=== PATIENT | female | born 1955 | race Caucasian/White ===

== ENCOUNTER 2018-01-06 20:00 | Emergency (ER) | payer OTHER ==
[2018-01-06] MEDS ORDERED: IPRATROPIUM-ALBUTEROL 3 ML NEB INHALATION STA (20:43)
[2018-01-06] MEDS ORDERED: methylPREDNISolone SOD SUCCI 125 MG/2 ML VIAL IV STA (20:43)
[2018-01-06 21:07] VITALS: PULSE 80
[2018-01-06] MEDS ORDERED: methylPREDNISolone SOD SUCCI 125 MG/2 ML VIAL IM ONE (21:16)
[2018-01-06 21:21] LABS: Glucose,Whole Blood 127 mg/dL (75-99)
--- NOTE | 2018-01-06 21:37 | ED ---
ENT HPI - General Chief complaint: ENT Stated complaint: trouble swallowing/trouble eating Time Seen by Provider: 01/06/18 20:22 Source: patient, RN notes reviewed, old records reviewed Mode of arrival: wheelchair Limitations: no limitations - History of Present Illness Initial comments: 62-year-old female presents emergency department today chief complaint of severe sore throat and losing her voice. She reports that on Saturday she accidentally swallowed a stem of a strawberry. She reports that she then coughed up the leaf. She reports that since then she was having a very sore throat and developed loss of her voice. She states that whenever she breathes and she has severe irritation and pain. She also complains of some right ear pain. Patient states she's had no drainage from the ear. She states that whenever she opens or closes her jaw she has pain within the ear. Patient is diabetic and remains on insulin. She reports that she has not been able to eat or drink anything because her throat has been so sore. - Related Data Home Medications Medication Instructions Recorded Confirmed ALPRAZolam [Xanax] 1 mg PO QID PRN 01/06/18 01/06/18 Beclomethasone Dipropionate [Qvar 2 puff INHALATION RT-QID 01/06/18 01/06/18 80 mcg] Cholecalciferol (Vitamin D3) 4,000 unit PO DAILY 01/06/18 01/06/18 [Vitamin D3] Clemastine Fumarate 2.68 mg PO BID 01/06/18 01/06/18 Cyclobenzaprine [Flexeril] 10 mg PO HS 01/06/18 01/06/18 Furosemide [Lasix] 40 mg PO DAILY 01/06/18 01/06/18 HYDROcodone/APAP 10-325MG [[place] 1 tab PO QID PRN 01/06/18 01/06/18 10-325] INSULIN LISPRO (humaLOG) [humaLOG] 55 units SQ AC-TID 01/06/18 01/06/18 INSULIN LISPRO (humaLOG) [humaLOG] See Protocol SQ DIRECTED 01/06/18 01/06/18 Insulin NPH Human Isophane 85 unit SQ HS 01/06/18 01/06/18 [humuLIN N] Ipratropium-Albuterol Nebulize 3 ml INHALATION RT-TID PRN 01/06/18 01/06/18 [Duoneb 0.5 mg-3 mg/3 ml Soln] Levothyroxine Sodium [Synthroid] 88 mcg PO DAILY 01/06/18 01/06/18 Lisinopril [Zestril] 2.5 mg PO DAILY 01/06/18 01/06/18 Metoprolol Succinate (ER) [Toprol 100 mg PO DAILY 01/06/18 01/06/18 Xl] Nystatin 100,000Unit/gm Cream 1 applic TOPICAL BID 01/06/18 01/06/18 [Mycostatin Cream] Spironolactone [Aldactone] 25 mg PO DAILY 01/06/18 01/06/18 Warfarin [Coumadin] 7.5 mg PO DAILY 01/06/18 01/06/18 Previous Rx's Medication Instructions Recorded Amoxic-Pot Clav 875-125Mg 1 tab PO Q12HR #20 tablet 01/06/18 [Augmentin 875-125] Allergies Allergy/AdvReac Type Severity Reaction Status Date / Time erythromycin base AdvReac Unknown Verified 01/06/18 20:10 morphine AdvReac Unknown Verified 01/06/18 20:10 Review of Systems ROS Statement: Those systems with pertinent positive or pertinent negative responses have been documented in the HPI. ROS Other: All systems not noted in ROS Statement are negative. Past Medical History Past Medical History: Atrial Fibrillation, Heart Failure, Diabetes Mellitus, Hyperlipidemia, Thyroid Disorder Additional Past Medical History / Comment(s): arthritis. cyst behing left leg. History of Any Multi-Drug Resistant Organisms: MRSA Date of last positivie culture/infection: 1999 MDRO Source:: blood Past Surgical History: Appendectomy, Cholecystectomy, Tonsillectomy, Tubal Ligation Additional Past Surgical History / Comment(s): bilateral knee laproscopy. Past Psychological History: No Psychological Hx Reported Smoking Status: Current every day smoker Past Alcohol Use History: None Reported Past Drug Use History: None Reported General Exam Limitations: no limitations Course Vital Signs 01/06/18 01/06/18 01/06/18 20:03 20:57 21:07 Temperature 98.8 F Pulse Rate 78 78 80 Respiratory 20 Rate Blood Pressure 154/118 O2 Sat by Pulse 97 Oximetry 01/06/18 23:17 Temperature 98.7 F Pulse Rate 80 Respiratory 18 Rate Blood Pressure 136/70 O2 Sat by Pulse 98 Oximetry Medical Decision Making - Medical Decision Making 62-year-old female presents emergency department today chief complaint of severe sore throat and losing her voice. She reports that on Saturday she accidentally swallowed a stem of a strawberry. She reports that she then coughed up the leaf. She reports that since then she was having a very sore throat and developed loss of her voice. She states that whenever she breathes and she has severe irritation and pain. Patient soft tissue neck and CXR are reviewed adn normal. Patient does have no voice, she can tolerate liquid medication. Patient was given IM solumedrol, unable to obtain IV access after multiple attempts. Patient did have some wheezing, feels better after duoneb. She is a smoker. Patient clinically has severe learyngitis. Patient pharyngitis as well. Will start on augmentin for foreign body ingestion related espohagitis. Labs show evidence of leukocytosis. Paitent advised to follow up with ENT. Return parameters discussed. L - Lab Data Result diagrams: 01/06/18 21:28 01/06/18 21:28 Lab Results 01/06/18 01/06/18 01/06/18 Range/Units 21:20 21:28 21:28 WBC 15.6 H (3.8-10.6) k/uL RBC 5.30 (3.80-5.40) m/uL Hgb 16.2 H (11.4-16.0) gm/dL Hct 48.4 H (34.0-46.0) % MCV 91.4 (80.0-100.0) fL MCH 30.6 (25.0-35.0) pg MCHC 33.5 (31.0-37.0) g/dL RDW 13.5 (11.5-15.5) % Plt Count 183 (150-450) k/uL Neutrophils % 68 % Lymphocytes % 21 % Monocytes % 8 % Eosinophils % 1 % Basophils % 1 % Neutrophils # 10.5 H (1.3-7.7) k/uL Lymphocytes # 3.2 (1.0-4.8) k/uL Monocytes # 1.2 H (0-1.0) k/uL Eosinophils # 0.2 (0-0.7) k/uL Basophils # 0.1 (0-0.2) k/uL Sodium 140 (137-145) mmol/L Potassium 4.7 (3.5-5.1) mmol/L Chloride 102 (98-107) mmol/L Carbon Dioxide 19 L (22-30) mmol/L Anion Gap 19 mmol/L BUN 24 H (7-17) mg/dL Creatinine 1.10 H (0.52-1.04) mg/dL Est GFR (CKD-EPI)AfAm 62 (>60 ml/min/1.73 sqM) Est GFR (CKD-EPI)NonAf 54 (>60 ml/min/1.73 sqM) Glucose 138 H (74-99) mg/dL POC Glucose (mg/dL) 127 H (75-99) mg/dL POC Glu [employer] [place] Calcium 10.5 H (8.4-10.2) mg/dL 01/06/18 21:59 - Radiology Data Radiology results: report reviewed (CXR and soft tissue neck xray completed and no abnormalities noted. ) Disposition Clinical Impression: Laryngitis, Pharyngitis Disposition: HOME SELF-CARE Condition: Good Instructions: Laryngitis (ED) Additional Instructions: Patient is advised to take the medication as directed. Patient to follow-up with ENT. If there is any worsening signs or symptoms patient should return. Prescriptions: Amoxic-Pot Clav 875-125Mg [Augmentin 875-125] 1 tab PO Q12HR #20 tablet Is patient prescribed a controlled substance at d/c from ED?: No If prescribed controlled substance>3 days was MAPS reviewed?: No When asked, does pt state using other controlled substances?: No Referrals: Gabriel Vera MD [Primary Care Provider] - 1-2 days Rip Mendoza DO [Doctor of Osteopathic Medicine] - 1-2 days Time of Disposition: 22:59
[2018-01-06 22:03] LABS: Basophils # (A) 0.1 k/uL (0-0.2); Basophils % (A) 1 %; Eosinophils # (A) 0.2 k/uL (0-0.7); Eosinophils % (A) 1 %; HCT 48.4 % (34.0-46.0); HGB 16.2 gm/dL (11.4-16.0); Lymphocytes # (A) 3.2 k/uL (1.0-4.8); Lymphocytes % (A) 21 %; MCH 30.6 pg (25.0-35.0); MCHC 33.5 g/dL (31.0-37.0); MCV 91.4 fL (80.0-100.0); Mean Platelet Volume 8.9; Monocytes # (A) 1.2 k/uL (0-1.0); Monocytes % (A) 8 %; Neutrophils # (A) 10.5 k/uL (1.3-7.7); Neutrophils % (A) 68 %; Platelet Count 183 k/uL (150-450); RDW 13.5 % (11.5-15.5); WBC 15.6 k/uL (3.8-10.6)
[2018-01-06 22:04] LABS: Calcium 10.5 mg/dL (8.4-10.2); Potassium 4.7 mmol/L (3.5-5.1)
--- NOTE | 2018-01-06 22:33 | XR ---
EXAMINATION TYPE: XR chest 2V DATE OF EXAM: 01/06/2018 COMPARISON: 11/07/2013 HISTORY: Pain TECHNIQUE: Frontal and lateral views of the chest are obtained. FINDINGS: Heart and mediastinum are normal. Lungs are clear. Diaphragm is normal. There is spurring in the lower thoracic spine. Bony thorax is intact. IMPRESSION: Normal chest. No change.
--- NOTE | 2018-01-06 22:34 | XR ---
EXAMINATION TYPE: XR soft tissue neck DATE OF EXAM: 01/06/2018 COMPARISON: NONE HISTORY: Throat pain TECHNIQUE: 2 views FINDINGS: Epiglottis is normal. Subglottic trachea appears normal. Tonsils and adenoids appear normal . Prevertebral soft tissues are not enlarged. IMPRESSION: Negative cervical soft tissue exam.
[2018-01-06] MEDS ORDERED: KETOROLAC 30 MG/ML 1 ML VIAL IM STA (22:37)
[2018-01-06] MEDS ORDERED: MORPHINE SULFATE 4 MG/ML SYRINGE IM STA (22:37)
[2018-01-06] MEDS ORDERED: AMOXIC-POT CLAV 875MG STARTER 2 EACH TABLET PO STA (23:00)
[2018-01-06] MEDS ORDERED: cefTRIAXone 1,000 MG VIAL (IM USE) IM STA (23:01)
[2018-01-06 23:18] VITALS: BP 136/70; RESP 18; TEMP 98.7
== END 2018-01-06 23:22 | disposition home or self-care (01) ==
LOC: EC 20:00
DX: J04.0 Acute laryngitis (principal); J02.9 Acute pharyngitis, unspecified; T18.198A Other foreign object in esophagus causing other injury, initial encounter; D72.829 Elevated white blood cell count, unspecified; H92.01 Otalgia, right ear; I48.91 Unspecified atrial fibrillation; E11.9 Type 2 diabetes mellitus without complications; I50.9 Heart failure, unspecified; E07.9 Disorder of thyroid, unspecified; F17.200 Nicotine dependence, unspecified, uncomplicated; Z79.01 Long term (current) use of anticoagulants; Z79.4 Long term (current) use of insulin; Z79.51 Long term (current) use of inhaled steroids; Z79.899 Other long term (current) drug therapy; Z88.1 Allergy status to other antibiotic agents; Z88.5 Allergy status to narcotic agent; Z86.14 Personal history of Methicillin resistant Staphylococcus aureus infection; Z90.89 Acquired absence of other organs
CPT/HCPCS: 99284; 96372 ×2; 36415; 94640; 80048; 85025; 70360; 71046; J2270; J2930; J0696; J1885

== ENCOUNTER 2018-08-02 20:44 | Emergency (ER) | payer OTHER ==
[2018-08-02] MEDS ORDERED: DILTIAZEM DRIP BOLUS FROM BAG 1 MG SOLN IV ONE (21:24)
[2018-08-02] MEDS ORDERED: LORazepam 2 MG/ML INJ IV STA (21:24)
--- NOTE | 2018-08-02 21:27 | XR ---
EXAMINATION TYPE: XR chest 1V portable DATE OF EXAM: 08/02/2018 COMPARISON: NONE HISTORY: Chest pain TECHNIQUE: Single frontal view of the chest is obtained. FINDINGS: There is no focal air space opacity, pleural effusion, or pneumothorax seen. The cardiac silhouette size is within normal limits. The osseous structures are intact. IMPRESSION: No acute process.
[2018-08-02] MEDS ORDERED: DILTIAZEM 50 MG in SODIUM CHLORIDE 0.9% 40 ML IV SCH (21:30)
[2018-08-02 21:35] LABS: Basophils # (A) 0.1 k/uL (0-0.2); Basophils % (A) 1 %; Eosinophils # (A) 0.1 k/uL (0-0.7); Eosinophils % (A) 1 %; HCT 44.5 % (34.0-46.0); HGB 14.9 gm/dL (11.4-16.0); Lymphocytes # (A) 1.7 k/uL (1.0-4.8); Lymphocytes % (A) 17 %; MCHC 33.6 g/dL (31.0-37.0); MCV 92.2 fL (80.0-100.0); Mean Platelet Volume 8.8; Monocytes # (A) 0.8 k/uL (0-1.0); Monocytes % (A) 8 %; Neutrophils # (A) 7.3 k/uL (1.3-7.7); Neutrophils % (A) 71 %; Platelet Count 144 k/uL (150-450); RBC 4.82 m/uL (3.80-5.40); RDW 13.4 % (11.5-15.5); WBC 10.2 k/uL (3.8-10.6)
[2018-08-02 21:49] LABS: INR 2.4 (<1.2); Partial Thromboplastin Time 34.6 sec (22.0-30.0); Prothrombin Time 21.7 sec (9.0-12.0)
[2018-08-02 21:50] VITALS: RESP 18
[2018-08-02 21:50] LABS: Calcium 9.9 mg/dL (8.4-10.2); Magnesium 1.4 mg/dL (1.6-2.3); Potassium 4.8 mmol/L (3.5-5.1); Total Bilirubin 0.5 mg/dL (0.2-1.3); Total Protein 6.6 g/dL (6.3-8.2)
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
[2018-08-02 21:56] LABS: Creatine Kinase 68 U/L (30-135)
[2018-08-02 22:08] LABS: Creatine Kinase MB 0.8 ng/mL (0.0-2.4); Troponin I <0.012 ng/mL (0.000-0.034)
[2018-08-03] MEDS ORDERED: HYDROcodone/APAP 10-325MG 1 EACH TAB PO ONE (01:07)
[2018-08-03 01:24] VITALS: BP 105/68; PULSE 84; TEMP 98.2
== END 2018-08-03 01:22 | disposition home or self-care (01) ==
LOC: EC 20:44
DX: I48.91 Unspecified atrial fibrillation (principal); I50.9 Heart failure, unspecified; E11.9 Type 2 diabetes mellitus without complications; E78.5 Hyperlipidemia, unspecified; E07.9 Disorder of thyroid, unspecified; F17.200 Nicotine dependence, unspecified, uncomplicated; Z86.14 Personal history of Methicillin resistant Staphylococcus aureus infection; Z79.51 Long term (current) use of inhaled steroids; Z79.4 Long term (current) use of insulin; Z79.01 Long term (current) use of anticoagulants; Z79.899 Other long term (current) drug therapy; Z88.1 Allergy status to other antibiotic agents; Z88.5 Allergy status to narcotic agent
CPT/HCPCS: 36415; 93005; 80053; 82550; 82553; 83735; 84484; 85025; 85610; 85730; 71045; 99285; 96365; 96366 ×2; 96375; 96376; J2060

== ENCOUNTER 2019-02-27 22:38 | Inpatient (IN) | payer OTHER ==
[2019-02-27] MEDS ORDERED: METOPROLOL SUCCINATE (ER) 25 MG TAB.ER.24H PO STA (23:13)
[2019-02-27] MEDS ORDERED: ADENOSINE 3 MG/ML 2 ML VIAL IVP STA (23:13)
[2019-02-27] MEDS ORDERED: METOPROLOL TARTRATE 5 MG/5 ML VIAL IVP SCH (23:15)
[2019-02-27 23:35] LABS: Basophils # (A) 0.1 k/uL (0-0.2); Basophils % (A) 1 %; Eosinophils # (A) 0.1 k/uL (0-0.7); Eosinophils % (A) 1 %; HCT 27.4 % (34.0-46.0); HGB 8.6 gm/dL (11.4-16.0); Hypochromasia Slight; Lymphocytes # (A) 3.2 k/uL (1.0-4.8); Lymphocytes % (A) 22 %; MCH 29.2 pg (25.0-35.0); MCHC 31.5 g/dL (31.0-37.0); MCV 92.7 fL (80.0-100.0); Mean Platelet Volume 8.5; Monocytes # (A) 1.1 k/uL (0-1.0); Monocytes % (A) 8 %; Neutrophils # (A) 9.5 k/uL (1.3-7.7); Neutrophils % (A) 65 %; Platelet Count 383 k/uL (150-450); Poikilocytosis Slight; RBC 2.96 m/uL (3.80-5.40); RDW 14.3 % (11.5-15.5); WBC 14.5 k/uL (3.8-10.6)
[2019-02-27 23:49] LABS: Digoxin 0.8 ng/mL; Potassium 4.3 mmol/L (3.5-5.1)
--- NOTE | 2019-02-28 00:37 | XR ---
INDICATION: Pain COMPARISON: CXR 08/02/18 FINDINGS: Portable upright AP view of the chest is submitted for interpretation. The lungs are clear. There is no pleural effusion or pneumothorax. Cardiomediastinal silhouette and pulmonary vascularity are normal. Regional skeleton appears intact. IMPRESSION: No acute cardiopulmonary disease.
[2019-02-28 00:45] LABS: Prothrombin Time 76.4 sec (9.0-12.0)
[2019-02-28 00:55] LABS: INR 7.8 (<1.2)
[2019-02-28] MEDS ORDERED: PHYTONADIONE ORAL 5 MG/5 ML ORAL.SYRG PO STA (01:05)
--- NOTE | 2019-02-28 01:26 | CT ---
INDICATION: Abdominal pain TECHNIQUE: CT acquisition is performed through the abdomen and pelvis. Coronal and sagittal reformatted images are provided. No IV contrast is administered. DOSE INFORMATION: DLP 1379 mGy-cm. This CT exam was performed using one or more of the following dose reduction techniques: automated exposure control, adjustment of the mA and/or kV according to patient size, and/or use of iterative reconstruction technique. COMPARISON: None. FINDINGS: The lung bases are clear. The liver is enlarged with mildly nodular surface. The gallbladder is surgically absent. The common bile duct is enlarged for age measuring 1. 4 cm, most likely due to reservoir effect. The spleen is enlarged measuring 14 cm. The pancreas and adrenal glands are unremarkable. There are bilateral obstructing renal calcifications, possibly vascular. There are bilateral renal cysts including a few hyperdense cysts in the right kidney, likely reflecting hemorrhagic or proteinaceous contents. There is no hydronephrosis. There is aortoiliac and mesenteric arterial atherosclerosis without evidence of aneurysm. There is no adenopathy. The appendix is not identified. There is no evidence of small or large bowel obstruction. There is no bowel wall thickening. The stomach is fluid distended and there are scattered small bowel fluid levels. Urinary bladder is unremarkable. The uterus is surgically absent. There are no acute osseous findings. There is severe degenerative disc disease at L4-L5. IMPRESSION: 1. Gastric distention with fluid and scattered small bowel fluid levels, possibly nonspecific gastroenteritis. 2. Enlarged liver with nodular surface suggesting cirrhosis. Splenomegaly is also seen in suggesting portal hypertension. 3. Cholecystectomy.
[2019-02-28] MEDS ORDERED: fentaNYL (PF) 50 MCG/ML 2 ML AMP IVP STA (01:42)
[2019-02-28] MEDS ORDERED: NALOXONE 0.4 MG/ML 1 ML VIAL IV PRN (02:19)
[2019-02-28] MEDS ORDERED: ONDANSETRON 4 MG/2 ML VIAL IVP PRN (02:19)
[2019-02-28] MEDS ORDERED: fentaNYL (PF) 50 MCG/ML 2 ML AMP IVP PRN (02:22)
[2019-02-28] MEDS ORDERED: IPRATROPIUM-ALBUTEROL 3 ML NEB INHALATION PRN (02:25)
[2019-02-28] MEDS: PANTOPRAZOLE 40 MG/10 ML VIAL IVP SCH ×3 (02:34→21:00)
--- NOTE | 2019-02-28 02:37 | ED ---
General Adult HPI - General Chief complaint: Arrhythmia/Palpitations Stated complaint: LUCY Time Seen by Provider: 02/27/19 22:58 Source: EMS Mode of arrival: EMS Limitations: no limitations - History of Present Illness Initial comments: 63-year-old female with a history of A. fib on Coumadin presenting with dizziness and black stools. She states for the last 3 days she's had black stools and today she a large amount of bright red blood in the toilet. She admits to presyncopal symptoms and room spinning dizziness. She is unsure what her last INR was and states that she has been compliant with her Coumadin. She denies any history of GI bleed or colonoscopy. She admits to generalized abdominal pain, but denies any vomiting or diarrhea. She denies any fevers or chills. - Related Data Home Medications Medication Instructions Recorded Confirmed ALPRAZolam [Xanax] 1 mg PO QID PRN 01/06/18 01/06/18 Beclomethasone Dipropionate [Qvar 2 puff INHALATION RT-QID 01/06/18 01/06/18 80 mcg] Cholecalciferol (Vitamin D3) 4,000 unit PO DAILY 01/06/18 01/06/18 [Vitamin D3] Clemastine Fumarate 2.68 mg PO BID 01/06/18 01/06/18 Cyclobenzaprine [Flexeril] 10 mg PO HS 01/06/18 01/06/18 Furosemide [Lasix] 40 mg PO DAILY 01/06/18 01/06/18 HYDROcodone/APAP 10-325MG [[place] 1 tab PO QID PRN 01/06/18 01/06/18 10-325] INSULIN LISPRO (humaLOG) [humaLOG] 55 units SQ AC-TID 01/06/18 01/06/18 INSULIN LISPRO (humaLOG) [humaLOG] See Protocol SQ DIRECTED 01/06/18 01/06/18 Insulin NPH Human Isophane 85 unit SQ HS 01/06/18 01/06/18 [humuLIN N] Ipratropium-Albuterol Nebulize 3 ml INHALATION RT-TID PRN 01/06/18 01/06/18 [Duoneb 0.5 mg-3 mg/3 ml Soln] Levothyroxine Sodium [Synthroid] 88 mcg PO DAILY 01/06/18 01/06/18 Lisinopril [Zestril] 2.5 mg PO DAILY 01/06/18 01/06/18 Metoprolol Succinate (ER) [Toprol 100 mg PO DAILY 01/06/18 01/06/18 Xl] Nystatin 100,000Unit/gm Cream 1 applic TOPICAL BID 01/06/18 01/06/18 [Mycostatin Cream] Spironolactone [Aldactone] 25 mg PO DAILY 01/06/18 01/06/18 Warfarin [Coumadin] 7.5 mg PO DAILY 01/06/18 01/06/18 Previous Rx's Medication Instructions Recorded Amoxic-Pot Clav 875-125Mg 1 tab PO Q12HR #20 tablet 01/06/18 [Augmentin 875-125] Allergies Allergy/AdvReac Type Severity Reaction Status Date / Time doxycycline Allergy Anaphylaxis Verified 02/27/19 23:05 erythromycin base AdvReac Unknown Verified 08/02/18 20:52 morphine AdvReac Unknown Verified 08/02/18 20:52 Review of Systems ROS Statement: Those systems with pertinent positive or pertinent negative responses have been documented in the HPI. Review of Systems Constitutional: Denies fever, chills Eyes: Denies change in vision, Denies pain Ears, nose, mouth, throat: Denies headaches, Denies sore throat Cardiovascular: Denies chest pain. Denies palpitations. Positive lightheadedness Respiratory: Denies shortness of breath, Denies cough Gastrointestinal: Positive abdominal pain. Denies nausea, vomiting, diarrhea. Positive Genitourinary: Denies hematuria, Denies infections Musculoskeletal: Denies pain, Denies swelling Integumentary: Denies rash Neurological: Denies headache, focal weakness, focal numbness Psychiatric: Denies anxiety, Denies depression Hematologic/Lymphatic: Denies easy bleeding or bruising ROS Other: All systems not noted in ROS Statement are negative. Past Medical History Past Medical History: Atrial Fibrillation, Heart Failure, Diabetes Mellitus, Hyperlipidemia, Thyroid Disorder Additional Past Medical History / Comment(s): arthritis. cyst behing left leg. History of Any Multi-Drug Resistant Organisms: MRSA Date of last positivie culture/infection: 1999 MDRO Source:: blood Past Surgical History: Appendectomy, Cholecystectomy, Tonsillectomy, Tubal Ligation Additional Past Surgical History / Comment(s): bilateral knee laproscopy. Past Psychological History: No Psychological Hx Reported Smoking Status: Current every day smoker Past Alcohol Use History: None Reported Past Drug Use History: None Reported General Exam - General Exam Comments Initial Comments: General: Awake, alert. Ill-appearing HENT: Normocephalic. Atraumatic Eyes: PERRL. EOMI. No scleral icterus. No injected conjunctiva Neck: Full ROM Chest/Lungs: Clear to auscultation bilaterally. No wheezing, rhonchi, or rales Cardiac: Irregular irregular No murmurs or rubs. Bilateral lower extremity edema Abdomen/GI: Soft, nondistended. Tenderness over lower abdomen. No rebound, guarding, or rigidity. Melanotic stool on rectal exam without any mass. Musculoskeletal: Full ROM Skin: Warm, dry, intact. Pale-appearing Neurologic: A/Ox3, no weakness, no sensory deficit, no abnormal gait, no coordination deficit Limitations: no limitations Course Vital Signs 02/27/19 02/27/19 02/27/19 22:43 22:44 23:14 Temperature 98.5 F Pulse Rate 168 H 168 H 111 H Respiratory 36 H 26 H 24 Rate Blood Pressure 105/86 109/73 O2 Sat by Pulse 100 100 Oximetry 02/28/19 02/28/19 00:42 01:18 Temperature Pulse Rate 97 96 Respiratory 18 18 Rate Blood Pressure 110/48 104/51 O2 Sat by Pulse 100 100 Oximetry Medical Decision Making - Medical Decision Making C3-year-old female presenting with chief complaint of GI bleed and presyncopal symptoms. Initial exam the patient is awake alert her heart rate is 164 and her EKG shows SVT. Patient's blood pressure was stable. She was given 6 mg of adenosine which showed that the underlying rhythm was atrial fibrillation with RVR. Patient was then given 5 mg of metoprolol IV with resolution of her rapid ventricular rate. She was then given 25 mg extended release by mouth. Her repeat EKG showed atrial fibrillation at a rate of 116 bpm. Her laboratory workup revealed a supratherapeutic INR of 7. Patient was given 10 mg of vitamin K by mouth. Hemoglobin found to be 8.6 down from to August. In lieu of the patient's active GI bleeding, symptomatic anemia, and irregular vital signs the decision was made to give the patient 2 units of PRBCs. Patient CT showed some findings that could be consistent with gastroenteritis. No colitis was seen therefore the patient was not started on antibiotics. I spoke with Dr. Lua who is agreeable to admission with cardiology and GI on consult. Patient currently stable for transfer to the floor. - Lab Data Result diagrams: 02/27/19 22:51 02/27/19 22:51 Lab Results 02/27/19 02/27/19 02/27/19 Range/Units 22:51 22:51 22:51 WBC 14.5 H (3.8-10.6) k/uL RBC 2.96 L (3.80-5.40) m/uL Hgb 8.6 L (11.4-16.0) gm/dL Hct 27.4 L (34.0-46.0) % MCV 92.7 (80.0-100.0) fL MCH 29.2 (25.0-35.0) pg MCHC 31.5 (31.0-37.0) g/dL RDW 14.3 (11.5-15.5) % Plt Count 383 (150-450) k/uL Neutrophils % 65 % Lymphocytes % 22 % Monocytes % 8 % Eosinophils % 1 % Basophils % 1 % Neutrophils # 9.5 H (1.3-7.7) k/uL Lymphocytes # 3.2 (1.0-4.8) k/uL Monocytes # 1.1 H (0-1.0) k/uL Eosinophils # 0.1 (0-0.7) k/uL Basophils # 0.1 (0-0.2) k/uL Hypochromasia Slight Poikilocytosis Slight PT (9.0-12.0) sec INR (<1.2) Sodium 141 (137-145) mmol/L Potassium 4.3 (3.5-5.1) mmol/L Chloride 105 (98-107) mmol/L Carbon Dioxide 23 (22-30) mmol/L Anion Gap 13 mmol/L BUN 27 H (7-17) mg/dL Creatinine 1.24 H (0.52-1.04) mg/dL Est GFR (CKD-EPI)AfAm 53 (>60 ml/min/1.73 sqM) Est GFR (CKD-EPI)NonAf 46 (>60 ml/min/1.73 sqM) Glucose 141 H (74-99) mg/dL Calcium 9.0 (8.4-10.2) mg/dL Troponin I (0.000-0.034) ng/mL NT-Pro-B Natriuret Pep pg/mL Stool Occult Blood (Negative) Digoxin 0.8 ng/mL Blood Type A Positive Blood Type Recheck No 02/27/19 02/27/19 02/27/19 Range/Units 22:51 22:51 22:51 WBC (3.8-10.6) k/uL RBC (3.80-5.40) m/uL Hgb (11.4-16.0) gm/dL Hct (34.0-46.0) % MCV (80.0-100.0) fL MCH (25.0-35.0) pg MCHC (31.0-37.0) g/dL RDW (11.5-15.5) % Plt Count (150-450) k/uL Neutrophils % % Lymphocytes % % Monocytes % % Eosinophils % % Basophils % % Neutrophils # (1.3-7.7) k/uL Lymphocytes # (1.0-4.8) k/uL Monocytes # (0-1.0) k/uL Eosinophils # (0-0.7) k/uL Basophils # (0-0.2) k/uL Hypochromasia Poikilocytosis PT 76.4 H (9.0-12.0) sec INR 7.8 H* (<1.2) Sodium (137-145) mmol/L Potassium (3.5-5.1) mmol/L Chloride (98-107) mmol/L Carbon Dioxide (22-30) mmol/L Anion Gap mmol/L BUN (7-17) mg/dL Creatinine (0.52-1.04) mg/dL Est GFR (CKD-EPI)AfAm (>60 ml/min/1.73 sqM) Est GFR (CKD-EPI)NonAf (>60 ml/min/1.73 sqM) Glucose (74-99) mg/dL Calcium (8.4-10.2) mg/dL Troponin I 0.013 (0.000-0.034) ng/mL NT-Pro-B Natriuret Pep 1640 pg/mL Stool Occult Blood (Negative) Digoxin ng/mL Blood Type Blood Type Recheck 02/28/19 Range/Units 01:50 WBC (3.8-10.6) k/uL RBC (3.80-5.40) m/uL Hgb (11.4-16.0) gm/dL Hct (34.0-46.0) % MCV (80.0-100.0) fL MCH (25.0-35.0) pg MCHC (31.0-37.0) g/dL RDW (11.5-15.5) % Plt Count (150-450) k/uL Neutrophils % % Lymphocytes % % Monocytes % % Eosinophils % % Basophils % % Neutrophils # (1.3-7.7) k/uL Lymphocytes # (1.0-4.8) k/uL Monocytes # (0-1.0) k/uL Eosinophils # (0-0.7) k/uL Basophils # (0-0.2) k/uL Hypochromasia Poikilocytosis PT (9.0-12.0) sec INR (<1.2) Sodium (137-145) mmol/L Potassium (3.5-5.1) mmol/L Chloride (98-107) mmol/L Carbon Dioxide (22-30) mmol/L Anion Gap mmol/L BUN (7-17) mg/dL Creatinine (0.52-1.04) mg/dL Est GFR (CKD-EPI)AfAm (>60 ml/min/1.73 sqM) Est GFR (CKD-EPI)NonAf (>60 ml/min/1.73 sqM) Glucose (74-99) mg/dL Calcium (8.4-10.2) mg/dL Troponin I (0.000-0.034) ng/mL NT-Pro-B Natriuret Pep pg/mL Stool Occult Blood Positive H (Negative) Digoxin ng/mL Blood Type Blood Type Recheck Disposition Clinical Impression: Supratherapeutic INR, Atrial fibrillation with rapid ventricular response, CECILIO (acute kidney injury), GI bleed, Symptomatic anemia, Abdominal pain Disposition: ADMITTED IP TO THIS [facility] Referrals: Gabriel Vera MD [Primary Care Provider] - 1-2 days Decision to Admit Reason: Admit from EC Decision Date: 02/28/19 Decision Time: 02:37
[2019-02-28 05:27] LABS: Glucose,Whole Blood 241 mg/dL (75-99)
[2019-02-28] MEDS: INSULIN NPH 300 UNIT/3 ML VIAL SQ SCH ×2 (05:44→23:44)
[2019-02-28 06:45] LABS: Glucose,Whole Blood 250 mg/dL (75-99)
[2019-02-28] MEDS: FLUTICASONE 110 MCG INHALER INHALATION SCH ×2 (07:33→19:28)
[2019-02-28] MEDS: INSULIN ASPART (NovoLOG) 100 UNIT/ML VIAL SQ SCH ×2 (09:41→15:13)
[2019-02-28 09:42] LABS: Glucose,Whole Blood 237 mg/dL (75-99)
--- NOTE | 2019-02-28 09:54 | P.CRDCN ---
History of Present Illness Consult date: 02/28/19 Consult reason: atrial fibrillation (Atrial fibrillation with RVR) Chief complaint: Rectal bleeding History of present illness: This is a 63-year-old female with past medical history of chronic atrial fibrillation on chronic Coumadin managed by Dr. Vera, chronic heart failure, hypertension, hyperlipidemia, hypothyroidism, tobacco use and dependence, diabetes mellitus type 2 insulin requiring, uterine cancer. Patient denies any history of myocardial infarction, no history of CVA.. Patient follows with Dr. Cruz in the past. Patient gives history of having 3 days of black stools and then yesterday developed bright red rectal bleeding. She denies any nausea or vomiting. The patient came into [facility] emergency center for evaluation. She was found to have a heart rate of 168 and initially given Adenocard 1 dose IV and rate slowed showing atrial fibrillation and patient was then given Lopressor 5 g IV followed by Lopressor 25 mg oral. She is now in atrial fibrillation with rate controlled running in the 80s. The patient denies any chest pain or shortness of breath. INR came back at 7.8 and patient is status post vitamin K 10 mg orally. She is receiving her second unit of packed RBCs. Patient also complains of lower extremity edema as well as hand edema. She complains of significant dizziness especially moving to a sitting position. Initial EKG reveals atrial fibrillation with ST depression. Second EKG reveals atrial fibrillation with nonspecific ST changes. Laboratory studies: WBC 14.5, hemoglobin 8.6, platelet count 383, INR 7.8. BUN 27 creatinine 1.24, which was within normal limits, blood sugar 141, stool for occult blood positive. Digoxin level 0.8. Imaging studies: Chest x-ray showed no acute findings. CAT scan of the abdomen and pelvis without contrast revealed gastric distention with fluid and scattered small bowel fluid levels, possible nonspecific gastroenteritis. Enlarged liver with nodular surface suggesting cirrhosis. Splenomegaly is also seen suggesting portal hypertension. Cholecystectomy. Social history: Patient is a smoker of 5 cigarettes per day for 30 years. She denies any alcohol use. Review Of Systems: Constitutional: No fever, no chills, no night sweats. No weight change. No weakness, fatigue or lethargy. No daytime sleepiness. EENT: No headache. No blurred vision or double vision, no loss of vision. No loss of Hearing, no ringing in the ears, no dizziness. No nasal drainage or congestion. No epistaxis. No sore throat. Lungs: No shortness of breath, cough, no sputum production. No wheezing. Cardiovascular: No chest pain, no lower extremity edema. No palpitations. No paroxysmal nocturnal dyspnea. No orthopnea. No lightheadedness or dizziness. No syncopal episodes. Abdominal: No abdominal pain. No nausea, vomiting. Reports black and bright red rectal bleeding No loss of appetite. Genitourinary: No dysuria, increased frequency, urgency. No urinary retention. Musculoskeletal: No myalgias. No muscle weakness, no gait dysfunction, no frequent falls. No back pain. No neck pain. Integumentary: No wounds, no lesions. No rash or pruritus. No unusual bruising. No change in hair or nails. Neurologic: No aphasia. No facial droop. No change in mentation. No head injury. No headache. No paralysis. No paresthesia. Psychiatric: No depression. No anxiety. No mood swings. Endocrine: No abnormal blood sugars. No weight change. No excessive sweating or thirst. No cold intolerance. No weight change. Physical exam: Gen: This is a morbidly obese 63-year-old female. She is resting on the ER stretcher and appears to be comfortable. No acute distress is noted. HEENT: Head is atraumatic, normocephalic. Pupils equal, round. Sclerae is anicteric. NECK: Supple. No JVD. No lymphadenopathy. No thyromegaly. LUNGS: Clear to auscultation. No wheezes or rhonchi. No intercostal retractions. HEART: Regular rate and rhythm. No significant significant murmur. ABDOMEN: Soft. Bowel sounds are present. No masses. Left lower quadrant tenderness. EXTREMITIES: Trace bilateral pedal edema. No calf tenderness. NEUROLOGICAL: Patient is awake, alert and oriented x3. Cranial nerves 2 through 12 are grossly intact. Assessment: Acute rectal bleeding with acute blood loss anemia. Coagulopathy secondary to Coumadin use and a liver cirrhosis. Chronic atrial fibrillation presenting with RVR. Liver cirrhosis and portal hypertension found on CAT scan. Chronic heart failure, possible diastolic. Hypertension. Hyperlipidemia. Hypothyroidism. Diabetes mellitus type 2, insulin requiring. Plan: Hold Coumadin and monitor INR closely. Patient is status post vitamin K. Repeat INR and CBC at 6 PM and 6 AM. Obtain 2-D echocardiogram and Doppler study to assess cardiac structures and function. Continue Aldactone 25 mg daily, metoprolol succinate 100 mg daily, lisinopril 2 .5 mg daily, Lasix 40 mg daily, digoxin 250 mg daily. Recommend consult with GI regarding GI bleed and liver cirrhosis and possible portal hypertension. Further recommendations to follow based upon clinical course. Nurse practitioner note has been reviewed, I agree with documented findings and plan of care. Patient was seen and examined. Past Medical History Past Medical History: Atrial Fibrillation, Heart Failure, Diabetes Mellitus, Hyperlipidemia, Thyroid Disorder Additional Past Medical History / Comment(s): arthritis. cyst behing left leg. History of Any Multi-Drug Resistant Organisms: MRSA Date of last positivie culture/infection: 1999 MDRO Source:: blood Past Surgical History: Appendectomy, Cholecystectomy, Tonsillectomy, Tubal Ligation Additional Past Surgical History / Comment(s): bilateral knee laproscopy. Past Psychological History: No Psychological Hx Reported Smoking Status: Current every day smoker Past Alcohol Use History: None Reported Past Drug Use History: None Reported Medications and Allergies Home Medications Medication Instructions Recorded Confirmed Type ALPRAZolam [Xanax] 1 mg PO QID PRN 01/06/18 02/28/19 History Beclomethasone Dipropionate [Qvar 2 puff INHALATION RT-BID 01/06/18 02/28/19 History 80 mcg] Cholecalciferol (Vitamin D3) 4,000 unit PO DAILY 01/06/18 02/28/19 History [Vitamin D3] Clemastine Fumarate 2.68 mg PO BID 01/06/18 02/28/19 History Cyclobenzaprine [Flexeril] 10 mg PO HS 01/06/18 02/28/19 History Furosemide [Lasix] 40 mg PO DAILY 01/06/18 02/28/19 History HYDROcodone/APAP 10-325MG [[place] 1 tab PO QID PRN 01/06/18 02/28/19 History 10-325] Insulin NPH Human Isophane 90 unit SQ HS 01/06/18 02/28/19 History [humuLIN N] Ipratropium-Albuterol Nebulize 3 ml INHALATION RT-TID PRN 01/06/18 02/28/19 History [Duoneb 0.5 mg-3 mg/3 ml Soln] Levothyroxine Sodium [Synthroid] 88 mcg PO DAILY 01/06/18 02/28/19 History Lisinopril [Zestril] 2.5 mg PO DAILY 01/06/18 02/28/19 History Metoprolol Succinate (ER) [Toprol 100 mg PO DAILY 01/06/18 02/28/19 History Xl] Nystatin 100,000Unit/gm Cream 1 applic TOPICAL BID 01/06/18 02/28/19 History [Mycostatin Cream] Spironolactone [Aldactone] 25 mg PO DAILY 01/06/18 02/28/19 History Warfarin [Coumadin] 7.5 mg PO HS 01/06/18 02/28/19 History Digoxin 250 mcg PO DAILY 02/28/19 02/28/19 History Insulin Lispro [Admelog] 45 unit SQ AC-TID 02/28/19 02/28/19 History Allergies Allergy/AdvReac Type Severity Reaction Status Date / Time doxycycline Allergy Anaphylaxis Verified 02/28/19 07:33 erythromycin base AdvReac Unknown Verified 02/28/19 07:33 morphine AdvReac Unknown Verified 02/28/19 07:33 Physical Exam Vitals: Vital Signs Temp Pulse Resp BP Pulse Ox 02/28/19 08:32 98 F 80 20 100/52 98 02/28/19 08:18 98.0 F 82 18 91/48 02/28/19 07:54 98.5 F 87 18 100/60 96 02/28/19 07:48 98.5 F 84 18 100/60 97 02/28/19 07:38 98.2 F 85 18 108/61 97 02/28/19 07:20 98.1 F 87 18 110/52 98 02/28/19 06:48 98.8 F 85 16 112/52 99 02/28/19 05:19 98.1 F 97 16 107/60 99 02/28/19 04:28 99 02/28/19 04:24 98.6 F 82 18 101/51 02/28/19 03:54 99.4 F 86 16 99/56 02/28/19 03:44 98.8 F 84 17 96/52 02/28/19 02:57 95 18 130/55 99 02/28/19 01:18 96 18 104/51 100 02/28/19 00:42 97 18 110/48 100 02/27/19 23:14 111 H 24 109/73 100 02/27/19 22:44 98.5 F 168 H 26 H 105/86 100 02/27/19 22:43 168 H 36 H Intake and Output 02/27/19 02/28/19 02/28/19 22:59 06:59 14:59 Intake Total 0 310 Output Total 1 Balance 0 309 Intake: Blood Product 0 310 Rc As-1 Unit 0 310 [id number] Rc As-1 Unit 0 [id number] Output: Urine 1 Other: # Voids 2 Weight 155.582 kg Results 02/27/19 22:51 02/27/19 22:51 Cardiac Enzymes 02/27/19 Range/Units 22:51 Troponin I 0.013 (0.000-0.034) ng/mL Coagulation 02/27/19 Range/Units 22:51 PT 76.4 H (9.0-12.0) sec CBC 02/27/19 Range/Units 22:51 WBC 14.5 H (3.8-10.6) k/uL RBC 2.96 L (3.80-5.40) m/uL Hgb 8.6 L (11.4-16.0) gm/dL Hct 27.4 L (34.0-46.0) % Plt Count 383 (150-450) k/uL Comprehensive Metabolic Panel 02/27/19 Range/Units 22:51 Sodium 141 (137-145) mmol/L Potassium 4.3 (3.5-5.1) mmol/L Chloride 105 (98-107) mmol/L Carbon Dioxide 23 (22-30) mmol/L BUN 27 H (7-17) mg/dL Creatinine 1.24 H (0.52-1.04) mg/dL Glucose 141 H (74-99) mg/dL Calcium 9.0 (8.4-10.2) mg/dL Current Medications Generic Name Dose Route Start Last Admin Trade Name Freq PRN Reason Stop Dose Admin Hydrocodone Bitart/Acetaminophen 1 each 02/28/19 02:25 [place] 10 PO QID PRN Pain Albuterol/Ipratropium 3 ml 02/28/19 02:25 Duoneb 0.5 Mg-3 Mg/3 Ml Soln INHALATION RT-TID PRN Shortness Of Breath Fentanyl Citrate 50 mcg 02/28/19 02:22 02/28/19 07:46 Sublimaze IVP 50 mcg Q4H PRN Administration Severe Pain Fluticasone Propionate 2 puff 02/28/19 08:00 02/28/19 07:33 Flovent 110 Mcg Inhaler INHALATION 2 puff RT-BID [facility] Administration Sodium Chloride 1,000 mls @ 75 mls/hr 02/28/19 02:30 Saline 0.9% IV .[id number] [facility] Insulin Aspart 55 unit 02/28/19 07:30 Novolog SQ AC-TID [facility] Insulin Human NPH 85 unit 02/28/19 05:32 02/28/19 05:44 Humulin N SQ 25 unit [facility] Administration Levothyroxine Sodium 88 mcg 02/28/19 06:30 Synthroid PO DAILY@0630 [facility] Metoprolol Succinate 100 mg 02/28/19 09:00 Toprol Xl PO DAILY [facility] Naloxone HCl 0.2 mg 02/28/19 02:19 Narcan IV Q2M PRN Opioid Reversal Ondansetron HCl 4 mg 02/28/19 02:19 Zofran IVP Q8HR PRN Nausea And Vomiting Pantoprazole Sodium 40 mg 02/28/19 01:42 02/28/19 02:34 Protonix IVP 40 mg BID [facility] Administration Spironolactone 25 mg 02/28/19 09:00 Aldactone PO DAILY [facility] Intake and Output 02/27/19 02/28/19 02/28/19 22:59 06:59 14:59 Intake Total 0 310 Output Total 1 Balance 0 309 Intake: Blood Product 0 310 Rc As-1 Unit 0 310 [id number] Rc As-1 Unit 0 [id number] Output: Urine 1 Other: # Voids 2 Weight 155.582 kg 02/27/19 22:51 02/27/19 22:51
[2019-02-28 11:43] LABS: INR 3.8 (<1.2); Prothrombin Time 36.2 sec (9.0-12.0)
[2019-02-28 14:26] LABS: Glucose,Whole Blood 194 mg/dL (75-99)
[2019-02-28] MEDS: METOPROLOL SUCCINATE (ER) 100 MG TAB.ER.24H PO SCH (15:11)
[2019-02-28] MEDS: LEVOTHYROXINE 88 MCG TAB PO SCH (15:11)
[2019-02-28] MEDS: SPIRONOLACTONE 25 MG TAB PO SCH (15:12)
[2019-02-28] MEDS: SODIUM CHLORIDE 0.9% 1,000 ML IV SCH ×3 (15:13→21:08)
[2019-02-28] MEDS: HYDROcodone/APAP 10-325MG 1 EACH TAB PO PRN ×2 (15:24→23:42)
[2019-02-28 15:43] VITALS: BMI 44.5
[2019-02-28 17:13] LABS: Glucose,Whole Blood 222 mg/dL (75-99)
[2019-02-28 17:51] LABS: HCT 28.9 % (34.0-46.0); HGB 9.2 gm/dL (11.4-16.0); Hypochromasia Moderate; MCH 29.4 pg (25.0-35.0); MCHC 31.9 g/dL (31.0-37.0); MCV 92.3 fL (80.0-100.0); Mean Platelet Volume 9.1; Platelet Count 220 k/uL (150-450); Poikilocytosis Moderate; RBC 3.13 m/uL (3.80-5.40); RDW 14.2 % (11.5-15.5); WBC 11.9 k/uL (3.8-10.6)
--- NOTE | 2019-02-28 18:11 | P.HPIM ---
History of Present Illness H&P Date: 02/28/19 Chief Complaint: A. fib with RVR this is a 63-year-old female patient of Dr. KutDr. Cruz. She has underlying history of chronic atrial fibrillation hypertension and hypothyroidism, chronic tobacco use, that diabetes mellitus type 2 insulin requiring, and uterine cancer, admitted to the emergency room secondary to atrial fibrillation with rapid ventricular rate, heart rate of 168, she was given Adenocard in the emergency room, along with Lopressor 5 g IV.she presents with shortness of breath, palpitations, no chest pain, patient has lower extremity edema, headache edema, dizziness, and orthostatic lightheadedness. she has bloody stools after initial black stools for the past 4 days, no prior colonoscopy in the past, She is also on long-term anticoagulation with an INR of 7.8, patient has been noncompliant with INR monitoring at Dr. Vera's office, and was given vitamin K orally. In emergency room, EKG shows atrial fibrillation with ST depression, heart rate 168, second EKG showed atrial fibrillation with nonspecific ST-T wave changes, hemoglobin of 8.6, INR 7.8, creatinine of 1.24, blood sugar of 141, occult stools are positive, CAT scan of the abdomen and pelvis shows gastric distention with fluid and scattered small bowel fluid levels, possible nonspecific gastroenteritis, enlarged liver with nodular surface suggesting cirrhosis, also splenomegaly suggesting portal hypertension. also there is right-sided few hyperdense cyst in the right kidney likely reflecting hemorrhagic or proteinacious contents no hydronephrosis . Cholecystectomy chest x-ray shows no acute findings patient is admitted for A. fib with RVR, blood loss anemia, unco ntrolled coagulopathy, symptomatic anemia, consult to cardiology and GI Dr. Scott Review of Systems Constitutional: Reports as per HPI, Reports chronic pain, Denies anorexia, Denies chills, Denies chronic headaches, Denies daytime sleepiness, Denies fatigue, Denies fever, Denies lethargy, Denies malaise, Denies night sweats, Denies poor appetite, Denies sweats, Denies weakness, Denies weight gain, Denies weight loss Ears, nose, mouth and throat: Reports as per HPI, Denies ant. neck pain, Denies bleeding gums, Denies dental pain, Denies dysphagia, Denies epistaxis, Denies headache, Denies hoarseness, Denies mouth pain, Denies nasal congestion, Denies nasal discharge, Denies neck fullness/pressure, Denies neck lump, Denies nose pain, Denies odynophagia, Denies post-nasal drip, Denies sinus pain, Denies sinus pressure, Denies swelling in mouth, Denies swelling in throat, Denies sore throat, Denies vertigo, Denies voice changes Cardiovascular: Reports as per HPI, Denies chest pain, Denies claudication, Denies decreased exercise tolerance, Denies dyspnea on exertion, Denies edema, Denies high blood pressure, Denies irregular heart beat, Denies leg edema, Denies lightheadedness, Denies orthopnea, Denies palpitations, Denies paroxysmal nocturnal dyspnea, Denies phlebitis, Denies rapid heart beat, Denies shortness of breath, Denies syncope Respiratory: Reports as per HPI, Denies congestion, Denies cough, Denies cough with sputum, Denies dyspnea, Denies excessive sputum, Denies hemoptysis, Denies home oxygen, Denies pain, Denies pain on inspiration, Denies pleurisy, Denies respiratory infections, Denies sleep apnea, Denies snoring, Denies wheezing Gastrointestinal: Reports abdominal pain, Reports change in bowel habits, Reports constipation, Reports early satiety, Reports hematochezia, Reports melena Genitourinary: Reports as per HPI Menstruation: Reports as per HPI, Reports postmenopausal Musculoskeletal: Reports as per HPI, Reports gait dysfunction, Reports limitation of motion, Reports muscle weakness Integumentary: Reports as per HPI Neurological: Reports as per HPI Psychiatric: Reports as per HPI, Reports sleep disturbances Endocrine: Reports as per HPI, Denies cold intolerance, Denies deepening of the voice, Denies excessive sweating, Denies excessive thirst, Denies fatigue, Denies flushing, Denies heat intolerance, Denies high blood sugars, Denies increase in ring/shoe/hat size, Denies low blood sugars, Denies nocturia, Denies palpitations, Denies polydipsia, Denies polyphagia, Denies polyuria, Denies proptosis, Denies recent glucocorticoid use, Denies thyroid mass, Denies weight change Hematologic/Lymphatic: Reports as per HPI Allergic/Immunologic: Reports as per HPI Past Medical History Past Medical History: Atrial Fibrillation, Heart Failure, Diabetes Mellitus, Hyperlipidemia, Thyroid Disorder Additional Past Medical History / Comment(s): arthritis. cyst behing left leg. History of Any Multi-Drug Resistant Organisms: MRSA Date of last positivie culture/infection: 1999 MDRO Source:: blood Past Surgical History: Appendectomy, Cholecystectomy, Tonsillectomy, Tubal Ligation Additional Past Surgical History / Comment(s): bilateral knee laproscopy. Past Psychological History: No Psychological Hx Reported Smoking Status: Current every day smoker Past Alcohol Use History: None Reported Past Drug Use History: None Reported - Past Family History Father Family Medical History: Diabetes Mellitus, Renal Disease (kidney failure) Mother History Unknown: Yes (bowel perforation) Family Medical History: Diabetes Mellitus Brother(s) History Unknown: Yes (liver failure, alcohol) Sister(s) History Unknown: Yes (colon polyp) Daughter(s) Family Medical History: No Reported History Son(s) Family Medical History: No Reported History Medications and Allergies Home Medications Medication Instructions Recorded Confirmed Type ALPRAZolam [Xanax] 1 mg PO QID PRN 01/06/18 02/28/19 History Beclomethasone Dipropionate [Qvar 2 puff INHALATION RT-BID 01/06/18 02/28/19 History 80 mcg] Cholecalciferol (Vitamin D3) 4,000 unit PO DAILY 01/06/18 02/28/19 History [Vitamin D3] Clemastine Fumarate 2.68 mg PO BID 01/06/18 02/28/19 History Cyclobenzaprine [Flexeril] 10 mg PO HS 01/06/18 02/28/19 History Furosemide [Lasix] 40 mg PO DAILY 01/06/18 02/28/19 History HYDROcodone/APAP 10-325MG [Peebles 1 tab PO QID PRN 01/06/18 02/28/19 History 10-325] Insulin NPH Human Isophane 90 unit SQ HS 01/06/18 02/28/19 History [humuLIN N] Ipratropium-Albuterol Nebulize 3 ml INHALATION RT-TID PRN 01/06/18 02/28/19 History [Duoneb 0.5 mg-3 mg/3 ml Soln] Levothyroxine Sodium [Synthroid] 88 mcg PO DAILY 01/06/18 02/28/19 History Lisinopril [Zestril] 2.5 mg PO DAILY 01/06/18 02/28/19 History Metoprolol Succinate (ER) [Toprol 100 mg PO DAILY 01/06/18 02/28/19 History Xl] Nystatin 100,000Unit/gm Cream 1 applic TOPICAL BID 01/06/18 02/28/19 History [Mycostatin Cream] Spironolactone [Aldactone] 25 mg PO DAILY 01/06/18 02/28/19 History Warfarin [Coumadin] 7.5 mg PO HS 01/06/18 02/28/19 History Digoxin 250 mcg PO DAILY 02/28/19 02/28/19 History Insulin Lispro [Admelog] 45 unit SQ AC-TID 02/28/19 02/28/19 History Allergies Allergy/AdvReac Type Severity Reaction Status Date / Time doxycycline Allergy Anaphylaxis Verified 02/28/19 07:33 erythromycin base AdvReac Unknown Verified 02/28/19 07:33 morphine AdvReac Unknown Verified 02/28/19 07:33 Physical Exam Vitals: Vital Signs Temp Pulse Resp BP Pulse Ox 02/28/19 10:49 98.2 F 82 18 101/60 02/28/19 08:32 98 F 80 20 100/52 98 02/28/19 08:18 98.0 F 82 18 91/48 02/28/19 07:54 98.5 F 87 18 100/60 96 02/28/19 07:48 98.5 F 84 18 100/60 97 02/28/19 07:38 98.2 F 85 18 108/61 97 02/28/19 07:20 98.1 F 87 18 110/52 98 02/28/19 06:48 98.8 F 85 16 112/52 99 02/28/19 05:19 98.1 F 97 16 107/60 99 02/28/19 04:28 99 02/28/19 04:24 98.6 F 82 18 101/51 02/28/19 03:54 99.4 F 86 16 99/56 02/28/19 03:44 98.8 F 84 17 96/52 02/28/19 02:57 95 18 130/55 99 02/28/19 01:18 96 18 104/51 100 02/28/19 00:42 97 18 110/48 100 02/27/19 23:14 111 H 24 109/73 100 02/27/19 22:44 98.5 F 168 H 26 H 105/86 100 02/27/19 22:43 168 H 36 H Intake and Output 02/27/19 02/28/19 02/28/19 22:59 06:59 14:59 Intake Total 0 620 Output Total 1 Balance 0 619 Intake: Blood Product 0 620 Rc As-1 Unit 0 310 [id number] Rc As-1 Unit 310 [id number] Output: Urine 1 Other: # Voids 2 Weight 155.582 kg - Constitutional General appearance: cooperative, no acute distress - EENT Eyes: anicteric sclerae, EOMI, dentition normal ENT: NA/AT, normal oropharynx - Neck Neck: normal ROM - Respiratory Respiratory: bilateral: CTA, negative: diminished, dullness, rales, rhonchi - Cardiovascular Rhythm: regular Heart sounds: normal: S1, S2 Abnormal Heart Sounds: no systolic murmur, no diastolic murmur, no rub, no S3 Gallop, no S4 Gallop, no click, no other - Gastrointestinal General gastrointestinal: normal bowel sounds - Neurologic Neurologic: CNII-XII intact - Musculoskeletal Musculoskeletal: gait normal, strength equal bilaterally - Psychiatric Psychiatric: A&O x's 3, appropriate affect, intact judgment & insight Results CBC & Chem 7: 02/28/19 17:32 02/27/19 22:51 Labs: Abnormal Lab Results - Last 24 Hours (Table) 02/27/19 02/27/19 02/27/19 Range/Units 22:51 22:51 22:51 WBC 14.5 H (3.8-10.6) k/uL RBC 2.96 L (3.80-5.40) m/uL Hgb 8.6 L (11.4-16.0) gm/dL Hct 27.4 L (34.0-46.0) % Neutrophils # 9.5 H (1.3-7.7) k/uL Monocytes # 1.1 H (0-1.0) k/uL PT 76.4 H (9.0-12.0) sec INR 7.8 H* (<1.2) BUN 27 H (7-17) mg/dL Creatinine 1.24 H (0.52-1.04) mg/dL Glucose 141 H (74-99) mg/dL POC Glucose (mg/dL) (75-99) mg/dL Stool Occult Blood (Negative) Crossmatch 02/27/19 02/28/19 02/28/19 Range/Units 22:56 01:50 05:25 WBC (3.8-10.6) k/uL RBC (3.80-5.40) m/uL Hgb (11.4-16.0) gm/dL Hct (34.0-46.0) % Neutrophils # (1.3-7.7) k/uL Monocytes # (0-1.0) k/uL PT (9.0-12.0) sec INR (<1.2) BUN (7-17) mg/dL Creatinine (0.52-1.04) mg/dL Glucose (74-99) mg/dL POC Glucose (mg/dL) 241 H (75-99) mg/dL Stool Occult Blood Positive H (Negative) Crossmatch See Detail 02/28/19 02/28/19 02/28/19 Range/Units 06:42 09:39 11:19 WBC (3.8-10.6) k/uL RBC (3.80-5.40) m/uL Hgb (11.4-16.0) gm/dL Hct (34.0-46.0) % Neutrophils # (1.3-7.7) k/uL Monocytes # (0-1.0) k/uL PT 36.2 H (9.0-12.0) sec INR 3.8 H (<1.2) BUN (7-17) mg/dL Creatinine (0.52-1.04) mg/dL Glucose (74-99) mg/dL POC Glucose (mg/dL) 250 H 237 H (75-99) mg/dL Stool Occult Blood (Negative) Crossmatch Laboratory Results WBC 14.5 k/uL (3.8-10.6) H 02/27/19 22:51 RBC 2.96 m/uL (3.80-5.40) L 02/27/19 22:51 Hgb 8.6 gm/dL (11.4-16.0) L 02/27/19 22:51 Hct 27.4 % (34.0-46.0) L 02/27/19 22:51 MCV 92.7 fL (80.0-100.0) 02/27/19 22:51 MCH 29.2 pg (25.0-35.0) 02/27/19 22:51 MCHC 31.5 g/dL (31.0-37.0) 02/27/19 22:51 RDW 14.3 % (11.5-15.5) 02/27/19 22:51 Plt Count 383 k/uL (150-450) 02/27/19 22:51 Neutrophils % 65 % 02/27/19 22:51 Lymphocytes % 22 % 02/27/19 22:51 Monocytes % 8 % 02/27/19 22:51 Eosinophils % 1 % 02/27/19 22:51 Basophils % 1 % 02/27/19 22:51 Neutrophils # 9.5 k/uL (1.3-7.7) H 02/27/19 22:51 Lymphocytes # 3.2 k/uL (1.0-4.8) 02/27/19 22:51 Monocytes # 1.1 k/uL (0-1.0) H 02/27/19 22:51 Eosinophils # 0.1 k/uL (0-0.7) 02/27/19 22:51 Basophils # 0.1 k/uL (0-0.2) 02/27/19 22:51 Hypochromasia Slight 02/27/19 22:51 Poikilocytosis Slight 02/27/19 22:51 PT 36.2 sec (9.0-12.0) H 02/28/19 11:19 INR 3.8 (<1.2) H 02/28/19 11:19 Sodium 141 mmol/L (137-145) 02/27/19 22:51 Potassium 4.3 mmol/L (3.5-5.1) 02/27/19 22:51 Chloride 105 mmol/L (98-107) 02/27/19 22:51 Carbon Dioxide 23 mmol/L (22-30) 02/27/19 22:51 Anion Gap 13 mmol/L 02/27/19 22:51 BUN 27 mg/dL (7-17) H 02/27/19 22:51 Creatinine 1.24 mg/dL (0.52-1.04) H 02/27/19 22:51 Est GFR (CKD-EPI)AfAm 53 (>60 ml/min/1.73 sqM) 02/27/19 22:51 Est GFR (CKD-EPI)NonAf 46 (>60 ml/min/1.73 sqM) 02/27/19 22:51 Glucose 141 mg/dL (74-99) H 02/27/19 22:51 POC Glucose (mg/dL) 222 mg/dL (75-99) H 02/28/19 17:12 POC Glu Art Model Christiane Worthington 02/28/19 17:12 Calcium 9.0 mg/dL (8.4-10.2) 02/27/19 22:51 Troponin I 0.020 ng/mL (0.000-0.034) 02/28/19 11:19 NT-Pro-B Natriuret Pep 1640 pg/mL 02/27/19 22:51 Stool Occult Blood Positive (Negative) H 02/28/19 01:50 Digoxin 0.8 ng/mL 02/27/19 22:51 Blood Type A Positive 02/27/19 22:56 Blood Type Recheck No 02/27/19 22:56 Antibody Screen NEGATIVE 02/27/19 22:56 Crossmatch See Detail 02/27/19 22:56 Spec Expiration Date 03/02/2019 6404 02/27/19 22:56 Thrombosis Risk Factor Assmnt - DVT/VTE Prophylaxis DVT/VTE Prophylaxis: Mechanical Prophylaxis ordered, Contraindicated - See note - Choose All That Apply Other Risk Factors: Yes Each Risk Factor Represents 2 Points: Age 61-74 years, Malignancy Thrombosis Risk Factor Assessment Total Risk Factor Score: 4 Thrombosis Risk Factor Assessment Level: Moderate Risk Assessment and Plan Plan: 1. A. fib with RVR, uncontrolled coagulopathy, history of chronic atrial fibrillationpatient received Adenocard, in the emergency room, currently on metoprolol 100 mg daily, digoxin 2050 g daily, cardiology is following. 2. Uncontrolled control coagulopathy, symptomatic anemia, upper GI bleed, with melanocytic stools,2 units packed red blood cells were given, along with vitamin K, compliance to INR monitoring was advised for patient, patient was noncompliant to routine surveillance 2. Suspect upper and lower GI bleeding, however she also has burgundy stools, and kidney hemorrhage is possible, based on CAT scan findings, ultrasound to be done of the kidneys, consult with Gastroenterology patientstill did not have a baseline colonoscopy, EGD is expected during this admission, close monitoring of CBC Coumadin is on hold. 3. Diabetes mellitus,2 on NPH 90 units will be restarted, and lispro 45 units 3 times a day will be on hold until diet would be resumed, we'll going to reassure him NPH at 100% of scheduled dose, patient is currently on clear liquid diet,while awaiting for GI for endoscopic ventilation 4. Multiple kidney cysts, one sees possibly hemorrhagic, ultrasound to be done 5. Liver cirrhosis suspected, with splenomegaly, nodular liver, gastroenterology is consulted, 6. Hypothyroidism, on levothyroxine 88 g daily no changes made awaitTSH 7. CHFechocardiogram requested Continue on Aldactone 2.5 mg daily, metoprolol 100 mg daily, Lasix, lisinopril 40 8. Hyperlipidemia 9. Posterior arthritis, with spinal disc disease on chronic Peebles prior to admission Flexeril 10 hypertensive cardiovascular disease, on spironolactone, l lisinopril, metoprolol lisinopril monitor for hypotension meds with parameters, 11 COPD current tobacco use, offered nicotine patches, continue on Flovent 110 twice a day scheduledalbuterol when necessary GI prophylaxis, IV Protonix DVT prophylaxis, contraindicated secondary to acute GI bleed, CHACHA bang and SCDs for now
[2019-02-28] MEDS: CYCLOBENZAPRINE 10 MG TAB PO SCH (21:00)
[2019-02-28] MEDS ORDERED: INSULIN NPH 300 UNIT/3 ML VIAL SQ SCH (21:00)
[2019-02-28] MEDS: ALPRAZolam 0.5 MG TAB PO PRN (23:42)
[2019-03-01] MEDS: LEVOTHYROXINE 88 MCG TAB PO SCH (05:34)
[2019-03-01 06:27] LABS: Glucose,Whole Blood 208 mg/dL (75-99)
[2019-03-01] MEDS: INSULIN ASPART (NovoLOG) 100 UNIT/ML VIAL SQ SCH ×3 (06:32→17:14)
[2019-03-01 06:50] LABS: Basophils % (A) 0 %; Eosinophils # (A) 0.1 k/uL (0-0.7); Eosinophils % (A) 1 %; HCT 24.1 % (34.0-46.0); HGB 7.8 gm/dL (11.4-16.0); Hypochromasia Moderate; Lymphocytes # (A) 2.1 k/uL (1.0-4.8); Lymphocytes % (A) 29 %; MCH 29.7 pg (25.0-35.0); MCHC 32.2 g/dL (31.0-37.0); MCV 92.4 fL (80.0-100.0); Mean Platelet Volume 8.3; Monocytes # (A) 0.6 k/uL (0-1.0); Monocytes % (A) 8 %; Neutrophils # (A) 4.4 k/uL (1.3-7.7); Neutrophils % (A) 59 %; Platelet Count 211 k/uL (150-450); Poikilocytosis Moderate; RBC 2.61 m/uL (3.80-5.40); RDW 14.3 % (11.5-15.5); WBC 7.4 k/uL (3.8-10.6)
[2019-03-01 06:53] LABS: INR 1.7 (<1.2)
[2019-03-01 06:54] LABS: Albumin 2.8 g/dL (3.5-5.0); Calcium 8.3 mg/dL (8.4-10.2); Potassium 4.6 mmol/L (3.5-5.1); Total Bilirubin 0.6 mg/dL (0.2-1.3); Total Protein 4.8 g/dL (6.3-8.2)
[2019-03-01] MEDS: FLUTICASONE 110 MCG INHALER INHALATION SCH ×2 (07:53→21:10)
[2019-03-01] MEDS: PANTOPRAZOLE 40 MG/10 ML VIAL IVP SCH ×2 (08:13→21:44)
[2019-03-01] MEDS: LISINOPRIL 2.5 MG TAB PO SCH (08:13)
[2019-03-01] MEDS: HYDROcodone/APAP 10-325MG 1 EACH TAB PO PRN ×2 (08:13→21:56)
[2019-03-01] MEDS: SPIRONOLACTONE 25 MG TAB PO SCH (08:13)
[2019-03-01] MEDS: FUROSEMIDE 40 MG TAB PO SCH (08:14)
[2019-03-01] MEDS: METOPROLOL SUCCINATE (ER) 100 MG TAB.ER.24H PO SCH (08:14)
[2019-03-01] MEDS: DIGOXIN 250 MCG TAB PO SCH (08:18)
--- NOTE | 2019-03-01 08:31 | US ---
EXAMINATION TYPE: US abdomen complete DATE OF EXAM: 03/01/2019 COMPARISON: NONE CLINICAL HISTORY: hemorrhage right kidney, cirrhosis liver. Morbidly obese patient with abnormal CT s can, abd pain EXAM MEASUREMENTS: Liver Length: 19.7 cm Gallbladder Wall: Surgically absent CBD: 1.9 cm Spleen: 15.0 cm Right Kidney: 12.6 x 4.8 x 5.4 cm Left Kidney: 10.9 x 5.3 x 4.9 cm Pancreas: limited views Liver: enlarged Gallbladder: Surgically absent Evidence for sonographic Heart's sign: no CBD: dilated with no obvious obstruction Spleen: enlarged Right Kidney: stones are not as defined on ultrasound, dilated renal pelvis, subcentimeter exophytic cyst seen Left Kidney: 2.9cm mid pole lesion, unable to discern simple cyst from complicated, very difficult t o image renal due to habitus and bowel gas, estimated size Upper IVC: wnl Abd Aorta: limited views showed some atherosclerotic changes Limited views of the pancreas are unremarkable. The liver is enlarged measuring 20 cm. The gallbladder is absent. The distal common hepatic duct measures 1.9 cm. The spleen is enlarged measuring 15 cm. There is a questionable cortical cyst involving the mid polar region of the right kidney. No definite calcifications are seen. There is a poorly defined hypoechoic lesion in the lateral aspect of the le ft kidney. I'm uncertain as to whether this represents a cyst. Limited views of the aorta and IVC are unremarkable. IMPRESSION: 1. HEPATOSPLENOMEGALY. 2. QUESTIONABLE, BILATERAL RENAL CYSTS.
--- NOTE | 2019-03-01 11:49 | P.PN ---
Subjective Progress Note Date: 03/01/19 This is a 63-year-old female with past medical history of chronic atrial fibrillation on chronic Coumadin managed by Dr. Vera, chronic heart failure, hypertension, hyperlipidemia, hypothyroidism, tobacco use and dependence, diabetes mellitus type 2 insulin requiring, uterine cancer. Patient denies any history of myocardial infarction, no history of CVA.. Patient follows with Dr. Cruz in the past. Patient gives history of having 3 days of black stools and then yesterday developed bright red rectal bleeding. She denies any nausea or vomiting. The patient came into [facility] emergency center for evaluation. She was found to have a heart rate of 168 and initially given Adenocard 1 dose IV and rate slowed showing atrial fibrillation and patient was then given Lopressor 5 g IV followed by Lopressor 25 mg oral. She is now in atrial fibrillation with rate controlled running in the 80s. The patient denies any chest pain or shortness of breath. INR came back at 7.8 and patient is status post vitamin K 10 mg orally. She is receiving her second unit of packed RBCs. Patient also complains of lower extremity edema as well as hand edema. She complains of significant dizziness especially moving to a sitting position. Initial EKG reveals atrial fibrillation with ST depression. Second EKG reveals atrial fibrillation with nonspecific ST changes. Laboratory studies: WBC 14.5, hemoglobin 8.6, platelet count 383, INR 7.8. BUN 27 creatinine 1.24, which was within normal limits, blood sugar 141, stool for occult blood positive. Digoxin level 0.8. Imaging studies: Chest x-ray showed no acute findings. CAT scan of the abdomen and pelvis without contrast revealed gastric distention with fluid and scattered small bowel fluid levels, possible nonspecific gastroenteritis. Enlarged liver with nodular surface suggesting cirrhosis. Splenomegaly is also seen suggesting portal hypertension. Cholecystectomy. Social history: Patient is a smoker of 5 cigarettes per day for 30 years. She denies any alcohol use. 03/01: Patient has had only 1 bowel movement since admission. She is currently taking some clear liquids and waiting for GI consult. Her repeat hemoglobin is 7.8 and she is status post 2 units of packed RBCs. INR is 1.7. TSH 3.480. 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 She also states she received her first dose of digoxin and metoprolol this morning. Patient denies having any palpitations, chest pain, shortness of breath. She states she feels tired. She is requesting to eat something more than clear liquids. Nursing will contact GI regarding diet recommendations. She has had 1 bowel movement since admission to the cardiac stepdown unit. Abdominal ultrasound revealed hepatosplenomegaly. Questionable bilateral renal cyst. Physical exam: Gen: This is a morbidly obese 63-year-old female. She is resting in bed and appears to be comfortable. No acute distress is noted. HEENT: Head is atraumatic, normocephalic. Pupils equal, round. Sclerae is anicteric. NECK: Supple. No JVD. No lymphadenopathy. No thyromegaly. LUNGS: Clear to auscultation. No wheezes or rhonchi. No intercostal retractions. HEART: Regular rate and rhythm. No significant murmur. ABDOMEN: Soft. Bowel sounds are present. No masses. Left lower quadrant tenderness. EXTREMITIES: Trace bilateral pedal edema. No calf tenderness. NEUROLOGICAL: Patient is awake, alert and oriented x3. Cranial nerves 2 through 12 are grossly intact. Assessment: Acute rectal bleeding with acute blood loss anemia. Coagulopathy secondary to Coumadin use and possible liver cirrhosis. Chronic atrial fibrillation presenting with RVR. Liver cirrhosis and portal hypertension found on CAT scan. Chronic heart failure, possible diastolic. Hypertension. Hyperlipidemia. Hypothyroidism. Diabetes mellitus type 2, insulin requiring. Plan: Hold Coumadin and monitor INR closely. Patient is status post vitamin K. Continue to monitor INR and hemoglobin. Obtain 2-D echocardiogram and Doppler study to assess cardiac structures and function. Continue Aldactone 25 mg daily, metoprolol succinate 100 mg daily, lisinopril 2.5 mg daily, Lasix 40 mg daily, digoxin 250 mg daily. Consult with GI regarding GI bleed and liver cirrhosis and possible portal hypertension. Further recommendations to follow based upon clinical course. Nurse practitioner note has been reviewed, I agree with documented findings and plan of care. Patient was seen and examined. Objective - Vital Signs Vital signs: Vital Signs Temp 97 F L 03/01/19 04:00 Pulse 118 H 03/01/19 08:00 Resp 20 03/01/19 08:00 BP 106/81 03/01/19 08:00 Pulse Ox 97 03/01/19 08:00 Intake & Output 02/28/19 03/01/19 03/01/19 18:59 06:59 18:59 Intake Total 1220 200 Output Total 1999 Balance 1219 -1800 Weight 153.5 kg Intake: Oral 600 200 Blood Product 620 Rc As-1 Unit 310 [id number] Rc As-1 Unit 310 [id number] Output: Urine 1999 Other: # Voids 1 # Bowel Movements 1 - Labs CBC & Chem 7: 03/01/19 06:02 03/01/19 06:02 Labs: Abnormal Lab Results - Last 24 Hours (Table) 02/27/19 02/28/19 02/28/19 Range/Units 22:56 09:39 11:19 WBC (3.8-10.6) k/uL RBC (3.80-5.40) m/uL Hgb (11.4-16.0) gm/dL Hct (34.0-46.0) % PT 36.2 H (9.0-12.0) sec INR 3.8 H (<1.2) Chloride (98-107) mmol/L BUN (7-17) mg/dL Glucose (74-99) mg/dL POC Glucose (mg/dL) 237 H (75-99) mg/dL Calcium (8.4-10.2) mg/dL Total Protein (6.3-8.2) g/dL Albumin (3.5-5.0) g/dL Crossmatch See Detail 02/28/19 02/28/19 02/28/19 Range/Units 14:25 17:12 17:32 WBC 11.9 H (3.8-10.6) k/uL RBC 3.13 L (3.80-5.40) m/uL Hgb 9.2 L (11.4-16.0) gm/dL Hct 28.9 L (34.0-46.0) % PT (9.0-12.0) sec INR (<1.2) Chloride (98-107) mmol/L BUN (7-17) mg/dL Glucose (74-99) mg/dL POC Glucose (mg/dL) 194 H 222 H (75-99) mg/dL Calcium (8.4-10.2) mg/dL Total Protein (6.3-8.2) g/dL Albumin (3.5-5.0) g/dL Crossmatch 03/01/19 03/01/19 03/01/19 Range/Units 06:02 06:02 06:02 WBC (3.8-10.6) k/uL RBC 2.61 L (3.80-5.40) m/uL Hgb 7.8 L (11.4-16.0) gm/dL Hct 24.1 L (34.0-46.0) % PT 17.0 H (9.0-12.0) sec INR 1.7 H (<1.2) Chloride 110 H (98-107) mmol/L BUN 19 H (7-17) mg/dL Glucose 192 H (74-99) mg/dL POC Glucose (mg/dL) (75-99) mg/dL Calcium 8.3 L (8.4-10.2) mg/dL Total Protein 4.8 L (6.3-8.2) g/dL Albumin 2.8 L (3.5-5.0) g/dL Crossmatch 03/01/19 Range/Units 06:23 WBC (3.8-10.6) k/uL RBC (3.80-5.40) m/uL Hgb (11.4-16.0) gm/dL Hct (34.0-46.0) % PT (9.0-12.0) sec INR (<1.2) Chloride (98-107) mmol/L BUN (7-17) mg/dL Glucose (74-99) mg/dL POC Glucose (mg/dL) 208 H (75-99) mg/dL Calcium (8.4-10.2) mg/dL Total Protein (6.3-8.2) g/dL Albumin (3.5-5.0) g/dL Crossmatch
[2019-03-01 11:54] LABS: Glucose,Whole Blood 280 mg/dL (75-99)
--- NOTE | 2019-03-01 12:21 | CONS ---
CONSULTATION DATE OF SERVICE: March 01, 2019. REQUESTING PHYSICIAN: Dr. Lua. REASON FOR CONSULTATION: GI bleed. HISTORY OF PRESENT ILLNESS: The patient is a 63-year-old pleasant white female with history of diabetes mellitus, morbid obesity, atrial fibrillation on Coumadin, who was admitted to the hospital because of acute GI bleeding. She was having black tarry stools for 3-4 days duration, followed by maroon-colored stools. In the ER, she was also noted to have atrial fibrillation with rapid ventricular heart rate and subsequently was treated with IV Lopressor. Since being in the hospital, she received vitamin K after which coagulopathy got reversed and her bleeding has subsided. In fact, this morning, she did not have any black tarry stools. She denies any abdominal pain. Reports she has some nausea but no emesis. No prior history of peptic ulcer disease. Denies any recent NSAID use. No history of EGD or colonoscopy in the past. In the emergency room, she did have a CT of the abdomen and pelvis done that showed gastric distention with fluid in the small bowel, suspicious for nonspecific gastroenteritis. Also had enlarged liver with nodular surface suspicious for cirrhosis and splenomegaly. The patient has no history of chronic liver disease. No history of alcohol abuse. PAST MEDICAL HISTORY: Significant for diabetes mellitus, hypertension, atrial fib on Coumadin, hyperlipidemia, morbid obesity, hypothyroidism, degenerative joint disease. PAST SURGICAL HISTORY: Appendectomy, cholecystectomy, tonsillectomy, tubal ligation, bilateral knee arthroscopy. MEDICATIONS: At home include Xanax, QVAR, vitamin D3, Flexeril, Lasix, [place], Humulin, albuterol, Zestril, Toprol, Aldactone, Coumadin, lispro, and Synthroid. ALLERGIES: TO DOXYCYCLINE AND ERYTHROMYCIN MORPHINE. SOCIAL HISTORY: Chronic smoker. No alcohol use. FAMILY HISTORY: Father has diabetes mellitus and chronic kidney disease. Mother, diabetes mellitus. REVIEW OF SYSTEMS: Cardiopulmonary: No chest pain, shortness of breath. no dysuria or hematuria. Musculoskeletal unremarkable. Skin unremarkable. Endocrine unremarkable. Psychiatric unremarkable. Neurology unremarkable. ENT/vision unremarkable. Constitutional: No recent weight loss. No fever, chills, night sweats. PHYSICAL EXAMINATION: She appears comfortable. No apparent distress. Blood pressure 143/59, pulse rate 90, temperature 98.7. HEENT examination unremarkable. Conjunctivae pink. Sclerae anicteric. Oral cavity no lesions. NECK: No jugular venous distention or lymph node enlargement. CHEST: Clear to auscultation. HEART: Regular rate and rhythm. ABDOMEN: Obese. Bowel sounds are positive. No organomegaly. EXTREMITIES: No pedal edema. SKIN no rashes. NEUROLOGIC: Alert and oriented x3. No focal deficits. LABS: WBC 7.4, hemoglobin 7.8, platelets are normal. INR is 1.7. On admission it was 3.3, BUN 19, creatinine 0.87. ALT, AST, T-bilirubin and alkaline phosphatase are within normal limits. Stool occult blood was positive. IMPRESSION: 1. Acute gastrointestinal bleed with black tarry stools for the last 4 days duration. Yesterday had maroon-colored stools. Most likely we are dealing with an upper gastrointestinal source of bleeding but cannot rule out right colon pathology. Hemoglobin dropped from 8.6-7.8 g/dL. 2. Atrial fibrillation on Coumadin with coagulopathy reversed with vitamin K. Today INR is 1.7. 3. Cirrhosis of the liver noted on recent imaging studies/CT scan of the abdomen that showed nodular surface liver suspicious for cirrhosis. 4. Patient with longstanding history of diabetes mellitus and obesity, most likely dealing with fatty liver disease that has progressed to liver cirrhosis. Other etiologies need to be excluded. She has well-compensated liver disease. 5. Atrial fibrillation on Coumadin, presently on hold. RECOMMENDATIONS: 1. Proceed with EGD and colonoscopy tomorrow. 2. We will continue to hold Coumadin. 3. Discussed with the patient, risks, benefits and complications of the procedure. 4. Investigate for cirrhosis of the liver and rule out other etiologies. Plan was discussed with the patient. She is agreeable to it. Thank you for this consultation. MMODL / IJN: [id number] /
[2019-03-01 16:53] LABS: Glucose,Whole Blood 295 mg/dL (75-99)
[2019-03-01] MEDS ORDERED: PEG 3350-NA SULF,BICARB,CL/KCL 4,000 ML BOTTLE PO ONE (17:00)
--- NOTE | 2019-03-01 17:12 | P.PN ---
Subjective Progress Note Date: 03/01/19 this is a 63-year-old female patient of Dr. KutDr. Cruz. She has underlying history of chronic atrial fibrillation hypertension and hypothyroidism, chronic tobacco use, that diabetes mellitus type 2 insulin requiring, and uterine cancer, admitted to the emergency room secondary to atrial fibrillation with rapid ventricular rate, heart rate of 168, she was given Adenocard in the emergency room, along with Lopressor 5 g IV.she presents with shortness of breath, palpitations, no chest pain, patient has lower extremity edema, headache edema, dizziness, and orthostatic lightheadedness. she has bloody stools after initial black stools for the past 4 days, no prior colonoscopy in the past, She is also on long-term anticoagulation with an INR of 7.8, patient has been noncompliant with INR monitoring at Dr. Vera's office, and was given vitamin K orally. In emergency room, EKG shows atrial fibrillation with ST depression, heart rate 168, second EKG showed atrial fibrillation with nonspecific ST-T wave changes, hemoglobin of 8.6, INR 7.8, creatinine of 1.24, blood sugar of 141, occult stools are positive, CAT scan of the abdomen and pelvis shows gastric distention with fluid and scattered small bowel fluid levels, possible nonspecific gastroenteritis, enlarged liver with nodular surface suggesting cirrhosis, also splenomegaly suggesting portal hypertension. also there is right-sided few hyperdense cyst in the right kidney likely reflecting hemorrhagic or proteinacious contents no hydronephrosis . Cholecystectomy chest x-ray shows no acute findings patient is admitted for A. fib with RVR, blood loss anemia, uncontrolled coagulopathy, symptomatic anemia, consult to cardiology and GI Dr. Scott 02/12: Patient is being prepped for colonoscopy and EGD, which is going to be don e tomorrow, clear liquid diet, still has abdominal pain periumbilical and right- sided area, will been remains to be stable however it has dropped to 7.8, INR currently at 1.7, TSH is normal, abdominal ultrasound shows hepatosplenomegaly, and bilateral renal cyst, without any solid patient however does question whether this is a poorly defined hypoechoic lesion, this could be done as an outpatient patient does not have any melena or hematochezia, no caries stools, double basic count of 7.4 hemoglobin 7.8, Objective - Vital Signs Vital signs: Vital Signs Temp 98.0 F 03/01/19 12:00 Pulse 88 03/01/19 15:57 Resp 18 03/01/19 15:55 BP 105/50 03/01/19 15:55 Pulse Ox 98 03/01/19 15:55 Intake & Output 02/28/19 03/01/19 03/01/19 18:59 06:59 18:59 Intake Total 9519 020 0398 Output Total 1999 Balance 1219 -1800 1000 Weight 153.5 kg Intake: Oral 932 065 5807 Blood Product 620 Rc As-1 Unit 310 [id number] Rc As-1 Unit 310 [id number] Output: Urine 1999 Other: # Voids 1 # Bowel Movements 1 - Constitutional General appearance: Present: cooperative, no acute distress - EENT Eyes: Present: anicteric sclerae, EOMI, PERRLA, dentition normal, normal appearance ENT: Present: NA/AT, normal oropharynx - Neck Neck: Present: normal ROM - Respiratory Respiratory: bilateral: CTA, negative: diminished, dullness, rales - Cardiovascular Rhythm: regular Heart sounds: normal: S1, S2 Abnormal Heart Sounds: Absent: systolic murmur, diastolic murmur, rub, S3 Gallop, S4 Gallop, click, other - Gastrointestinal General gastrointestinal: Present: normal bowel sounds, soft - Integumentary Integumentary: Present: normal, normal turgor - Neurologic Neurologic: Present: CNII-XII intact - Musculoskeletal Musculoskeletal: Present: gait normal - Psychiatric Psychiatric: Present: A&O x's 3, appropriate affect - Labs CBC & Chem 7: 03/01/19 06:02 03/01/19 06:02 Labs: Abnormal Lab Results - Last 24 Hours (Table) 02/28/19 02/28/19 03/01/19 Range/Units 17:12 17:32 06:02 WBC 11.9 H (3.8-10.6) k/uL RBC 3.13 L 2.61 L (3.80-5.40) m/uL Hgb 9.2 L 7.8 L (11.4-16.0) gm/dL Hct 28.9 L 24.1 L (34.0-46.0) % PT (9.0-12.0) sec INR (<1.2) Chloride (98-107) mmol/L BUN (7-17) mg/dL Glucose (74-99) mg/dL POC Glucose (mg/dL) 222 H (75-99) mg/dL Calcium (8.4-10.2) mg/dL Total Protein (6.3-8.2) g/dL Albumin (3.5-5.0) g/dL 03/01/19 03/01/19 03/01/19 Range/Units 06:02 06:02 06:23 WBC (3.8-10.6) k/uL RBC (3.80-5.40) m/uL Hgb (11.4-16.0) gm/dL Hct (34.0-46.0) % PT 17.0 H (9.0-12.0) sec INR 1.7 H (<1.2) Chloride 110 H (98-107) mmol/L BUN 19 H (7-17) mg/dL Glucose 192 H (74-99) mg/dL POC Glucose (mg/dL) 208 H (75-99) mg/dL Calcium 8.3 L (8.4-10.2) mg/dL Total Protein 4.8 L (6.3-8.2) g/dL Albumin 2.8 L (3.5-5.0) g/dL 03/01/19 03/01/19 Range/Units 11:52 16:52 WBC (3.8-10.6) k/uL RBC (3.80-5.40) m/uL Hgb (11.4-16.0) gm/dL Hct (34.0-46.0) % PT (9.0-12.0) sec INR (<1.2) Chloride (98-107) mmol/L BUN (7-17) mg/dL Glucose (74-99) mg/dL POC Glucose (mg/dL) 280 H 295 H (75-99) mg/dL Calcium (8.4-10.2) mg/dL Total Protein (6.3-8.2) g/dL Albumin (3.5-5.0) g/dL Assessment and Plan Plan: 1. A. fib with RVR, uncontrolled coagulopathy, history of chronic atrial fi brillationpatient received Adenocard, in the emergency room, currently on metoprolol 100 mg daily, digoxin 2050 g daily, cardiology is following. 2. Uncontrolled control coagulopathy, symptomatic anemia, upper GI bleed, with melanocytic stools,2 units packed red blood cells were given, along with vitamin K, compliance to INR monitoring was advised for patient, patient was noncompliant to routine surveillance Coumadin on hold secondary to GI bleed 2. acute blood loss anemia suspect upper and lower GI bleeding, however she also has burgundy stools, and kidney hemorrhage is possible, based on CAT scan findings, ultrasound to be done of the kidneys, consult with Gastroenterology patientstill did not have a baseline colonoscopy, EGD is expected during this admission, close monitoring of CBC Coumadin is on hold. We'll transfuse to keep hemoglobin above 7 3. Diabetes mellitus,2 on NPH 90 units will be restarted, and lispro 45 units 3 times a day will be on hold until diet would be resumed, we'll going to reassure him NPH at 100% of scheduled dose, patient is currently on clear liquid diet,while awaiting for GI for endoscopic evaluation, 4. Multiple kidney cysts, one sees possibly hemorrhagic, ultrasound to be done, no solid mass noted, however hypoechoic lesion cannot be fully discern, needs follow-up surveillance as an outpatient 5. Liver cirrhosis suspected, with splenomegaly, nodular liver, gastroenterology is consulted, 6. Hypothyroidism, on levothyroxine 88 g daily no changes made awaitTSH 7. CHFechocardiogram requested Continue on Aldactone 2.5 mg daily, metoprolol 100 mg daily, Lasix, lisinopril 40 8. Hyperlipidemia 9. Posterior arthritis, with spinal disc disease on chronic [place] prior to admission Flexeril 10 hypertensive cardiovascular disease, on spironolactone, l lisinopril, metoprolol lisinopril monitor for hypotension meds with parameters, 11 COPD current tobacco use, offered nicotine patches, continue on Flovent 110 twice a day scheduledalbuterol when necessary GI prophylaxis, IV Protonix DVT prophylaxis, contraindicated secondary to acute GI bleed, CHACHA bang and SCDs for now
[2019-03-01 21:43] LABS: Glucose,Whole Blood 301 mg/dL (75-99)
[2019-03-01] MEDS: CYCLOBENZAPRINE 10 MG TAB PO SCH (21:44)
[2019-03-01] MEDS: SODIUM CHLORIDE 0.9% 1,000 ML IV SCH (21:45)
[2019-03-01] MEDS: ALPRAZolam 0.5 MG TAB PO PRN (21:56)
[2019-03-01] MEDS: INSULIN NPH 300 UNIT/3 ML VIAL SQ SCH (22:49)
[2019-03-01] MEDS ORDERED: INSULIN ASPART (NovoLOG) 100 UNIT/ML VIAL SQ ONE (23:23)
[2019-03-02 02:32] LABS: Glucose,Whole Blood 185 mg/dL (75-99)
[2019-03-02] MEDS: ALPRAZolam 0.5 MG TAB PO PRN ×2 (04:12→14:30)
[2019-03-02 06:14] LABS: Glucose,Whole Blood 114 mg/dL (75-99)
[2019-03-02] MEDS: INSULIN ASPART (NovoLOG) 100 UNIT/ML VIAL SQ SCH ×3 (06:19→17:18)
[2019-03-02] MEDS: FLUTICASONE 110 MCG INHALER INHALATION SCH ×2 (07:17→20:34)
[2019-03-02] MEDS: LEVOTHYROXINE 88 MCG TAB PO SCH (07:26)
[2019-03-02] MEDS: HYDROcodone/APAP 10-325MG 1 EACH TAB PO PRN ×3 (07:27→23:37)
[2019-03-02 07:42] LABS: Basophils % (A) 1 %; Eosinophils # (A) 0.1 k/uL (0-0.7); Eosinophils % (A) 1 %; HCT 24.7 % (34.0-46.0); HGB 7.7 gm/dL (11.4-16.0); Hypochromasia Moderate; Lymphocytes # (A) 1.8 k/uL (1.0-4.8); Lymphocytes % (A) 27 %; MCH 28.8 pg (25.0-35.0); MCHC 31.2 g/dL (31.0-37.0); MCV 92.4 fL (80.0-100.0); Mean Platelet Volume 7.8; Monocytes # (A) 0.4 k/uL (0-1.0); Monocytes % (A) 7 %; Neutrophils # (A) 3.9 k/uL (1.3-7.7); Neutrophils % (A) 61 %; Platelet Count 220 k/uL (150-450); Poikilocytosis Moderate; RBC 2.67 m/uL (3.80-5.40); RDW 14.4 % (11.5-15.5); WBC 6.5 k/uL (3.8-10.6)
[2019-03-02 07:55] LABS: Calcium 8.7 mg/dL (8.4-10.2); Potassium 4.1 mmol/L (3.5-5.1); Total Bilirubin 0.6 mg/dL (0.2-1.3); Total Protein 5.1 g/dL (6.3-8.2)
[2019-03-02 08:13] LABS: INR 1.4 (<1.2); Prothrombin Time 13.9 sec (9.0-12.0)
[2019-03-02] MEDS: SODIUM CHLORIDE 0.9% 1,000 ML IV SCH ×2 (08:24→23:53)
[2019-03-02] MEDS: METOPROLOL SUCCINATE (ER) 100 MG TAB.ER.24H PO SCH (08:52)
[2019-03-02] MEDS: SPIRONOLACTONE 25 MG TAB PO SCH (08:52)
[2019-03-02] MEDS: LISINOPRIL 2.5 MG TAB PO SCH (08:52)
[2019-03-02] MEDS: PANTOPRAZOLE 40 MG/10 ML VIAL IVP SCH (08:52)
[2019-03-02] MEDS: DIGOXIN 250 MCG TAB PO SCH (08:52)
[2019-03-02] MEDS: FUROSEMIDE 40 MG TAB PO SCH (08:52)
[2019-03-02] MEDS ORDERED: SODIUM CHLORIDE 0.9% 500 ML 500 ML IV ONE (11:34)
--- NOTE | 2019-03-02 11:40 | ECHOF ---
Referral Reason:LVF MEASUREMENTS -------- HEIGHT: 185.4 cm WEIGHT: 153.3 kg BP: 134/69 RVIDd: 3.9 cm (< 3.3) IVSd: 1.4 cm (0.6 - 1.1) LVIDd: 5.1 cm (3.9 - 5.3) LVPWd: 1.4 cm (0.6 - 1.1) IVSs: 2.0 cm LVIDs: 3.1 cm LVPWs: 2.0 cm LA Diam: 4.3 cm (2.7 - 3.8) LAESV Index (A-L): 37.04 ml/m Ao Diam: 3.3 cm (2.0 - 3.7) AV Cusp: 2.4 cm (1.5 - 2.6) MV EXCURSION: 19.523 mm (> 18.000) MV EF SLOPE: 125 mm/s (70 - 150) EPSS: 0.5 cm AV maxP.81 mmHg AV meanP.44 mmHg RAP: 5.00 mmHg RVSP: 26.69 mmHg FINDINGS -------- Atrial fibrillation. This was a technically adequate study. The left ventricular size is normal. There is moderate concentric left ventricular hypertrophy. O verall left ventricular systolic function is normal with, an EF between 55 - 60 %. The right ventricle is moderately enlarged. LA is moderately dilated 34-39 ml/m2 The right atrium is normal in size. Lipomatous Hypertrophy of the atrial septum is present There is mild aortic valve sclerosis. Peak/mean gradient across the Aortic Valve is 13.81mmHg / 6.4 4mmHg. There is trace to mild mitral regurgitation. Mild tricuspid regurgitation present. Right ventricular systolic pressure is normal at < 35 mmHg. The pulmonic valve was not well visualized. The aortic root size is normal. IVC Not well visulized. There is no pericardial effusion. CONCLUSIONS -------- 1. Atrial fibrillation. 2. This was a technically adequate study. 3. The left ventricular size is normal. 4. There is moderate concentric left ventricular hypertrophy. 5. Overall left ventricular systolic function is normal with, an EF between 55 - 60 %. 6. The right ventricle is moderately enlarged. 7. LA is moderately dilated 34-39 ml/m2 8. The right atrium is normal in size. 9. Lipomatous Hypertrophy of the atrial septum is present 10. There is mild aortic valve sclerosis. 11. Peak/mean gradient across the Aortic Valve is 13.81mmHg / 6.44mmHg. 12. There is trace to mild mitral regurgitation. 13. Mild tricuspid regurgitation present. 14. Right ventricular systolic pressure is normal at < 35 mmHg. 15. The pulmonic valve was not well visualized. 16. The aortic root size is normal. 17. IVC Not well visulized. 18. There is no pericardial effusion. [employer]OP MAKER MACHINE: Shelli Sun RDCS
--- NOTE | 2019-03-02 12:10 | P.PCN ---
Date of Procedure: 03/02/19 Procedure(s) Performed: Brief history: Patient is a pleasant 63-year-old white female, scheduled for an elective upper endoscopy as well as colonoscopy as a part of evaluation of black tarry stools for the last 3 days' duration. She was noted to have a hemoglobin of 7.7 g/dL. She did have CT of the abdomen and pelvis done that showed nodular liver consistent with cirrhosis. No history of chronic liver disease. Procedure performed: Esophagogastroduodenoscopy with cautery and biopsy Colonoscopy with snare polypectomy Preoperative diagnosis: Symptomatic anemia and black tarry stools of 3 days' duration Anesthesia: MAC Procedure: After informed consent was obtained from the patient was brought into the endoscopy unit and IV sedation was administered by anesthesia under continuous monitoring. Initially upper endoscopy was done. The Olympus GF 160 video endoscope was inserted inserted into the mouth and esophagus intubated without any difficulty and was gradually advanced into the stomach and duodenum and carefully examined. In the bulb of the duodenum there were 2 small nonbleeding angiectasia that was cauterized. Also biopsies were done from the second part of the duodenum to rule out celiac disease. The scope was then withdrawn into the stomach adequately insufflated with air and upon careful examination the antrum and body, cardia and fundus appeared normal. The scope was then withdrawn into the esophagus. The GE junction was located at 40 cm to the incisors. It appeared regular with no erythema erosions or ulcerations. Rest of the esophagus appeared normal. Patient tolerated the procedure well. At this time the patient continued to remain sedation. Initial digital rectal examination was normal. Olympus CF 160 video colonoscope was then inserted into the rectum and gradually advanced to the cecum without any difficulty. Careful examination was performed as the scope was gradually being withdrawn. The prep was excellent. The cecum, ascending colon, transverse colon, appeared normal. In the descending colon there was a 1 cm and 5 mm sessile polyps removed by snare polypectomy. In the sigmoid colon there was a 5 mm polyp removed by snare polypectomy. The rectum there was a 1 cm polyp removed by snare polypectomy. Rest of the descending colon, sigmoid colon and rectum appeared normal. Retroflexion was performed in the rectum and no lesions were noted. Patient tolerated the procedure well. Impression: 1. Upper endoscopy revealed 2 small nonbleeding angiectasia in the duodenal bulb status post cautery 2. Colonoscopy revealed 5 mm and 1 cm descending colon polyp status post polypectomy, 5 mm sigmoid colon polyp and 1 cm mid rectal polyp status post polypectomy Recommendations: Findings of this examination were discussed with the patient as well as her family. She was advised to follow with the biopsy results. If the biopsy shows adenoma she can have a repeat colonoscopy in 3 years.
[2019-03-02 12:59] LABS: Glucose,Whole Blood 112 mg/dL (75-99)
[2019-03-02 17:05] LABS: Glucose,Whole Blood 203 mg/dL (75-99)
[2019-03-02] MEDS ORDERED: INSULIN ASPART (NovoLOG) 100 UNIT/ML VIAL SQ ONE (17:12)
--- NOTE | 2019-03-02 18:42 | P.PN ---
Subjective Progress Note Date: 03/02/19 Principal diagnosis: GI bleed/atrial fibrillation This is a 63-year-old female with past medical history of chronic atrial fibrillation on chronic Coumadin managed by Dr. Vera, chronic heart failure, hypertension, hyperlipidemia, hypothyroidism, tobacco use and dependenc e, diabetes mellitus type 2 insulin requiring, uterine cancer. Patient denies any history of myocardial infarction, no history of CVA.. Patient follows with Dr. Cruz in the past. Patient gives history of having 3 days of black stools and then yesterday developed bright red rectal bleeding. She denies any nausea or vomiting. The patient came into [facility] emergency center for evaluation. She was found to have a heart rate of 168 and initially given Adenocard 1 dose IV and rate slowed showing atrial fibrillation and patient was then given Lopressor 5 g IV followed by Lopressor 25 mg oral. She is now in atrial fibrillation with rate controlled running in the 80s. The patient denies any chest pain or shortness of breath. INR came back at 7.8 and patient is status post vitamin K 10 mg orally. She is receiving her second unit of packed RBCs. Patient also complains of lower extremity edema as well as hand edema. She complains of significant dizziness especially moving to a sitting position. Initial EKG reveals atrial fibrillation with ST depression. Second EKG reveals atrial fibrillation with nonspecific ST changes. Laboratory studies: WBC 14.5, hemoglobin 8.6, platelet count 383, INR 7.8. BUN 27 creatinine 1.24, which was within normal limits, blood sugar 141, stool for occult blood positive. Digoxin level 0.8. Imaging studies: Chest x-ray showed no acute findings. CAT scan of the abdomen and pelvis without contrast revealed gastric distention with fluid and scattered small bowel fluid levels, possible nonspecific gastroenteritis. Enlarged liver with nodular surface suggesting cirrhosis. Splenomegaly is also seen suggesting portal hypertension. Cholecystectomy. Social history: Patient is a smoker of 5 cigarettes per day for 30 years. She denies any alcohol use. 03/01: Patient has had only 1 bowel movement since admission. She is currently taking some clear liquids and waiting for GI consult. Her repeat hemoglobin is 7.8 and she is status post 2 units of packed RBCs. INR is 1.7. TSH 3.480. panel monitor has been atrial fibrillation and starting at 7:30 this morning with RVR at 160s. She also states she received her first dose of digoxin and metoprolol this morning. Patient denies having any palpitations, chest pain, shortness of breath. She states she feels tired. She is requesting to eat something more than clear liquids. Nursing will contact GI regarding diet recommendations. She has had 1 bowel movement since admission to the cardiac [facility]. Abdominal ultrasound revealed hepatosplenomegaly. Questionable bilateral renal cyst. 03/02/2019 Patient examined when initially returning from a.m. colonoscopy/EGD, patient states she feels well but is drowsy. No current complaints of chest pain, chest pressure, shortness of breath or palpitations. Continue Metoprolol succinate 100 mg daily and digoxin 250mcg dialy. Physical exam within normal limits. She cont inues atrial fibrillation, heart rate 88. Afebrile. Vital signs stable. Most recent INR 1.4. Hgb 7.7, HCT 24.7. BMP WNL. Low protein/albumin levels. NO coumadin due to GIB. OK to discharge from a cardiology standpoint with stable HGB after colonscopy. Echo 03/02/2019 = Atrial fibrillation. EF 55-60%, RV moderately enlarged. LA moderately dilated. Mild MR. Mild TR. PHYSICAL EXAM: VITAL SIGNS: WNL. GENERAL: Well developed, in no acute distress. HEENT: Head is atraumatic, normocephalic. Pupils are equal, round. Extra ocular movements intact. Mucous membranes moist. Neck supple. No JVD. No carotid bruit. No thyromegaly. LUNGS: Clear to auscultation no wheezes, rales or rhonchi. No chest wall tenderness on palpation or with deep breathing. HEART: Irregular rhythm with controlled rate, no rubs or gallops. S1 and S2 heard. No murmur. ABDOMEN: Abdominal exam, WNL. Bowel sounds x4 quads. Soft, non-tender, without masses, organomegaly, or abdominal aorta enlargement. EXTREMITIES/VASCULAR: Extremities have easily palpable radial, femoral, dorsalis pedis and posterior tibial pulses. No cyanosis, calf tenderness. No BLE edema. NEUROLOGIC: Patient is awake, alert and oriented x3. No focal neurologic abnormalities. Impression: Acute GIB secodary to coumadin toxicity Atrial fibrillation, controlled rate. Hypertension -stable Hyperlipidemia CHF Tobacco abuse Objective - Vital Signs Vital signs: Vital Signs Temp 97.2 F L 03/02/19 12:25 Pulse 87 03/02/19 12:25 Resp 18 03/02/19 12:25 BP 113/56 03/02/19 12:25 Pulse Ox 97 03/02/19 12:25 Intake & Output 03/01/19 03/02/19 03/02/19 18:59 06:59 18:59 Intake Total 1400 350 Output Total 1500 Balance 1400 -1500 350 Weight 153.7 kg Intake: IV 350 Oral 1400 Output: Urine 1500 Other: # Voids 1 # Bowel Movements 0 - Labs CBC & Chem 7: 03/02/19 06:59 03/02/19 06:59 Labs: Abnormal Lab Results - Last 24 Hours (Table) 03/01/19 03/01/19 03/02/19 Range/Units 16:52 21:42 02:31 RBC (3.80-5.40) m/uL Hgb (11.4-16.0) gm/dL Hct (34.0-46.0) % PT (9.0-12.0) sec INR (<1.2) Glucose (74-99) mg/dL POC Glucose (mg/dL) 295 H 301 H 185 H (75-99) mg/dL Total Protein (6.3-8.2) g/dL Albumin (3.5-5.0) g/dL 03/02/19 03/02/19 03/02/19 Range/Units 06:12 06:59 06:59 RBC 2.67 L (3.80-5.40) m/uL Hgb 7.7 L (11.4-16.0) gm/dL Hct 24.7 L (34.0-46.0) % PT 13.9 H (9.0-12.0) sec INR 1.4 H (<1.2) Glucose (74-99) mg/dL POC Glucose (mg/dL) 114 H (75-99) mg/dL Total Protein (6.3-8.2) g/dL Albumin (3.5-5.0) g/dL 03/02/19 03/02/19 Range/Units 06:59 12:39 RBC (3.80-5.40) m/uL Hgb (11.4-16.0) gm/dL Hct (34.0-46.0) % PT (9.0-12.0) sec INR (<1.2) Glucose 103 H (74-99) mg/dL POC Glucose (mg/dL) 112 H (75-99) mg/dL Total Protein 5.1 L (6.3-8.2) g/dL Albumin 3.0 L (3.5-5.0) g/dL
[2019-03-02] MEDS: CYCLOBENZAPRINE 10 MG TAB PO SCH (21:37)
[2019-03-02] MEDS: PANTOPRAZOLE 40 MG TABLET PO SCH (21:38)
[2019-03-02 21:41] LABS: Glucose,Whole Blood 171 mg/dL (75-99)
[2019-03-02] MEDS: INSULIN NPH 300 UNIT/3 ML VIAL SQ SCH (23:49)
[2019-03-03 00:22] LABS: Glucose,Whole Blood 246 mg/dL (75-99)
[2019-03-03 06:01] LABS: Glucose,Whole Blood 166 mg/dL (75-99)
[2019-03-03] MEDS: LEVOTHYROXINE 88 MCG TAB PO SCH (06:32)
[2019-03-03] MEDS: INSULIN ASPART (NovoLOG) 100 UNIT/ML VIAL SQ SCH ×5 (06:33→17:21)
[2019-03-03 07:11] LABS: Basophils # (A) 0.1 k/uL (0-0.2); Basophils % (A) 1 %; Eosinophils # (A) 0.1 k/uL (0-0.7); Eosinophils % (A) 1 %; HCT 25.5 % (34.0-46.0); Hypochromasia Marked; Lymphocytes # (A) 1.9 k/uL (1.0-4.8); Lymphocytes % (A) 24 %; MCH 29.2 pg (25.0-35.0); MCHC 31.3 g/dL (31.0-37.0); MCV 93.4 fL (80.0-100.0); Mean Platelet Volume 8.2; Monocytes # (A) 0.6 k/uL (0-1.0); Monocytes % (A) 8 %; Neutrophils # (A) 4.9 k/uL (1.3-7.7); Neutrophils % (A) 63 %; Platelet Count 228 k/uL (150-450); Poikilocytosis Moderate; RBC 2.73 m/uL (3.80-5.40); WBC 7.8 k/uL (3.8-10.6)
[2019-03-03] MEDS ORDERED: INSULIN ASPART (NovoLOG) 100 UNIT/ML VIAL SQ SCH (07:30)
[2019-03-03] MEDS: PANTOPRAZOLE 40 MG TABLET PO SCH ×3 (07:49→23:12)
[2019-03-03] MEDS: FUROSEMIDE 40 MG TAB PO SCH (07:49)
[2019-03-03] MEDS: METOPROLOL SUCCINATE (ER) 100 MG TAB.ER.24H PO SCH (07:49)
[2019-03-03] MEDS: LISINOPRIL 2.5 MG TAB PO SCH (07:50)
[2019-03-03] MEDS: ALPRAZolam 0.5 MG TAB PO PRN ×2 (07:50→23:12)
[2019-03-03] MEDS: DIGOXIN 250 MCG TAB PO SCH (07:50)
[2019-03-03] MEDS: SPIRONOLACTONE 25 MG TAB PO SCH (07:50)
[2019-03-03] MEDS: FLUTICASONE 110 MCG INHALER INHALATION SCH ×2 (08:05→20:08)
--- NOTE | 2019-03-03 08:32 | P.PN ---
Subjective Progress Note Date: 03/02/19 this is a 63-year-old female patient of Dr. KutDr. Cruz. She has underlying history of chronic atrial fibrillation hypertension and hypothyroidism, chronic tobacco use, that diabetes mellitus type 2 insulin requiring, and uterine cancer, admitted to the emergency room secondary to atrial fibrillation with rapid ventricular rate, heart rate of 168, she was given Adenocard in the emergency room, along with Lopressor 5 g IV.she presents with shortness of breath, palpitations, no chest pain, patient has lower extremity edema, headache edema, dizziness, and orthostatic lightheadedness. she has bloody stools after initial black stools for the past 4 days, no prior colonoscopy in the past, She is also on long-term anticoagulation with an INR of 7.8, patient has been noncompliant with INR monitoring at Dr. Vera's office, and was given vitamin K orally. In emergency room, EKG shows atrial fibrillation with ST depression, heart rate 168, second EKG showed atrial fibrillation with nonspecific ST-T wave changes, hemoglobin of 8.6, INR 7.8, creatinine of 1.24, blood sugar of 141, occult stools are positive, CAT scan of the abdomen and pelvis shows gastric distention with fluid and scattered small bowel fluid levels, possible nonspecific gastroenteritis, enlarged liver with nodular surface suggesting cirrhosis, also splenomegaly suggesting portal hypertension. also there is right-sided few hyperdense cyst in the right kidney likely reflecting hemorrhagic or proteinacious contents no hydronephrosis . Cholecystectomy chest x-ray shows no acute findings patient is admitted for A. fib with RVR, blood loss anemia, uncontrolled coagulopathy, symptomatic anemia, consult to cardiology and GI Dr. Scott 03/01: Patient is being prepped for colonoscopy and EGD, which is going to be done tomorrow, clear liquid diet, still has abdominal pain periumbilical and right-sided area, will been remains to be stable however it has dropped to 7.8, INR currently at 1.7, TSH is normal, abdominal ultrasound shows hepatosplenomegaly, and bilateral renal cyst, without any solid patient however does question whether this is a poorly defined hypoechoic lesion, this could be done as an outpatient patient does not have any melena or hematochezia, no caries stools, double basic count of 7.4 hemoglobin 7.8, 03/02: Patient is scheduled today for EGD and colonoscopy. She has undergone a bowel prep and is currently clear output on a little green. She denies any further blood. She is tender in the left upper and left lower quadrants and the umbilical areas. Her heart rate is controlled running in the 60s to 80s. Blood pressure 105/52, pulse ox 96% on room air. Patient's been afebrile. Objective - Vital Signs Vital signs: Vital Signs Temp 97 F L 03/02/19 08:10 Pulse 88 03/02/19 08:10 Resp 18 03/02/19 08:10 BP 105/52 03/02/19 08:10 Pulse Ox 96 03/02/19 08:10 Intake & Output 03/01/19 03/02/19 03/02/19 18:59 06:59 18:59 Intake Total 1400 Output Total 1500 Balance 1400 -1500 Weight 153.7 kg Intake: Oral 1400 Output: Urine 1500 Other: # Voids 1 - Exam Review Of Systems: Constitutional: No fever, no chills, no night sweats. No weight change. No weakness, reports fatigue. EENT: No headache. No blurred vision or double vision, no loss of vision. No loss of Hearing, no ringing in the ears, no dizziness. No nasal drainage or congestion. No epistaxis. No sore throat. Lungs: No shortness of breath, cough, no sputum production. No wheezing. Cardiovascular: No chest pain, no lower extremity edema. No palpitations. No paroxysmal nocturnal dyspnea. No orthopnea. No lightheadedness or dizziness. No syncopal episodes. Abdominal: Reports abdominal pain. No nausea, vomiting. No diarrhea. No con stipation. No bloody or tarry stools. No loss of appetite. Genitourinary: No dysuria, increased frequency, urgency. No urinary retention. Musculoskeletal: No myalgias. No muscle weakness, no gait dysfunction, no frequent falls. No back pain. No neck pain. Integumentary: No wounds, no lesions. No rash or pruritus. No unusual bruising. No change in hair or nails. Neurologic: No aphasia. No facial droop. No change in mentation. No head injury. No headache. No paralysis. No paresthesia. Psychiatric: No depression. No anxiety. No mood swings. Endocrine: No abnormal blood sugars. No weight change. No excessive sweating or thirst. No cold intolerance. - Constitutional General appearance: Present: cooperative, no acute distress - EENT Eyes: Present: anicteric sclerae, EOMI, PERRLA, dentition normal, normal appearance ENT: Present: NA/AT, normal oropharynx - Neck Neck: Present: normal ROM - Respiratory Respiratory: bilateral: CTA, negative: diminished, dullness, rales - Cardiovascular Rhythm: regular Heart sounds: normal: S1, S2 Abnormal Heart Sounds: Absent: systolic murmur, diastolic murmur, rub, S3 Ga llop, S4 Gallop, click, other - Gastrointestinal General gastrointestinal: Present: normal bowel sounds, soft, mild tenderness to the left upper quadrant, left lower quadrant. and periumbilical areas - Integumentary Integumentary: Present: normal, normal turgor - Neurologic Neurologic: Present: CNII-XII intact - Musculoskeletal Musculoskeletal: Present: gait normal - Psychiatric Psychiatric: Present: A&O x's 3, appropriate affect - Labs CBC & Chem 7: 03/03/19 06:34 03/02/19 06:59 Labs: Abnormal Lab Results - Last 24 Hours (Table) 03/01/19 03/01/19 03/01/19 Range/Units 11:52 16:52 21:42 RBC (3.80-5.40) m/uL Hgb (11.4-16.0) gm/dL Hct (34.0-46.0) % PT (9.0-12.0) sec INR (<1.2) Glucose (74-99) mg/dL POC Glucose (mg/dL) 280 H 295 H 301 H (75-99) mg/dL Total Protein (6.3-8.2) g/dL Albumin (3.5-5.0) g/dL 03/02/19 03/02/19 03/02/19 Range/Units 02:31 06:12 06:59 RBC (3.80-5.40) m/uL Hgb (11.4-16.0) gm/dL Hct (34.0-46.0) % PT 13.9 H (9.0-12.0) sec INR 1.4 H (<1.2) Glucose (74-99) mg/dL POC Glucose (mg/dL) 185 H 114 H (75-99) mg/dL Total Protein (6.3-8.2) g/dL Albumin (3.5-5.0) g/dL 03/02/19 03/02/19 Range/Units 06:59 06:59 RBC 2.67 L (3.80-5.40) m/uL Hgb 7.7 L (11.4-16.0) gm/dL Hct 24.7 L (34.0-46.0) % PT (9.0-12.0) sec INR (<1.2) Glucose 103 H (74-99) mg/dL POC Glucose (mg/dL) (75-99) mg/dL Total Protein 5.1 L (6.3-8.2) g/dL Albumin 3.0 L (3.5-5.0) g/dL Assessment and Plan Plan: 1. A. fib with RVR, uncontrolled coagulopathy, history of chronic atrial fibrillationpatient received Adenocard, in the emergency room, currently on metoprolol 100 mg daily, digoxin 2050 g daily, cardiology is following. 2. Uncontrolled coagulopathy, symptomatic anemia, upper GI bleed, with melanocytic stools,2 units packed red blood cells were given, along with vitamin K, compliance to INR monitoring was advised for patient, patient was noncompliant to routine surveillance Coumadin on hold secondary to GI bleed. EGD and colonoscopy today. 2. acute blood loss anemia suspect upper and lower GI bleeding, however she also has burgundy stools, and kidney hemorrhage is possible, based on CAT scan findings, ultrasound to be done of the kidneys, consult with Gastroenterology patientstill did not have a baseline colonoscopy, EGD is expected during this admission, close monitoring of CBC Coumadin is on hold. We'll transfuse to keep hemoglobin above 7 3. Diabetes mellitus,2 on NPH 90 units will be restarted, and lispro 45 units 3 times a day will be on hold until diet would be resumed, we'll going to reassure him NPH at 100% of scheduled dose, patient is currently on clear liquid diet,while awaiting for GI for endoscopic evaluation, 4. Multiple kidney cysts, one sees possibly hemorrhagic, ultrasound to be done, no solid mass noted, however hypoechoic lesion cannot be fully discern, needs follow-up surveillance as an outpatient 5. Liver cirrhosis suspected, with splenomegaly, nodular liver, gastroenterology is consulted, 6. Hypothyroidism, on levothyroxine 88 g daily no changes made awaitTSH 7. CHFechocardiogram requested Continue on Aldactone 2.5 mg daily, metoprolol 100 mg daily, Lasix, lisinopril 40 8. Hyperlipidemia 9. Posterior arthritis, with spinal disc disease on chronic [place] prior to admission Flexeril 10 hypertensive cardiovascular disease, on spironolactone, l lisinopril, metoprolol lisinopril monitor for hypotension meds with parameters, 11 COPD current tobacco use, offered nicotine patches, continue on Flovent 110 t wice a day scheduledalbuterol when necessary GI prophylaxis, IV Protonix DVT prophylaxis, contraindicated secondary to acute GI bleed, CHACHA bang and SCDs for now Discharge plan: Home Impression and plan of care have been directed as dictated by the signing physician. Charley Templeton nurse practitioner acting as scribe for signing physician.
[2019-03-03] MEDS: SODIUM CHLORIDE 0.9% 1,000 ML IV SCH (09:12)
[2019-03-03 09:53] LABS: Glucose,Whole Blood 53 mg/dL (75-99)
[2019-03-03 10:15] LABS: Glucose,Whole Blood 67 mg/dL (75-99)
--- NOTE | 2019-03-03 10:26 | P.PN ---
Subjective Progress Note Date: 03/03/19 Principal diagnosis: GI bleed and melena Status post EGD colonoscopy 2 small nonbleeding angiectasia in the duodenal bulb status post cautery. Colonoscopy polypectomy 4. Hemoglobin 8. Denies abdominal pain or active bleeding. Objective - Vital Signs Vital signs: Vital Signs Temp 97.5 F L 03/03/19 04:00 Pulse 76 03/03/19 04:00 Resp 16 03/03/19 04:00 BP 123/59 03/03/19 04:00 Pulse Ox 97 03/03/19 04:00 Intake & Output 03/02/19 03/03/19 03/03/19 18:59 06:59 18:59 Intake Total 650 400 480 Balance 650 400 480 Weight 152.3 kg Intake: IV 350 Oral 300 400 480 Other: # Voids 1 # Bowel Movements 0 - Exam General appearance: The patient is alert, oriented, in no acute distress. HET: Head is normocephalic and atraumatic. Pupils are equal and reactive. Oropharynx is clear without lesions. Neck: Supple without lymphadenopathy. Trachea midline. Heart: S1 S2. Regular rate and rhythm. Lungs: No crackles or wheezes are heard. Abdomen: Soft, nontender, nondistended with bowel sounds. No peritoneal signs. No palpable organomegaly or masses. Extremities: Normal skin color and turgor. No cyanosis, rash, ulceration, clubbing, or edema. Radial and pedal pulses are 2/4 bilaterally. Neurological: No focal deficits. Strength and sensation are grossly intact. - Labs CBC & Chem 7: 03/03/19 06:34 03/02/19 06:59 Labs: Abnormal Lab Results - Last 24 Hours (Table) 03/02/19 03/02/19 03/02/19 Range/Units 12:39 17:04 21:19 RBC (3.80-5.40) m/uL Hgb (11.4-16.0) gm/dL Hct (34.0-46.0) % POC Glucose (mg/dL) 112 H 203 H 171 H (75-99) mg/dL 03/03/19 03/03/19 03/03/19 Range/Units 00:18 06:00 06:34 RBC 2.73 L (3.80-5.40) m/uL Hgb 8.0 L (11.4-16.0) gm/dL Hct 25.5 L (34.0-46.0) % POC Glucose (mg/dL) 246 H 166 H (75-99) mg/dL Assessment and Plan (1) GI bleed Narrative/Plan: Acute GI bleed with mixed maroon black tarry stools status post EGD colonoscopy with findings of 2 small nonbleeding angiectasia is in the duodenal bulb status post cautery colonic polypectomy 4. Current Visit: Yes Status: Acute Code(s): K92.2 - GASTROINTESTINAL HEMORRHAGE, UNSPECIFIED SNOMED Code(s): 24473293 (2) Atrial fibrillation Current Visit: Yes Status: Acute Code(s): I48.91 - UNSPECIFIED ATRIAL FIBRI LLATION SNOMED Code(s): 19311656 (3) Acute blood loss anemia Current Visit: Yes Status: Acute Code(s): D62 - ACUTE POSTHEMORRHAGIC ANEMIA SNOMED Code(s): 384205760 Plan: 1. May resume anticoagulation as long as CBC is stable no active bleeding. Diet as tolerated. Protonix 40 mg twice daily. Assessment and plan a care discussed with Dr. Gardiner
[2019-03-03 10:36] LABS: Glucose,Whole Blood 77 mg/dL (75-99)
[2019-03-03 11:45] LABS: Glucose,Whole Blood 84 mg/dL (75-99)
[2019-03-03] MEDS: HYDROcodone/APAP 10-325MG 1 EACH TAB PO PRN ×2 (13:05→23:15)
--- NOTE | 2019-03-03 15:11 | P.PN ---
Subjective Progress Note Date: 03/03/19 this is a 63-year-old female patient of Dr. KutDr. Cruz. She has underlying history of chronic atrial fibrillation hypertension and hypothyroidism, chronic tobacco use, that diabetes mellitus type 2 insulin requiring, and uterine cancer, admitted to the emergency room secondary to atrial fibrillation with rapid ventricular rate, heart rate of 168, she was given Adenocard in the emergency room, along with Lopressor 5 g IV.she presents with shortness of breath, palpitations, no chest pain, patient has lower extremity edema, headache edema, dizziness, and orthostatic lightheadedness. she has bloody stools after initial black stools for the past 4 days, no prior colonoscopy in the past, She is also on long-term anticoagulation with an INR of 7.8, patient has been noncompliant with INR monitoring at Dr. Vera's office, and was given vitamin K orally. In emergency room, EKG shows atrial fibrillation with ST depression, heart rate 168, second EKG showed atrial fibrillation with nonspecific ST-T wave changes, hemoglobin of 8.6, INR 7.8, creatinine of 1.24, blood sugar of 141, occult stools are positive, CAT scan of the abdomen and pelvis shows gastric distention with fluid and scattered small bowel fluid levels, possible nonspecific gastroenteritis, enlarged liver with nodular surface suggesting cirrhosis, also splenomegaly suggesting portal hypertension. also there is right-sided few hyperdense cyst in the right kidney likely reflecting hemorrhagic or proteinacious contents no hydronephrosis . Cholecystectomy chest x-ray shows no acute findings patient is admitted for A. fib with RVR, blood loss anemia, uncontrolled coagulopathy, symptomatic anemia, consult to cardiology and GI Dr. Scott 03/01: Patient is being prepped for colonoscopy and EGD, which is going to be done tomorrow, clear liquid diet, still has abdominal pain periumbilical and right-sided area, will been remains to be stable however it has dropped to 7.8, INR currently at 1.7, TSH is normal, abdominal ultrasound shows hepatosplenomegaly, and bilateral renal cyst, without any solid patient however does question whether this is a poorly defined hypoechoic lesion, this could be done as an outpatient patient does not have any melena or hematochezia, no caries stools, double basic count of 7.4 hemoglobin 7.8, 03/02: Patient is scheduled today for EGD and colonoscopy. She has undergone a bowel prep and is currently clear output on a little green. She denies any further blood. She is tender in the left upper and left lower quadrants and the umbilical areas. Her heart rate is controlled running in the 60s to 80s. Blood pressure 105/52, pulse ox 96% on room air. Patient's been afebrile. 03/03: Yesterday, patient underwent EGD with Dr. Romero that revealed 2 small nonbleeding angiectasia in the duodenal bulb status post cautery. Colonoscopy revealed a 5 mm and 1 cm descending colon polyps status post polypectomy, 5 mm sigmoid colon polyp and 1 cm mid rectal polyp status post polypectomy. If biopsy shows adenoma patient will need repeat colonoscopy in 3 years. Patient had an episode of tachycardia this morning jumping to heart rate of 160 and at the same time had a blood sugar of 53. She did eat 100% of her breakfast and this occurred around 10:00. We are changing the NPH from 85 units daily to 40 units twice daily and decreasing NovoLog scheduled with meals down to 30 units 3 times daily. She did have a decreased dose of NovoLog with supper yesterday due to hypoglycemia at 75% of her normal. Patient will be monitored overnight anticipate discharge home tomorrow. Objective - Vital Signs Vital signs: Vital Signs Temp 96.2 F L 03/03/19 07:45 Pulse 88 03/03/19 07:45 Resp 16 03/03/19 07:45 BP 100/55 03/03/19 07:45 Pulse Ox 96 03/03/19 07:45 Intake & Output 03/02/19 03/03/19 03/03/19 18:59 06:59 18:59 Intake Total 650 400 480 Balance 650 400 480 Weight 152.3 kg Intake: IV 350 Oral 300 400 480 Other: # Voids 1 # Bowel Movements 0 - Exam Review Of Systems: Constitutional: No fever, no chills, no night sweats. No weight change. No weakness, reports fatigue. EENT: No headache. No blurred vision or double vision, no loss of vision. No loss of Hearing, no ringing in the ears, no dizziness. No nasal drainage or congestion. No epistaxis. No sore throat. Lungs: No shortness of breath, cough, no sputum production. No wheezing. Cardiovascular: No chest pain, no lower extremity edema. No palpitations. No paroxysmal nocturnal dyspnea. No orthopnea. No lightheadedness or dizziness. No syncopal episodes. Abdominal: Denies abdominal pain. No nausea, vomiting. No diarrhea. No constipation. No bloody or tarry stools. No loss of appetite. Genitourinary: No dysuria, increased frequency, urgency. No urinary retention. Musculoskeletal: No myalgias. No muscle weakness, no gait dysfunction, no frequent falls. No back pain. No neck pain. Integumentary: No wounds, no lesions. No rash or pruritus. No unusual bruising. No change in hair or nails. Neurologic: No aphasia. No facial droop. No change in mentation. No head injury. No headache. No paralysis. No paresthesia. Psychiatric: No depression. No anxiety. No mood swings. Endocrine: Reports blood sugars. No weight change. No excessive sweating or thirst. No cold intolerance. - Constitutional General appearance: Present: cooperative, no acute distress - EENT Eyes: Present: anicteric sclerae, EOMI, PERRLA, dentition normal, normal alec earance ENT: Present: NA/AT, normal oropharynx - Neck Neck: Present: normal ROM - Respiratory Respiratory: bilateral: CTA, negative: diminished, dullness, rales - Cardiovascular Rhythm: regular Heart sounds: normal: S1, S2 Abnormal Heart Sounds: Absent: systolic murmur, diastolic murmur, rub, S3 Gallop, S4 Gallop, click, other - Gastrointestinal General gastrointestinal: Present: normal bowel sounds, soft, no tenderness - Integumentary Integumentary: Present: normal, normal turgor - Neurologic Neurologic: Present: CNII-XII intact - Musculoskeletal Musculoskeletal: Present: gait normal - Psychiatric Psychiatric: Present: A&O x's 3, appropriate affect - Labs CBC & Chem 7: 03/03/19 06:34 03/02/19 06:59 Labs: Abnormal Lab Results - Last 24 Hours (Table) 03/02/19 03/02/19 03/02/19 Range/Units 12:39 17:04 21:19 RBC (3.80-5.40) m/uL Hgb (11.4-16.0) gm/dL Hct (34.0-46.0) % POC Glucose (mg/dL) 112 H 203 H 171 H (75-99) mg/dL 03/03/19 03/03/19 03/03/19 Range/Units 00:18 06:00 06:34 RBC 2.73 L (3.80-5.40) m/uL Hgb 8.0 L (11.4-16.0) gm/dL Hct 25.5 L (34.0-46.0) % POC Glucose (mg/dL) 246 H 166 H (75-99) mg/dL 03/03/19 Range/Units 09:48 RBC (3.80-5.40) m/uL Hgb (11.4-16.0) gm/dL Hct (34.0-46.0) % POC Glucose (mg/dL) 53 L (75-99) mg/dL Assessment and Plan Plan: 1. A. fib with RVR, uncontrolled coagulopathy, history of chronic atrial fibrillationpatient received Adenocard, in the emergency room, currently on metoprolol 100 mg daily, digoxin 2050 g daily, cardiology is following. 2. Uncontrolled coagulopathy, symptomatic anemia, upper GI bleed, with melanocytic stools,2 units packed red blood cells were given, along with vitamin K, compliance to INR monitoring was advised for patient, patient was noncompliant to routine surveillance Coumadin on hold secondary to GI bleed. EGD and colonoscopy today. 2. acute blood loss anemia secondary to angiectasia in the duodenal bulb status post cautery. Coumadin is on hold. 3. Diabetes mellitus type 2 uncontrolled with hypoglycemia. NPH decreased to 40 units twice daily, scheduled NovoLog decreased to 30 units 3 times daily with meals. on NPH 90 units will be restarted, and lispro 45 units 3 times a day will be on hold until diet would be resumed, we'll going to reassure him NPH at 100% of scheduled dose, patient is currently on clear liquid diet,while awaiting for GI for endoscopic evaluation, 4. Multiple kidney cysts, one sees possibly hemorrhagic, ultrasound to be done, no solid mass noted, however hypoechoic lesion cannot be fully discern, needs follow-up surveillance as an outpatient 5. Liver cirrhosis suspected, with splenomegaly, nodular liver, gastroenterology is consulted, 6. Hypothyroidism, on levothyroxine 88 g daily. 7. CHFechocardiogram requested Continue on Aldactone 2.5 mg daily, metoprolol 100 mg daily, Lasix, lisinopril 40 8. Hyperlipidemia 9. Posterior arthritis, with spinal disc disease on chronic [place] prior to admission Flexeril 10 hypertensive cardiovascular disease, on spironolactone, l lisinopril, metoprolol lisinopril monitor for hypotension meds with parameters, 11 COPD current tobacco use, offered nicotine patches, continue on Flovent 110 twice a day scheduledalbuterol when necessary GI prophylaxis, IV Protonix DVT prophylaxis, contraindicated secondary to acute GI bleed, CHACHA bang and SCDs for now Discharge plan: Home on Saturday Impression and plan of care have been directed as dictated by the signing physician. Charley Templeton nurse practitioner acting as scribe for signing physician.
[2019-03-03] MEDS: METOPROLOL TARTRATE 25 MG TAB PO SCH ×2 (15:26→23:11)
--- NOTE | 2019-03-03 16:15 | PN ---
PROGRESS NOTE DATE OF SERVICE: Mrs. Flores had an episode of hypoglycemia today. She has diabetes, hypertension, hyperlipidemia, chronic atrial fibrillation. However, her rate control has been suboptimal. I am recommending we increase the metoprolol to 75 mg b.i.d. Blood sugars have been somewhat labile. Given her recent GI bleed requiring transfusion, I am recommending no anticoagulation. Vitals are stable. S1, S2 heard normally, slightly tachycardic. Lungs reveal improved air entry. Abdomen and lower extremity exam unchanged. I have not seen any information regarding her cirrhosis of the liver type picture on the CT scan from Gastroenterology; however, we will not do any anticoagulation. Advised followup with GI as an outpatient. The patient will be kept at least for another 24 hours or more to optimize rate control. ALLAN / DUGLASN: [id number] /
[2019-03-03 17:05] LABS: Glucose,Whole Blood 322 mg/dL (75-99)
[2019-03-03 18:08] LABS: Hemoglobin A1C 6.8 % (4.0-6.0)
[2019-03-03 22:22] LABS: Glucose,Whole Blood 228 mg/dL (75-99)
[2019-03-03] MEDS: CYCLOBENZAPRINE 10 MG TAB PO SCH (23:11)
[2019-03-03] MEDS: INSULIN NPH 300 UNIT/3 ML VIAL SQ SCH (23:14)
[2019-03-04 00:37] LABS: Glucose,Whole Blood 320 mg/dL (75-99)
[2019-03-04] MEDS: SODIUM CHLORIDE 0.9% 1,000 ML IV SCH ×2 (01:12→13:38)
[2019-03-04] MEDS: LEVOTHYROXINE 88 MCG TAB PO SCH (06:01)
[2019-03-04 07:03] LABS: Glucose,Whole Blood 305 mg/dL (75-99)
[2019-03-04] MEDS: INSULIN ASPART (NovoLOG) 100 UNIT/ML VIAL SQ SCH ×4 (07:09→13:40)
[2019-03-04] MEDS: FLUTICASONE 110 MCG INHALER INHALATION SCH (08:01)
[2019-03-04 08:04] VITALS: BP 101/46; PULSE 67; RESP 18; TEMP 97.6
[2019-03-04] MEDS: HYDROcodone/APAP 10-325MG 1 EACH TAB PO PRN (08:13)
[2019-03-04] MEDS: FUROSEMIDE 40 MG TAB PO SCH (08:14)
[2019-03-04] MEDS: DIGOXIN 250 MCG TAB PO SCH (08:14)
[2019-03-04] MEDS: SPIRONOLACTONE 25 MG TAB PO SCH (08:15)
[2019-03-04] MEDS: METOPROLOL TARTRATE 25 MG TAB PO SCH (08:15)
[2019-03-04] MEDS: INSULIN NPH 300 UNIT/3 ML VIAL SQ SCH (08:18)
[2019-03-04] MEDS: LISINOPRIL 2.5 MG TAB PO SCH (08:20)
[2019-03-04 11:22] LABS: HCT 26.7 % (34.0-46.0); HGB 8.1 gm/dL (11.4-16.0); Hypochromasia Marked; MCH 28.3 pg (25.0-35.0); MCHC 30.3 g/dL (31.0-37.0); MCV 93.3 fL (80.0-100.0); Mean Platelet Volume 7.5; Platelet Count 225 k/uL (150-450); Poikilocytosis Slight; RBC 2.87 m/uL (3.80-5.40); RDW 14.5 % (11.5-15.5); WBC 8.7 k/uL (3.8-10.6)
[2019-03-04 11:33] LABS: Calcium 9.2 mg/dL (8.4-10.2); Potassium 4.3 mmol/L (3.5-5.1)
--- NOTE | 2019-03-04 12:17 | P.PN ---
Subjective Progress Note Date: 03/04/19 This is a pleasant 63-year-old female patient who previously followed with Dr. Cruz in the office. She has a history of diabetes, hypertension, hyperlipidemia and chronic atrial fibrillation. She presented with a 3 day history of black stools with subsequent bright red blood per rectum with an INR of 7.8. Coumadin was discontinued and she was given vitamin K orally. She was transfused 2 units of packed red blood cells. Heart rates have been suboptimally controlled. Metoprolol was increased yesterday to 75 mg by mouth 3 times a day. Heart rates today are better controlled. She has not been started on anticoagulation due to GI bleed requiring transfusion. Overall, she is feeling well. She feels a lot of her heart rate issues are related to her abdominal issues. Objective - Vital Signs Vital signs: Vital Signs Temp 97.6 F 03/04/19 08:00 Pulse 67 03/04/19 08:00 Resp 18 03/04/19 08:00 BP 101/46 03/04/19 08:00 Pulse Ox 98 03/04/19 08:00 Intake & Output 03/03/19 03/04/19 03/04/19 18:59 06:59 18:59 Intake Total 960 852 360 Output Total 600 Balance 360 852 360 Weight 152.9 kg Intake: Oral 960 852 360 Output: Urine 600 Other: # Voids 2 - Exam PHYSICAL EXAMINATION: HEENT: Head is atraumatic, normocephalic. Pupils equal, round. Neck is supple. There is no elevated jugular venous pressure. HEART EXAMINATION: Heart sounds irregularly irregular, S1 and S2 normal. No murmur or gallop heard. CHEST EXAMINATION: Lungs are clear to auscultation and precussion. No chest wall tenderness is noted on palpation or with deep breathing. ABDOMEN: Soft, obese, nontender. Bowel sounds are heard. No organomegaly noted. EXTREMITIES: 2+ peripheral pulses with no evidence of peripheral edema and no calf tenderness noted. NEUROLOGIC patient is awake, alert and oriented x3. . - Labs CBC & Chem 7: 03/04/19 10:58 03/04/19 10:58 Labs: Abnormal Lab Results - Last 24 Hours (Table) 03/03/19 03/03/19 03/03/19 Range/Units 06:34 17:03 22:20 RBC (3.80-5.40) m/uL Hgb (11.4-16.0) gm/dL Hct (34.0-46.0) % MCHC (31.0-37.0) g/dL Sodium (137-145) mmol/L Glucose (74-99) mg/dL POC Glucose (mg/dL) 322 H 228 H (75-99) mg/dL Hemoglobin A1c 6.8 H (4.0-6.0) % 03/04/19 03/04/19 03/04/19 Range/Units 00:36 06:51 10:58 RBC 2.87 L (3.80-5.40) m/uL Hgb 8.1 L (11.4-16.0) gm/dL Hct 26.7 L (34.0-46.0) % MCHC 30.3 L (31.0-37.0) g/dL Sodium (137-145) mmol/L Glucose (74-99) mg/dL POC Glucose (mg/dL) 320 H 305 H (75-99) mg/dL Hemoglobin A1c (4.0-6.0) % 03/04/19 Range/Units 10:58 RBC (3.80-5.40) m/uL Hgb (11.4-16.0) gm/dL Hct (34.0-46.0) % MCHC (31.0-37.0) g/dL Sodium 136 L (137-145) mmol/L Glucose 161 H (74-99) mg/dL POC Glucose (mg/dL) (75-99) mg/dL Hemoglobin A1c (4.0-6.0) % Assessment and Plan Assessment: #1 acute rectal bleeding with acute blood loss anemia requiring transfusion #2 coagulopathy secondary to Coumadin use and possible liver cirrhosis #3 chronic atrial fibrillation presenting with rapid ventricular response #4 liver cirrhosis and portal hypertension from computed tomography scan #5 chronic diastolic congestive heart failure #6 hypertension #7 hyperlipidemia #8 hypothyroidism #9 diabetes mellitus type 2 requiring insulin. Plan: From cardiology's perspective, we will continue current medications. Heart rate is better controlled. Continue to hold on anticoagulation at this point. From our standpoint, patient may be discharged home and will follow-up with Dr. CRYSTAL Degroot in the office as an outpatient. POPCORN ATTENDANT note has been reviewed, I agree with a documented findings and plan of care. Patient was seen and examined.
[2019-03-04 12:47] LABS: Glucose,Whole Blood 160 mg/dL (75-99)
--- NOTE | 2019-03-04 13:35 | P.DS ---
Providers Date of admission: 02/28/19 02:19 Expected date of discharge: 03/04/19 Attending physician: Briana Lua Consults: 02/28/19 02:20 Consult Physician Routine Consulting Provider: Nelly Scott Consult Reason/Comments: GI bleed Do you want consulting provider notified?: Yes Consult Physician Routine Consulting Provider: Dawood Scott Consult Reason/Comments: Afib with RVR Do you want consulting provider notified?: Yes Primary care physician: Gabriel Vera [facility] Course: this is a 63-year-old female patient of Dr. KutDr. Cruz. She has underlying history of chronic atrial fibrillation hypertension and hypothyroidism, chronic tobacco use, that diabetes mellitus type 2 insulin requiring, and uterine cancer, admitted to the emergency room secondary to atrial fibrillation with rapid ventricular rate, heart rate of 168, she was given Adenocard in the emergency room, along with Lopressor 5 g IV.she presents with shortness of breath, palpitations, no chest pain, patient has lower extremity edema, headache edema, dizziness, and orthostatic lightheadedness. she has bloody stools after initial black stools for the past 4 days, no prior colonoscopy in the past, She is also on long-term anticoagulation with an INR of 7.8, patient has been noncompliant with INR monitoring at Dr. Vera's office, and was given vitamin K orally. In emergency room, EKG shows atrial fibrillation with ST depression, heart rate 168, second EKG showed atrial fibrillation with nonspecific ST-T wave changes, hemoglobin of 8.6, INR 7.8, creatinine of 1.24, blood sugar of 141, occult stools are positive, CAT scan of the abdomen and pelvis shows gastric distention with fluid and scattered small bowel fluid levels, possible nonspecific gastroenteritis, enlarged liver with nodular surface suggesting cirrhosis, also splenomegaly suggesting portal hypertension. also there is right-sided few hyperdense cyst in the right kidney likely reflecting hemorrhagic or protei nacious contents no hydronephrosis . Cholecystectomy chest x-ray shows no acute findings patient is admitted for A. fib with RVR, blood loss anemia, uncontrolled coagulopathy, symptomatic anemia, consult to cardiology and GI Dr. Scott 03/01: Patient is being prepped for colonoscopy and EGD, which is going to be done tomorrow, clear liquid diet, still has abdominal pain periumbilical and right-sided area, will been remains to be stable however it has dropped to 7.8, INR currently at 1.7, TSH is normal, abdominal ultrasound shows hepatosplenomegaly, and bilateral renal cyst, without any solid patient however does question whether this is a poorly defined hypoechoic lesion, this could be done as an outpatient patient does not have any melena or hematochezia, no caries stools, double basic count of 7.4 hemoglobin 7.8, 03/02: Patient is scheduled today for EGD and colonoscopy. She has undergone a bowel prep and is currently clear output on a little green. She denies any further blood. She is tender in the left upper and left lower quadrants and the umbilical areas. Her heart rate is controlled running in the 60s to 80s. Blood pressure 105/52, pulse ox 96% on room air. Patient's been afebrile. 03/03: Yesterday, patient underwent EGD with Dr. Romero that revealed 2 small nonbleeding angiectasia in the duodenal bulb status post cautery. Colonoscopy revealed a 5 mm and 1 cm descending colon polyps status post polypectomy, 5 mm sigmoid colon polyp and 1 cm mid rectal polyp status post polypectomy. If biopsy shows adenoma patient will need repeat colonoscopy in 3 years. Patient h ad an episode of tachycardia this morning jumping to heart rate of 160 and at the same time had a blood sugar of 53. She did eat 100% of her breakfast and this occurred around 10:00. We are changing the NPH from 85 units daily to 40 units twice daily and decreasing NovoLog scheduled with meals down to 30 units 3 times daily. She did have a decreased dose of NovoLog with supper yesterday due to hypoglycemia at 75% of her normal. Patient will be monitored overnight anticipate discharge home tomorrow. 03/04: Patient denies any blood in her stools. She denies any vomiting. She states she has a little nausea. Her heart rate has been in the 60s to 90s in atrial fibrillation overnight. No mentation changes today from cardiology. Repeat hemoglobin is 8.1. Blood sugars have been running high up to 320 during the night and insulin will be adjusted again for home. Dr. almonte she has cleared the patient to resume Coumadin which will be done at a slightly lower dose of 7 mg daily versus 7.5. Repeat lab work to be obtained on Saturday with results going to Dr. Olsen. Patient will be discharged home today in stable condition. Discharge diagnoses: 1. A. fib with RVR, chronic atrial fibrillation. 2. Uncontrolled coagulopathy, symptomatic anemia 2. acute blood loss anemia secondary to angiectasia in the duodenal bulb status post cautery. 3. Diabetes mellitus type 2 uncontrolled with hypoglycemia and hyperglycemia. 4. Multiple kidney cysts 5. Liver cirrhosis suspected, with splenomegaly, nodular liver 6. Hypothyroidism 7. Chronic diastolic heart failure 8. Hyperlipidemia 9. Generalized arthritis, with spinal disc disease 10 hypertensive cardiovascular disease 11 COPD Discharge plan: Home Impression and plan of care have been directed as dictated by the signing physician. Charley Templeton nurse practitioner acting as scribe for signing physician. Patient Condition at Discharge: Good Plan - Discharge Summary Discharge Rx Participant: Yes New Discharge Prescriptions: New Warfarin Sodium [Coumadin] 5 mg PO DAILY #30 tablet Warfarin Sodium [Coumadin] 2 mg PO DAILY #30 tablet Metoprolol Tartrate [Lopressor] 75 mg PO TID #90 tablet Pantoprazole [Protonix] 40 mg PO BID #60 tablet.dr Continue HYDROcodone/APAP 10-325MG [[place] 10-325] 1 tab PO QID PRN PRN Reason: Pain Cyclobenzaprine [Flexeril] 10 mg PO HS Clemastine Fumarate 2.68 mg PO BID Cholecalciferol (Vitamin D3) [Vitamin D3] 4,000 unit PO DAILY Beclomethasone Dipropionate [Qvar 80 mcg] 2 puff INHALATION RT-BID ALPRAZolam [Xanax] 1 mg PO QID PRN PRN Reason: Anxiety Levothyroxine Sodium [Synthroid] 88 mcg PO DAILY Spironolactone [Aldactone] 25 mg PO DAILY Nystatin 100,000Unit/gm Cream [Mycostatin Cream] 1 applic TOPICAL BID Lisinopril [Zestril] 2.5 mg PO DAILY Furosemide [Lasix] 40 mg PO DAILY Ipratropium-Albuterol Nebulize [Duoneb 0.5 mg-3 mg/3 ml Soln] 3 ml INHALATION RT-TID PRN PRN Reason: Shortness Of Breath Digoxin 250 mcg PO DAILY Changed Insulin Lispro [Admelog] 40 unit SQ AC-TID #0 Insulin NPH Human Isophane [humuLIN N] 45 unit SQ BID #0 Discontinued Metoprolol Succinate (ER) [Toprol Xl] 100 mg PO DAILY Warfarin [Coumadin] 7.5 mg PO HS Discharge Medication List ALPRAZolam [Xanax] 1 mg PO QID PRN 01/06/18 [History] Beclomethasone Dipropionate [Qvar 80 mcg] 2 puff INHALATION RT-BID 01/06/18 [History] Cholecalciferol (Vitamin D3) [Vitamin D3] 4,000 unit PO DAILY 01/06/18 [History] Clemastine Fumarate 2.68 mg PO BID 01/06/18 [History] Cyclobenzaprine [Flexeril] 10 mg PO HS 01/06/18 [History] Furosemide [Lasix] 40 mg PO DAILY 01/06/18 [History] HYDROcodone/APAP 10-325MG [[place] 10-325] 1 tab PO QID PRN 01/06/18 [History] Ipratropium-Albuterol Nebulize [Duoneb 0.5 mg-3 mg/3 ml Soln] 3 ml INHALATION RT-TID PRN 01/06/18 [History] Levothyroxine Sodium [Synthroid] 88 mcg PO DAILY 01/06/18 [History] Lisinopril [Zestril] 2.5 mg PO DAILY 01/06/18 [History] Nystatin 100,000Unit/gm Cream [Mycostatin Cream] 1 applic TOPICAL BID 01/06/18 [History] Spironolactone [Aldactone] 25 mg PO DAILY 01/06/18 [History] Digoxin 250 mcg PO DAILY 02/28/19 [History] Insulin Lispro [Admelog] 40 unit SQ AC-TID #0 03/04/19 [Rx] Insulin NPH Human Isophane [humuLIN N] 45 unit SQ BID #0 03/04/19 [Rx] Metoprolol Tartrate [Lopressor] 75 mg PO TID #90 tablet 03/04/19 [Rx] Pantoprazole [Protonix] 40 mg PO BID #60 tablet. 03/04/19 [Rx] Warfarin Sodium [Coumadin] 2 mg PO DAILY #30 tablet 03/04/19 [Rx] Warfarin Sodium [Coumadin] 5 mg PO DAILY #30 tablet 03/04/19 [Rx] Follow up Appointment(s)/Referral(s): Matthew Degroot MD [STAFF PHYSICIAN] - 1 Week (Office will call with follow up appointment. ) Nelly Scott MD [STAFF PHYSICIAN] - 03/16/19 2:45 pm (Saturday please arrive at 2:20 to fill out paperwork) Gabriel Vera MD [Primary Care Provider] - 03/12/19 2:15 pm ( -previously scheduled appointment) Ambulatory/Diagnostic Orders: Complete Blood Count w/diff [LAB.AMB] Location: None Selected Prothrombin Time INR [LAB.AMB] Location: None Selected Patient Instructions/Handouts: Gastrointestinal Bleeding (DC), Elevated INR (DC) Activity/Diet/Wound Care/Special Instructions: Resume Coumadin at 7 mg daily on March 05. INR on Saturday with results to Dr. Vera. Discharge Disposition: HOME SELF-CARE
== END 2019-03-04 14:03 | disposition home or self-care (01) | DRG 303 ==
LOC: EC 22:38 → 3SCARD 02-28 02:19
PROVIDERS: ADMIT Family Medicine; ATTEND Family Medicine
PROC: 30233N1 Transfusion of Nonautologous Red Blood Cells into Peripheral Vein, Percutaneous Approach (ICD-10-PCS; 2019-02-28)
PROC: 0DBN8ZZ Excision of Sigmoid Colon, Via Natural or Artificial Opening Endoscopic (ICD-10-PCS; 2019-03-02)
PROC: 0DBP8ZZ Excision of Rectum, Via Natural or Artificial Opening Endoscopic (ICD-10-PCS; 2019-03-02)
PROC: 0W3P8ZZ Control Bleeding in Gastrointestinal Tract, Via Natural or Artificial Opening Endoscopic (ICD-10-PCS; principal; 2019-03-02 09:15)
PROC: 0DB98ZX Excision of Duodenum, Via Natural or Artificial Opening Endoscopic, Diagnostic (ICD-10-PCS; 2019-03-02 09:15)
PROC: 0DBM8ZZ Excision of Descending Colon, Via Natural or Artificial Opening Endoscopic (ICD-10-PCS; 2019-03-02 09:15)
DX: I99.8 Other disorder of circulatory system (principal); D62 Acute posthemorrhagic anemia; D68.9 Coagulation defect, unspecified; K76.6 Portal hypertension; N17.9 Acute kidney failure, unspecified; Z68.41 Body mass index [BMI] 40.0-44.9, adult; E03.9 Hypothyroidism, unspecified; I11.0 Hypertensive heart disease with heart failure; I48.2 Chronic atrial fibrillation; I47.1 Supraventricular tachycardia; I50.32 Chronic diastolic (congestive) heart failure; E11.649 Type 2 diabetes mellitus with hypoglycemia without coma; E66.01 Morbid (severe) obesity due to excess calories; N28.1 Cyst of kidney, acquired; R16.1 Splenomegaly, not elsewhere classified; K74.60 Unspecified cirrhosis of liver; E78.5 Hyperlipidemia, unspecified; G89.29 Other chronic pain; F17.200 Nicotine dependence, unspecified, uncomplicated; J44.9 Chronic obstructive pulmonary disease, unspecified; M13.0 Polyarthritis, unspecified; K63.5 Polyp of colon; K62.1 Rectal polyp; Z79.01 Long term (current) use of anticoagulants; Z79.4 Long term (current) use of insulin; Z79.890 Hormone replacement therapy; Z79.899 Other long term (current) drug therapy; Z88.1 Allergy status to other antibiotic agents; Z88.5 Allergy status to narcotic agent; Z86.14 Personal history of Methicillin resistant Staphylococcus aureus infection; Z90.49 Acquired absence of other specified parts of digestive tract; Z98.51 Tubal ligation status; Z85.42 Personal history of malignant neoplasm of other parts of uterus; Z91.19 Patient's noncompliance with other medical treatment and regimen; Z83.3 Family history of diabetes mellitus; Z84.1 Family history of disorders of kidney and ureter; Z83.79 Family history of other diseases of the digestive system
CPT/HCPCS: 36415; 43239; 43270; 45385; 71045; 74176; 76700; 80048; 80053; 80162; 82272; 83036; 83880; 84443; 84484; 85025; 85027; 85610; 86850; 86900; 86901; 86920; 88305; 93005; 93306; 94640; 96374; 96375; 96376; 99285

== ENCOUNTER 2021-07-25 18:51 | Emergency (ER) | payer MEDICARE, OTHER ==
[2021-07-25] MEDS ORDERED: DEXTROSE 4 GM CHEWABLE PO STA ×2 (22:51→23:02)
[2021-07-25 23:19] LABS: Basophils # (A) 0.1 k/uL (0-0.2); Basophils % (A) 0 %; Eosinophils % (A) 0 %; HCT 27.8 % (34.0-46.0); HGB 9.2 gm/dL (11.4-16.0); Lymphocytes # (A) 2.6 k/uL (1.0-4.8); Lymphocytes % (A) 15 %; MCHC 33.2 g/dL (31.0-37.0); MCV 96.5 fL (80.0-100.0); Mean Platelet Volume 8.8; Monocytes % (A) 6 %; Neutrophils # (A) 12.9 k/uL (1.3-7.7); Neutrophils % (A) 76 %; Platelet Count 277 k/uL (150-450); RBC 2.88 m/uL (3.80-5.40); RDW 13.6 % (11.5-15.5); WBC 17.1 k/uL (3.8-10.6)
[2021-07-25 23:38] LABS: Calcium 8.7 mg/dL (8.4-10.2); Potassium 5.2 mmol/L (3.5-5.1)
[2021-07-25 23:40] LABS: Prothrombin Time 65.1 sec (9.0-12.0)
[2021-07-26 00:30] LABS: INR 6.7 (<1.2)
[2021-07-26 00:31] LABS: Partial Thromboplastin Time 65.8 sec (22.0-30.0)
[2021-07-26] MEDS ORDERED: PHYTONADIONE ORAL 5 MG/5 ML ORAL.SYRG PO STA (00:33)
--- NOTE | 2021-07-26 00:48 | ED ---
GI Bleed HPI - General Chief complaint: GI Bleed Stated complaint: GI Bleed Source: patient, EMS, RN notes reviewed Mode of arrival: EMS - History of Present Illness Initial comments: Patient is a 65-year-old female that presents to the emergency department complaining of GI bleed. She notes he is been having dark tarry stools for approximately the past month. Patient notes she does take blood thinners. She notes that the dark tarry stools or normal for her. She notes today she had 1 episode of bright red bleeding. She came to the emergency room for evaluation. She was in no apparent distress while sitting in bed comfortably. She denied any chest pain shortness of breath headache nausea vomiting diarrhea constipation fever fatigue chills. - Related Data Home Medications Medication Instructions Recorded Confirmed ALPRAZolam [Xanax] 1 mg PO QID PRN 01/06/18 07/25/21 Cyclobenzaprine [Flexeril] 10 mg PO HS PRN 01/06/18 07/25/21 Furosemide [Lasix] 40 mg PO DAILY 01/06/18 07/25/21 HYDROcodone/APAP 10-325MG [[place] 1 tab PO Q6H PRN 01/06/18 07/25/21 10-325] Levothyroxine Sodium [Synthroid] 88 mcg PO DAILY 01/06/18 07/25/21 Spironolactone [Aldactone] 25 mg PO DAILY 01/06/18 07/25/21 Digoxin 250 mcg PO DAILY 02/28/19 07/25/21 Cholecalciferol [Vitamin D3 (25 50 mcg PO DAILY 07/25/21 07/25/21 Mcg = 1000 Iu)] Ferrous Sulfate [Feosol] 325 mg PO DAILY 07/25/21 07/25/21 Fluticasone Propionate [Flovent 1 puff INHALATION RT-BID 07/25/21 07/25/21 Hfa 110 mcg] INSULIN ASPART (NovoLOG) [NovoLOG 45 unit SQ TID-W/MEALS PRN 07/25/21 07/25/21 (formulary)] Insulin NPH Human Isophane 80 unit SQ HS 07/25/21 07/25/21 [humuLIN N] Magnesium Oxide [Magox 400] 400 mg PO W/BRKFST 07/25/21 07/25/21 Metoprolol Succinate [Toprol XL] 100 mg PO DAILY 07/25/21 07/25/21 Warfarin Sodium [Coumadin] 2 mg PO [id number] 07/25/21 07/25/21 Previous Rx's Medication Instructions Recorded Warfarin Sodium [Coumadin] 5 mg PO DAILY #30 tablet 03/04/19 Allergies Allergy/AdvReac Type Severity Reaction Status Date / Time doxycycline Allergy Anaphylaxis Verified 07/25/21 20:56 erythromycin base AdvReac Unknown Verified 07/25/21 20:56 morphine AdvReac Unknown Verified 07/25/21 20:56 Review of Systems ROS Statement: Those systems with pertinent positive or pertinent negative responses have been documented in the HPI. ROS Other: All systems not noted in ROS Statement are negative. Past Medical History Past Medical History: Atrial Fibrillation, Heart Failure, Diabetes Mellitus, Hyperlipidemia, Thyroid Disorder Additional Past Medical History / Comment(s): arthritis. cyst behing left leg. History of Any Multi-Drug Resistant Organisms: MRSA Date of last positivie culture/infection: 1999 MDRO Source:: blood Past Surgical History: Appendectomy, Cholecystectomy, Tonsillectomy, Tubal Ligation Additional Past Surgical History / Comment(s): bilateral knee laproscopy. Past Anesthesia/Blood Transfusion Reactions: No Reported Reaction Past Psychological History: No Psychological Hx Reported Smoking Status: Current every day smoker Past Alcohol Use History: None Reported Past Drug Use History: None Reported - Past Family History Father Family Medical History: Diabetes Mellitus, Renal Disease Mother History Unknown: Yes Family Medical History: Diabetes Mellitus Brother(s) History Unknown: Yes Sister(s) History Unknown: Yes Daughter(s) Family Medical History: No Reported History Son(s) Family Medical History: No Reported History General Exam General appearance: alert, in no apparent distress Head exam: Present: atraumatic, normocephalic, normal inspection Eye exam: Present: normal appearance, PERRL, EOMI. Absent: scleral icterus, c onjunctival injection, periorbital swelling ENT exam: Present: normal exam, mucous membranes moist Neck exam: Present: normal inspection Respiratory exam: Present: normal lung sounds bilaterally. Absent: respiratory distress, wheezes, rales, rhonchi, stridor Cardiovascular Exam: Present: regular rate, normal rhythm, normal heart sounds. Absent: systolic murmur, diastolic murmur, rubs, gallop, clicks GI/Abdominal exam: Present: soft, normal bowel sounds. Absent: distended, tenderness, guarding, rebound, rigid Rectal exam: Present: normal rectal tone, heme (+) stool, hemorrhoids (Many external) Extremities exam: Present: normal inspection, full ROM, normal capillary refill. Absent: tenderness, pedal edema, joint swelling, calf tenderness Neurological exam: Present: alert, oriented X3 Psychiatric exam: Present: normal affect, normal mood Skin exam: Present: warm, dry, intact, normal color. Absent: rash Course Vital Signs 07/25/21 18:54 Temperature 97.9 F Pulse Rate 138 H Respiratory 18 Rate Blood Pressure 105/64 O2 Sat by Pulse 99 Oximetry Medical Decision Making - Medical Decision Making 65-year-old female complaining of bright red blood per rectum. Labs, dextrose 2 and 4 mg Zofran ordered. Labs: CBC improved from previous studies, clotting factors elevated, INR was 6.7, CMP unremarkable, occult blood positive. 5 mg of vitamin K orally ordered. Patient was instructed to hold her next days warfarin and follow-up with primary care. Patient is agreeable with discharge home with follow-up to primary care. Case discussed with Dr. Espinal, patient can discharge home. - Lab Data Result diagrams: 07/25/21 23:15 07/25/21 23:15 Lab Results 07/25/21 07/25/21 07/25/21 Range/Units 22:55 23:15 23:15 WBC 17.1 H (3.8-10.6) k/uL RBC 2.88 L (3.80-5.40) m/uL Hgb 9.2 L (11.4-16.0) gm/dL Hct 27.8 L (34.0-46.0) % MCV 96.5 (80.0-100.0) fL MCH 32.0 (25.0-35.0) pg MCHC 33.2 (31.0-37.0) g/dL RDW 13.6 (11.5-15.5) % Plt Count 277 (150-450) k/uL MPV 8.8 Neutrophils % 76 % Lymphocytes % 15 % Monocytes % 6 % Eosinophils % 0 % Basophils % 0 % Neutrophils # 12.9 H (1.3-7.7) k/uL Lymphocytes # 2.6 (1.0-4.8) k/uL Monocytes # 1.0 (0-1.0) k/uL Eosinophils # 0.0 (0-0.7) k/uL Basophils # 0.1 (0-0.2) k/uL PT 65.1 H (9.0-12.0) sec INR 6.7 H* (<1.2) APTT 65.8 H (22.0-30.0) sec Sodium 137 (137-145) mmol/L Potassium 5.2 H (3.5-5.1) mmol/L Chloride 107 (98-107) mmol/L Carbon Dioxide 18 L (22-30) mmol/L Anion Gap 12 mmol/L BUN 53 H (7-17) mg/dL Creatinine 1.44 H (0.52-1.04) mg/dL Est GFR (CKD-EPI)AfAm 44 (>60 ml/min/1.73 sqM) Est GFR (CKD-EPI)NonAf 38 (>60 ml/min/1.73 sqM) Glucose 198 H (74-99) mg/dL Calcium 8.7 (8.4-10.2) mg/dL Stool Occult Blood (Negative) Blood Type Blood Type Recheck Bld Type Recheck Status Antibody Screen Spec Expiration Date 07/25/21 07/25/21 Range/Units 23:15 23:43 WBC (3.8-10.6) k/uL RBC (3.80-5.40) m/uL Hgb (11.4-16.0) gm/dL Hct (34.0-46.0) % MCV (80.0-100.0) fL MCH (25.0-35.0) pg MCHC (31.0-37.0) g/dL RDW (11.5-15.5) % Plt Count (150-450) k/uL MPV Neutrophils % % Lymphocytes % % Monocytes % % Eosinophils % % Basophils % % Neutrophils # (1.3-7.7) k/uL Lymphocytes # (1.0-4.8) k/uL Monocytes # (0-1.0) k/uL Eosinophils # (0-0.7) k/uL Basophils # (0-0.2) k/uL PT (9.0-12.0) sec INR (<1.2) APTT (22.0-30.0) sec Sodium (137-145) mmol/L Potassium (3.5-5.1) mmol/L Chloride (98-107) mmol/L Carbon Dioxide (22-30) mmol/L Anion Gap mmol/L BUN (7-17) mg/dL Creatinine (0.52-1.04) mg/dL Est GFR (CKD-EPI)AfAm (>60 ml/min/1.73 sqM) Est GFR (CKD-EPI)NonAf (>60 ml/min/1.73 sqM) Glucose (74-99) mg/dL Calcium (8.4-10.2) mg/dL Stool Occult Blood Positive H (Negative) Blood Type A Positive Blood Type Recheck A Pos Bld Type Recheck Status No Antibody Screen NEGATIVE Spec Expiration Date 07/28/20212314 Disposition Clinical Impression: GI bleed Disposition: HOME SELF-CARE Condition: Stable Instructions (If sedation given, give patient instructions): Gastrointestinal Bleeding (ED) Additional Instructions: Please return to the Emergency Department if symptoms worsen or any other concerns. Follow-up with primary care within the next 1-2 days. Hold tomorrow's dose of blood thinners to bring her INR levels back to normal. Is patient prescribed a controlled substance at d/c from ED?: No Referrals: Gabriel Vera MD [Primary Care Provider] - 1-2 days
[2021-07-26 01:27] VITALS: BP 113/69; PULSE 91; RESP 16; TEMP 97.7
== END 2021-07-26 01:27 | disposition home or self-care (01) ==
LOC: EC 18:51
DX: K92.2 Gastrointestinal hemorrhage, unspecified (principal); E11.9 Type 2 diabetes mellitus without complications; I50.9 Heart failure, unspecified; E03.9 Hypothyroidism, unspecified; F17.200 Nicotine dependence, unspecified, uncomplicated; Z79.899 Other long term (current) drug therapy; Z79.4 Long term (current) use of insulin; Z88.1 Allergy status to other antibiotic agents; Z88.8 Allergy status to other drugs, medicaments and biological substances; Z88.5 Allergy status to narcotic agent; Z20.822 Contact with and (suspected) exposure to COVID-19
CPT/HCPCS: 36415; 80048; 82272; 85025; 85610; 85730; 86850; 86900; 86901; 87635; 99285

== ENCOUNTER 2021-09-17 00:42 | Inpatient (IN) | payer MEDICARE, OTHER ==
[2021-09-17] MEDS ORDERED: DILTIAZEM DRIP BOLUS FROM BAG 1 MG SOLN IV ONE (00:56)
[2021-09-17] MEDS: DILTIAZEM 125 MG in SODIUM CHLORIDE 0.9% 100 ML IV SCH (01:07)
[2021-09-17] MEDS ORDERED: PANTOPRAZOLE 40 MG/10 ML VIAL IVP STA (01:17)
[2021-09-17] MEDS ORDERED: SODIUM CHLORIDE 0.9% 1,000 ML IV ONE (01:18)
[2021-09-17 01:24] LABS: Anisocytosis Slight; Basophils # (A) 0.1 k/uL (0-0.2); Basophils % (A) 0 %; Eosinophils # (A) 0.1 k/uL (0-0.7); Eosinophils % (A) 0 %; HCT 22.6 % (34.0-46.0); Hypochromasia Marked; Lymphocytes # (A) 2.7 k/uL (1.0-4.8); Lymphocytes % (A) 17 %; MCHC 28.4 g/dL (31.0-37.0); MCV 98.5 fL (80.0-100.0); Macrocytosis Slight; Mean Platelet Volume 8.3; Monocytes # (A) 1.2 k/uL (0-1.0); Monocytes % (A) 8 %; Neutrophils # (A) 11.2 k/uL (1.3-7.7); Neutrophils % (A) 71 %; Platelet Count 485 k/uL (150-450); Poikilocytosis Moderate; RDW 17.5 % (11.5-15.5); WBC 15.9 k/uL (3.8-10.6)
--- NOTE | 2021-09-17 01:26 | ED ---
Arrhythmia/Palpitations HPI - General Chief Complaint: Arrhythmia/Palpitations Stated Complaint: Syncope, AFib Time Seen by Provider: 09/17/21 00:55 Source: patient Mode of arrival: EMS - History of Present Illness Initial Comments: This patient is a 65-year-old woman presenting by ambulance to be evaluated for multiple complaints. The patient stated that she finally called the ambulance tonight because she was feeling short of breath and having some generalized chest pain. She describes it as a heavy feeling. It had come on in the evening, and she was at rest when it occurred. The patient notes that going back nearly one month she has been having multiple episodes daily of what she is describing as diarrhea which is at times very dark. MD Complaint: "heart racing" -: hour(s) Context: occurred during rest Associated Symptoms: shortness of breath, anxiety, other - Related Data Home Medications Medication Instructions Recorded Confirmed ALPRAZolam [Xanax] 1 mg PO QID PRN 01/06/18 07/25/21 Cyclobenzaprine [Flexeril] 10 mg PO HS PRN 01/06/18 07/25/21 Furosemide [Lasix] 40 mg PO DAILY 01/06/18 07/25/21 HYDROcodone/APAP 10-325MG [[place] 1 tab PO Q6H PRN 01/06/18 07/25/21 10-325] Levothyroxine Sodium [Synthroid] 88 mcg PO DAILY 01/06/18 07/25/21 Spironolactone [Aldactone] 25 mg PO DAILY 01/06/18 07/25/21 Digoxin 250 mcg PO DAILY 02/28/19 07/25/21 Cholecalciferol [Vitamin D3 (25 50 mcg PO DAILY 07/25/21 07/25/21 Mcg = 1000 Iu)] Ferrous Sulfate [Feosol] 325 mg PO DAILY 07/25/21 07/25/21 Fluticasone Propionate [Flovent 1 puff INHALATION RT-BID 07/25/21 07/25/21 Hfa 110 mcg] INSULIN ASPART (NovoLOG) [NovoLOG 45 unit SQ TID-W/MEALS PRN 07/25/21 07/25/21 (formulary)] Insulin NPH Human Isophane 80 unit SQ HS 07/25/21 07/25/21 [humuLIN N] Magnesium Oxide [Magox 400] 400 mg PO W/BRKFST 07/25/21 07/25/21 Metoprolol Succinate [Toprol XL] 100 mg PO DAILY 07/25/21 07/25/21 Warfarin Sodium [Coumadin] 2 mg PO MOTUWETHFRSA 07/25/21 07/25/21 Previous Rx's Medication Instructions Recorded Warfarin Sodium [Coumadin] 5 mg PO DAILY #30 tablet 03/04/19 Allergies Allergy/AdvReac Type Severity Reaction Status Date / Time doxycycline Allergy Anaphylaxis Verified 09/17/21 00:51 erythromycin base AdvReac Unknown Verified 09/17/21 00:51 morphine AdvReac Unknown Verified 09/17/21 00:51 Review of Systems ROS Statement: Those systems with pertinent positive or pertinent negative responses have been documented in the HPI. ROS Other: All systems not noted in ROS Statement are negative. Constitutional: Reports: weakness. Denies: fever, chills Respiratory: Reports: dyspnea. Denies: cough, hemoptysis Cardiovascular: Reports: as per HPI, chest pain, palpitations, dyspnea on exertion. Denies: orthopnea, edema, syncope Gastrointestinal: Reports: abdominal pain, nausea, vomiting, diarrhea, melena. Denies: hematemesis, hematochezia Genitourinary: Denies: dysuria, hematuria Musculoskeletal: Denies: back pain Skin: Denies: rash Neurological: Denies: headache, weakness Hematological/Lymphatic: Denies: easy bleeding Past Medical History Past Medical History: Atrial Fibrillation, Heart Failure, Diabetes Mellitus, Hyperlipidemia, Thyroid Disorder Additional Past Medical History / Comment(s): arthritis. cyst behing left leg. History of Any Multi-Drug Resistant Organisms: MRSA Date of last positivie culture/infection: 1999 MDRO Source:: blood Past Surgical History: Appendectomy, Cholecystectomy, Tonsillectomy, Tubal Ligation Additional Past Surgical History / Comment(s): bilateral knee laproscopy. Past Anesthesia/Blood Transfusion Reactions: No Reported Reaction Past Psychological History: No Psychological Hx Reported Smoking Status: Current every day smoker Past Alcohol Use History: None Reported Past Drug Use History: None Reported - Past Family History Father Family Medical History: Diabetes Mellitus, Renal Disease Mother History Unknown: Yes Family Medical History: Diabetes Mellitus Brother(s) History Unknown: Yes Sister(s) History Unknown: Yes Daughter(s) Family Medical History: No Reported History Son(s) Family Medical History: No Reported History General Exam General appearance: alert, in distress, obese Head exam: Present: atraumatic, normocephalic Eye exam: Present: normal appearance. Absent: scleral icterus, conjunctival injection ENT exam: Present: mucous membranes dry Respiratory exam: Present: normal lung sounds bilaterally. Absent: respiratory distress, wheezes, rales, rhonchi, stridor Cardiovascular Exam: Present: tachycardia, irregular rhythm, systolic murmur. Absent: diastolic murmur, rubs, gallop GI/Abdominal exam: Present: soft. Absent: distended, tenderness, guarding, rebound, rigid, mass Extremities exam: Present: normal inspection, normal capillary refill. Absent: pedal edema, calf tenderness Back exam: Present: normal inspection. Absent: CVA tenderness (R), CVA t enderness (L) Neurological exam: Present: alert Skin exam: Present: warm, dry, intact, normal color. Absent: rash Course Vital Signs 09/17/21 09/17/21 09/17/21 00:51 01:00 01:14 Temperature 99.4 F Pulse Rate 170 H 158 H 122 H Respiratory 20 26 H 20 Rate Blood Pressure 119/63 111/73 O2 Sat by Pulse 98 98 Oximetry 09/17/21 09/17/21 09/17/21 02:34 03:06 04:36 Temperature 98.1 F Pulse Rate 87 84 81 Respiratory 20 20 20 Rate Blood Pressure 110/43 110/43 114/55 O2 Sat by Pulse 100 100 100 Oximetry 09/17/21 09/17/21 09/17/21 04:46 05:16 05:48 Temperature 97.6 F 98.5 F Pulse Rate 84 88 61 Respiratory 20 19 20 Rate Blood Pressure 121/48 120/50 103/41 O2 Sat by Pulse 100 100 100 Oximetry EKG Findings - EKG Results: EKG: interpreted by ERMD, normal axis EKG shows: atrial fibrillation (With rapid ventricular rate Rate 163) - Blocks, [place], Hypertrophy, ST Abn: Repolarization changes or abnormalities: ST suggestive of injury (Inferolateral) Medical Decision Making - Lab Data Result diagrams: 09/17/21 01:03 09/17/21 01:03 Lab Results 09/17/21 09/17/21 09/17/21 Range/Units 01:03 01:03 01:03 WBC 15.9 H (3.8-10.6) k/uL RBC 2.30 L (3.80-5.40) m/uL Hgb 6.4 L* D (11.4-16.0) gm/dL Hct 22.6 L (34.0-46.0) % MCV 98.5 (80.0-100.0) fL MCH 28.0 (25.0-35.0) pg MCHC 28.4 L (31.0-37.0) g/dL RDW 17.5 H (11.5-15.5) % Plt Count 485 H (150-450) k/uL MPV 8.3 Neutrophils % 71 % Lymphocytes % 17 % Monocytes % 8 % Eosinophils % 0 % Basophils % 0 % Neutrophils # 11.2 H (1.3-7.7) k/uL Lymphocytes # 2.7 (1.0-4.8) k/uL Monocytes # 1.2 H (0-1.0) k/uL Eosinophils # 0.1 (0-0.7) k/uL Basophils # 0.1 (0-0.2) k/uL Hypochromasia Marked Poikilocytosis Moderate Anisocytosis Slight Macrocytosis Slight PT 118.3 H (9.0-12.0) sec INR >10.0 H* (<1.2) APTT 50.7 H (22.0-30.0) sec Sodium 139 (137-145) mmol/L Potassium 3.7 (3.5-5.1) mmol/L Chloride 105 (98-107) mmol/L Carbon Dioxide 17 L (22-30) mmol/L Anion Gap 17 mmol/L BUN 39 H (7-17) mg/dL Creatinine 1.29 H (0.52-1.04) mg/dL Est GFR (CKD-EPI)AfAm 50 (>60 ml/min/1.73 sqM) Est GFR (CKD-EPI)NonAf 44 (>60 ml/min/1.73 sqM) Glucose 172 H (74-99) mg/dL Calcium 9.0 (8.4-10.2) mg/dL Magnesium 1.8 (1.6-2.3) mg/dL Total Bilirubin 0.4 (0.2-1.3) mg/dL AST 31 (14-36) U/L ALT 18 (4-34) U/L Alkaline Phosphatase 137 H (38-126) U/L Troponin I (0.000-0.034) ng/mL NT-Pro-B Natriuret Pep pg/mL Total Protein 5.7 L (6.3-8.2) g/dL Albumin 3.1 L (3.5-5.0) g/dL Digoxin ng/mL Blood Type Blood Type Recheck Bld Type Recheck Status Antibody Screen Crossmatch Spec Expiration Date 09/17/21 09/17/21 09/17/21 Range/Units 01:03 01:03 01:03 WBC (3.8-10.6) k/uL RBC (3.80-5.40) m/uL Hgb (11.4-16.0) gm/dL Hct (34.0-46.0) % MCV (80.0-100.0) fL MCH (25.0-35.0) pg MCHC (31.0-37.0) g/dL RDW (11.5-15.5) % Plt Count (150-450) k/uL MPV Neutrophils % % Lymphocytes % % Monocytes % % Eosinophils % % Basophils % % Neutrophils # (1.3-7.7) k/uL Lymphocytes # (1.0-4.8) k/uL Monocytes # (0-1.0) k/uL Eosinophils # (0-0.7) k/uL Basophils # (0-0.2) k/uL Hypochromasia Poikilocytosis Anisocytosis Macrocytosis PT (9.0-12.0) sec INR (<1.2) APTT (22.0-30.0) sec Sodium (137-145) mmol/L Potassium (3.5-5.1) mmol/L Chloride (98-107) mmol/L Carbon Dioxide (22-30) mmol/L Anion Gap mmol/L BUN (7-17) mg/dL Creatinine (0.52-1.04) mg/dL Est GFR (CKD-EPI)AfAm (>60 ml/min/1.73 sqM) Est GFR (CKD-EPI)NonAf (>60 ml/min/1.73 sqM) Glucose (74-99) mg/dL Calcium (8.4-10.2) mg/dL Magnesium (1.6-2.3) mg/dL Total Bilirubin (0.2-1.3) mg/dL AST (14-36) U/L ALT (4-34) U/L Alkaline Phosphatase (38-126) U/L Troponin I <0.012 (0.000-0.034) ng/mL NT-Pro-B Natriuret Pep 1840 pg/mL Total Protein (6.3-8.2) g/dL Albumin (3.5-5.0) g/dL Digoxin 0.9 ng/mL Blood Type Blood Type Recheck Bld Type Recheck Status Antibody Screen Crossmatch Spec Expiration Date 09/17/21 Range/Units 02:00 WBC (3.8-10.6) k/uL RBC (3.80-5.40) m/uL Hgb (11.4-16.0) gm/dL Hct (34.0-46.0) % MCV (80.0-100.0) fL MCH (25.0-35.0) pg MCHC (31.0-37.0) g/dL RDW (11.5-15.5) % Plt Count (150-450) k/uL MPV Neutrophils % % Lymphocytes % % Monocytes % % Eosinophils % % Basophils % % Neutrophils # (1.3-7.7) k/uL Lymphocytes # (1.0-4.8) k/uL Monocytes # (0-1.0) k/uL Eosinophils # (0-0.7) k/uL Basophils # (0-0.2) k/uL Hypochromasia Poikilocytosis Anisocytosis Macrocytosis PT (9.0-12.0) sec INR (<1.2) APTT (22.0-30.0) sec Sodium (137-145) mmol/L Potassium (3.5-5.1) mmol/L Chloride (98-107) mmol/L Carbon Dioxide (22-30) mmol/L Anion Gap mmol/L BUN (7-17) mg/dL Creatinine (0.52-1.04) mg/dL Est GFR (CKD-EPI)AfAm (>60 ml/min/1.73 sqM) Est GFR (CKD-EPI)NonAf (>60 ml/min/1.73 sqM) Glucose (74-99) mg/dL Calcium (8.4-10.2) mg/dL Magnesium (1.6-2.3) mg/dL Total Bilirubin (0.2-1.3) mg/dL AST (14-36) U/L ALT (4-34) U/L Alkaline Phosphatase (38-126) U/L Troponin I (0.000-0.034) ng/mL NT-Pro-B Natriuret Pep pg/mL Total Protein (6.3-8.2) g/dL Albumin (3.5-5.0) g/dL Digoxin ng/mL Blood Type A Positive Blood Type Recheck A Pos Bld Type Recheck Status No Antibody Screen NEGATIVE Crossmatch See Detail Spec Expiration Date 09/20/20212299 Disposition Clinical Impression: Atrial fibrillation with rapid ventricular response, Symptomatic anemia, Supratherapeutic INR, GI bleed Disposition: ADMITTED IP TO THIS [facility] Condition: Critical Referrals: Gabriel Vera MD [Primary Care Provider] - 1-2 days
[2021-09-17 01:42] LABS: HGB 6.4 gm/dL (11.4-16.0)
[2021-09-17 01:45] LABS: Partial Thromboplastin Time 50.7 sec (22.0-30.0); Prothrombin Time 118.3 sec (9.0-12.0)
--- NOTE | 2021-09-17 01:47 | XR ---
EXAMINATION TYPE: XR chest 1V portable DATE OF EXAM: 09/17/2021 COMPARISON: 02/27/2019 HISTORY: Chest pain TECHNIQUE: Single view FINDINGS: Heart is normal. Lungs are clear of consolidation. There are no hilar masses. Costophrenic angles are clear. IMPRESSION: No active cardiopulmonary disease. Normal heart. No adverse change.
[2021-09-17 01:48] LABS: Albumin 3.1 g/dL (3.5-5.0); Magnesium 1.8 mg/dL (1.6-2.3); Potassium 3.7 mmol/L (3.5-5.1); Total Bilirubin 0.4 mg/dL (0.2-1.3); Total Protein 5.7 g/dL (6.3-8.2)
[2021-09-17 01:50] LABS: INR >10.0 (<1.2)
[2021-09-17] MEDS ORDERED: PHYTONADIONE ORAL 5 MG/5 ML ORAL.SYRG PO STA (01:50)
[2021-09-17] MEDS ORDERED: NALOXONE 0.4 MG/ML 1 ML VIAL IV PRN (06:07)
[2021-09-17] MEDS: SODIUM CHLORIDE 0.9% 1,000 ML IV SCH ×2 (06:27→16:47)
[2021-09-17] MEDS: ACETAMINOPHEN TAB 325 MG TAB PO PRN (06:53)
[2021-09-17] MEDS ORDERED: PANTOPRAZOLE 40 MG/10 ML VIAL IV SCH (09:00)
--- NOTE | 2021-09-17 12:58 | P.GSCN ---
History of Present Illness Consult date: 09/17/21 Reason for Consult: GI bleeding with anemia, epigastric pain, supratherapeutic INR on Coumadin, history of atrial fibrillation History of present illness: Patient is a 65-year-old lady who presents to the [facility] emergency department on 09/17/2021 with a chief complaint of approximately 2 month history of recurrent melena. Bowel movements have on the whole been dark and tarry since [place]. She describes some initial hematochezia. Prior to about 2 months ago she had been having these kinds of issues. Of the past week she is grown progressively lethargic with some progressive nausea and a 2 bouts of nonbloody emesis. He admits to dysphagia to liquids but not solids, denies phuong symptoms of heartburn or specific postprandial abdominal pains. She denies chest pain but admits to exertional shortness of breath. She describes issues with persistent cough over the past 2 months as well, she believes that she may possibly have a history of heart failure but she is not certain. She denies known history of heart attack, stroke or pulmonary embolus. She does describe what sounds like a superficial thrombophlebitis associated with an IV at some point, no discrete DVT. She is maintained on Coumadin for history of atrial fibrillation. She recalls having undergone EGD and colonoscopy perhaps 3 years ago for workup of GI bleed. She doesn't recall having been diagnosed with peptic ulcer disease, she believes that there was some manner of polyp retrieved on EGD and colonoscopy. No known personal history of inflammatory bowel disease. Laboratory studies on presentation reveal a moderate leukocytosis at 15.9 thousand with 11.2 absolute neutrophils, hemoglobin low at 6.4, platelet count slightly elevated at 485. Differential shows the patient to be normocytic and slightly hypochromic with an elevated RDW at 17.5 suggestive of a chronic element of blood loss. There is marked hypochromasia described. INR is above the upper limit of detectable threshold, in excess of 10. Serum sodium was 139, potassium 3.7, CO2 of 17, creatinine of 1.29, glucose of 172. AST and MALT were normal range at 31 and 18 respectively, alkaline phosphatase slightly elevated at 09/03/1936. Troponin was below detectable threshold. BNP elevated at 1840. Albumin a bit low at 3.1. Digoxin level was barely therapeutic at 0.9. Colon screening was negative. Chest x-ray in the ER showed clear lung baird, no acute findings. EKG reveals atrial fibrillation with rapid ventricular response with a rate of 163. There was some manner of ST abnormality suggestive of possible inferolateral subendocardial injury. Review of Systems All systems: negative - Constitutional Reports as per HPI, Reports fatigue, Reports weakness - Cardiovascular Reports dyspnea on exertion, Reports irregular heart beat, Reports palpitations, Reports shortness of breath - Respiratory Reports as per HPI, Reports cough, Reports dyspnea - Gastrointestinal Reports as per HPI, Reports abdominal pain, Reports diarrhea, Reports melena, Reports nausea, Reports vomiting - Genitourinary Genitourinary: Reports as per HPI Past Medical History Past Medical History: Atrial Fibrillation, Heart Failure, Diabetes Mellitus, Hyperlipidemia, Thyroid Disorder Additional Past Medical History / Comment(s): arthritis. cyst behing left leg. History of Any Multi-Drug Resistant Organisms: MRSA Year Discovered:: 1999 MDRO Source:: blood Past Surgical History: Appendectomy, Cholecystectomy, Tonsillectomy, Tubal Ligation Additional Past Surgical History / Comment(s): bilateral knee laproscopy. Past Anesthesia/Blood Transfusion Reactions: No Reported Reaction Past Psychological History: No Psychological Hx Reported Smoking Status: Current every day smoker Past Alcohol Use History: None Reported Past Drug Use History: None Reported - Past Family History Father Family Medical History: Diabetes Mellitus, Renal Disease Mother History Unknown: Yes Family Medical History: Diabetes Mellitus Brother(s) History Unknown: Yes Sister(s) History Unknown: Yes Daughter(s) Family Medical History: No Reported History Son(s) Family Medical History: No Reported History Medications and Allergies Home Medications Medication Instructions Recorded Confirmed Type ALPRAZolam [Xanax] 1 mg PO QID PRN 01/06/18 09/17/21 History Cyclobenzaprine [Flexeril] 10 mg PO HS PRN 01/06/18 09/17/21 History Furosemide [Lasix] 40 mg PO DAILY 01/06/18 09/17/21 History HYDROcodone/APAP 10-325MG [[place] 1 tab PO Q6H PRN 01/06/18 09/17/21 History 10-325] Levothyroxine Sodium [Synthroid] 88 mcg PO DAILY 01/06/18 09/17/21 History Spironolactone [Aldactone] 25 mg PO DAILY 01/06/18 09/17/21 History Digoxin 250 mcg PO DAILY 02/28/19 09/17/21 History Cholecalciferol [Vitamin D3 (25 50 mcg PO DAILY 07/25/21 09/17/21 History Mcg = 1000 Iu)] Ferrous Sulfate [Feosol] 325 mg PO DAILY 07/25/21 09/17/21 History Fluticasone Propionate [Flovent 1 puff INHALATION RT-BID 07/25/21 09/17/21 History Hfa 110 mcg] INSULIN ASPART (NovoLOG) [NovoLOG See Protocol SQ AC-TID 07/25/21 09/17/21 History (formulary)] Insulin NPH Human Isophane 80 unit SQ HS 07/25/21 09/17/21 History [humuLIN N] Magnesium Oxide [Magox 400] 400 mg PO W/BRKFST 07/25/21 09/17/21 History Metoprolol Succinate [Toprol XL] 100 mg PO DAILY 07/25/21 09/17/21 History Warfarin Sodium [Coumadin] 2 mg PO MOTUWETHFRSA@2100 07/25/21 09/17/21 History Warfarin Sodium [Coumadin] 5 mg PO HS 09/17/21 09/17/21 History Allergies Allergy/AdvReac Type Severity Reaction Status Date / Time doxycycline Allergy Anaphylaxis Verified 09/17/21 12:18 erythromycin base AdvReac Unknown Verified 09/17/21 12:18 morphine AdvReac Unknown Verified 09/17/21 12:18 Surgical - Exam Osteopathic Statement: *. No significant issues noted on an osteopathic structural exam other than those noted in the History and Physical/Consult. Vital Signs Temp Pulse Resp BP Pulse Ox 99.4 F 170 H 20 119/63 98 09/17/21 00:51 09/17/21 00:51 09/17/21 00:51 09/17/21 00:51 09/17/21 00:51 Abdominal exam reveals mild to moderate focal epigastric pain. No guarding, rebound or distention. No clinical signs of jaundice, no readily apparent ventral hernia. - General obese - Eyes PERRL, normal ocular movement - ENT normal pinna - Respiratory normal expansion, normal respiratory effort - Cardiovascular Rhythm: irregularly irregular - Abdomen Abdomen: soft, tender - Rectum Rectal exam deferred - Neurologic normal coordination - Psychiatric oriented to time, oriented to person, oriented to place Results - Labs 09/17/21 01:03 09/17/21 01:03 Abnormal Lab Results - Last 24 Hours (Table) 09/17/21 09/17/21 09/17/21 Range/Units 01:03 01:03 01:03 WBC 15.9 H (3.8-10.6) k/uL RBC 2.30 L (3.80-5.40) m/uL Hgb 6.4 L* D (11.4-16.0) gm/dL Hct 22.6 L (34.0-46.0) % MCHC 28.4 L (31.0-37.0) g/dL RDW 17.5 H (11.5-15.5) % Plt Count 485 H (150-450) k/uL Neutrophils # 11.2 H (1.3-7.7) k/uL Monocytes # 1.2 H (0-1.0) k/uL PT 118.3 H (9.0-12.0) sec INR >10.0 H* (<1.2) APTT 50.7 H (22.0-30.0) sec Carbon Dioxide 17 L (22-30) mmol/L BUN 39 H (7-17) mg/dL Creatinine 1.29 H (0.52-1.04) mg/dL Glucose 172 H (74-99) mg/dL Alkaline Phosphatase 137 H (38-126) U/L Total Protein 5.7 L (6.3-8.2) g/dL Albumin 3.1 L (3.5-5.0) g/dL Crossmatch 09/17/21 Range/Units 02:00 WBC (3.8-10.6) k/uL RBC (3.80-5.40) m/uL Hgb (11.4-16.0) gm/dL Hct (34.0-46.0) % MCHC (31.0-37.0) g/dL RDW (11.5-15.5) % Plt Count (150-450) k/uL Neutrophils # (1.3-7.7) k/uL Monocytes # (0-1.0) k/uL PT (9.0-12.0) sec INR (<1.2) APTT (22.0-30.0) sec Carbon Dioxide (22-30) mmol/L BUN (7-17) mg/dL Creatinine (0.52-1.04) mg/dL Glucose (74-99) mg/dL Alkaline Phosphatase (38-126) U/L Total Protein (6.3-8.2) g/dL Albumin (3.5-5.0) g/dL Crossmatch See Detail Diabetes panel 09/17/21 Range/Units 01:03 Sodium 139 (137-145) mmol/L Potassium 3.7 (3.5-5.1) mmol/L Chloride 105 (98-107) mmol/L Carbon Dioxide 17 L (22-30) mmol/L BUN 39 H (7-17) mg/dL Creatinine 1.29 H (0.52-1.04) mg/dL Glucose 172 H (74-99) mg/dL Calcium 9.0 (8.4-10.2) mg/dL AST 31 (14-36) U/L ALT 18 (4-34) U/L Alkaline Phosphatase 137 H (38-126) U/L Total Protein 5.7 L (6.3-8.2) g/dL Albumin 3.1 L (3.5-5.0) g/dL Calcium panel 09/17/21 Range/Units 01:03 Calcium 9.0 (8.4-10.2) mg/dL Albumin 3.1 L (3.5-5.0) g/dL Pituitary panel 09/17/21 Range/Units 01:03 Sodium 139 (137-145) mmol/L Potassium 3.7 (3.5-5.1) mmol/L Chloride 105 (98-107) mmol/L Carbon Dioxide 17 L (22-30) mmol/L BUN 39 H (7-17) mg/dL Creatinine 1.29 H (0.52-1.04) mg/dL Glucose 172 H (74-99) mg/dL Calcium 9.0 (8.4-10.2) mg/dL Adrenal panel 09/17/21 Range/Units 01:03 Sodium 139 (137-145) mmol/L Potassium 3.7 (3.5-5.1) mmol/L Chloride 105 (98-107) mmol/L Carbon Dioxide 17 L (22-30) mmol/L BUN 39 H (7-17) mg/dL Creatinine 1.29 H (0.52-1.04) mg/dL Glucose 172 H (74-99) mg/dL Calcium 9.0 (8.4-10.2) mg/dL Total Bilirubin 0.4 (0.2-1.3) mg/dL AST 31 (14-36) U/L ALT 18 (4-34) U/L Alkaline Phosphatase 137 H (38-126) U/L Total Protein 5.7 L (6.3-8.2) g/dL Albumin 3.1 L (3.5-5.0) g/dL Assessment and Plan Assessment: 1) 65-year-old lady with for what appeared to be a chronic, likely upper GI bleed of some 2 months duration. Laboratory studies indicative of an acute on chronic blood loss anemia. Differential diagnosis includes erosive esophagitis, metaplasia neoplasia, complications of portal hypertension, AV malformation, angiodysplasia, gastritis and peptic ulcer disease, less likely lower GI bleeding sources given clinical history. Physical exam indicative of a degree of gastritis or duodenitis with epigastric tenderness extending just to the right of midline. 2) Supratherapeutic INR in excess of 10 on Coumadin. 3) Presenting atrial fibrillation with rapid ventricular response, maintained on metoprolol for rate control and digoxin. Some changes on EKG indicative of a degree of strain, presenting troponin non-elevated. 4) History of some manner of heart failure, maintained on Aldactone and Lasix on an outpatient basis. Elevated BNP on presentation, chest x-ray unimpressive. 5) Morbid obesity. 6) Nicotine dependence Plan: Patient's receiving initial packed red blood cells and FFP as well as vitamin K. Empiric treatment for gastritis and peptic ulcer disease with Protonix drip equivalent and Carafate 4 times daily. Serial CBC every 8 hours, repeat INR and CBC 1 hour post transfusion. Transfusion threshold of 7 or for symptomatic anemia. I doubt significant ongoing bleeding at present, patient has a presentation of someone with more of an acute on chronic issue. She is likely physiologically acclimated to a degree to her anemia given her findings on CBC differential. Should anticipate at minimum a diagnostic EGD prior to discharge. If she has an inappropriate response to packed red cells we may need to consider more urgent interventional endoscopy. In the absence of emergent indications, I'd like to see her a bit more optimized medically prior to going into procedure. We have some time to get blood products on board, address her INR, try to get her closer to a euvolemic state, and get her atrial fibrillation with rapid ventricular response rate controlled. Will follow. Time with Patient: Greater than 30
--- NOTE | 2021-09-17 13:24 | P.CNPUL ---
History of Present Illness Consult date: 09/17/21 Reason for consult: dyspnea Chief complaint: A. fib RVR, GI bleed, History of present illness: 65-year-old morbidly obese female patient who is been having melanotic stools. The patient came into the emergency department because of some shortness of breath and the patient was also found to be in A. fib and she was committed toxic. Her bowel movements have been dark and tarry for several months. No episodes of hematochezia. She doesn't take any other form of nonsteroidal antivomiting medications. Her last colonoscopy was done 2018. His was consistent with colonic polyps. 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 The patient has been 40 monitoring the PT/INR. In the emergency department, the patient was found to have a heart rate of 170 and she was started on a Cardizem drip for rate control. Hemoglobin came back at 6.4 and she is given a unit of packed RBC. The white cell count is 15.9, platelet count is normal at 485, normal LFTs, normal sodium of 139, potassium of 3.7, serum bicarbonate 17 with anion gap of 17. GIM was at 39 with a creatinine of 1.29. INR was above 10 with a PT of 118. PT was 50. Digoxin level was 0.9. ProBNP level was 1840, troponin was negative. The patient's, 19 testing was also negative. She has not been vaccinated. The chest x-ray was clear. No angina. No palpitation. No abdominal pain or distention. Review of Systems Constitutional: Reports fatigue, Reports weakness Eyes: denies as per HPI, denies blurred vision, denies bulging eye, denies decreased vision, denies diplopia, denies discharge, denies dry eye, denies irritation, denies itching, denies pain, denies photophobia, denies loss of peripheral vision, denies loss of vision, denies tunnel vision/blind spots Ears: deny: decreased hearing, ear discharge, earache, tinnitus Ears, nose, mouth and throat: Reports as per HPI Breasts: absent: as per HPI, change in shape, gynecomastia, masses, nipple discharge, pain, skin changes, swelling Cardiovascular: Reports decreased exercise tolerance, Reports irregular heart beat Respiratory: Reports dyspnea Gastrointestinal: Reports melena Genitourinary: Reports as per HPI Menstruation: Reports as per HPI Musculoskeletal: Reports as per HPI Musculoskeletal: absent: ankle pain, ankle stiffness, ankle swelling, as per HPI, elbow pain, elbow stiffness, elbow swelling, foot pain, foot stiffness, foot swelling, hand pain, hand stiffness, hand swelling, hip pain, hip stiffness, hip swelling, knee pain, knee stiffness, knee swelling, shoulder pain, shoulder stiffness, shoulder swelling, wrist pain, wrist stiffness, wrist swelling Integumentary: Reports as per HPI Neurological: Reports as per HPI Psychiatric: Reports as per HPI Endocrine: Reports as per HPI Hematologic/Lymphatic: Reports as per HPI Past Medical History Past Medical History: Atrial Fibrillation, Heart Failure, Diabetes Mellitus, Hyperlipidemia, Thyroid Disorder Additional Past Medical History / Comment(s): CHF with diastolic heart failure and moderate concentric LVH, ejection fraction is preserved with an EF around 55-60% History of Any Multi-Drug Resistant Organisms: MRSA Date of last positivie culture/infection: 1999 MDRO Source:: blood Past Surgical History: Appendectomy, Cholecystectomy, Tonsillectomy, Tubal Ligation Additional Past Surgical History / Comment(s): bilateral knee laproscopy. Past Anesthesia/Blood Transfusion Reactions: No Reported Reaction Past Psychological History: No Psychological Hx Reported Smoking Status: Current every day smoker Past Alcohol Use History: None Reported Past Drug Use History: None Reported - Past Family History Father Family Medical History: Diabetes Mellitus, Renal Disease Mother History Unknown: Yes Family Medical History: Diabetes Mellitus Brother(s) History Unknown: Yes Sister(s) History Unknown: Yes Daughter(s) Family Medical History: No Reported History Son(s) Family Medical History: No Reported History Medications and Allergies Home Medications Medication Instructions Recorded Confirmed Type ALPRAZolam [Xanax] 1 mg PO QID PRN 01/06/18 09/17/21 History Cyclobenzaprine [Flexeril] 10 mg PO HS PRN 01/06/18 09/17/21 History Furosemide [Lasix] 40 mg PO DAILY 01/06/18 09/17/21 History HYDROcodone/APAP 10-325MG [[place] 1 tab PO Q6H PRN 01/06/18 09/17/21 History 10-325] Levothyroxine Sodium [Synthroid] 88 mcg PO DAILY 01/06/18 09/17/21 History Spironolactone [Aldactone] 25 mg PO DAILY 01/06/18 09/17/21 History Digoxin 250 mcg PO DAILY 02/28/19 09/17/21 History Cholecalciferol [Vitamin D3 (25 50 mcg PO DAILY 07/25/21 09/17/21 History Mcg = 1000 Iu)] Ferrous Sulfate [Feosol] 325 mg PO DAILY 07/25/21 09/17/21 History Fluticasone Propionate [Flovent 1 puff INHALATION RT-BID 07/25/21 09/17/21 History Hfa 110 mcg] INSULIN ASPART (NovoLOG) [NovoLOG See Protocol SQ AC-TID 07/25/21 09/17/21 History (formulary)] Insulin NPH Human Isophane 80 unit SQ HS 07/25/21 09/17/21 History [humuLIN N] Magnesium Oxide [Magox 400] 400 mg PO W/BRKFST 07/25/21 09/17/21 History Metoprolol Succinate [Toprol XL] 100 mg PO DAILY 07/25/21 09/17/21 History Warfarin Sodium [Coumadin] 2 mg PO MOTUWETHFRSA@2100 07/25/21 09/17/21 History Warfarin Sodium [Coumadin] 5 mg PO HS 09/17/21 09/17/21 History Allergies Allergy/AdvReac Type Severity Reaction Status Date / Time doxycycline Allergy Anaphylaxis Verified 09/17/21 12:18 erythromycin base AdvReac Unknown Verified 09/17/21 12:18 morphine AdvReac Unknown Verified 09/17/21 12:18 Physical Exam Vitals: Vital Signs Temp Pulse Resp BP Pulse Ox 09/17/21 10:42 74 18 141/86 99 09/17/21 09:30 97.9 F 77 19 99/45 09/17/21 08:29 97.9 F 78 18 106/47 09/17/21 07:59 97.9 F 75 19 106/47 09/17/21 07:49 97.7 F 80 19 100/45 09/17/21 07:19 97.4 F L 79 19 122/45 96 09/17/21 05:48 61 20 103/41 100 09/17/21 05:16 98.5 F 88 19 120/50 100 09/17/21 04:46 97.6 F 84 20 121/48 100 09/17/21 04:36 98.1 F 81 20 114/55 100 09/17/21 03:06 84 20 110/43 100 09/17/21 02:34 87 20 110/43 100 09/17/21 01:14 122 H 20 98 09/17/21 01:00 158 H 26 H 111/73 09/17/21 00:51 99.4 F 170 H 20 119/63 98 Intake and Output 09/16/21 09/17/21 09/17/21 22:59 06:59 14:59 Intake Total 23.667 658 Balance 23.667 658 Intake: Intake, IV Titration 23.667 Amount Diltiazem 125 mg In 23.667 Sodium Chloride 0.9% 100 ml @ 5 MG/HR 5 mls/hr IV .Q24H [facility] Rx#:[id number] Blood Product 0 658 Ffp 24 Cpd Unit 348 [id number] Rc As-1 Unit 0 310 [id number] Other: Weight 136.078 kg - Constitutional General appearance: Present: cooperative, no acute distress, breathing is nonlabored and the patient is currently on room air oxygen. - EENT Eyes: Present: anicteric sclerae, EOMI, PERRLA, dentition normal, normal appear ance ENT: Present: NA/AT, normal oropharynx - Neck Neck: Present: normal ROM - Respiratory Respiratory: bilateral: CTA, negative: diminished, dullness, rales - Cardiovascular Rhythm: Irregular consistent with atrial fibrillation. Heart sounds: normal: S1, S2, tachycardic, irregular consistent with atrial fibrillation. Abnormal Heart Sounds: Absent: systolic murmur, diastolic murmur, rub, S3 Gallop, S4 Gallop, click, other - Gastrointestinal General gastrointestinal: Present: normal bowel sounds, soft, no tenderness - Integumentary Integumentary: Present: normal, normal turgor - Neurologic Neurologic: Present: CNII-XII intact - Musculoskeletal Musculoskeletal: Present: gait normal - Psychiatric Psychiatric: Present: A&O x's 3, appropriate affect Results - Laboratory Findings CBC and BMP: 09/17/21 01:03 09/17/21 01:03 PT/INR, D-dimer PT 118.3 sec (9.0-12.0) H 09/17/21 01:03 INR >10.0 (<1.2) H* 09/17/21 01:03 Abnormal lab findings: Abnormal Labs 09/17/21 09/17/21 09/17/21 01:03 01:03 01:03 WBC 15.9 H RBC 2.30 L Hgb 6.4 L* D Hct 22.6 L MCHC 28.4 L RDW 17.5 H Plt Count 485 H Neutrophils # 11.2 H Monocytes # 1.2 H PT 118.3 H INR >10.0 H* APTT 50.7 H Carbon Dioxide 17 L BUN 39 H Creatinine 1.29 H Glucose 172 H Alkaline Phosphatase 137 H Total Protein 5.7 L Albumin 3.1 L Crossmatch 09/17/21 02:00 WBC RBC Hgb Hct MCHC RDW Plt Count Neutrophils # Monocytes # PT INR APTT Carbon Dioxide BUN Creatinine Glucose Alkaline Phosphatase Total Protein Albumin Crossmatch See Detail - Diagnostic Findings Chest x-ray: image reviewed Assessment and Plan Plan: 1 atrial fibrillation, chronic, rapid ventricular response at time of admission and the patient is currently on a Cardizem drip for rate control. PT/INR is supratherapeutic and toxic 2 toxic PT/INR, coagulopathy related to Coumadin. 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 The patient have fatty liver disease 8 hypothyroidism 9 hyperlipidemia 10 degenerative arthritis 11 COPD 12 hypertension. 13 anemia, secondary to blood loss related to GI bleeding 14 acute kidney injury secondary to GI blood loss and intravascular volume depletion Plan Keep the patient nothing by mouth for now Patient was given fresh frozen plasma and vitamin K and repeat PT/INR will be obtained Monitor PT/INR Monitor hemoglobin A total of 3 units of packed RBC transfusion was ordered Cardizem drip for rate control Hold anticoagulation GI consultation for EGD and intervention if needed IV Protonix No need for ICU admission. The patient can be sent to telemetry unit while she is further stabilized. Obtain a follow-up PT/INR. Obtain a follow-up hemoglobin and decide accordingly.
--- NOTE | 2021-09-17 13:43 | P.CRDCN ---
History of Present Illness Consult date: 09/17/21 Consult reason: atrial fibrillation History of present illness: The patient is a 65-year-old female is who previously followed in the office with Dr. CRYSTAL Degroot, however states he had a falling out and she has not seen him in several years. She presented to the emergency room with new onset of shortness of breath with associated diarrhea and GI bleeding. EKG on arrival showed atrial fibrillation with RVR. INR was greater than 10. Hemoglobin 6.4. The patient states she did have an upper viral infection within the last month, which she describes as a chest cold. She states she was negative for COVID-19. At the time of my interview, she is lying comfortably in bed. She states overall she feels unwell, but better than her arrival. No current chest pain, chest pressure, or shortness of breath at rest. She does feel weak and tired. DIAGNOSTICS: EKG shows atrial fibrillation with RVR Lab data: WBC 15.9, hemoglobin 6.4, hematocrit 22.6, platelets 485, INR greater than 10, sodium 139, potassium 3.7, BUN 39, creatinine 1.29, magnesium 1.8, AST 31, ALT 18, troponin less than 0.012, BNP 1840, digoxin level 0.9 PAST MEDICAL HISTORY: Morbid obesity, dyslipidemia, diabetes, atrial fibrillation REVIEW OF SYSTEMS: No fever or chills. No cough or expectoration. No diaphoresis. Patient denies headache, dizziness, blurred vision, double vision. Patient denies any stomach discomfort. No nausea, vomiting. Positive for diarrhea. Positive for melena. Denies dysuria or hematuria. Positive for weakness. Positive for palpitations. Positive for shortness of breath. Negative for chest pain or chest pressure. PHYSICAL EXAMINATION: This is a 65 year-old obese female in no apparent distress at the time of my examination. HEENT: Head is atraumatic, normocephalic. Pupils are equal, round. Sclerae anicteric. Conjunctivae are clear. Mucous membranes of the mouth are moist. Neck is supple. There is no jugular venous distention. No carotid bruit is heard. CHEST EXAMINATION: Lungs are rhonchorous bilaterally. No wheezes or crackles. No chest wall tenderness is noted on palpation or with deep breathing. HEART EXAMINATION: Heart rate irregular and rhythm. S1, S2 heard. No murmurs, gallops or rub. ABDOMEN: Soft, nontender. Bowel sounds are heard. No organomegaly noted. EXTREMITIES: Generalized peripheral edema. and no calf tenderness noted. NEUROLOGIC EXAMINATION: Patient is awake, alert and oriented x3. FINAL ASSESSMENT AND PLAN: Atrial fibrillation with RVR, continue IV Cardizem Warfarin toxicity, transition to novel anticoagulation Acute GI bleeding, hemoglobin 6.4 Elevated BNP, echocardiogram pending Morbid obesity, BMI 39 Diabetes Hypertension Dyslipidemia PLAN: Continue IV Cardizem Echocardiogram and Doppler study Do not resume digoxin Further recommendations based on clinical course The patient has been seen and evaluated by practitioner and coordinating physician. Plan of care has been reviewed and agreed upon by Dr Interiano. Past Medical History Past Medical History: Atrial Fibrillation, Heart Failure, Diabetes Mellitus, Hyperlipidemia, Thyroid Disorder Additional Past Medical History / Comment(s): arthritis. cyst behing left leg. History of Any Multi-Drug Resistant Organisms: MRSA Date of last positivie culture/infection: 1999 MDRO Source:: blood Past Surgical History: Appendectomy, Cholecystectomy, Tonsillectomy, Tubal Ligation Additional Past Surgical History / Comment(s): bilateral knee laproscopy. Past Anesthesia/Blood Transfusion Reactions: No Reported Reaction Past Psychological History: No Psychological Hx Reported Smoking Status: Current every day smoker Past Alcohol Use History: None Reported Past Drug Use History: None Reported - Past Family History Father Family Medical History: Diabetes Mellitus, Renal Disease Mother History Unknown: Yes Family Medical History: Diabetes Mellitus Brother(s) History Unknown: Yes Sister(s) History Unknown: Yes Daughter(s) Family Medical History: No Reported History Son(s) Family Medical History: No Reported History Medications and Allergies Home Medications Medication Instructions Recorded Confirmed Type ALPRAZolam [Xanax] 1 mg PO QID PRN 01/06/18 09/17/21 History Cyclobenzaprine [Flexeril] 10 mg PO HS PRN 01/06/18 09/17/21 History Furosemide [Lasix] 40 mg PO DAILY 01/06/18 09/17/21 History HYDROcodone/APAP 10-325MG [[place] 1 tab PO Q6H PRN 01/06/18 09/17/21 History 10-325] Levothyroxine Sodium [Synthroid] 88 mcg PO DAILY 01/06/18 09/17/21 History Spironolactone [Aldactone] 25 mg PO DAILY 01/06/18 09/17/21 History Digoxin 250 mcg PO DAILY 02/28/19 09/17/21 History Cholecalciferol [Vitamin D3 (25 50 mcg PO DAILY 07/25/21 09/17/21 History Mcg = 1000 Iu)] Ferrous Sulfate [Feosol] 325 mg PO DAILY 07/25/21 09/17/21 History Fluticasone Propionate [Flovent 1 puff INHALATION RT-BID 07/25/21 09/17/21 History Hfa 110 mcg] INSULIN ASPART (NovoLOG) [NovoLOG See Protocol SQ AC-TID 07/25/21 09/17/21 History (formulary)] Insulin NPH Human Isophane 80 unit SQ HS 07/25/21 09/17/21 History [humuLIN N] Magnesium Oxide [Magox 400] 400 mg PO W/BRKFST 07/25/21 09/17/21 History Metoprolol Succinate [Toprol XL] 100 mg PO DAILY 07/25/21 09/17/21 History Warfarin Sodium [Coumadin] 2 mg PO MOTUWETHFRSA@2100 07/25/21 09/17/21 History Warfarin Sodium [Coumadin] 5 mg PO HS 09/17/21 09/17/21 History Allergies Allergy/AdvReac Type Severity Reaction Status Date / Time doxycycline Allergy Anaphylaxis Verified 09/17/21 12:18 erythromycin base AdvReac Unknown Verified 09/17/21 12:18 morphine AdvReac Unknown Verified 09/17/21 12:18 Physical Exam Vitals: Vital Signs Temp Pulse Resp BP Pulse Ox 09/17/21 07:59 97.9 F 75 19 106/47 09/17/21 07:49 97.7 F 80 19 100/45 09/17/21 07:19 97.4 F L 79 19 122/45 96 09/17/21 05:48 61 20 103/41 100 09/17/21 05:16 98.5 F 88 19 120/50 100 09/17/21 04:46 97.6 F 84 20 121/48 100 09/17/21 04:36 98.1 F 81 20 114/55 100 09/17/21 03:06 84 20 110/43 100 09/17/21 02:34 87 20 110/43 100 01/16/22 01:14 122 H 20 98 01/16/22 01:00 158 H 26 H 111/73 09/17/21 00:51 99.4 F 170 H 20 119/63 98 Intake and Output 09/16/21 09/17/21 09/17/21 22:59 06:59 14:59 Intake Total 23.667 310 Balance 23.667 310 Intake: Intake, IV Titration 23.667 Amount Diltiazem 125 mg In 23.667 Sodium Chloride 0.9% 100 ml @ 5 MG/HR 5 mls/hr IV .Q24H [facility] Rx#:[id number] Blood Product 0 310 Ffp 24 Cpd Unit 0 [id number] Rc As-1 Unit 0 310 [id number] Other: Weight 136.078 kg Results 09/17/21 01:03 09/17/21 01:03 Cardiac Enzymes 09/17/21 09/17/21 Range/Units 01:03 01:03 AST 31 (14-36) U/L Troponin I <0.012 (0.000-0.034) ng/mL Coagulation 09/17/21 Range/Units 01:03 PT 118.3 H (9.0-12.0) sec APTT 50.7 H (22.0-30.0) sec CBC 09/17/21 Range/Units 01:03 WBC 15.9 H (3.8-10.6) k/uL RBC 2.30 L (3.80-5.40) m/uL Hgb 6.4 L* D (11.4-16.0) gm/dL Hct 22.6 L (34.0-46.0) % Plt Count 485 H (150-450) k/uL Comprehensive Metabolic Panel 09/17/21 Range/Units 01:03 Sodium 139 (137-145) mmol/L Potassium 3.7 (3.5-5.1) mmol/L Chloride 105 (98-107) mmol/L Carbon Dioxide 17 L (22-30) mmol/L BUN 39 H (7-17) mg/dL Creatinine 1.29 H (0.52-1.04) mg/dL Glucose 172 H (74-99) mg/dL Calcium 9.0 (8.4-10.2) mg/dL AST 31 (14-36) U/L ALT 18 (4-34) U/L Alkaline Phosphatase 137 H (38-126) U/L Total Protein 5.7 L (6.3-8.2) g/dL Albumin 3.1 L (3.5-5.0) g/dL Current Medications Generic Name Dose Route Start Last Admin Trade Name Freq PRN Reason Stop Dose Admin Acetaminophen 650 mg 09/17/21 06:07 09/17/21 06:53 Acetaminophen Tab 325 Mg Tab PO 650 mg Q4HR PRN Administration Fever and/or Mild Pain Diltiazem HCl 125 mg/ Sodium 125 mls @ 5 mls/hr 09/17/21 01:00 09/17/21 04:40 Chloride IV 0 mg/hr .Q24H [facility] 0 mls/hr Infusion 5 MG/HR Sodium Chloride 1,000 mls @ 130 mls/hr 09/17/21 06:15 09/17/21 06:27 Saline 0.9% IV Not Given .Q7H42M [facility] Naloxone HCl 0.2 mg 09/17/21 06:07 Naloxone 0.4 Mg/Ml 1 Ml Vial IV Q2M PRN Opioid Reversal Pantoprazole Sodium 40 mg 09/17/21 09:00 Pantoprazole 40 Mg/10 Ml Vial IV DAILY [facility]OS Intake and Output 09/16/21 09/17/21 09/17/21 22:59 06:59 14:59 Intake Total 23.667 310 Balance 23.667 310 Intake: Intake, IV Titration 23.667 Amount Diltiazem 125 mg In 23.667 Sodium Chloride 0.9% 100 ml @ 5 MG/HR 5 mls/hr IV .Q24H [facility] Rx#:[id number] Blood Product 0 310 Ffp 24 Cpd Unit 0 [id number] Rc As-1 Unit 0 310 [id number] Other: Weight 136.078 kg 09/17/21 01:03 09/17/21 01:03
[2021-09-17] MEDS ORDERED: CYCLOBENZAPRINE 10 MG TAB PO PRN (14:14)
--- NOTE | 2021-09-17 14:19 | P.HPIM ---
History of Present Illness H&P Date: 09/17/21 Chief Complaint: dizziness and black diarrhea stools shortness of breath this is a 65-year-old pleasant lady, with known history of colon polyp gastric polyp, chronic anticoagulation with Coumadin for atrial fibrillation, diabetes mellitus type 2, diastolic congestive heart failure, hypothyroidism,admitted to emergency room with complaints of dizziness, multiple episodes of syncope whenever she stands up, and black diarrhea stools. Patient has had black stools, tarry stools since , and was seen in emergency room for that. And was discharged to home. She is also recommended to have an INR check, Dr. Vera's office, however she did not get this one done. She comes in now with off and on tarry stools, and in the past 5 days, has had lightheadedness dizziness, and would pass out every time she goes to the bathroom. 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 Patient denies any NSAID use, or recent steroid use. patient has epigastric pain, no abdominal distention, Emergency room, heart rate was in the 170, atrial fibrillation, hemoglobin was 6.4, was given 2 units of packed red blood cell, INR of over 10, with PT of 11.8, was given fresh frozen plasma, and oral vitamin K, 10 mg. ProBNP of 1840, troponin was negative, coronary virus testing was negative, she has not been vaccinated. Chest x-ray was clear patient will be admitted to ICU, with consultation to [facility], Dr. lida Manuel, from general surgery, and and Dr. Manuel, from general surgery Review of Systems Constitutional: Reports as per HPI, Reports fatigue, Reports malaise, Reports weakness, Reports weight loss Ears, nose, mouth and throat: Reports as per HPI, Denies dysphagia, Denies epistaxis Cardiovascular: Reports as per HPI, Reports chest pain, Reports decreased exercise tolerance, Reports dyspnea on exertion, Reports rapid heart beat, Reports shortness of breath, Reports syncope Respiratory: Reports as per HPI Gastrointestinal: Reports as per HPI, Reports heartburn, Reports nausea, Denies hematemesis, Denies hematochezia Genitourinary: Reports as per HPI, Denies abnormal vaginal bleeding, Denies decreased libido, Denies difficulty conceiving, Denies difficulty voiding, Denies dysmenorrhea, Denies dyspareunia, Denies dysuria, Denies flank pain, Denies genital sores, Denies hematuria, Denies hot flashes, Denies incomplete emptying, Denies kidney stones, Denies menorrhagia, Denies mixed incontinence, Denies nocturia, Denies pelvic pain, Denies post void dribbling, Denies , Denies prolapse symptoms, Denies stress incontinence, Denies urge incontinence, Denies urgency, Denies urinary frequency, Denies vaginal discharge, Denies vaginal dryness, Denies vaginal itching, Denies vaginal odor Menstruation: Reports as per HPI Musculoskeletal: Reports as per HPI, Denies arm numbness/tingling, Denies atrophy, Denies fractures, Denies frequent falls, Denies gait dysfunction, De nies hot joints, Denies leg numbness/tingling, Denies limitation of motion, Denies loss of height, Denies low back pain, Denies morning stiffness, Denies muscle cramps, Denies muscle weakness, Denies myalgias, Denies neck pain, Denies neck stiffness, Denies prior amputations, Denies redness of joints, Denies shooting arm pain, Denies shooting leg pain Integumentary: Reports as per HPI Neurological: Reports as per HPI, Denies confusion, Denies memory loss, Denies transient paralysis Psychiatric: Reports as per HPI Endocrine: Reports as per HPI Hematologic/Lymphatic: Reports as per HPI, Denies easy bleeding, Denies easy bruising, Denies lymphadenopathy, Denies lymphedema, Denies thrombophilia Allergic/Immunologic: Reports as per HPI, Denies allergic rhinitis, Denies anaphylaxis, Denies angioedema, Denies gluten intolerance, Denies persistent infections, Denies seasonal allergies, Denies urticaria, Denies wheezing Past Medical History Past Medical History: Atrial Fibrillation, Heart Failure, Diabetes Mellitus, Hyperlipidemia, Thyroid Disorder Additional Past Medical History / Comment(s): arthritis. cyst behing left leg. History of Any Multi-Drug Resistant Organisms: MRSA Date of last positivie culture/infection: 1999 MDRO Source:: blood Past Surgical History: Appendectomy, Cholecystectomy, Tonsillectomy, Tubal Ligation Additional Past Surgical History / Comment(s): bilateral knee laproscopy. Past Anesthesia/Blood Transfusion Reactions: No Reported Reaction Past Psychological History: No Psychological Hx Reported Smoking Status: Current every day smoker Past Alcohol Use History: None Reported Past Drug Use History: None Reported - Past Family History Father Family Medical History: Diabetes Mellitus, Renal Disease Mother History Unknown: Yes Family Medical History: Diabetes Mellitus Brother(s) History Unknown: Yes Sister(s) History Unknown: Yes Daughter(s) Family Medical History: No Reported History Son(s) Family Medical History: No Reported History Medications and Allergies Home Medications Medication Instructions Recorded Confirmed Type ALPRAZolam [Xanax] 1 mg PO QID PRN 01/06/18 09/17/21 History Cyclobenzaprine [Flexeril] 10 mg PO HS PRN 01/06/18 09/17/21 History Furosemide [Lasix] 40 mg PO DAILY 01/06/18 09/17/21 History HYDROcodone/APAP 10-325MG [[place] 1 tab PO Q6H PRN 01/06/18 09/17/21 History 10-325] Levothyroxine Sodium [Synthroid] 88 mcg PO DAILY 01/06/18 09/17/21 History Spironolactone [Aldactone] 25 mg PO DAILY 01/06/18 09/17/21 History Digoxin 250 mcg PO DAILY 02/28/19 09/17/21 History Cholecalciferol [Vitamin D3 (25 50 mcg PO DAILY 07/25/21 09/17/21 History Mcg = 1000 Iu)] Ferrous Sulfate [Feosol] 325 mg PO DAILY 07/25/21 09/17/21 History Fluticasone Propionate [Flovent 1 puff INHALATION RT-BID 07/25/21 09/17/21 History Hfa 110 mcg] INSULIN ASPART (NovoLOG) [NovoLOG See Protocol SQ AC-TID 07/25/21 09/17/21 History (formulary)] Insulin NPH Human Isophane 80 unit SQ HS 07/25/21 09/17/21 History [humuLIN N] Magnesium Oxide [Magox 400] 400 mg PO W/BRKFST 07/25/21 09/17/21 History Metoprolol Succinate [Toprol XL] 100 mg PO DAILY 07/25/21 09/17/21 History Warfarin Sodium [Coumadin] 2 mg PO TAYA@2100 07/25/21 09/17/21 History Warfarin Sodium [Coumadin] 5 mg PO HS 09/17/21 09/17/21 History Allergies Allergy/AdvReac Type Severity Reaction Status Date / Time doxycycline Allergy Anaphylaxis Verified 09/17/21 12:18 erythromycin base AdvReac Unknown Verified 09/17/21 12:18 morphine AdvReac Unknown Verified 09/17/21 12:18 Physical Exam Vitals: Vital Signs Temp Pulse Resp BP Pulse Ox 09/17/21 08:29 97.9 F 78 18 106/47 09/17/21 07:59 97.9 F 75 19 106/47 09/17/21 07:49 97.7 F 80 19 100/45 09/17/21 07:19 97.4 F L 79 19 122/45 96 09/17/21 05:48 61 20 103/41 100 09/17/21 05:16 98.5 F 88 19 120/50 100 09/17/21 04:46 97.6 F 84 20 121/48 100 09/17/21 04:36 98.1 F 81 20 114/55 100 09/17/21 03:06 84 20 110/43 100 09/17/21 02:34 87 20 110/43 100 09/17/21 01:14 122 H 20 98 09/17/21 01:00 158 H 26 H 111/73 09/17/21 00:51 99.4 F 170 H 20 119/63 98 Intake and Output 09/16/21 09/17/21 09/17/21 22:59 06:59 14:59 Intake Total 23.667 310 Balance 23.667 310 Intake: Intake, IV Titration 23.667 Amount Diltiazem 125 mg In 23.667 Sodium Chloride 0.9% 100 ml @ 5 MG/HR 5 mls/hr IV .Q24H PENDING SALE TO [facility] Rx#:[id number] Blood Product 0 310 Ffp 24 Cpd Unit 0 [id number] Rc As-1 Unit 0 310 [id number] Other: Weight 136.078 kg - Constitutional General appearance: cooperative, no acute distress, obese - EENT Eyes: EOMI, PERRLA, dentition normal, normal appearance ENT: NA/AT, normal oropharynx - Neck Neck: normal ROM - Respiratory Respiratory: bilateral: CTA, negative: diminished, dullness - Cardiovascular Rhythm: regular Heart sounds: normal: S1, S2 Abnormal Heart Sounds: no systolic murmur, no diastolic murmur, no rub, no S3 Gallop, no S4 Gallop, no click, no other - Gastrointestinal General gastrointestinal: normal bowel sounds, soft - Integumentary Integumentary: normal - Neurologic Neurologic: CNII-XII intact - Musculoskeletal Musculoskeletal: gait normal - Psychiatric Psychiatric: A&O x's 3, appropriate affect, intact judgment & insight Results CBC & Chem 7: 09/17/21 01:03 09/17/21 01:03 Labs: Abnormal Lab Results - Last 24 Hours (Table) 09/17/21 09/17/21 09/17/21 Range/Units 01:03 01:03 01:03 WBC 15.9 H (3.8-10.6) k/uL RBC 2.30 L (3.80-5.40) m/uL Hgb 6.4 L* D (11.4-16.0) gm/dL Hct 22.6 L (34.0-46.0) % MCHC 28.4 L (31.0-37.0) g/dL RDW 17.5 H (11.5-15.5) % Plt Count 485 H (150-450) k/uL Neutrophils # 11.2 H (1.3-7.7) k/uL Monocytes # 1.2 H (0-1.0) k/uL PT 118.3 H (9.0-12.0) sec INR >10.0 H* (<1.2) APTT 50.7 H (22.0-30.0) sec Carbon Dioxide 17 L (22-30) mmol/L BUN 39 H (7-17) mg/dL Creatinine 1.29 H (0.52-1.04) mg/dL Glucose 172 H (74-99) mg/dL Alkaline Phosphatase 137 H (38-126) U/L Total Protein 5.7 L (6.3-8.2) g/dL Albumin 3.1 L (3.5-5.0) g/dL Crossmatch 09/17/21 Range/Units 02:00 WBC (3.8-10.6) k/uL RBC (3.80-5.40) m/uL Hgb (11.4-16.0) gm/dL Hct (34.0-46.0) % MCHC (31.0-37.0) g/dL RDW (11.5-15.5) % Plt Count (150-450) k/uL Neutrophils # (1.3-7.7) k/uL Monocytes # (0-1.0) k/uL PT (9.0-12.0) sec INR (<1.2) APTT (22.0-30.0) sec Carbon Dioxide (22-30) mmol/L BUN (7-17) mg/dL Creatinine (0.52-1.04) mg/dL Glucose (74-99) mg/dL Alkaline Phosphatase (38-126) U/L Total Protein (6.3-8.2) g/dL Albumin (3.5-5.0) g/dL Crossmatch See Detail Thrombosis Risk Factor Assmnt - DVT/VTE Prophylaxis DVT/VTE Prophylaxis: Contraindicated - See note Assessment and Plan Plan: 1. Upper GI bleed with melanocytic stools, presenting with severe blood loss anemia, hemoglobin is 6.4 and entry, required 2 units of packed red blood cell, 1 unit of plasma, secondary to Coumadin toxicity, general surgery to see the patient, patient will be requiring EGDkeep nothing by mouth except meds, until seen by general surgeon patient will be admitted to ICU serial close monitoring for hemoglobin, and blood transfusion as needed for hemoglobin under 7.0 2. A. fib with RVR, patient's currently on Cardizem drip for rate control, INR is super elevated, at toxic levels of Coumadin, based on the current INR. Coumadin is on hold, with cautious resumption once cleared by general surgery general hardware salesperson to follow the patient check for TSH and troponins 3. previous history of GI bleed in the past, requiring duodenal angiectasia cauterization , history of colon polyps benign 4. Diastolic CHF, currently compensated 5. Diabetes mellitus type 2, on Humulin N, 80 units at bedtime, as the dodie ent's nothing by mouth, we will provide 40 units daily at bedtime, and NovoLog scale adjustments as needed 5. hypothyroidism, TSH free T4 will be checked 6. acute kidney injury secondary to ATN with acute blood loss anemia, and intervascular volume depletion X 7 COPD without exacerbation 8 liver cirrhosis suspected with secondary splenomegaly , has fatty liver 9 Coumadin toxicity, with noncompliance INR monitoring as recommended by her PCP, advice regarding compliance use, patient most likely would be better off with factor X KENZIE inhibition, once GI bleed stabilized serial INRs 10. Iron deficiency with restless leg, start ropinirole 0.25mg 3 times a day, norco at home dose 50 qid prn 10 prognosis guarded
[2021-09-17] MEDS: HYDROcodone/APAP 10-325MG 1 EACH TAB PO PRN ×2 (14:38→20:43)
[2021-09-17] MEDS: SUCRALFATE 1 GM TAB PO SCH (19:52)
[2021-09-17] MEDS: PANTOPRAZOLE 40 MG/10 ML VIAL IVP SCH (20:43)
[2021-09-17 21:07] LABS: Glucose,Whole Blood 254 mg/dL (75-99)
[2021-09-17] MEDS: INSULIN NPH 300 UNIT/3 ML VIAL SQ SCH (22:02)
[2021-09-17 22:36] LABS: Anisocytosis Slight; Basophils # (A) 0.1 k/uL (0-0.2); Basophils % (A) 1 %; Eosinophils % (A) 1 %; Hypochromasia Marked; Lymphocytes # (A) 1.9 k/uL (1.0-4.8); Lymphocytes % (A) 23 %; MCH 27.6 pg (25.0-35.0); MCHC 28.3 g/dL (31.0-37.0); MCV 97.7 fL (80.0-100.0); Macrocytosis Slight; Mean Platelet Volume 8.1; Monocytes # (A) 0.8 k/uL (0-1.0); Monocytes % (A) 10 %; Neutrophils # (A) 5.2 k/uL (1.3-7.7); Neutrophils % (A) 63 %; Platelet Count 270 k/uL (150-450); Poikilocytosis Moderate; RBC 2.15 m/uL (3.80-5.40); RDW 16.8 % (11.5-15.5); WBC 8.2 k/uL (3.8-10.6)
[2021-09-17 22:41] LABS: HGB 5.9 gm/dL (11.4-16.0)
[2021-09-17 23:00] LABS: INR 2.8 (<1.2)
[2021-09-18] MEDS ORDERED: FUROSEMIDE 10 MG/ML 2 ML VIAL IV ONE (02:00)
[2021-09-18] MEDS ORDERED: ACETAMINOPHEN TAB 500 MG TAB PO ONE (06:00)
[2021-09-18] MEDS: ACETAMINOPHEN TAB 325 MG TAB PO PRN (07:30)
[2021-09-18 07:59] LABS: African American GFR (CKD) 58 (>60 ml/min/1.73 sqM); Anion Gap 3 mmol/L; Blood Urea Nitrogen 31 mg/dL (7-17); Calcium 8.6 mg/dL (8.4-10.2); Carbon Dioxide 26 mmol/L (22-30); Chloride 109 mmol/L (98-107); Glucose 125 mg/dL (74-99); Non-African American GFR(CKD) 50 (>60 ml/min/1.73 sqM); Potassium 3.9 mmol/L (3.5-5.1); Sodium 138 mmol/L (137-145)
--- NOTE | 2021-09-18 08:02 | P.PN ---
Progress Note - Text Progress Note Date: 09/18/21 Patient is seen and examined at bedside. Still in the ER awaiting bed availability. Did well overnight. A. fib with RVR better controlled now on Cardizem drip with rate in the 80s to 90s. She's been tolerating clear liquids, still feeling quite hungry. She denies abdominal pain, did have a single large melanotic bowel movement yesterday, no additional bowel movement overnight. She does still have some issues with dizziness and lightheadedness with position changes. Overall feeling much better than on admission. She tells me that she got an additional 2 units of packed red blood cells overnight. Medical record would suggest that she's had 2 units of packed red blood cells in order. A be 2 units of FFP. She received a dose of vitamin K yesterday. Morning labs are pending but her INR last night it come down to 2.8 from a presenting value above the upper limit of our detection scale. Hemoglobin last night was sober low at 5.9, down from 6.4 on presentation. Her leukocytosis is normalized with 4 vessel coronary 0.2, platelet count coming down to 270 from a presenting value for 485. T-max24 98.3F, heart rate 90, blood pressure 134/54, respiratory rate 18 at 100% O2 saturation on room air. Cardiovascular: Heart rate and rhythm irregularly irregular on the rhythm strip. Respiratory: Lungs are clear to auscultation bilaterally. Abdominal exam: Abdomen is soft nontender to palpation, no guarding rebound or distention. Extremity: Distal extremities are warm and well-perfused, no edema. Assessment: 1) 65-year-old lady with for what appeared to be a chronic, likely upper GI bleed of some 2 months duration. Laboratory studies indicative of an acute on chronic blood loss anemia. Differential diagnosis includes erosive esophagitis, metaplasia neoplasia, complications of portal hypertension, AV malformation, angiodysplasia, gastritis and peptic ulcer disease, less likely lower GI bleeding sources given clinical history. Presenting physical exam indicative of a degree of gastritis or duodenitis with epigastric tenderness extending just to the right of midline. 2) Supratherapeutic INR in excess of 10 on Coumadin, improved with FFP and vitamin K. 3) Presenting atrial fibrillation with rapid ventricular response, maintained on metoprolol for rate control and digoxin. Some changes on EKG indicative of a degree of strain, presenting troponin non-elevated. Presently rate controlled on Cardizem drip. 4) History of some manner of heart failure, maintained on Aldactone and Lasix on an outpatient basis. Elevated BNP on presentation, chest x-ray unimpressive. 5) Morbid obesity. 6) Nicotine dependence. Plan: Morning laboratory studies are presently pending, continue to pursue her INR if it's greater than 1.7. Nothing by mouth for possible EGD either this afternoon or tomorrow. Empiric treatment for gastritis and peptic ulcer disease with Protonix drip equivalent and Carafate 4 times daily. Recommend serial CBC every 8 hours, transfusion threshold of 7 or for symptomatic anemia. She is l ikely physiologically acclimated to a degree to her anemia given her findings on CBC differential. Should anticipate at minimum a diagnostic EGD prior to discharge. If she has an inappropriate response to packed red cells we may need to consider more urgent interventional endoscopy.
[2021-09-18 08:12] LABS: Anisocytosis Slight; Basophils % (A) 0 %; Eosinophils # (A) 0.1 k/uL (0-0.7); Eosinophils % (A) 1 %; HCT 26.9 % (34.0-46.0); Hypochromasia Marked; Lymphocytes # (A) 1.7 k/uL (1.0-4.8); Lymphocytes % (A) 20 %; MCH 29.2 pg (25.0-35.0); MCHC 30.6 g/dL (31.0-37.0); MCV 95.6 fL (80.0-100.0); Mean Platelet Volume 7.9; Monocytes # (A) 0.7 k/uL (0-1.0); Monocytes % (A) 9 %; Neutrophils # (A) 5.6 k/uL (1.3-7.7); Neutrophils % (A) 67 %; Platelet Count 265 k/uL (150-450); Poikilocytosis Marked; RBC 2.82 m/uL (3.80-5.40); RDW 16.7 % (11.5-15.5); WBC 8.5 k/uL (3.8-10.6)
[2021-09-18 08:15] LABS: HGB 8.2 gm/dL (11.4-16.0)
[2021-09-18] MEDS: CHOLECALCIFEROL 25 MCG (1000 IU) TABLET PO SCH (09:24)
[2021-09-18] MEDS: PANTOPRAZOLE 40 MG/10 ML VIAL IVP SCH ×2 (09:24→21:01)
[2021-09-18] MEDS: ALPRAZolam 1 MG TAB PO PRN ×2 (09:24→15:53)
[2021-09-18] MEDS: FUROSEMIDE 40 MG TAB PO SCH (09:25)
[2021-09-18] MEDS: MAGNESIUM OXIDE 400 MG TAB PO SCH (09:25)
[2021-09-18] MEDS: LEVOTHYROXINE 88 MCG TAB PO SCH (09:25)
[2021-09-18] MEDS: HYDROcodone/APAP 10-325MG 1 EACH TAB PO PRN ×2 (09:38→15:53)
[2021-09-18] MEDS: DILTIAZEM 125 MG in SODIUM CHLORIDE 0.9% 100 ML IV SCH (11:15)
--- NOTE | 2021-09-18 12:10 | P.PN ---
Subjective Progress Note Date: 09/18/21 Patient is a 65-year-old female with a known history of permanent atrial fibrillation, heart failure, hyperlipidemia, thyroid disorder, diabetes and morbid obesity admitted to the hospital with atrial fibrillation with RVR, Coumadin toxicity, and GI bleed. Patient sees Dr Corina Degroot in the office but has not seen him in years. Patient is seen today resting in bed as an ER hold. No signs of acute distress. She denies chest pain, palpitations, dyspnea at rest, dizziness, syncope or edema. She does report she has mild dyspnea with activity. Patient's hemoglobin today is 8.2. Patient received a total of 3 units and 1 dose of plasma. Patient's INR is improved and is 2 and platelets are 2.65 today. Cardizem drip has been stopped, will restart patient's Toprol. Patient's echocardiogram is pending. Patient go for an EGD possibly this afternoon if not tomorrow. Continue to hold anticoagulation due to GI bleed. digoxin remains on hold due to elevated creatinine. Patient's blood pressure is 146/62, heart rate controlled 84, oxygen 98% on room air, afebrile. Patient is currently on Lasix 40 mg daily, will restart Toprol XL 100 mg daily. DIAGNOSTICS: Telemetry shows patient in A. fib with a controlled ventricle rate Echocardiogram pending Chest x-ray was negative for acute pulmonary disease. Labs reviewedhemoglobin 8.2, platelet 265, INR 2, sodium 138, potassium 3.9 on the BUNs 31, creatinine 1.15, magnesium 1.8, BNP 1840, TSH 1.60, digoxin 0.9 Objective - Vital Signs Vital signs: Vital Signs Temp 98.3 F 09/18/21 07:31 Pulse 84 09/18/21 11:09 Resp 18 09/18/21 11:09 BP 146/62 09/18/21 11:09 Pulse Ox 98 09/18/21 11:09 Intake & Output 09/17/21 09/18/21 09/18/21 18:59 06:59 18:59 Intake Total 658 695 Balance 658 695 Intake: Blood Product 658 620 Ffp 24 Cpd Unit 348 [id number] Rc As-1 Unit 310 [id number] Rc As-1 Unit 310 [id number] Rc As-1 Unit 310 [id number] Other 75 As-1 Unit 75 [id number] - Exam PHYSICAL EXAM: VITAL SIGNS: Reviewed. GENERAL: Well-developed in no acute distress. HEENT: Head is normocephalic. Pupils are equal, round. Sclerae anicteric. Mucous membranes of the mouth are moist. NECK: Supple. No JVD or thyromegaly RESPIRATORY: Respirations even and unlabored. Lungs diminished with expiratory wheezing to auscultation bilaterally. CARDIO: Regular rate and rhythm. S1 and S2 heard. No murmur or gallops. EXTREMITIES: Normal range of motion. No clubbing or cyanosis. Peripheral pulses intact. Negative for bilateral lower extremity edema NEURO: Orientated to person, time, mood is appropriate - Labs CBC & Chem 7: 09/18/21 07:28 09/18/21 07:28 Labs: Abnormal Lab Results - Last 24 Hours (Table) 09/17/21 09/17/21 09/17/21 Range/Units 02:00 21:06 22:02 RBC (3.80-5.40) m/uL Hgb (11.4-16.0) gm/dL Hct (34.0-46.0) % MCHC (31.0-37.0) g/dL RDW (11.5-15.5) % PT 27.0 H (9.0-12.0) sec INR 2.8 H (<1.2) Chloride (98-107) mmol/L BUN (7-17) mg/dL Creatinine (0.52-1.04) mg/dL Glucose (74-99) mg/dL POC Glucose (mg/dL) 254 H (75-99) mg/dL Crossmatch See Detail 09/17/21 09/18/21 09/18/21 Range/Units 22:02 07:28 07:28 RBC 2.15 L 2.82 L (3.80-5.40) m/uL Hgb 5.9 L* 8.2 L D (11.4-16.0) gm/dL Hct 21.0 L 26.9 L (34.0-46.0) % MCHC 28.3 L 30.6 L (31.0-37.0) g/dL RDW 16.8 H 16.7 H (11.5-15.5) % PT (9.0-12.0) sec INR (<1.2) Chloride 109 H (98-107) mmol/L BUN 31 H (7-17) mg/dL Creatinine 1.15 H (0.52-1.04) mg/dL Glucose 125 H (74-99) mg/dL POC Glucose (mg/dL) (75-99) mg/dL Crossmatch 09/18/21 Range/Units 07:28 RBC (3.80-5.40) m/uL Hgb (11.4-16.0) gm/dL Hct (34.0-46.0) % MCHC (31.0-37.0) g/dL RDW (11.5-15.5) % PT 20.0 H (9.0-12.0) sec INR 2.0 H (<1.2) Chloride (98-107) mmol/L BUN (7-17) mg/dL Creatinine (0.52-1.04) mg/dL Glucose (74-99) mg/dL POC Glucose (mg/dL) (75-99) mg/dL Crossmatch Assessment and Plan Assessment: Atrial fibrillation with a controlled ventricle rate Warfarin toxicity Acute GI bleed Hypertension Hyperlipidemia Morbid obesity Plan: Stop Cardizem drip and restart Toprol-XL 100 mg daily Echocardiogram pending Continue to hold digoxin due to elevated creatinine Continue to hold anticoagulation due to acute GI bleed, once improved will transition patient to novel anticoagulation Continue with telemetry monitoring Continue with current cardiac medications Further recommendations based on clinical course. The above impression and plan of care have been discussed and directed by the signing physician. Debbie Chua, nurse practitioner, acting as scribe for signing physician.
[2021-09-18] MEDS: SUCRALFATE 1 GM TAB PO SCH ×3 (12:15→20:56)
[2021-09-18 12:28] LABS: % Iron Saturation 7.03 (12.00-45.00); Iron 26 ug/dL (50-170); Total Iron Binding Capacity 364 ug/dL (228-460)
--- NOTE | 2021-09-18 14:33 | P.PN ---
Subjective Progress Note Date: 09/18/21 HISTORY OF PRESENT ILLNESS this is a 65-year-old pleasant lady, with known history of colon polyp gastric polyp, chronic anticoagulation with Coumadin for atrial fibrillation, diabetes mellitus type 2, diastolic congestive heart failure, hypothyroidism,admitted to emergency room with complaints of dizziness, multiple episodes of syncope whenever she stands up, and black diarrhea stools. Patient has had black stools, tarry stools since , and was seen in emergency room for that. And was discharged to home. She is also recommended to have an INR check, Dr. Vera's office, however she did not get this one done. She comes in now with off and on tarry stools, and in the past 5 days, has had lightheadedness dizziness, and would pass out every time she goes to the bathroom. 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 Patient denies any NSAID use, or recent steroid use. patient has epigastric pain, no abdominal distention, Emergency room, heart rate was in the 170, atrial fibrillation, hemoglobin was 6.4, was given 2 units of packed red blood cell, INR of over 10, with PT of 11.8 , was given fresh frozen plasma, and oral vitamin K, 10 mg. ProBNP of 1840, troponin was negative, coronary virus testing was negative, she has not been vaccinated. Chest x-ray was clear patient will be admitted to ICU, with [facility], Dr. lida Manuel, from general surgery, and and Dr. Manuel, from general surgery 09/18: Patient remains in the emergency center with him for a bed in the ICU. She is complaining of right lower quadrant and right upper quadrant tenderness. Her last INR is 2.0 and hemoglobin is 8.2 status post 3 units of packed RBCs and 1 unit of fresh frozen plasma. BUN 31 creatinine 1.15. Blood sugar 125. Iron 26, TIBC 364, iron saturation 7.03, transferrin 260. TSH 1.6-0. Patient is currently nothing by mouth for possible EGD this afternoon or tomorrow. Patient has been seen and followed by cardiology, Cardizem drip discontinued and resumed Toprol-XL 100 mg daily, hold digoxin and anticoagulation. REVIEW OF SYSTEMS Constitutional: No fever, no chills, no night sweats. Reports weight change. Reports weakness, fatigue or lethargy. No daytime sleepiness. EENT: No headache. No blurred vision or double vision, no loss of vision. No loss of Hearing, no ringing in the ears, no dizziness. No nasal drainage or congestion. No epistaxis. No sore throat. Lungs: No shortness of breath, cough, no sputum production. No wheezing. Cardiovascular: No chest pain, no lower extremity edema. No palpitations. No paroxysmal nocturnal dyspnea. No orthopnea. No lightheadedness or dizziness. No syncopal episodes. Abdominal: No abdominal pain. No nausea, vomiting. No diarrhea. No con stipation. No bloody or tarry stools. Denies loss of appetite. Genitourinary: No dysuria, increased frequency, urgency. No urinary retention. Musculoskeletal: No myalgias. No muscle weakness, no gait dysfunction, no frequent falls. No back pain. No neck pain. Integumentary: No wounds, no lesions. No rash or pruritus. No unusual bruising. No change in hair or nails. Neurologic: No aphasia. No facial droop. No change in mentation. No head injury. No headache. No paralysis. No paresthesia. Psychiatric: No depression. No anxiety. No mood swings. Endocrine: Noted abnormal blood sugars. No weight change. No excessive sweating or thirst. No cold intolerance. PHYSICAL EXAMINATION Gen: This is a 65-year-old female. She is sitting on the edge of the bed in the emergency center appears to be comfortable, no respiratory distress is noted. HEENT: Head is atraumatic, normocephalic. Pupils equal, round. Sclerae is anicteric. Sclera pale. NECK: Supple. No JVD. No lymphadenopathy. No thyromegaly. LUNGS: Clear to auscultation. No wheezes or rhonchi. No intercostal ret ractions. HEART: Regular rate and rhythm. No murmur. ABDOMEN: Soft. Bowel sounds are present. No masses. No tenderness. EXTREMITIES: No pedal edema. No calf tenderness. NEUROLOGICAL: Patient is awake, alert and oriented x3. Cranial nerves 2 through 12 are grossly intact. ASSESSMENT AND PLAN 1. Upper GI bleed with melanocytic stools, presenting with severe blood loss anemia, hemoglobin is 6.4 and entry, required 2 units of packed red blood cell, 1 unit of plasma, secondary to Coumadin toxicity, general surgery to see the patient, patient will be requiring EGDkeep nothing by mouth except meds, until seen by general surgeon patient will be admitted to ICU serial close monitoring for hemoglobin, and blood transfusion as needed for hemoglobin under 7.0 2. A. fib with RVR, patient's currently on Cardizem drip for rate control, INR is super elevated, at toxic levels of Coumadin, based on the current INR. Coumadin is on hold, with cautious resumption once cleared by general surgery ca rdiologist to follow the patient check for TSH and troponins 3. previous history of GI bleed in the past, requiring duodenal angiectasia cauterization , history of colon polyps benign 4. Diastolic CHF, currently compensated 5. Diabetes mellitus type 2, on Humulin N, 80 units at bedtime, as the patient's nothing by mouth, we will provide 40 units daily at bedtime, and NovoLog scale adjustments as needed 6. Hypercoagulopathy secondary to Coumadin secondary to noncompliance INR monitoring as recommended by her PCP. Coumadin is on hold, continue to monitor daily. 7. acute kidney injury secondary to ATN with acute blood loss anemia, and intervascular volume depletion X 8. COPD without exacerbation 9. Hypothyroidism 10. Liver cirrhosis suspected with secondary splenomegaly , has fatty liver 11. Iron deficiency with restless leg, start ropinirole 0.25mg 3 times a day, norco at home prn 12. COVID-19 testing negative. Patient has been hospitalized during a pandemic. Patient will be admitted to the hospital for a minimum of 2 night stay. DISCHARGE PLAN Home. Impression and plan of care have been directed as dictated by the signing physician. Charley Templeton nurse practitioner acting as scribe for signing physician. Objective - Vital Signs Vital signs: Vital Signs Temp 98.3 F 09/18/21 07:31 Pulse 84 09/18/21 11:09 Resp 18 09/18/21 11:09 BP 146/62 09/18/21 11:09 Pulse Ox 98 09/18/21 11:09 Intake & Output 09/17/21 09/18/21 09/18/21 18:59 06:59 18:59 Intake Total 658 695 Balance 658 699 Intake: Blood Product 658 620 Ffp 24 Cpd Unit 348 [id number] Rc As-1 Unit 310 [id number] Rc As-1 Unit 310 [id number] Rc As-1 Unit 310 [id number] Other 75 Rc As-1 Unit 75 [id number] - Labs CBC & Chem 7: 09/18/21 07:28 09/18/21 07:28 Labs: Abnormal Lab Results - Last 24 Hours (Table) 09/17/21 09/17/21 09/17/21 Range/Units 02:00 21:06 22:02 RBC (3.80-5.40) m/uL Hgb (11.4-16.0) gm/dL Hct (34.0-46.0) % MCHC (31.0-37.0) g/dL RDW (11.5-15.5) % PT 27.0 H (9.0-12.0) sec INR 2.8 H (<1.2) Chloride (98-107) mmol/L BUN (7-17) mg/dL Creatinine (0.52-1.04) mg/dL Glucose (74-99) mg/dL POC Glucose (mg/dL) 254 H (75-99) mg/dL Crossmatch See Detail 09/17/21 09/18/21 09/18/21 Range/Units 22:02 07:28 07:28 RBC 2.15 L 2.82 L (3.80-5.40) m/uL Hgb 5.9 L* 8.2 L D (11.4-16.0) gm/dL Hct 21.0 L 26.9 L (34.0-46.0) % MCHC 28.3 L 30.6 L (31.0-37.0) g/dL RDW 16.8 H 16.7 H (11.5-15.5) % PT (9.0-12.0) sec INR (<1.2) Chloride 109 H (98-107) mmol/L BUN 31 H (7-17) mg/dL Creatinine 1.15 H (0.52-1.04) mg/dL Glucose 125 H (74-99) mg/dL POC Glucose (mg/dL) (75-99) mg/dL Crossmatch 09/18/21 Range/Units 07:28 RBC (3.80-5.40) m/uL Hgb (11.4-16.0) gm/dL Hct (34.0-46.0) % MCHC (31.0-37.0) g/dL RDW (11.5-15.5) % PT 20.0 H (9.0-12.0) sec INR 2.0 H (<1.2) Chloride (98-107) mmol/L BUN (7-17) mg/dL Creatinine (0.52-1.04) mg/dL Glucose (74-99) mg/dL POC Glucose (mg/dL) (75-99) mg/dL Crossmatch
--- NOTE | 2021-09-18 14:42 | P.PN ---
Subjective Progress Note Date: 09/18/21 Principal diagnosis: Anemia, acute GI bleed 65-year-old morbidly obese female patient who is been having melanotic stools. The patient came into the emergency department because of some shortness of breath and the patient was also found to be in A. fib and she was committed tox ic. Her bowel movements have been dark and tarry for several months. No episodes of hematochezia. She doesn't take any other form of nonsteroidal antivomiting medications. Her last colonoscopy was done 2018. His was consistent with colonic polyps. The patient also has undergone previous EGD th at showed duodenal angiectasia as and the patient wound was cauterized back then. The patient has been 40 monitoring the PT/INR. In the emergency department, the patient was found to have a heart rate of 170 and she was started on a Cardizem drip for rate control. Hemoglobin came back at 6.4 and she is given a unit of packed RBC. The white cell count is 15.9, platelet count is normal at 485, normal LFTs, normal sodium of 139, potassium of 3.7, serum bicarbonate 17 with anion gap of 17. GIM was at 39 with a creatinine of 1.29. INR was above 10 with a PT of 118. PT was 50. Digoxin level was 0.9. ProBNP level was 1840, troponin was negative. The patient's, 19 testing was also negative. She has not been vaccinated. The chest x-ray was clear. No angina. No palpitation. No abdominal pain or distention. On 09/18/2021 patient seen in follow-up in the emergency department, she still awaiting a bed for 3 S. She is awake and alert, in no acute distress, breathing comfortably, room air pulse ox is 98%, vital signs have been stable, blood pressure stable 146/62, afebrile, no complaints of difficulty breathing, or chest discomfort, no hematemesis, there has been no active bleeding overnight. Abdomen is soft, patient is status post transfusion with 3 units of packed red blood cells and 1 unit of fresh frozen plasma, and today's labs show hemoglobin of 8.2, white blood cell count of 8.5, platelet count is 265, INR is 2.0, sodium is 138, potassium is 3.9, chloride is 109, CO2 is 26, BUN is 31 and creatinine is 1.15, SH was within normal limits at 1.6-0. COVID-19 PCR was negative, INR is down to 2.0. No syncopal episodes overnight, patient was started on home medication in the form of Toprol-XL, Cardizem drip has been discontinued, her Coumadin remains on hold. She is receiving gentle IV hydration with 0.0 normal saline at a rate of 1:30 ML per hour. Consultation has been requested. Echocardiogram has been ordered for Ana avalos with RVR, currently her rate is cont rolled. Objective - Vital Signs Vital signs: Vital Signs Temp 98.3 F 09/18/21 07:31 Pulse 84 09/18/21 11:09 Resp 18 09/18/21 11:09 BP 146/62 09/18/21 11:09 Pulse Ox 98 09/18/21 11:09 Intake & Output 09/17/21 09/18/21 09/18/21 18:59 06:59 18:59 Intake Total 658 695 Balance 658 695 Intake: Blood Product 658 620 Ffp 24 Cpd Unit 348 [id number] Rc As-1 Unit 310 [id number] Rc As-1 Unit 310 [id number] Rc As-1 Unit 310 [id number] Other 75 Rc As-1 Unit 75 [id number] - Exam GENERAL EXAM: Alert, pleasant, 65-year-old white female, room air with pulse ox of 98% comfortable in no apparent distress. HEAD: Normocephalic/atraumatic. EYES: Normal reaction of pupils, equal size. Conjunctiva pink, sclera white. NOSE: Clear with pink turbinates. THROAT: No erythema or exudates. NECK: No masses, no JVD, no thyroid enlargement, no adenopathy. CHEST: No chest wall deformity. Symmetrical expansion. LUNGS: Equal air entry with no crackles, wheeze, rhonchi or dullness. CVS: Irregular rate and rhythm, normal S1 and S2, no gallops, no murmurs, no rubs ABDOMEN: Soft, nontender. No hepatosplenomegaly, normal bowel sounds, no guarding or rigidity. EXTREMITIES: No clubbing, no edema, no cyanosis, 2+ pulses and upper and lower extremities. MUSCULOSKELETAL: Muscle strength and tone normal. SPINE: No scoliosis or deformity SKIN: No rashes CENTRAL NERVOUS SYSTEM: Alert and oriented -3. No focal deficits, tone is normal in all 4 extremities. PSYCHIATRIC: Alert and oriented -3. Appropriate affect. Intact judgment and insight. - Labs CBC & Chem 7: 09/18/21 07:28 09/18/21 07:28 Labs: Abnormal Lab Results - Last 24 Hours (Table) 09/17/21 09/17/21 09/17/21 Range/Units 02:00 21:06 22:02 RBC (3.80-5.40) m/uL Hgb (11.4-16.0) gm/dL Hct (34.0-46.0) % MCHC (31.0-37.0) g/dL RDW (11.5-15.5) % PT 27.0 H (9.0-12.0) sec INR 2.8 H (<1.2) Chloride (98-107) mmol/L BUN (7-17) mg/dL Creatinine (0.52-1.04) mg/dL Glucose (74-99) mg/dL POC Glucose (mg/dL) 254 H (75-99) mg/dL Iron (50-170) ug/dL % Saturation (12.00-45.00) Crossmatch See Detail 09/17/21 09/18/21 09/18/21 Range/Units 22:02 07:28 07:28 RBC 2.15 L 2.82 L (3.80-5.40) m/uL Hgb 5.9 L* 8.2 L D (11.4-16.0) gm/dL Hct 21.0 L 26.9 L (34.0-46.0) % MCHC 28.3 L 30.6 L (31.0-37.0) g/dL RDW 16.8 H 16.7 H (11.5-15.5) % PT (9.0-12.0) sec INR (<1.2) Chloride 109 H (98-107) mmol/L BUN 31 H (7-17) mg/dL Creatinine 1.15 H (0.52-1.04) mg/dL Glucose 125 H (74-99) mg/dL POC Glucose (mg/dL) (75-99) mg/dL Iron 26 L (50-170) ug/dL % Saturation 7.03 L (12.00-45.00) Crossmatch 09/18/21 Range/Units 07:28 RBC (3.80-5.40) m/uL Hgb (11.4-16.0) gm/dL Hct (34.0-46.0) % MCHC (31.0-37.0) g/dL RDW (11.5-15.5) % PT 20.0 H (9.0-12.0) sec INR 2.0 H (<1.2) Chloride (98-107) mmol/L BUN (7-17) mg/dL Creatinine (0.52-1.04) mg/dL Glucose (74-99) mg/dL POC Glucose (mg/dL) (75-99) mg/dL Iron (50-170) ug/dL % Saturation (12.00-45.00) Crossmatch Assessment and Plan Plan: Assessment: #1. A. fib with RVR, currently better controlled, and patient is on Cardizem drip, patient was restarted on home dose Toprol-XL #2. Coumadin toxicity and coagulopathy related to Coumadin therapy, INR on admission was greater than 10, currently down to 2 after vitamin K and fresh frozen plasma transfusion #3. Acute anemia related to acute GI bleeding probably going on for the past several months, patient reports having melanotic stools, patient is status post transfusion with 3 units of packed red blood cells and 1 unit of fresh frozen plasma #4. 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 History of colon polyps #6. History of diastolic CHF and concentric LVH #7. Liver cirrhosis suspected with secondary splenomegaly, patient has fatty liver disease #8. Hypothyroidism #9. Hyperlipidemia #10. Degenerative arthritis #11. COPD #12. Hypertension #14. Acute kidney injury related to acute GI blood loss and intravascular volume depletion, improved Plan: No active bleeding overnight Hemodynamically patient is stable not requiring any vasopressor support Today's labs have been noted, hemoglobin is 8.2, INR is down to 2.0 Remains in A. fib the rate is better controlled Kidney function slightly improved on today's labs Breathing comfortably, no complaints of chest discomfort Her COPD stable Patient can be downgraded to 3 S., she does not need ICU admission GI service evaluation, cardiology is following I performed a history & physical examination of the patient and discussed their management with my nurse practitioner, Gisselle Lockett. I reviewed the nurse practitioner's note and agree with the documented findings and plan of care. Lung sounds are positive for clear breath sounds throughout the lung baird. The findings and the impression was discussed with the patient. I attest to the documentation by the nurse practitioner. Time with Patient: Greater than 30
[2021-09-18 15:28] LABS: Glucose,Whole Blood 178 mg/dL (75-99)
[2021-09-18] MEDS: INSULIN ASPART (NovoLOG) 100 UNIT/ML VIAL SQ SCH ×3 (15:33→23:48)
[2021-09-18] MEDS: METOPROLOL SUCCINATE (ER) 100 MG TAB.ER.24H PO SCH (15:53)
[2021-09-18 20:31] LABS: Glucose,Whole Blood 160 mg/dL (75-99)
[2021-09-18] MEDS: SODIUM CHLORIDE 0.9% 1,000 ML IV SCH ×4 (20:55→22:06)
[2021-09-18] MEDS: INSULIN NPH 300 UNIT/3 ML VIAL SQ SCH (22:06)
[2021-09-18 23:48] LABS: Glucose,Whole Blood 180 mg/dL (75-99)
[2021-09-19] MEDS: HYDROcodone/APAP 10-325MG 1 EACH TAB PO PRN ×2 (01:53→14:34)
[2021-09-19 06:58] LABS: Glucose,Whole Blood 149 mg/dL (75-99)
[2021-09-19] MEDS: SODIUM CHLORIDE 0.9% 1,000 ML IV SCH ×3 (07:12→19:43)
[2021-09-19] MEDS: INSULIN ASPART (NovoLOG) 100 UNIT/ML VIAL SQ SCH ×4 (07:12→20:05)
--- NOTE | 2021-09-19 08:03 | ECHOF ---
Referral Reason:a fib RVR MEASUREMENTS -------- HEIGHT: 185.4 cm WEIGHT: 136.1 kg BP: 146/62 RVIDd: 4.8 cm (< 3.3) IVSd: 1.6 cm (0.6 - 1.1) LVIDd: 4.9 cm (3.9 - 5.3) LVPWd: 1.5 cm (0.6 - 1.1) IVSs: 1.8 cm LVIDs: 3.1 cm LVPWs: 2.1 cm LAESV Index (A-L): 80.86 ml/m Ao Diam: 3.5 cm (2.0 - 3.7) AV Cusp: 1.9 cm (1.5 - 2.6) LA Diam: 5.0 cm (2.7 - 3.8) MV EXCURSION: 20.432 mm (> 18.000) MV EF SLOPE: 49 mm/s (70 - 150) EPSS: 0.4 cm RAP: 5.00 mmHg RVSP: 34.61 mmHg FINDINGS -------- Atrial fibrillation. This was a technically adequate study. The left ventricular size is normal. There is moderate concentric left ventricular hypertrophy. O verall left ventricular systolic function is normal with, an EF between 55 - 60 %. The right ventricle is moderate to severely enlarged. LA is severely dilated >40 ml/m2 The right atrium is mildly enlarged. Interatrial and interventricular septum intact. The aortic valve is trileaflet and appears structurally normal. There is mild aortic valve sclerosi s. There is no evidence of aortic regurgitation. There is no evidence of aortic stenosis. [id number] mitral regurgitation is present. Mild tricuspid regurgitation present. There is borderline pulmonary artery hypertension. The righ t ventricular systolic pressure, as measured by Doppler, is 34.61mmHg. There is no pulmonic regurgitation present. The aortic root size is normal. IVC Not well visulized. Echo free space represents a pericardial fat pad. There is no pericardial effusion. CONCLUSIONS -------- 1. The left ventricular size is normal. 2. There is moderate concentric left ventricular hypertrophy. 3. Overall left ventricular systolic function is normal with, an EF between 55 - 60 %. 4. The right ventricle is moderate to severely enlarged. 5. LA is severely dilated >40 ml/m2 6. The right atrium is mildly enlarged. 7. The aortic valve is trileaflet and appears structurally normal. 8. There is mild aortic valve sclerosis. 9. [id number] mitral regurgitation is present. 10. Mild tricuspid regurgitation present. 11. There is borderline pulmonary artery hypertension. 12. The right ventricular systolic pressure, as measured by Doppler, is 34.61mmHg. HORSE SHOW JUDGE: Claire Rogers RDCS
[2021-09-19 09:07] LABS: INR 1.5 (<1.2); Prothrombin Time 15.2 sec (9.0-12.0)
[2021-09-19 10:41] LABS: Albumin 2.6 g/dL (3.5-5.0); Calcium 8.5 mg/dL (8.4-10.2); Total Bilirubin 0.9 mg/dL (0.2-1.3); Total Protein 5.1 g/dL (6.3-8.2)
[2021-09-19 11:10] LABS: Anisocytosis Slight; Basophils % (A) 0 %; Eosinophils # (A) 0.1 k/uL (0-0.7); Eosinophils % (A) 1 %; HCT 27.9 % (34.0-46.0); HGB 8.2 gm/dL (11.4-16.0); Hypochromasia Marked; Lymphocytes # (A) 1.8 k/uL (1.0-4.8); Lymphocytes % (A) 22 %; MCH 29.2 pg (25.0-35.0); MCHC 29.6 g/dL (31.0-37.0); MCV 98.8 fL (80.0-100.0); Macrocytosis Slight; Mean Platelet Volume 9.3; Monocytes # (A) 0.7 k/uL (0-1.0); Monocytes % (A) 9 %; Neutrophils # (A) 5.1 k/uL (1.3-7.7); Neutrophils % (A) 64 %; Platelet Count 225 k/uL (150-450); Poikilocytosis Moderate; RBC 2.82 m/uL (3.80-5.40); RDW 16.3 % (11.5-15.5)
[2021-09-19] MEDS: SUCRALFATE 1 GM TAB PO SCH ×3 (11:35→17:07)
[2021-09-19 11:57] LABS: Glucose,Whole Blood 148 mg/dL (75-99)
--- NOTE | 2021-09-19 12:00 | P.DS ---
Providers Date of admission: 09/17/21 06:07 Expected date of discharge: 09/20/21 Attending physician: Briana Lua Consults: 09/17/21 06:07 Consult Physician Urgent Consulting Provider: Radha Rae Consult Reason/Comments: ICU management Do you want consulting provider notified?: Yes Consult Physician Urgent Consulting Provider: Tera Interiano Consult Reason/Comments: atrial fibrillation with rapid ventricular rate Do you want consulting provider notified?: Yes Consult Physician Urgent Consulting Provider: Ernesto Manuel Consult Reason/Comments: GI bleeding Do you want consulting provider notified?: Yes Primary care physician: Gabriel Villegas [place] [facility] Course: HISTORY OF PRESENT ILLNESS this is a 65-year-old pleasant lady, with known history of colon polyp gastric polyp, chronic anticoagulation with Coumadin for atrial fibrillation, diabetes mellitus type 2, diastolic congestive heart failure, hypothyroidism,admitted to emergency room with complaints of dizziness, multiple episodes of syncope whenever she stands up, and black diarrhea stools. Patient has had black stools, tarry stools since , and was seen in emergency room for that. And was discharged to home. She is also recommended to have an INR check, Dr. Vera's office, however she did not get this one done. She comes in now with off and on tarry stools, and in the past 5 days, has had lightheadedness dizziness, and would pass out every time she goes to the bathroom. 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 Patient denies any NSAID use, or recent steroid use. patient has epigastric pain, no abdominal distention, Emergency room, heart rate was in the 170, atrial fibrillation, hemoglobin was 6.4, was given 2 units of packed red blood cell, INR of over 10, with PT of 11.8, was given fresh frozen plasma, and oral vitamin K, 10 mg. ProBNP of 1840, troponin was negative, coronary virus testing was negative, she has not been vaccinated. Chest x-ray was clear patient will be admitted to ICU, with consultation to Dr. [facility], Dr. lida Manuel, from general surgery, and and Dr. Manuel, from general surgery 09/18: Patient remains in the emergency center with him for a bed in the ICU. She is complaining of right lower quadrant and right upper quadrant tenderness. Her last INR is 2.0 and hemoglobin is 8.2 status post 3 units of packed RBCs and 1 unit of fresh frozen plasma. BUN 31 creatinine 1.15. Blood sugar 125. Iron 26, TIBC 364, iron saturation 7.03, transferrin 260. TSH 1.6-0. Patient is c urrently nothing by mouth for possible EGD this afternoon or tomorrow. Patient has been seen and followed by cardiology, Cardizem drip discontinued and resumed Toprol-XL 100 mg daily, hold digoxin and anticoagulation. 09/19: Patient has been transfused a total of 3 units of packed RBCs and 1 unit of fresh frozen plasma. Repeat blood work reveals WBC 8, hemoglobin 8.2, platelet count 225. INR 1.5. Potassium 4.0, BUN 23 creatinine 1.08. Blood sugars are running between 148 and 180. Patient has been afebrile, heart rate 86, blood pressure 110/61, pulse ox 97% on room air. Cardiology has cleared the patient for discharge. Patient will require recheck INR in 3 days. Surgery does not have any plans for intervention. Patient Debbie was completely against transitioning to eliquis as she states that her friend from bleeding from eliquis. We will check eliquis coverage with her insurance today. Patient denies abdominal cramps, no dark stools. Patient was feeling weak today and had difficulty with weakness and balance. PT to evaluate and feel the patient would benefit form another day hospitalization continue to work with strength. At this point, patient was not deemed safe to return home. Patient is not interested in rehab. Echocardiogram reveals EF of 55-60%, moderate concentric left hypertrophy, elevated severely dilated, mild aortic valve sclerosis, moderate mitral regurgitation, mild tricuspid regurgitation, borderline pulmonary artery hypertension, RVSP 34.61 mmHg. 09/20: Patient states that she is feeling 100% better today. Eliquis came back at $4 per month and she is agreeable to transition to eliquis and this will be started today. INR is 1.3. The patient worked well with physical therapy. Patient will be discharged home today in stable condition. DISCHARGE DIAGNOSES 1. Acute upper GI bleed with acute blood loss anemia 2. A. fib with RVR, chronic persistent 3. Acute diverticulitis 4. Chronic diastolic heart failure 5. Diabetes mellitus type 2 6. Hypercoagulopathy secondary to Coumadin secondary to noncompliance INR monitoring. 7. Acute kidney injury secondary to ATN with acute blood loss anemia, and intervascular volume depletion 8. COPD without exacerbation 9. Hypothyroidism 10. Liver cirrhosis suspected with secondary splenomegaly , has fatty liver 11. Iron deficiency with restless leg 12. History of GI bleed in the past, requiring duodenal angiectasia cauterization , history of colon polyps benign COVID-19 testing negative. Patient has been hospitalized during a pandemic. DISCHARGE PLAN Home with [facility]. Greater than 35 minutes was utilized and coordinating patient's discharge. Impression and plan of care have been directed as dictated by the signing physician. Charley Templeton nurse practitioner acting as scribe for signing physician. Patient Condition at Discharge: Good Plan - Discharge Summary Discharge Rx Participant: No New Discharge Prescriptions: New rOPINIRole HCL [Requip] 0.25 mg PO TID #90 tab Amoxicillin/Potassium Clav [Augmentin 875-125 Tablet] 1 tab PO BID 7 Days #14 tab Pantoprazole [Protonix] 40 mg PO BID #60 tab Apixaban [Eliquis] 5 mg PO BID #60 tab Continue HYDROcodone/APAP 10-325MG [Stroud 10-325] 1 tab PO Q6H PRN PRN Reason: Pain Cyclobenzaprine [Flexeril] 10 mg PO HS PRN PRN Reason: Muscle Pain ALPRAZolam [Xanax] 1 mg PO QID PRN PRN Reason: Anxiety Levothyroxine Sodium [Synthroid] 88 mcg PO DAILY Spironolactone [Aldactone] 25 mg PO DAILY Furosemide [Lasix] 40 mg PO DAILY Digoxin 250 mcg PO DAILY Metoprolol Succinate [Toprol XL] 100 mg PO DAILY Insulin NPH Human Isophane [humuLIN N] 80 unit SQ HS INSULIN ASPART (NovoLOG) [NovoLOG (formulary)] See Protocol SQ AC-TID Magnesium Oxide [Magox 400] 400 mg PO W/BRKFST Fluticasone Propionate [Flovent Hfa 110 mcg] 1 puff INHALATION RT-BID Ferrous Sulfate [Iron (65 MG Elemental)] 325 mg PO DAILY Cholecalciferol [Vitamin D3 (25 Mcg = 1000 Iu)] 50 mcg PO DAILY Discontinued Warfarin Sodium [Coumadin] 5 mg PO HS Warfarin Sodium [Coumadin] 2 mg PO [id number] Discharge Medication List ALPRAZolam [Xanax] 1 mg PO QID PRN 01/06/18 [History] Cyclobenzaprine [Flexeril] 10 mg PO HS PRN 01/06/18 [History] Furosemide [Lasix] 40 mg PO DAILY 01/06/18 [History] HYDROcodone/APAP 10-325MG [Stroud 10-325] 1 tab PO Q6H PRN 01/06/18 [History] Levothyroxine Sodium [Synthroid] 88 mcg PO DAILY 01/06/18 [History] Spironolactone [Aldactone] 25 mg PO DAILY 01/06/18 [History] Digoxin 250 mcg PO DAILY 02/28/19 [History] Cholecalciferol [Vitamin D3 (25 Mcg = 1000 Iu)] 50 mcg PO DAILY 07/25/21 [History] Ferrous Sulfate [Iron (65 MG Elemental)] 325 mg PO DAILY 07/25/21 [History] Fluticasone Propionate [Flovent Hfa 110 mcg] 1 puff INHALATION RT-BID 07/25/21 [History] INSULIN ASPART (NovoLOG) [NovoLOG (formulary)] See Protocol SQ AC-TID 07/25/21 [History] Insulin NPH Human Isophane [humuLIN N] 80 unit SQ HS 07/25/21 [History] Magnesium Oxide [Magox 400] 400 mg PO W/BRKFST 07/25/21 [History] Metoprolol Succinate [Toprol XL] 100 mg PO DAILY 07/25/21 [History] Amoxicillin/Potassium Clav [Augmentin 875-125 Tablet] 1 tab PO BID 7 Days #14 tab 09/19/21 [Rx] Apixaban [Eliquis] 5 mg PO BID #60 tab 09/19/21 [Rx] Pantoprazole [Protonix] 40 mg PO BID #60 tab 09/19/21 [Rx] rOPINIRole HCL [Requip] 0.25 mg PO TID #90 tab 09/19/21 [Rx] Follow up Appointment(s)/Referral(s): Matthew Degroot MD [STAFF PHYSICIAN] - 2 Weeks (office will call with an appt.) [facility], [NON-STAFF] - Gabriel Vera MD [Primary Care Provider] - 1 Week () Ambulatory/Diagnostic Orders: Complete Blood Count w/diff [LAB.AMB] Location: None Selected Prothrombin Time INR [LAB.AMB] Location: None Selected Patient Instructions/Handouts: A-fib (Atrial Fibrillation) (DC) Activity/Diet/Wound Care/Special Instructions: PLEASE CANCEL INR DRAW OUTPATIENT Discharge Disposition: HOME SELF-CARE
[2021-09-19] MEDS: FUROSEMIDE 40 MG TAB PO SCH (12:22)
[2021-09-19] MEDS: METOPROLOL SUCCINATE (ER) 100 MG TAB.ER.24H PO SCH (12:22)
[2021-09-19] MEDS: CHOLECALCIFEROL 25 MCG (1000 IU) TABLET PO SCH (12:22)
[2021-09-19] MEDS: LEVOTHYROXINE 88 MCG TAB PO SCH (12:22)
[2021-09-19] MEDS: MAGNESIUM OXIDE 400 MG TAB PO SCH (12:23)
[2021-09-19] MEDS: PANTOPRAZOLE 40 MG/10 ML VIAL IVP SCH ×2 (12:23→20:04)
--- NOTE | 2021-09-19 12:52 | P.PN ---
Subjective The patient is a 65-year-old female with a past medical history of chronic atrial fibrillation on chronic Coumadin, chronic diastolic heart failure, hypertension, hyperlipidemia, hypothyroidism, former nicotine dependence, type 2 diabetes, uterine cancer. She previously followed in the office with Dr. CRYSTAL Degroot, however states he had a falling out and she has not seen him in several years. She presented to the emergency room with new onset of shortness of breath with associated diarrhea and GI bleeding. We were consulted for atrial fibrillation with RVR. Echocardiogram revealed EF 5560 percent, mild to moderate regurgitation, tricuspid regurgitation. 09/19/21 Patient seen and examined at bedside, no acute distress. Denies chest pain, s hortness of breath, palpitations. She denies any bleeding. Anticoagulation was on hold. Her renal function has improved. WBC 8.0, hemoglobin 8.2, platelets 225, INR 1.5, sodium 138, potassium 4.0, BUN 23, serum creatinine 1.0, digoxin 0.9. She is currently maintained on Lasix 40 mg daily, metoprolol succinate 100 mg daily. Her digoxin and spironactone was on hold for kidney function. Her kidn ey function has improved. VITALS: Reviewed GENERAL: Well-appearing, well-nourished and in no acute distress. NECK: Supple without JVD or thyromegaly. LUNGS: Breath sounds clear to auscultation bilaterally. Respiration equal and unlabored. No wheezes, rales or rhonchi. HEART: Regular rate and rhythm without murmurs, rubs or gallops. S1 and S2 heard. EXTREMITIES: Normal range of motion, no edema. No clubbing or cyanosis. Peripheral pulses intact. ASSESSMENT Chronic persistent atrial fibrillation with RVR, on coumadin outpatient Supratherapeutic INR Chronic diastolic heart failure Hypertension Hyperlipidemia Hypothyroidism PLAN We will continue patient's home medication as prescribed. Restart coumadin per ok with GI From a cardiology perspective, patient is stable. Recommend follow up with Dr. Degroot for further management Nurse Practitioner note has been reviewed, I agree with a documented findings and plan of care. Patient was seen and examined. Objective - Vital Signs Vital signs: Vital Signs Temp 97.7 F 09/19/21 11:33 Pulse 86 09/19/21 11:33 Resp 20 09/19/21 11:33 BP 110/61 09/19/21 11:33 Pulse Ox 97 09/19/21 11:33 Intake & Output 09/18/21 09/19/21 09/19/21 18:59 06:59 18:59 Output Total 700 Balance -700 Weight 135.9 kg Output: Urine 700 Other: Voiding Method Bedside Commode # Voids 1 - Labs CBC & Chem 7: 09/19/21 08:00 09/19/21 08:00 Labs: Abnormal Lab Results - Last 24 Hours (Table) 09/18/21 09/18/21 09/18/21 Range/Units 15:23 20:30 23:42 RBC (3.80-5.40) m/uL Hgb (11.4-16.0) gm/dL Hct (34.0-46.0) % MCHC (31.0-37.0) g/dL RDW (11.5-15.5) % PT (9.0-12.0) sec INR (<1.2) Chloride (98-107) mmol/L BUN (7-17) mg/dL Creatinine (0.52-1.04) mg/dL Glucose (74-99) mg/dL POC Glucose (mg/dL) 178 H 160 H 180 H (75-99) mg/dL Total Protein (6.3-8.2) g/dL Albumin (3.5-5.0) g/dL 09/19/21 09/19/21 09/19/21 Range/Units 06:56 08:00 08:00 RBC 2.82 L (3.80-5.40) m/uL Hgb 8.2 L (11.4-16.0) gm/dL Hct 27.9 L (34.0-46.0) % MCHC 29.6 L (31.0-37.0) g/dL RDW 16.3 H (11.5-15.5) % PT 15.2 H (9.0-12.0) sec INR 1.5 H (<1.2) Chloride (98-107) mmol/L BUN (7-17) mg/dL Creatinine (0.52-1.04) mg/dL Glucose (74-99) mg/dL POC Glucose (mg/dL) 149 H (75-99) mg/dL Total Protein (6.3-8.2) g/dL Albumin (3.5-5.0) g/dL 09/19/21 09/19/21 Range/Units 08:00 11:53 RBC (3.80-5.40) m/uL Hgb (11.4-16.0) gm/dL Hct (34.0-46.0) % MCHC (31.0-37.0) g/dL RDW (11.5-15.5) % PT (9.0-12.0) sec INR (<1.2) Chloride 108 H (98-107) mmol/L BUN 23 H (7-17) mg/dL Creatinine 1.08 H (0.52-1.04) mg/dL Glucose 129 H (74-99) mg/dL POC Glucose (mg/dL) 148 H (75-99) mg/dL Total Protein 5.1 L (6.3-8.2) g/dL Albumin 2.6 L (3.5-5.0) g/dL
--- NOTE | 2021-09-19 16:40 | P.PN ---
Subjective Progress Note Date: 09/19/21 No further bleeding Objective - Vital Signs Vital signs: Vital Signs Temp 98.1 F 09/19/21 16:35 Pulse 78 09/19/21 16:35 Resp 20 09/19/21 16:35 BP 108/49 09/19/21 16:35 Pulse Ox 98 09/19/21 16:35 Intake & Output 09/18/21 09/19/21 09/19/21 18:59 06:59 18:59 Output Total 700 Balance -700 Weight 135.9 kg Output: Urine 700 Other: Voiding Method Bedside Commode # Voids 1 - Constitutional General appearance: Present: cooperative - Gastrointestinal Gastrointestinal Comment(s): s/nt/nd - Labs CBC & Chem 7: 09/19/21 08:00 09/19/21 08:00 Labs: Abnormal Lab Results - Last 24 Hours (Table) 09/18/21 09/18/21 09/19/21 Range/Units 20:30 23:42 06:56 RBC (3.80-5.40) m/uL Hgb (11.4-16.0) gm/dL Hct (34.0-46.0) % MCHC (31.0-37.0) g/dL RDW (11.5-15.5) % PT (9.0-12.0) sec INR (<1.2) Chloride (98-107) mmol/L BUN (7-17) mg/dL Creatinine (0.52-1.04) mg/dL Glucose (74-99) mg/dL POC Glucose (mg/dL) 160 H 180 H 149 H (75-99) mg/dL Total Protein (6.3-8.2) g/dL Albumin (3.5-5.0) g/dL 09/19/21 09/19/21 09/19/21 Range/Units 08:00 08:00 08:00 RBC 2.82 L (3.80-5.40) m/uL Hgb 8.2 L (11.4-16.0) gm/dL Hct 27.9 L (34.0-46.0) % MCHC 29.6 L (31.0-37.0) g/dL RDW 16.3 H (11.5-15.5) % PT 15.2 H (9.0-12.0) sec INR 1.5 H (<1.2) Chloride 108 H (98-107) mmol/L BUN 23 H (7-17) mg/dL Creatinine 1.08 H (0.52-1.04) mg/dL Glucose 129 H (74-99) mg/dL POC Glucose (mg/dL) (75-99) mg/dL Total Protein 5.1 L (6.3-8.2) g/dL Albumin 2.6 L (3.5-5.0) g/dL 09/19/21 Range/Units 11:53 RBC (3.80-5.40) m/uL Hgb (11.4-16.0) gm/dL Hct (34.0-46.0) % MCHC (31.0-37.0) g/dL RDW (11.5-15.5) % PT (9.0-12.0) sec INR (<1.2) Chloride (98-107) mmol/L BUN (7-17) mg/dL Creatinine (0.52-1.04) mg/dL Glucose (74-99) mg/dL POC Glucose (mg/dL) 148 H (75-99) mg/dL Total Protein (6.3-8.2) g/dL Albumin (3.5-5.0) g/dL Assessment and Plan Assessment: GI bleeding Plan: No active bleeding at this time. No indication for surgical intervention at this time, if patient does bleed again I would recommend GI consultation and evaluation for endoscopic intervention. She has established care with Dr. Scott and can follow up as an outpatient with her.
[2021-09-19 17:01] LABS: Glucose,Whole Blood 217 mg/dL (75-99)
[2021-09-19 19:42] LABS: Glucose,Whole Blood 283 mg/dL (75-99)
[2021-09-19] MEDS: AMOXIC-POT CLAV 875-125MG 1 EACH TAB PO SCH (20:04)
[2021-09-19] MEDS: INSULIN NPH 300 UNIT/3 ML VIAL SQ SCH (20:05)
[2021-09-19] MEDS: ALPRAZolam 1 MG TAB PO PRN (20:11)
[2021-09-20] MEDS: HYDROcodone/APAP 10-325MG 1 EACH TAB PO PRN ×2 (01:39→08:39)
[2021-09-20] MEDS: SODIUM CHLORIDE 0.9% 1,000 ML IV SCH (04:08)
[2021-09-20 05:55] LABS: Glucose,Whole Blood 209 mg/dL (75-99)
[2021-09-20] MEDS: INSULIN ASPART (NovoLOG) 100 UNIT/ML VIAL SQ SCH ×2 (06:17→11:32)
[2021-09-20] MEDS: SUCRALFATE 1 GM TAB PO SCH ×2 (06:17→11:32)
[2021-09-20] MEDS: MAGNESIUM OXIDE 400 MG TAB PO SCH (06:17)
[2021-09-20] MEDS: LEVOTHYROXINE 88 MCG TAB PO SCH (06:17)
[2021-09-20 08:34] LABS: INR 1.3 (<1.2)
[2021-09-20] MEDS: METOPROLOL SUCCINATE (ER) 100 MG TAB.ER.24H PO SCH (08:38)
[2021-09-20] MEDS: PANTOPRAZOLE 40 MG/10 ML VIAL IVP SCH (08:38)
[2021-09-20] MEDS: CHOLECALCIFEROL 25 MCG (1000 IU) TABLET PO SCH (08:39)
[2021-09-20] MEDS: FUROSEMIDE 40 MG TAB PO SCH (08:39)
[2021-09-20] MEDS: ALPRAZolam 1 MG TAB PO PRN (08:39)
[2021-09-20] MEDS: AMOXIC-POT CLAV 875-125MG 1 EACH TAB PO SCH (08:40)
[2021-09-20 08:51] VITALS: RESP 16; TEMP 97.5
[2021-09-20 11:45] LABS: Glucose,Whole Blood 219 mg/dL (75-99)
[2021-09-20] MEDS ORDERED: APIXABAN 5 MG TAB PO SCH (11:45)
[2021-09-20 12:23] VITALS: BP 98/61; PULSE 84
--- NOTE | 2021-09-20 13:13 | P.PN ---
Subjective Progress Note Date: 09/19/21 HISTORY OF PRESENT ILLNESS this is a 65-year-old pleasant lady, with known history of colon polyp gastric polyp, chronic anticoagulation with Coumadin for atrial fibrillation, diabetes mellitus type 2, diastolic congestive heart failure, hypothyroidism,admitted to emergency room with complaints of dizziness, multiple episodes of syncope whenever she stands up, and black diarrhea stools. Patient has had black stools, tarry stools since , and was seen in emergency room for that. And was discharged to home. She is also recommended to have an INR check, Dr. Vera's office, however she did not get this one done. She comes in now with off and on tarry stools, and in the past 5 days, has had lightheadedness dizziness, and would pass out every time she goes to the bathroom. 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 Patient denies any NSAID use, or recent steroid use. patient has epigastric pain, no abdominal distention, Emergency room, heart rate was in the 170, atrial fibrillation, hemoglobin was 6.4, was given 2 units of packed red blood cell, INR of over 10, with PT of 11.8 , was given fresh frozen plasma, and oral vitamin K, 10 mg. ProBNP of 1840, troponin was negative, coronary virus testing was negative, she has not been vaccinated. Chest x-ray was clear patient will be admitted to ICU, with [facility], Dr. lida Manuel, from general surgery, and and Dr. Manuel, from general surgery 09/18: Patient remains in the emergency center with him for a bed in the ICU. She is complaining of right lower quadrant and right upper quadrant tenderness. Her last INR is 2.0 and hemoglobin is 8.2 status post 3 units of packed RBCs and 1 unit of fresh frozen plasma. BUN 31 creatinine 1.15. Blood sugar 125. Iron 26, TIBC 364, iron saturation 7.03, transferrin 260. TSH 1.6-0. Patient is currently nothing by mouth for possible EGD this afternoon or tomorrow. Patient has been seen and followed by cardiology, Cardizem drip discontinued and resumed Toprol-XL 100 mg daily, hold digoxin and anticoagulation. 09/19: Patient has been transfused a total of 3 units of packed RBCs and 1 unit of fresh frozen plasma. Repeat blood work reveals WBC 8, hemoglobin 8.2, platelet count 225. INR 1.5. Potassium 4.0, BUN 23 creatinine 1.08. Blood sugars are running between 148 and 180. Patient has been afebrile, heart rate 86, blood pressure 110/61, pulse ox 97% on room air. Cardiology has cleared the patient for discharge. Patient will require recheck INR in 3 days. Surgery does not have any plans for intervention. Patient Debbie was completely against transitioning to eliquis as she states that her friend from bleeding from eliquis. We will check eliquis coverage with her insurance today. Patient denies abdominal cramps, no dark stools. Patient was feeling weak today and had difficulty with weakness and balance. PT to evaluate and feel the patient would benefit form another day hospitalization continue to work with strength. At this point, patient was not deemed safe to return home. Patient is not interested in rehab. Echocardiogram reveals EF of 55-60%, moderate concentric left hypertrophy, elevated severely dilated, mild aortic valve sclerosis, moderate mitral regurgi tation, mild tricuspid regurgitation, borderline pulmonary artery hypertension, RVSP 34.61 mmHg. REVIEW OF SYSTEMS Constitutional: No fever, no chills, no night sweats. Reports weight change. Reports weakness, fatigue or lethargy. No daytime sleepiness. EENT: No headache. No blurred vision or double vision, no loss of vision. No loss of Hearing, no ringing in the ears, no dizziness. No nasal drainage or congestion. No epistaxis. No sore throat. Lungs: No shortness of breath, cough, no sputum production. No wheezing. Cardiovascular: No chest pain, no lower extremity edema. No palpitations. No paroxysmal nocturnal dyspnea. No orthopnea. No lightheadedness or dizziness. No syncopal episodes. Abdominal: No abdominal pain. No nausea, vomiting. No diarrhea. No constipation. No bloody or tarry stools. Denies loss of appetite. Genitourinary: No dysuria, increased frequency, urgency. No urinary retention. Musculoskeletal: No myalgias. No muscle weakness, no gait dysfunction, no frequent falls. No back pain. No neck pain. Integumentary: No wounds, no lesions. No rash or pruritus. No unusual bruising. No change in hair or nails. Neurologic: No aphasia. No facial droop. No change in mentation. No head injury. No headache. No paralysis. No paresthesia. Psychiatric: No depression. No anxiety. No mood swings. Endocrine: Noted abnormal blood sugars. No weight change. No excessive sweating or thirst. No cold intolerance. PHYSICAL EXAMINATION Gen: This is a 65-year-old female. She is resting in bed and appears to be comfortable, no respiratory distress is noted. HEENT: Head is atraumatic, normocephalic. Pupils equal, round. Sclerae is anicte nydia. Sclera pale. NECK: Supple. No JVD. No lymphadenopathy. No thyromegaly. LUNGS: Clear to auscultation. No wheezes or rhonchi. No intercostal retractions. HEART: Regular rate and rhythm. No murmur. ABDOMEN: Soft. Bowel sounds are present. No masses. No tenderness. EXTREMITIES: No pedal edema. No calf tenderness. NEUROLOGICAL: Patient is awake, alert and oriented x3. Cranial nerves 2 through 12 are grossly intact. ASSESSMENT AND PLAN 1. Upper GI bleed with melanocytic stools, presenting with severe blood loss anemia, hemoglobin is 6.4 and entry, required 2 units of packed red blood cell, 1 unit of plasma, secondary to Coumadin toxicity, general surgery to see the patient, patient will be requiring EGDkeep nothing by mouth except meds, until seen by general surgeon patient. 2. A. fib with RVR, patient's currently on Cardizem drip for rate control, INR is super elevated, at toxic levels of Coumadin, based on the current INR. Coumadin resumed. Patient may be interested in eliquis for home 3. Acute diverticulitis. Patient started on Augmentin. 4. Diastolic CHF, currently compensated 5. Diabetes mellitus type 2, on Humulin N, 80 units at bedtime, as the patient's nothing by mouth, we will provide 40 units daily at bedtime, and NovoLog scale adjustments as needed 6. Hypercoagulopathy secondary to Coumadin secondary to noncompliance INR monitoring as recommended by her PCP. Coumadin is on hold, continue to monitor daily. 7. acute kidney injury secondary to ATN with acute blood loss anemia, and intervascular volume depletion X 8. COPD without exacerbation 9. Hypothyroidism 10. Liver cirrhosis suspected with secondary splenomegaly , has fatty liver 11. Iron deficiency with restless leg, start ropinirole 0.25mg 3 times a day, norco at home prn 12. previous history of GI bleed in the past, requiring duodenal angiectasia cauterization , history of colon polyps benign COVID-19 testing negative. Patient has been hospitalized during a pandemic. DISCHARGE PLAN Home tomorrow. Impression and plan of care have been directed as dictated by the signing physician. Charley Templeton nurse practitioner acting as scribe for signing physician. Objective - Vital Signs Vital signs: Vital Signs Temp 97.7 F 09/19/21 11:33 Pulse 86 09/19/21 11:33 Resp 20 09/19/21 11:33 BP 110/61 09/19/21 11:33 Pulse Ox 97 09/19/21 11:33 Intake & Output 09/18/21 09/19/21 09/19/21 18:59 06:59 18:59 Output Total 700 Balance -700 Weight 135.9 kg Output: Urine 700 Other: Voiding Method Bedside Commode # Voids 1 - Labs CBC & Chem 7: 09/19/21 08:00 09/19/21 08:00 Labs: Abnormal Lab Results - Last 24 Hours (Table) 09/18/21 09/18/21 09/18/21 Range/Units 15:23 20:30 23:42 RBC (3.80-5.40) m/uL Hgb (11.4-16.0) gm/dL Hct (34.0-46.0) % MCHC (31.0-37.0) g/dL RDW (11.5-15.5) % PT (9.0-12.0) sec INR (<1.2) Chloride (98-107) mmol/L BUN (7-17) mg/dL Creatinine (0.52-1.04) mg/dL Glucose (74-99) mg/dL POC Glucose (mg/dL) 178 H 160 H 180 H (75-99) mg/dL Total Protein (6.3-8.2) g/dL Albumin (3.5-5.0) g/dL 09/19/21 09/19/21 09/19/21 Range/Units 06:56 08:00 08:00 RBC 2.82 L (3.80-5.40) m/uL Hgb 8.2 L (11.4-16.0) gm/dL Hct 27.9 L (34.0-46.0) % MCHC 29.6 L (31.0-37.0) g/dL RDW 16.3 H (11.5-15.5) % PT 15.2 H (9.0-12.0) sec INR 1.5 H (<1.2) Chloride (98-107) mmol/L BUN (7-17) mg/dL Creatinine (0.52-1.04) mg/dL Glucose (74-99) mg/dL POC Glucose (mg/dL) 149 H (75-99) mg/dL Total Protein (6.3-8.2) g/dL Albumin (3.5-5.0) g/dL 09/19/21 09/19/21 Range/Units 08:00 11:53 RBC (3.80-5.40) m/uL Hgb (11.4-16.0) gm/dL Hct (34.0-46.0) % MCHC (31.0-37.0) g/dL RDW (11.5-15.5) % PT (9.0-12.0) sec INR (<1.2) Chloride 108 H (98-107) mmol/L BUN 23 H (7-17) mg/dL Creatinine 1.08 H (0.52-1.04) mg/dL Glucose 129 H (74-99) mg/dL POC Glucose (mg/dL) 148 H (75-99) mg/dL Total Protein 5.1 L (6.3-8.2) g/dL Albumin 2.6 L (3.5-5.0) g/dL
--- NOTE | 2021-09-22 08:32 | CDI ---
Documentation Clarification Form Date: 09/22/21 From: Soha Alvarez Admit Date: 09/17/2021 06:07:00 AM Patient Name: Sabrina Flores Visit Number: [id number] Discharge Date: 09/20/2021 01:16:00 PM ATTENTION: The Clinical Documentation Specialists (CDI) and [facility] Coding Staff appreciate your assistance in clarifying documentation. Please respond to the clarification below the line at the bottom and electronically sign. The CDI & [facility] Coding staff will review the response and follow-up if needed. Please note: Queries are made part of the Legal Health Record. If you have any questions, please contact the author of this message via ITS. Dr. Esther Ryan, GI bleed is documented per ED Note, H&P, GI consult, DS & numerous progress notes. Additional clarification regarding the etiology of the GI bleed is requested. History/risk factors: On Coumadin, persistent atrial fibrillation, HTN w chronic diastolic CHF, hx of duodenal angiectasia cauterization, hx of colon & duodenal polyps. Clinical Indicators: Upper GI bleed with melanocytic stools, presenting with severe blood loss anemia, hemoglobin is 6.4 and entry, required 2 units of packed red blood cell, 1 unit of plasma, secondary to Coumadin toxicity, general surgery to see the patient, patient will be requiring EGD keep nothing by mouth except meds, until seen by general surgeon patient will be admitted to ICU serial close monitoring for hemoglobin, and blood transfusion as needed for hemoglobin under 7.0. Radiology: no GI x-rays EGD/colonoscopy performed and findings: None done during this encounter Labs: H/H: 6.4/22.6, 5.9/21.0; INR>10.0 Treatment: IV fluids, transfusion of plasma & RBCs, IV Protonix, Please clarify the etiology of the GI bleed, if known: [ ] GIB due to gastritis [ ] GIB due to duodentis [ ] GIB due to diverticulitis, please specify area [ ] GIB due to anticoagulants [ x ] GIB, etiology unknown [ ] Other, please specify [ ] Unable to determine MTDD
== END 2021-09-20 13:16 | disposition home health service (06) | DRG 377 ==
LOC: EC 00:42 → 2SICU 06:07 → 3SCARD 09-18 13:16
PROVIDERS: ADMIT Family Medicine; ATTEND Family Medicine
PROC: 30233K1 Transfusion of Nonautologous Frozen Plasma into Peripheral Vein, Percutaneous Approach (ICD-10-PCS; principal; 2021-09-17)
PROC: 30233N1 Transfusion of Nonautologous Red Blood Cells into Peripheral Vein, Percutaneous Approach (ICD-10-PCS; 2021-09-17)
DX: K92.2 Gastrointestinal hemorrhage, unspecified (principal); N17.0 Acute kidney failure with tubular necrosis; K76.6 Portal hypertension; I48.19 Other persistent atrial fibrillation; I50.32 Chronic diastolic (congestive) heart failure; K57.92 Diverticulitis of intestine, part unspecified, without perforation or abscess without bleeding; D62 Acute posthemorrhagic anemia; I27.21 Secondary pulmonary arterial hypertension; E86.9 Volume depletion, unspecified; I11.0 Hypertensive heart disease with heart failure; K74.60 Unspecified cirrhosis of liver; K76.0 Fatty (change of) liver, not elsewhere classified; J44.9 Chronic obstructive pulmonary disease, unspecified; E11.9 Type 2 diabetes mellitus without complications; E66.01 Morbid (severe) obesity due to excess calories; Z79.4 Long term (current) use of insulin; Z20.822 Contact with and (suspected) exposure to COVID-19; R16.1 Splenomegaly, not elsewhere classified; Z68.39 Body mass index [BMI] 39.0-39.9, adult; E78.5 Hyperlipidemia, unspecified; E03.9 Hypothyroidism, unspecified; Z91.19 Patient's noncompliance with other medical treatment and regimen; T45.515A Adverse effect of anticoagulants, initial encounter; K29.70 Gastritis, unspecified, without bleeding; K29.80 Duodenitis without bleeding; G25.81 Restless legs syndrome; I08.3 Combined rheumatic disorders of mitral, aortic and tricuspid valves; D72.829 Elevated white blood cell count, unspecified; F41.9 Anxiety disorder, unspecified; R13.10 Dysphagia, unspecified; M19.90 Unspecified osteoarthritis, unspecified site; F17.210 Nicotine dependence, cigarettes, uncomplicated; Z71.6 Tobacco abuse counseling; Z79.51 Long term (current) use of inhaled steroids; Z79.01 Long term (current) use of anticoagulants; Z79.890 Hormone replacement therapy; Z79.899 Other long term (current) drug therapy; Z86.14 Personal history of Methicillin resistant Staphylococcus aureus infection; Z87.39 Personal history of other diseases of the musculoskeletal system and connective tissue; Z90.49 Acquired absence of other specified parts of digestive tract; Z87.19 Personal history of other diseases of the digestive system; Z86.010 Personal history of colon polyps; Z90.89 Acquired absence of other organs; Z98.51 Tubal ligation status; Z85.42 Personal history of malignant neoplasm of other parts of uterus; Z98.890 Other specified postprocedural states; Z88.1 Allergy status to other antibiotic agents; Z88.5 Allergy status to narcotic agent; Z83.3 Family history of diabetes mellitus; Z84.1 Family history of disorders of kidney and ureter
CPT/HCPCS: 36415; 71045; 80048; 80053; 80162; 83540; 83550; 83735; 83880; 84443; 84484; 85025; 85610; 85730; 86850; 86900; 86901; 86920; 87635; 93005; 93306; 96361; 96365; 96366; 96372; 96375; 96376; 99285

== ENCOUNTER 2022-04-05 21:12 | Inpatient (IN) | payer MEDICARE, OTHER ==
[2022-04-05] MEDS ORDERED: KETOROLAC 15 MG/ML 1 ML VIAL IVP STA (21:35)
[2022-04-05] MEDS ORDERED: HYDROcodone/APAP 5-325MG 1 EACH TAB PO STA (21:35)
[2022-04-05] MEDS ORDERED: HYDROcodone/APAP 10-325MG 1 EACH TAB PO ONE (21:36)
--- NOTE | 2022-04-05 21:39 | ED ---
Extremity Problem HPI - General Chief complaint: Extremity Problem,Nontraumatic Stated complaint: right arm pain Time Seen by Provider: 04/05/22 21:18 Source: patient, EMS Mode of arrival: EMS Limitations: no limitations - History of Present Illness Initial comments: Patient is a 66-year-old woman with history of diabetes who presents with complaint of right upper extremity pain and swelling. She states that she had noticed a swollen whitish lesion to the pad of her right thumb on number days ago and states that her son used one of her diabetes lancets to poke it 4 days ago. She states that since that time she's noticed redness and swelling to the hand and she is feeling pain all along the arm approaching the axilla. She has not noticed systemic symptoms, no fever or chills, palpitations, chest pain or dyspnea. MD Complaint: extremity pain, extremity swelling -: days(s) Location: right, upper extremity History of Same: No -: No fever Radiation: proximal Quality: burning, aching Consistency: constant Improves with: nothing Worsens with: palpation - Related Data Home Medications Medication Instructions Recorded Confirmed ALPRAZolam [Xanax] 1 mg PO QID PRN 01/06/18 09/17/21 Cyclobenzaprine [Flexeril] 10 mg PO HS PRN 01/06/18 09/17/21 Furosemide [Lasix] 40 mg PO DAILY 01/06/18 09/17/21 HYDROcodone/APAP 10-325MG [[place] 1 tab PO Q6H PRN 01/06/18 09/17/21 10-325] Levothyroxine Sodium [Synthroid] 88 mcg PO DAILY 01/06/18 09/17/21 Spironolactone [Aldactone] 25 mg PO DAILY 01/06/18 09/17/21 Digoxin 250 mcg PO DAILY 02/28/19 09/17/21 Cholecalciferol [Vitamin D3 (25 50 mcg PO DAILY 07/25/21 09/17/21 Mcg = 1000 Iu)] Ferrous Sulfate [Iron (65 MG 325 mg PO DAILY 07/25/21 09/17/21 Elemental)] Fluticasone Propionate [Flovent 1 puff INHALATION RT-BID 07/25/21 09/17/21 Hfa 110 mcg] INSULIN ASPART (NovoLOG) [NovoLOG See Protocol SQ AC-TID 07/25/21 09/17/21 (formulary)] Insulin NPH Human Isophane 80 unit SQ HS 07/25/21 09/17/21 [humuLIN N] Magnesium Oxide [Magox 400] 400 mg PO W/BRKFST 07/25/21 09/17/21 Metoprolol Succinate [Toprol XL] 100 mg PO DAILY 07/25/21 09/17/21 Previous Rx's Medication Instructions Recorded Amoxicillin/Potassium Clav 1 tab PO BID 7 Days #14 tab 09/19/21 [Augmentin 875-125 Tablet] Apixaban [Eliquis] 5 mg PO BID #60 tab 09/19/21 Pantoprazole [Protonix] 40 mg PO BID #60 tab 09/19/21 rOPINIRole HCL [Requip] 0.25 mg PO TID #90 tab 09/19/21 Allergies Allergy/AdvReac Type Severity Reaction Status Date / Time doxycycline Allergy Anaphylaxis Verified 09/17/21 12:18 erythromycin base AdvReac Unknown Verified 09/17/21 12:18 morphine AdvReac Unknown Verified 09/17/21 12:18 Review of Systems ROS Statement: Those systems with pertinent positive or pertinent negative responses have been documented in the HPI. ROS Other: All systems not noted in ROS Statement are negative. Constitutional: Denies: fever, chills Respiratory: Denies: cough, dyspnea Cardiovascular: Denies: chest pain, palpitations Gastrointestinal: Denies: abdominal pain, vomiting Musculoskeletal: Reports: as per HPI, myalgia Skin: Reports: lesions Neurological: Denies: headache, weakness, numbness, paresthesias Past Medical History Past Medical History: Atrial Fibrillation, Heart Failure, COPD, Diabetes Mellitus, Hyperlipidemia, Hypertension, Thyroid Disorder Additional Past Medical History / Comment(s): arthritis. cyst behing left leg. History of Any Multi-Drug Resistant Organisms: MRSA Date of last positivie culture/infection: 1999 MDRO Source:: blood Past Surgical History: Appendectomy, Cholecystectomy, Tonsillectomy, Tubal Ligation Additional Past Surgical History / Comment(s): bilateral knee laproscopy. Past Anesthesia/Blood Transfusion Reactions: No Reported Reaction Past Psychological History: No Psychological Hx Reported Smoking Status: Current every day smoker Past Alcohol Use History: None Reported Past Drug Use History: None Reported - Past Family History Father Family Medical History: Diabetes Mellitus, Renal Disease Mother History Unknown: Yes Family Medical History: Diabetes Mellitus Brother(s) History Unknown: Yes Sister(s) History Unknown: Yes Daughter(s) Family Medical History: No Reported History Son(s) Family Medical History: No Reported History General Exam General appearance: alert, in no apparent distress Head exam: Present: atraumatic, normocephalic Eye exam: Present: normal appearance. Absent: scleral icterus, conjunctival injection Neck exam: Present: normal inspection Respiratory exam: Present: normal lung sounds bilaterally. Absent: respiratory distress, wheezes, rales, rhonchi, stridor Cardiovascular Exam: Present: regular rate, normal rhythm, normal heart sounds. Absent: systolic murmur, diastolic murmur, rubs, gallop GI/Abdominal exam: Present: soft. Absent: distended, tenderness, guarding, rebound, rigid, mass Extremities exam: Present: tenderness, normal capillary refill, other (Patient has some mild degree of swelling to the thumb and right hand. There is erythema along the radial aspect.) Neurological exam: Present: alert. Absent: motor sensory deficit Skin exam: Present: warm, dry, intact, erythema, other (Patient has a pustular lesion to the pad of the right thumb that does appear to have been drained. There is ecchymosis underlying the pustular lesion. There is no fluctuance currently) Course Vital Signs 04/05/22 21:14 Temperature 99.0 F Pulse Rate 93 Respiratory 22 Rate Blood Pressure 114/74 O2 Sat by Pulse 99 Oximetry Disposition Referrals: Gabriel Vera MD [Primary Care Provider] - 1-2 days
[2022-04-05] MEDS ORDERED: AMPICILLIN-SULBACTAM 3 GM in SODIUM CHLORIDE 0.9% 100 ML IVPB STA (21:50)
[2022-04-05] MEDS ORDERED: VANCOMYCIN IV PER PHARMACY 1 EACH MISC MISCELLANE PRN (21:50)
[2022-04-05 22:19] LABS: Basophils # (A) 0.1 k/uL (0-0.2); Basophils % (A) 1 %; Eosinophils % (A) 0 %; HCT 39.8 % (34.0-46.0); Lymphocytes # (A) 1.3 k/uL (1.0-4.8); Lymphocytes % (A) 13 %; MCH 30.8 pg (25.0-35.0); MCHC 32.6 g/dL (31.0-37.0); MCV 94.4 fL (80.0-100.0); Mean Platelet Volume 9.8; Monocytes # (A) 0.9 k/uL (0-1.0); Monocytes % (A) 9 %; Neutrophils % (A) 76 %; Platelet Count 150 k/uL (150-450); RBC 4.22 m/uL (3.80-5.40); RDW 13.6 % (11.5-15.5); WBC 10.6 k/uL (3.8-10.6)
[2022-04-05] MEDS ORDERED: VANCOMYCIN 2,000 MG in SODIUM CHLORIDE 0.9% 500 ML 500 ML IVPB ONE (23:00)
--- NOTE | 2022-04-05 23:32 | US ---
EXAMINATION TYPE: US venous doppler duplex UE RT DATE OF EXAM: 04/05/2022 COMPARISON: NONE CLINICAL HISTORY: pain, possible DVT. pain and swelling in lower right arm/hand. Patient is on blood thinners SIDE PERFORMED: Right Right Arm: No evidence of DVT seen IMPRESSION: No evidence of deep vein thrombosis in the right arm.
[2022-04-06 00:40] LABS: ALT 14 U/L (4-34); AST 35 U/L (14-36); African American GFR (CKD) 70 (>60 ml/min/1.73 sqM); Albumin 3.3 g/dL (3.5-5.0); Alkaline Phosphatase 132 U/L (38-126); Anion Gap 5 mmol/L; Blood Urea Nitrogen 21 mg/dL (7-17); C Reactive Protein 7.9 mg/dL (<1.0); Calcium 8.9 mg/dL (8.4-10.2); Carbon Dioxide 27 mmol/L (22-30); Chloride 101 mmol/L (98-107); Glucose 171 mg/dL (74-99); Non-African American GFR(CKD) 60 (>60 ml/min/1.73 sqM); Potassium 4.8 mmol/L (3.5-5.1); Sodium 133 mmol/L (137-145); Total Bilirubin 0.9 mg/dL (0.2-1.3); Total Protein 5.6 g/dL (6.3-8.2)
[2022-04-06] MEDS ORDERED: HYDROmorphone 1 MG/ML 1 ML SYRINGE IVP STA (00:57)
[2022-04-06] MEDS ORDERED: NALOXONE 0.4 MG/ML 1 ML VIAL IV PRN (04:51)
[2022-04-06] MEDS ORDERED: ACETAMINOPHEN TAB 325 MG TAB PO PRN (04:51)
[2022-04-06 07:32] LABS: Glucose,Whole Blood 231 mg/dL (70-110)
[2022-04-06] MEDS: oxyCODONE-APAP 5-325MG 1 EACH TAB PO PRN ×3 (07:55→18:15)
[2022-04-06] MEDS: FAMOTIDINE 20 MG TAB PO SCH ×2 (07:55→20:50)
[2022-04-06] MEDS ORDERED: HYDROcodone/APAP 10-325MG 1 EACH TAB PO PRN (12:28)
[2022-04-06 12:41] LABS: Glucose,Whole Blood 295 mg/dL (70-110)
[2022-04-06] MEDS: VANCOMYCIN 1,750 MG in SODIUM CHLORIDE 0.9% 500 ML 500 ML IVPB SCH ×2 (14:07→23:08)
[2022-04-06] MEDS: SODIUM CHLORIDE 0.9% 1,000 ML IV SCH ×2 (14:07→19:20)
[2022-04-06] MEDS: SENNOSIDES-DOCUSATE SODIUM 1 EACH TAB PO SCH (14:08)
[2022-04-06] MEDS: METOPROLOL SUCCINATE (ER) 25 MG TAB.ER.24H PO SCH ×2 (14:08→20:50)
[2022-04-06] MEDS: INSULIN ASPART (NovoLOG) 100 UNIT/ML VIAL SQ SCH ×2 (14:08→17:53)
--- NOTE | 2022-04-06 14:26 | P.CNOR ---
History of Present Illness - [facility] Consult date: 04/06/22 Consult reason: joint pain (Right thumb/hand pain and swelling.) History of present illness: This is a 66-year-old female with past history of type 1 diabetes and morbid obesity. Patient states that she developed a white pus total on the palmar aspect of her right thumb. She states that her son poked it with one of her lancets and a white crystal substance was expressed along with some blood. She states that a few days later she began having increased pain and swelling to the thumb and hand. She now has pain radiating up her forearm into the inner upper arm. She states that she did have some erythema in that region at the time of admission as well. She is currently on vancomycin and is now receiving her second dose. We are consulted for orthopedic evaluation. Past Medical History Past Medical History: Atrial Fibrillation, Heart Failure, COPD, Diabetes Me llitus, Hyperlipidemia, Hypertension, Thyroid Disorder Additional Past Medical History / Comment(s): arthritis. cyst behing left leg. History of Any Multi-Drug Resistant Organisms: MRSA Year Discovered:: 1999 MDRO Source:: blood Past Surgical History: Appendectomy, Cholecystectomy, Tonsillectomy, Tubal Ligation Additional Past Surgical History / Comment(s): bilateral knee laproscopy. Past Anesthesia/Blood Transfusion Reactions: No Reported Reaction Past Psychological History: No Psychological Hx Reported Smoking Status: Current every day smoker Past Alcohol Use History: None Reported Past Drug Use History: None Reported Additional Drug Use History / Comment(s): smokes 1/2 pack/day - Past Family History Father Family Medical History: Diabetes Mellitus, Renal Disease Mother History Unknown: Yes Family Medical History: Diabetes Mellitus Brother(s) History Unknown: Yes Sister(s) History Unknown: Yes Daughter(s) Family Medical History: No Reported History Son(s) Family Medical History: No Reported History Medications and Allergies Home Medications Medication Instructions Recorded Confirmed Type ALPRAZolam [Xanax] 1 mg PO QID PRN 01/06/18 04/06/22 History Furosemide [Lasix] 40 mg PO DAILY 01/06/18 04/06/22 History HYDROcodone/APAP 10-325MG [[place] 1 tab PO Q6H PRN 01/06/18 04/06/22 History 10-325] Levothyroxine Sodium [Synthroid] 88 mcg PO AC-BRKFST 01/06/18 04/06/22 History Spironolactone [Aldactone] 25 mg PO DAILY 01/06/18 04/06/22 History Digoxin 250 mcg PO DAILY 02/28/19 04/06/22 History Cholecalciferol [Vitamin D3 (25 50 mcg PO DAILY 07/25/21 04/06/22 History Mcg = 1000 Iu)] Ferrous Sulfate [Iron (65 MG 325 mg PO DAILY 07/25/21 04/06/22 History Elemental)] Fluticasone Propionate [Flovent 1 puff INHALATION RT-BID 07/25/21 04/06/22 History Hfa 110 mcg] INSULIN ASPART (NovoLOG) [NovoLOG See Protocol SQ AC-TID 07/25/21 04/06/22 History (formulary)] Insulin NPH Human Isophane 40 unit SQ HS 07/25/21 04/06/22 History [humuLIN N] Apixaban [Eliquis] 5 mg PO BID #60 tab 09/19/21 04/06/22 Rx Metoprolol Succinate (ER) [Toprol 25 mg PO BID 04/06/22 04/06/22 History Xl] SILVER sulfADIAZINE Cream 1 applic TOPICAL BID 04/06/22 04/06/22 History [Silvadene 1% Cream] Sennosides/Docusate Sodium [Senna 2 tab PO MOWEFR 04/06/22 04/06/22 History Plus 8.6-50 mg Tablet] Allergies Allergy/AdvReac Type Severity Reaction Status Date / Time doxycycline Allergy Anaphylaxis Verified 09/17/21 12:18 erythromycin base AdvReac Itching Verified 04/06/22 07:50 morphine AdvReac Itching Verified 04/06/22 07:50 Physical Examination This is a pleasant 66-year-old female in no acute distress. She is alert and oriented 3. Exam of the right upper extremity reveals a small area of discoloration on the thumb which appears to be a small subcutaneous hematoma. The skin does not appear necrotic at this time. There are no open wounds or drainage. There is minimal, if any swelling to the thumb. There is generalized swelling to the dorsum of the hand and the palmar aspect of the hand and other fingers. She is able to move the thumb in flexion and extension. She has full motion of the fingers with some tenderness on full flexion. She has difficulty fully extending her elbow stating that it hurts on the inner aspect of the elbow. I am not able to appreciate any palpable lymphadenopathy. There is no erythema up the arm noted. Neurovascular status to the upper extremity is intact. Results - Labs Labs: Abnormal Lab Results - Last 24 Hours (Table) 04/05/22 04/06/22 04/06/22 Range/Units 22:08 00:01 07:31 Neutrophils # 8.0 H (1.3-7.7) k/uL Sodium 133 L (137-145) mmol/L BUN 21 H (7-17) mg/dL Glucose 171 H (74-99) mg/dL POC Glucose (mg/dL) 231 H (70-110) mg/dL Alkaline Phosphatase 132 H (38-126) U/L C-Reactive Protein 7.9 H (<1.0) mg/dL Total Protein 5.6 L (6.3-8.2) g/dL Albumin 3.3 L (3.5-5.0) g/dL 04/06/22 Range/Units 12:40 Neutrophils # (1.3-7.7) k/uL Sodium (137-145) mmol/L BUN (7-17) mg/dL Glucose (74-99) mg/dL POC Glucose (mg/dL) 295 H (70-110) mg/dL Alkaline Phosphatase (38-126) U/L C-Reactive Protein (<1.0) mg/dL Total Protein (6.3-8.2) g/dL Albumin (3.5-5.0) g/dL H & H 04/05/22 Range/Units 22:08 Hgb 13.0 (11.4-16.0) gm/dL Hct 39.8 (34.0-46.0) % Result Diagrams: 04/05/22 22:08 04/06/22 00:01 Assessment and Plan (1) Cellulitis of right hand Current Visit: Yes Status: Acute Code(s): L03.113 - CELLULITIS OF RIGHT UPPER LIMB SNOMED Code(s): 55217031 (2) Acute lymphangitis of right upper extremity Current Visit: Yes Status: Acute Code(s): L03.123 - ACUTE LYMPHANGITIS OF RIGHT UPPER LIMB SNOMED Code(s): 5756278 (3) Type 1 diabetes mellitus Current Visit: Yes Status: Acute Code(s): E10.9 - TYPE 1 DIABETES MELLITUS WITHOUT COMPLICATIONS SNOMED Code(s): 95169268 (4) Obesity (BMI 30-39.9) Current Visit: Yes Status: Acute Code(s): E66.9 - OBESITY, UNSPECIFIED SNOMED Code(s): 920651158 Plan: The clinical findings are discussed the patient and nursing staff. With a history of a crystalline substance been expressed I have ordered a serum uric acid. There is nothing to express or aspirate at this time. There are no obv ious fluid collections or abscess formation. I recommend continuing on the IV antibiotics and a warm compress to the right hand as tolerated. I will reevaluate tomorrow. There is no indication for surgical intervention at this time.
--- NOTE | 2022-04-06 14:45 | XR ---
EXAMINATION TYPE: XR hand limited RT DATE OF EXAM: 04/06/2022 2:38 PM INDICATION: Patient age:Female; 66 years old; Reason for study: Right hand swelling and pain; COMPARISON: None TECHNIQUE: Frontal, lateral and oblique views of the right hand were obtained. FINDINGS: Normal alignment of the visualized joints. No acute osseous pathology is identified. There is soft tissue swelling throughout the hand. No evidence of osseous erosion. IMPRESSION: 1. No acute osseous pathology. 2. Diffuse soft tissue swelling of the visualized upper extremity.
--- NOTE | 2022-04-06 14:49 | P.HPIM ---
History of Present Illness Patient is 66-year-old female came in for infection of the right hand. Patient had a boil in the right thumb couple days ago after which her son tried to lilly it a day later patient ended up having redness and swelling of the right upper extremity. Patient doesn't have any localized swelling there is diffuse swelling of the right hand and obviously an ulcer in the area where it was lanced. Patient denied any fever chills, patient has had normal white blood cell count. Patient was started on vancomycin. REVIEW OF SYSTEMS: CONSTITUTIONAL: No fever, no malaise, no fatigue. HEENT: No recent visual problems or hearing problems. Denied any sore throat. CARDIOVASCULAR: No chest pain, orthopnea, PND, no palpitations, no syncope. PULMONARY: No shortness of breath, no cough, no hemoptysis. GASTROINTESTINAL: No diarrhea, no nausea, no vomiting, no abdominal pain. NEUROLOGICAL: No headaches, no weakness, no numbness. HEMATOLOGICAL: Denies any bleeding or petechiae. GENITOURINARY: Denies any burning micturition, frequency, or urgency. MUSCULOSKELETAL/RHEUMATOLOGICAL: Denies any joint pain, swelling, or any muscle pain. ENDOCRINE: Denies any polyuria or polydipsia. The rest of the 14-point review of systems is negative. PHYSICAL EXAMINATION: GENERAL: The patient is alert and oriented x3, not in any acute distress. Well developed, well nourished. HEENT: Pupils are round and equally reacting to light. EOMI. No scleral icterus. No conjunctival pallor. Normocephalic, atraumatic. No pharyngeal erythema. No thyromegaly. CARDIOVASCULAR: S1 and S2 present. No murmurs, rubs, or gallops. PULMONARY: Chest is clear to auscultation, no wheezing or crackles. ABDOMEN: Soft, nontender, nondistended, normoactive bowel sounds. No palpable organomegaly. MUSCULOSKELETAL: As mentioned above EXTREMITIES: No cyanosis, clubbing, or pedal edema. NEUROLOGICAL: Gross neurological examination did not reveal any focal deficits. SKIN: Redness of the right hand Assessment and plan -Cellulitis of the right hand patient will continue on Vanco mycin infectious disease will be consulted -Hyponatremia secondary to diuresis patient is on Lasix at home. -Congestive heart failure chronic diastolic dysfunction without any acute exacerbation: Patient will be continued on home diuretics Will repeat basic metabolic profile again tomorrow. -Atrial fibrillation paroxysmal presently rate controlled sinus rhythm continue with rate control medications and anticoagulation -COPD without any acute exacerbation -Hypothyroidism history of restless legs syndrome DVT prophylaxis: Patient is on Eliquis Past Medical History Past Medical History: Atrial Fibrillation, Heart Failure, COPD, Diabetes Mellitus, Hyperlipidemia, Hypertension, Thyroid Disorder Additional Past Medical History / Comment(s): arthritis. cyst behing left leg. History of Any Multi-Drug Resistant Organisms: MRSA Date of last positivie culture/infection: 1999 MDRO Source:: blood Past Surgical History: Appendectomy, Cholecystectomy, Tonsillectomy, Tubal Ligation Additional Past Surgical History / Comment(s): bilateral knee laproscopy. Past Anesthesia/Blood Transfusion Reactions: No Reported Reaction Past Psychological History: No Psychological Hx Reported Smoking Status: Current every day smoker Past Alcohol Use History: None Reported Past Drug Use History: None Reported Additional Drug Use History / Comment(s): smokes 1/2 pack/day - Past Family History Father Family Medical History: Diabetes Mellitus, Renal Disease Mother History Unknown: Yes Family Medical History: Diabetes Mellitus Brother(s) History Unknown: Yes Sister(s) History Unknown: Yes Daughter(s) Family Medical History: No Reported History Son(s) Family Medical History: No Reported History Medications and Allergies Home Medications Medication Instructions Recorded Confirmed Type ALPRAZolam [Xanax] 1 mg PO QID PRN 01/06/18 04/06/22 History Furosemide [Lasix] 40 mg PO DAILY 01/06/18 04/06/22 History HYDROcodone/APAP 10-325MG [[place] 1 tab PO Q6H PRN 01/06/18 04/06/22 History 10-325] Levothyroxine Sodium [Synthroid] 88 mcg PO AC-BRKFST 01/06/18 04/06/22 History Spironolactone [Aldactone] 25 mg PO DAILY 01/06/18 04/06/22 History Digoxin 250 mcg PO DAILY 02/28/19 04/06/22 History Cholecalciferol [Vitamin D3 (25 50 mcg PO DAILY 07/25/21 04/06/22 History Mcg = 1000 Iu)] Ferrous Sulfate [Iron (65 MG 325 mg PO DAILY 07/25/21 04/06/22 History Elemental)] Fluticasone Propionate [Flovent 1 puff INHALATION RT-BID 07/25/21 04/06/22 History Hfa 110 mcg] INSULIN ASPART (NovoLOG) [NovoLOG See Protocol SQ AC-TID 07/25/21 04/06/22 History (formulary)] Insulin NPH Human Isophane 40 unit SQ HS 07/25/21 04/06/22 History [humuLIN N] Apixaban [Eliquis] 5 mg PO BID #60 tab 09/19/21 04/06/22 Rx Metoprolol Succinate (ER) [Toprol 25 mg PO BID 04/06/22 04/06/22 History Xl] SILVER sulfADIAZINE Cream 1 applic TOPICAL BID 04/06/22 04/06/22 History [Silvadene 1% Cream] Sennosides/Docusate Sodium [Senna 2 tab PO MOWEFR 04/06/22 04/06/22 History Plus 8.6-50 mg Tablet] Allergies Allergy/AdvReac Type Severity Reaction Status Date / Time doxycycline Allergy Anaphylaxis Verified 09/17/21 12:18 erythromycin base AdvReac Itching Verified 04/06/22 07:50 morphine AdvReac Itching Verified 04/06/22 07:50 Physical Exam Vitals: Vital Signs Temp Pulse Pulse Resp BP BP Pulse Ox 04/06/22 07:00 98.2 F 98 19 128/78 100 04/06/22 05:24 76 20 125/72 98 04/05/22 21:14 99.0 F 93 22 114/74 99 Intake and Output 04/05/22 04/06/22 04/06/22 22:59 06:59 14:59 Other: Weight 124.738 kg 124.738 kg Results CBC & Chem 7: 04/05/22 22:08 04/06/22 00:01 Labs: Abnormal Lab Results - Last 24 Hours (Table) 04/05/22 04/06/22 04/06/22 Range/Units 22:08 00:01 07:31 Neutrophils # 8.0 H (1.3-7.7) k/uL Sodium 133 L (137-145) mmol/L BUN 21 H (7-17) mg/dL Glucose 171 H (74-99) mg/dL POC Glucose (mg/dL) 231 H (70-110) mg/dL Alkaline Phosphatase 132 H (38-126) U/L C-Reactive Protein 7.9 H (<1.0) mg/dL Total Protein 5.6 L (6.3-8.2) g/dL Albumin 3.3 L (3.5-5.0) g/dL 04/06/22 Range/Units 12:40 Neutrophils # (1.3-7.7) k/uL Sodium (137-145) mmol/L BUN (7-17) mg/dL Glucose (74-99) mg/dL POC Glucose (mg/dL) 295 H (70-110) mg/dL Alkaline Phosphatase (38-126) U/L C-Reactive Protein (<1.0) mg/dL Total Protein (6.3-8.2) g/dL Albumin (3.5-5.0) g/dL Thrombosis Risk Factor Assmnt - Choose All That Apply Each Factor Represents 1 point: Obesity (BMI >25) Each Risk Factor Represents 2 Points: Age 61-74 years Thrombosis Risk Factor Assessment Total Risk Factor Score: 3 Thrombosis Risk Factor Assessment Level: Moderate Risk
[2022-04-06 17:21] LABS: Glucose,Whole Blood 324 mg/dL (70-110)
[2022-04-06] MEDS: FLUTICASONE 110 MCG INHALER INHALATION SCH (20:21)
[2022-04-06 20:53] LABS: Glucose,Whole Blood 353 mg/dL (70-110)
[2022-04-06] MEDS: APIXABAN 5 MG TAB PO SCH (20:53)
[2022-04-06] MEDS: HYDROmorphone 0.5 MG/0.5 ML SYRINGE IVP PRN (22:00)
[2022-04-06] MEDS: INSULIN NPH 300 UNIT/3 ML VIAL SQ SCH (22:02)
--- NOTE | 2022-04-06 22:49 | P.CONS ---
History of Present Illness - Reason for Consult Consult date: 04/06/22 Right hand cellulitis Requesting physician: Micki Singh - Chief Complaint Right hand swelling redness and pain x few days - History of Present Illness Patient is a 66-year-old female morbidly obese presenting to the hospital for right hand swelling and pain apparently the patient did have a small blister on the plantar aspect of the right thumb and apparently started with the diabetic lancet poke, patient did not have any swelling or redness to the hand however subsequently she noticed having increasing swelling and redness to the right hand patient describing the pain to the right hand to be throbbing almost 7-8 out of 10 and wanted more pain medication and also noticed some discomfort to the right axillary area patient on presentation to the hospital did have a low-grade fever of 99 degrees formulae and patient did have a normal white count with a left shift creatinine has been normal CRP was elevated liver enzymes are normal patient did have a x-ray of the hand no acute bony abnormality diffuse soft tissue swelling patient was started on vancomycin infectious disease was consulted for further management of antibiotic therapy Review of Systems Positive point has been mentioned in the HPI rest of the systems are negative Past Medical History Past Medical History: Atrial Fibrillation, Heart Failure, COPD, Diabetes Mellitus, Hyperlipidemia, Hypertension, Thyroid Disorder Additional Past Medical History / Comment(s): arthritis. cyst behing left leg. History of Any Multi-Drug Resistant Organisms: MRSA Year Discovered:: 1999 MDRO Source:: blood Past Surgical History: Appendectomy, Cholecystectomy, Tonsillectomy, Tubal Ligation Additional Past Surgical History / Comment(s): bilateral knee laproscopy. Past Anesthesia/Blood Transfusion Reactions: No Reported Reaction Past Psychological History: No Psychological Hx Reported Smoking Status: Current every day smoker Past Alcohol Use History: None Reported Past Drug Use History: None Reported Additional Drug Use History / Comment(s): smokes 1/2 pack/day - Past Family History Father Family Medical History: Diabetes Mellitus, Renal Disease Mother History Unknown: Yes Family Medical History: Diabetes Mellitus Brother(s) History Unknown: Yes Sister(s) History Unknown: Yes Daughter(s) Family Medical History: No Reported History Son(s) Family Medical History: No Reported History Medications and Allergies Home Medications Medication Instructions Recorded Confirmed Type ALPRAZolam [Xanax] 1 mg PO QID PRN 01/06/18 04/06/22 History Furosemide [Lasix] 40 mg PO DAILY 01/06/18 04/06/22 History HYDROcodone/APAP 10-325MG [Dale 1 tab PO Q6H PRN 01/06/18 04/06/22 History 10-325] Levothyroxine Sodium [Synthroid] 88 mcg PO AC-BRKFST 01/06/18 04/06/22 History Spironolactone [Aldactone] 25 mg PO DAILY 01/06/18 04/06/22 History Digoxin 250 mcg PO DAILY 02/28/19 04/06/22 History Cholecalciferol [Vitamin D3 (25 50 mcg PO DAILY 07/25/21 04/06/22 History Mcg = 1000 Iu)] Ferrous Sulfate [Iron (65 MG 325 mg PO DAILY 07/25/21 04/06/22 History Elemental)] Fluticasone Propionate [Flovent 1 puff INHALATION RT-BID 07/25/21 04/06/22 History Hfa 110 mcg] INSULIN ASPART (NovoLOG) [NovoLOG See Protocol SQ AC-TID 07/25/21 04/06/22 History (formulary)] Insulin NPH Human Isophane 40 unit SQ HS 07/25/21 04/06/22 History [humuLIN N] Apixaban [Eliquis] 5 mg PO BID #60 tab 09/19/21 04/06/22 Rx Metoprolol Succinate (ER) [Toprol 25 mg PO BID 04/06/22 04/06/22 History Xl] SILVER sulfADIAZINE Cream 1 applic TOPICAL BID 04/06/22 04/06/22 History [Silvadene 1% Cream] Sennosides/Docusate Sodium [Senna 2 tab PO MOWEFR 04/06/22 04/06/22 History Plus 8.6-50 mg Tablet] Allergies Allergy/AdvReac Type Severity Reaction Status Date / Time doxycycline Allergy Anaphylaxis Verified 09/17/21 12:18 erythromycin base AdvReac Itching Verified 04/06/22 07:50 morphine AdvReac Itching Verified 04/06/22 07:50 Physical Exam Vitals: Vital Signs Temp Pulse Pulse Resp BP BP Pulse Ox 04/06/22 15:00 96.1 F L 85 19 112/67 94 L 04/06/22 07:00 98.2 F 98 19 128/78 100 04/06/22 05:24 76 20 125/72 98 04/05/22 21:14 99.0 F 93 22 114/74 99 Intake and Output 04/06/22 04/06/22 04/06/22 06:59 14:59 22:59 Intake Total 320 Balance 320 Intake: Oral 320 Other: # Voids 2 Weight 124.738 kg GENERAL DESCRIPTION: Elderly female lying in bed, no distress. No tachypnea or accessory muscle of respiration use. HEENT: Shows Pallor , no scleral icterus. Oral mucous membrane is dry. No pharyngeal erythema or thrush NECK: Trachea central, no thyromegaly. LUNGS: Unlabored breathing. Clear to auscultation anteriorly. No wheeze or crackle. HEART: S1, S2, regular rate and rhythm. No loud murmur ABDOMEN: Soft, no tenderness , guarding or rigidity, no organomegaly EXTREMITIES: Right thumb dhillon side did have a blister and did have diffuse swelling and some redness of the right hand no open wound or any drainage SKIN: No rash, no masses palpable. NEUROLOGICAL: The patient is awake, alert, oriented x3, mood and affect normal. Results CBC & Chem 7: 04/05/22 22:08 04/07/22 06:31 Labs: Abnormal Lab Results - Last 24 Hours (Table) 04/05/22 04/06/22 04/06/22 Range/Units 22:08 00:01 07:31 Neutrophils # 8.0 H (1.3-7.7) k/uL Sodium 133 L (137-145) mmol/L BUN 21 H (7-17) mg/dL Glucose 171 H (74-99) mg/dL POC Glucose (mg/dL) 231 H (70-110) mg/dL Alkaline Phosphatase 132 H (38-126) U/L C-Reactive Protein 7.9 H (<1.0) mg/dL Total Protein 5.6 L (6.3-8.2) g/dL Albumin 3.3 L (3.5-5.0) g/dL 04/06/22 Range/Units 12:40 Neutrophils # (1.3-7.7) k/uL Sodium (137-145) mmol/L BUN (7-17) mg/dL Glucose (74-99) mg/dL POC Glucose (mg/dL) 295 H (70-110) mg/dL Alkaline Phosphatase (38-126) U/L C-Reactive Protein (<1.0) mg/dL Total Protein (6.3-8.2) g/dL Albumin (3.5-5.0) g/dL Assessment and Plan (1) Cellulitis of right hand Current Visit: Yes Status: Acute Code(s): L03.113 - CELLULITIS OF RIGHT UPPE R LIMB SNOMED Code(s): 56039235 Plan: 1patient with right hand cellulitis in this patient started with a blister on the palmar aspect of the right thumb started with a poke from the diabetic lancet likely the source of entry of cellulitis and likely from gram-positive skin kulwant. 2patient with multiple antibiotic allergies that would limit the number of antibiotics safe to use. 3vancomycin pharmacy to dose target trough of 15 while watching kidney function and vancomycin trough closely. We will follow on clinical condition and cultures to further adjust medication if needed Thank you for this consultation will follow this patient along with you Time with Patient: Greater than 30
[2022-04-07] MEDS: ONDANSETRON 4 MG/2 ML VIAL IVP PRN ×3 (02:12→20:40)
[2022-04-07] MEDS: HYDROmorphone 0.5 MG/0.5 ML SYRINGE IVP PRN ×4 (03:06→20:40)
[2022-04-07] MEDS: ALPRAZolam 1 MG TAB PO PRN ×3 (04:36→23:11)
[2022-04-07 07:07] LABS: Glucose,Whole Blood 235 mg/dL (70-110)
[2022-04-07] MEDS: LEVOTHYROXINE 88 MCG TAB PO SCH (08:00)
[2022-04-07] MEDS: DIGOXIN 250 MCG TAB PO SCH (08:00)
[2022-04-07] MEDS: APIXABAN 5 MG TAB PO SCH ×2 (08:00→20:40)
[2022-04-07] MEDS: polyethylene glycoL 3350 17 GM POWD.PACK PO SCH (08:01)
[2022-04-07] MEDS: FAMOTIDINE 20 MG TAB PO SCH ×2 (08:01→20:36)
[2022-04-07] MEDS: FUROSEMIDE 40 MG TAB PO SCH (08:01)
[2022-04-07] MEDS: METOPROLOL SUCCINATE (ER) 25 MG TAB.ER.24H PO SCH ×2 (08:01→20:40)
[2022-04-07] MEDS: SPIRONOLACTONE 25 MG TAB PO SCH (08:01)
[2022-04-07] MEDS: INSULIN ASPART (NovoLOG) 100 UNIT/ML VIAL SQ SCH ×5 (08:02→17:50)
[2022-04-07] MEDS: SODIUM CHLORIDE 0.9% 1,000 ML IV SCH ×2 (08:02→20:56)
[2022-04-07] MEDS: FLUTICASONE 110 MCG INHALER INHALATION SCH ×2 (08:11→20:06)
[2022-04-07 08:57] LABS: African American GFR (CKD) 63.4 (60.0-200.0); Non-African American GFR(CKD) 54.7 (60.0-200.0)
[2022-04-07] MEDS: VANCOMYCIN 1,750 MG in SODIUM CHLORIDE 0.9% 500 ML 500 ML IVPB SCH (11:37)
[2022-04-07 11:40] LABS: Glucose,Whole Blood 159 mg/dL (70-110)
--- NOTE | 2022-04-07 12:50 | P.PN ---
Subjective Patient is 66-year-old female came in for infection of the right hand. Patient had a boil in the right thumb couple days ago after which her son tried to lilly it a day later patient ended up having redness and swelling of the right upper extremity. Patient doesn't have any localized swelling there is diffuse swelling of the right hand and obviously an ulcer in the area where it was lanced. Patient denied any fever chills, patient has had normal white blood cell count. Patient was started on vancomycin. Redness in the right hand improved but still has significant swelling patient was started on anti-inflammatory medications patient is still having a lot of pain. Constitutional: Denied any fatigue denied any fever. Cardio vascular: denied any chest pain, palpitations Gastrointestinal denied any nausea vomiting Pulmonary: Denied any shortness of breath cough Neurologic denied any new focal deficits All inpatient medications were reviewed and appropriate changes in these medications as dictated in the interval history and assessment and plan. PHYSICAL EXAMINATION: GENERAL: The patient is alert and oriented x3, not in any acute distress. Well developed, well nourished. HEENT: Pupils are round and equally reacting to light. EOMI. No scleral icterus. No conjunctival pallor. Normocephalic, atraumatic. No pharyngeal erythema. No thyromegaly. CARDIOVASCULAR: S1 and S2 present. No murmurs, rubs, or gallops. PULMONARY: Chest is clear to auscultation, no wheezing or crackles. ABDOMEN: Soft, nontender, nondistended, normoactive bowel sounds. No palpable organomegaly. MUSCULOSKELETAL: As mentioned above EXTREMITIES: No cyanosis, clubbing, or pedal edema. NEUROLOGICAL: Gross neurological examination did not reveal any focal deficits. SKIN: Redness of the right hand improved now Assessment and plan -Cellulitis of the right hand patient will continue on Vanco mycin infectious disease will be consulted -Hyponatremia secondary to diuresis patient is on Lasix at home. -Congestive heart failure chronic diastolic dysfunction without any acute exacerbation: Patient will be continued on home diuretics Will repeat basic metabolic profile again tomorrow. -Atrial fibrillation paroxysmal presently rate controlled sinus rhythm continue with rate control medications and anticoagulation -COPD without any acute exacerbation -Hypothyroidism history of restless legs syndrome DVT prophylaxis: Patient is on Eliquis Objective - Vital Signs Vital signs: Vital Signs Temp 97.8 F 04/07/22 07:00 Pulse 73 04/07/22 07:00 Resp 20 04/07/22 07:00 BP 119/80 04/07/22 07:00 Pulse Ox 98 04/07/22 07:00 FiO2 Intake & Output 04/06/22 04/07/22 04/07/22 18:59 06:59 18:59 Intake Total 320 1500 Output Total 400 Balance 320 1500 -400 Intake: Intake, IV Titration 500 Amount Vancomycin 1,750 mg In 500 Sodium Chloride 0.9% 500 ml 500 ml @ 167 mls/hr IVPB Q12H [facility] Rx#: [id number] Oral 320 1000 Output: Urine 400 Other: Voiding Method Bedside Commode Bedside Commode # Voids 2 4 - Labs CBC & Chem 7: 04/05/22 22:08 04/07/22 06:31 Labs: Abnormal Lab Results - Last 24 Hours (Table) 04/06/22 04/06/22 04/07/22 Range/Units 17:20 20:51 06:31 Est GFR (CKD-EPI)NonAf 54.7 L (60.0-200.0) POC Glucose (mg/dL) 324 H 353 H (70-110) mg/dL 04/07/22 04/07/22 Range/Units 06:56 11:34 Est GFR (CKD-EPI)NonAf (60.0-200.0) POC Glucose (mg/dL) 235 H 159 H (70-110) mg/dL Microbiology - Last 24 Hours (Table) 04/05/22 21:50 Blood Culture - Preliminary Blood No Growth after 24 hours
[2022-04-07 17:45] LABS: Glucose,Whole Blood 181 mg/dL (70-110)
--- NOTE | 2022-04-07 20:19 | P.PN ---
Subjective Progress Note Date: 04/07/22 Principal diagnosis: Right hand cellulitis Patient is a 66-year-old female past medical history significant for diabetes mellitus developing a blister on the right thumb from lancet to draw the blood for the blood sugar check, subsequently developing swelling redness of the head concerning for cellulitis. On today's evaluation that is 04/07/2022, the patient denies having any fever or any chills, patient still has significant swelling to the right hand though the redness is slightly decreased to not have any open wound or any drainage, patient denies having any chest pain or shortness of breath or cough no abdominal pain no diarrhea Objective - Vital Signs Vital signs: Vital Signs Temp 97.8 F 04/07/22 07:00 Pulse 73 04/07/22 07:00 Resp 20 04/07/22 07:00 BP 119/80 04/07/22 07:00 Pulse Ox 98 04/07/22 07:00 FiO2 Intake & Output 04/06/22 04/07/22 04/07/22 18:59 06:59 18:59 Intake Total 320 1500 Output Total 400 Balance 320 1500 -400 Intake: Intake, IV Titration 500 Amount Vancomycin 1,750 mg In 500 Sodium Chloride 0.9% 500 ml 500 ml @ 167 mls/hr IVPB Q12H [facility] Rx#: [id number] Oral 320 1000 Output: Urine 400 Other: Voiding Method Bedside Commode Bedside Commode # Voids 2 4 6 - Exam GENERAL DESCRIPTION: An elderly female lying in bed in no distress RESPIRATORY SYSTEM: Unlabored breathing , decreased breath sounds at bases HEART: S1 S2 regular rate and rhythm , ABDOMEN: Soft , no tenderness EXTREMITIES: Right hand he did have some diffuse swelling minimal redness to open wound or any drainage - Labs CBC & Chem 7: 04/05/22 22:08 04/07/22 06:31 Labs: Abnormal Lab Results - Last 24 Hours (Table) 04/06/22 04/06/22 04/07/22 Range/Units 17:20 20:51 06:31 Est GFR (CKD-EPI)NonAf 54.7 L (60.0-200.0) POC Glucose (mg/dL) 324 H 353 H (70-110) mg/dL 04/07/22 04/07/22 Range/Units 06:56 11:34 Est GFR (CKD-EPI)NonAf (60.0-200.0) POC Glucose (mg/dL) 235 H 159 H (70-110) mg/dL Microbiology - Last 24 Hours (Table) 04/05/22 21:50 Blood Culture - Preliminary Blood No Growth after 24 hours Assessment and Plan (1) Cellulitis of right hand Current Visit: Yes Status: Acute Code(s): L03.113 - CELLULITIS OF RIGHT UPPER LIMB SNOMED Code(s): 49248297 Plan: 1patient with right hand cellulitis in this patient started with a blister on the palmar aspect of the right thumb started with a poke from the diabetic lancet likely the source of entry of cellulitis and likely from gram-positive skin kulwant. 2 the patient did have minimal clinical improvement we will switch her over to cefazolin 2 g every 8 hours possible Rony wrap to decrease some of the swelling down and reevaluate the patient tomorrow Time with Patient: Less than 30
[2022-04-07 21:16] LABS: Glucose,Whole Blood 273 mg/dL (70-110)
[2022-04-07] MEDS: INSULIN NPH 300 UNIT/3 ML VIAL SQ SCH (22:31)
[2022-04-07] MEDS: KETOROLAC 15 MG/ML 1 ML VIAL IVP PRN (23:11)
[2022-04-08] MEDS: HYDROmorphone 0.5 MG/0.5 ML SYRINGE IVP PRN ×2 (05:18→10:40)
[2022-04-08 07:45] LABS: Glucose,Whole Blood 162 mg/dL (70-110)
[2022-04-08] MEDS: DIGOXIN 250 MCG TAB PO SCH (08:01)
[2022-04-08] MEDS: LEVOTHYROXINE 88 MCG TAB PO SCH (08:01)
[2022-04-08] MEDS: FAMOTIDINE 20 MG TAB PO SCH ×2 (08:01→21:26)
[2022-04-08] MEDS: FUROSEMIDE 40 MG TAB PO SCH (08:01)
[2022-04-08] MEDS: SPIRONOLACTONE 25 MG TAB PO SCH (08:02)
[2022-04-08] MEDS: APIXABAN 5 MG TAB PO SCH ×2 (08:02→21:50)
[2022-04-08] MEDS: METOPROLOL SUCCINATE (ER) 25 MG TAB.ER.24H PO SCH ×2 (08:02→21:50)
[2022-04-08] MEDS: INSULIN ASPART (NovoLOG) 100 UNIT/ML VIAL SQ SCH ×6 (08:02→17:26)
[2022-04-08] MEDS: SODIUM CHLORIDE 0.9% 1,000 ML IV SCH (08:03)
[2022-04-08] MEDS: polyethylene glycoL 3350 17 GM POWD.PACK PO SCH (08:03)
[2022-04-08] MEDS: ONDANSETRON 4 MG/2 ML VIAL IVP PRN ×2 (08:05→21:49)
[2022-04-08] MEDS: KETOROLAC 15 MG/ML 1 ML VIAL IVP PRN ×3 (08:05→21:49)
[2022-04-08] MEDS: FLUTICASONE 110 MCG INHALER INHALATION SCH ×2 (08:53→20:29)
[2022-04-08 09:14] VITALS: RESP 18
[2022-04-08 09:44] LABS: HCT 33.8 % (37.2-46.3); HGB 10.7 g/dL (12.0-15.0); MCH 30.1 pg (27.0-32.0); MCHC 31.7 g/dL (32.0-37.0); MCV 95.2 fL (80.0-97.0); Mean Platelet Volume 12.4 fL (9.5-12.2); NRBC Per 100 WBC 0 /100 WBCS (0.0-0.0); Platelet Count 134 X 10*3/uL (140-440); RBC 3.55 X 10*6/uL (4.10-5.20); RDW 13.5 % (11.5-14.5); WBC 8.18 X 10*3/uL (4.50-10.00)
[2022-04-08] MEDS ORDERED: VANCOMYCIN TROUGH DUE 1 EACH MISC MISCELLANE ONE (11:00)
[2022-04-08 11:14] LABS: African American GFR (CKD) 46.9 (60.0-200.0); Albumin 3.3 g/dL (3.8-4.9); Albumin/Globulin Ratio 1.95 (1.60-3.17); BUN/Creat Ratio 25.66 Ratio (12.00-20.00); Blood Urea Nitrogen 34.9 mg/dL (9.0-27.0); C Reactive Protein 7.4 mg/dL (0.00-0.80); Calcium 8.8 mg/dL (8.7-10.3); Carbon Dioxide 20.2 mmol/L (20.0-27.5); Globulin 1.7 g/dL (1.6-3.3); Non-African American GFR(CKD) 40.5 (60.0-200.0); Potassium 5.1 mmol/L (3.5-5.5); Total Bilirubin 0.3 mg/dL (0.30-1.20); Total Protein 4.9 g/dL (6.2-8.2)
[2022-04-08 11:49] LABS: Glucose,Whole Blood 163 mg/dL (70-110)
[2022-04-08] MEDS: ALPRAZolam 1 MG TAB PO PRN (14:13)
--- NOTE | 2022-04-08 15:29 | P.PN ---
Subjective Progress Note Date: 04/08/22 Patient is 66-year-old female came in for infection of the right hand. Patient had a boil in the right thumb couple days ago after which her son tried to lilly it a day later patient ended up having redness and swelling of the right upper extremity. Patient doesn't have any localized swelling there is diffuse swelling of the right hand and obviously an ulcer in the area where it was lanced. Patient denied any fever chills, patient has had normal white blood cell count. Patient was started on vancomycin. Redness in the right hand improved but still has significant swelling patient was started on anti-inflammatory medications patient is still having a lot of pain.. 04/08/2022. Patient is seen and evaluated in follow-up this morning continues on IV antibiotics in the form of cefazolin and vancomycin has been discontinued. Infectious disease is following recommending Rony wrapping the right hand although patient continues to have severe pain and not allowing anybody to touch her hand. Patient reports to improvement in pain and swelling after Toradol was added. Patient is continued on oral Lasix daily and will continue his that is part of her home medications. WBC today is 8.18 and hemoglobin is 10.7, sodium is 133 with a potassium of 5.1 and current creatinine is 1.4. Blood sugars are elevated recommend Accu-Cheks before meals and at bedtime and continue with sliding scale. Patient is also continued on hydration with normal saline and will discontinue as patient does have history of heart failure. . Review of systems: Constitutional: Denied any fatigue denied any fever. Cardio vascular: denied any chest pain, palpitations Gastrointestinal denied any nausea vomiting Pulmonary: Denied any shortness of breath cough Neurologic denied any new focal deficits, reports severe right hand pain with some swelling although improved in the swelling All inpatient medications were reviewed and appropriate changes in these medications as dictated in the interval history and assessment and plan. PHYSICAL EXAMINATION: GENERAL: The patient is alert and oriented x3, not in any acute distress. Well developed, well nourished. HEENT: Pupils are round and equally reacting to light. EOMI. No scleral icterus. No conjunctival pallor. Normocephalic, atraumatic. No pharyngeal erythema. No thyromegaly. CARDIOVASCULAR: S1 and S2 present. No murmurs, rubs, or gallops. PULMONARY: Chest is clear to auscultation, no wheezing or crackles. ABDOMEN: Soft, nontender, nondistended, obese, normoactive bowel sounds. No palpable organomegaly. MUSCULOSKELETAL: As mentioned above EXTREMITIES: No cyanosis, clubbing, or pedal edema. Right upper extremity hand with swelling that is improving NEUROLOGICAL: Gross neurological examination did not reveal any focal deficits. SKIN: Redness of the right hand improved now Assessment: -Cellulitis of the right hand, sex disease is following and vancomycin has been discontinued and patient is maintained on IV cefazolin along with Toradol to assist with the swelling and pain -Hyponatremia secondary to diuresis patient is on Lasix at home. Sodium remains 133 and patient with heart failure will discontinue IV fluids and recommend fluid restrictions -Congestive heart failure chronic diastolic dysfunction without any acute exacer bation: Patient will be continued on home diuretics Will repeat basic metabolic profile again tomorrow. -Atrial fibrillation paroxysmal presently rate controlled sinus rhythm continue with rate control medications and anticoagulation -COPD without any acute exacerbation -Hypothyroidism -history of restless legs syndrome -DVT prophylaxis: Patient is on Eliquis -Full code Plan: Recommend to continue with IV cefazolin with infectious disease following closely Recommend continue with Toradol as there is some continued swelling and also recommending Rony wrap to that hand although patient is refusing as patient has extreme pain with the lightest of touch and encourage the patient to elevate ri ght upper extremity Recommend continue Accu-Cheks before meals and at bedtime and continue with slid ing scale and insulins Follow-up labs in a.m. Plan is for possible discharge in 24 hours The impression and plan of care has been dictated by Aretha Sauer, Nurse Practitioner as directed. Dr. Samantha MD I have performed a history and examination and MDM of this patient, discussed the same with the dictator, and agree with the dictator's assessment and plan as written ,documented as a scribe. Based on total visit time, I have performed more than 50% of the visit. Objective - Vital Signs Vital signs: Vital Signs Temp 98 F 04/08/22 07:00 Pulse 71 04/08/22 07:00 Resp 18 04/08/22 07:00 BP 129/81 04/08/22 07:00 Pulse Ox 94 L 04/08/22 07:00 FiO2 Intake & Output 04/07/22 04/08/22 04/08/22 18:59 06:59 18:59 Intake Total 180 1100 Output Total 801 3 2 Balance -621 1097 -2 Intake: Intake, IV Titration 100 Amount ceFAZolin 2 gm In Sodium 100 Chloride 0.9% 50 ml @ 100 mls/hr IVPB Q8HR [facility] Rx# :[id number] Oral 180 1000 Output: Urine 800 Stool 1 3 2 Other: Voiding Method Bedside Commode Bedside Commode Bedside Commode # Voids 6 # Bowel Movements 2 - Labs CBC & Chem 7: 04/08/22 04:05 04/08/22 04:05 Labs: Abnormal Lab Results - Last 24 Hours (Table) 04/07/22 04/07/22 04/07/22 Range/Units 11:34 17:38 21:15 RBC (4.10-5.20) X 10*6/uL Hgb (12.0-15.0) g/dL Hct (37.2-46.3) % MCHC (32.0-37.0) g/dL Plt Count (140-440) X 10*3/uL MPV (9.5-12.2) fL POC Glucose (mg/dL) 159 H 181 H 273 H (70-110) mg/dL 04/08/22 04/08/22 Range/Units 04:05 07:16 RBC 3.55 L (4.10-5.20) X 10*6/uL Hgb 10.7 L (12.0-15.0) g/dL Hct 33.8 L (37.2-46.3) % MCHC 31.7 L (32.0-37.0) g/dL Plt Count 134 L (140-440) X 10*3/uL MPV 12.4 H (9.5-12.2) fL POC Glucose (mg/dL) 162 H (70-110) mg/dL Microbiology - Last 24 Hours (Table) 04/05/22 21:50 Blood Culture - Preliminary Blood No Growth after 48 hours
[2022-04-08 17:15] LABS: Glucose,Whole Blood 180 mg/dL (70-110)
[2022-04-08 20:48] LABS: Glucose,Whole Blood 224 mg/dL (70-110)
[2022-04-08] MEDS: INSULIN NPH 300 UNIT/3 ML VIAL SQ SCH (21:50)
[2022-04-09] MEDS: HYDROmorphone 0.5 MG/0.5 ML SYRINGE IVP PRN ×4 (00:31→20:25)
[2022-04-09 05:52] LABS: Basophils # (A) 0.1 k/uL (0-0.2); Basophils % (A) 1 %; Eosinophils # (A) 0.1 k/uL (0-0.7); Eosinophils % (A) 1 %; HCT 41.1 % (34.0-46.0); HGB 13.3 gm/dL (11.4-16.0); Lymphocytes # (A) 1.9 k/uL (1.0-4.8); Lymphocytes % (A) 17 %; MCH 31.2 pg (25.0-35.0); MCHC 32.3 g/dL (31.0-37.0); MCV 96.6 fL (80.0-100.0); Mean Platelet Volume 10.7; Monocytes # (A) 0.8 k/uL (0-1.0); Monocytes % (A) 7 %; Neutrophils # (A) 8.4 k/uL (1.3-7.7); Neutrophils % (A) 73 %; Platelet Count 207 k/uL (150-450); RBC 4.25 m/uL (3.80-5.40); RDW 13.8 % (11.5-15.5); WBC 11.4 k/uL (3.8-10.6)
[2022-04-09 05:57] LABS: African American GFR (CKD) 45 (>60 ml/min/1.73 sqM); Anion Gap 12 mmol/L; Blood Urea Nitrogen 43 mg/dL (7-17); Calcium 9.1 mg/dL (8.4-10.2); Carbon Dioxide 19 mmol/L (22-30); Chloride 104 mmol/L (98-107); Glucose 167 mg/dL (74-99); Magnesium 1.7 mg/dL (1.6-2.3); Non-African American GFR(CKD) 39 (>60 ml/min/1.73 sqM); Potassium 5.8 mmol/L (3.5-5.1); Sodium 135 mmol/L (137-145)
[2022-04-09 06:59] LABS: Glucose,Whole Blood 178 mg/dL (70-110)
[2022-04-09] MEDS: FLUTICASONE 110 MCG INHALER INHALATION SCH ×2 (07:54→21:18)
[2022-04-09] MEDS: polyethylene glycoL 3350 17 GM POWD.PACK PO SCH ×2 (08:25→08:48)
[2022-04-09] MEDS: FUROSEMIDE 40 MG TAB PO SCH ×2 (08:25→08:55)
[2022-04-09] MEDS: FAMOTIDINE 20 MG TAB PO SCH (08:25)
[2022-04-09] MEDS: APIXABAN 5 MG TAB PO SCH ×2 (08:25→20:08)
--- NOTE | 2022-04-09 08:25 | P.PN ---
Subjective Progress Note Date: 04/08/22 Principal diagnosis: Right hand cellulitis Patient is a 66-year-old female past medical history significant for diabetes mellitus developing a blister on the right thumb from lancet to draw the blood for the blood sugar check, subsequently developing swelling redness of the head concerning for cellulitis. On today's evaluation that is 04/08/2022, the patient remains to be afebrile, patient right hand swelling and redness has slightly decreased in intensity, patient denies having any chest pain or shortness of breath or cough no abdominal pain no diarrhea Objective - Vital Signs Vital signs: Vital Signs Temp 98 F 04/08/22 07:00 Pulse 71 04/08/22 07:00 Resp 18 04/08/22 07:00 BP 129/81 04/08/22 07:00 Pulse Ox 94 L 04/08/22 07:00 FiO2 Intake & Output 04/07/22 04/08/22 04/08/22 18:59 06:59 18:59 Intake Total 180 1100 Output Total 801 3 2 Balance -621 1097 -2 Intake: Intake, IV Titration 100 Amount ceFAZolin 2 gm In Sodium 100 Chloride 0.9% 50 ml @ 100 mls/hr IVPB Q8HR [facility] Rx# :[id number] Oral 180 1000 Output: Urine 800 Stool 1 3 2 Other: Voiding Method Bedside Commode Bedside Commode Bedside Commode # Voids 6 2 # Bowel Movements 2 - Exam GENERAL DESCRIPTION: An elderly female lying in bed in no distress RESPIRATORY SYSTEM: Unlabored breathing , decreased breath sounds at bases HEART: S1 S2 regular rate and rhythm , ABDOMEN: Soft , no tenderness EXTREMITIES: Right hand he did have some diffuse swelling minimal redness to open wound or any drainage - Labs CBC & Chem 7: 04/09/22 04:13 04/09/22 04:13 Labs: Abnormal Lab Results - Last 24 Hours (Table) 04/07/22 04/07/22 04/08/22 Range/Units 17:38 21:15 04:05 RBC (4.10-5.20) X 10*6/uL Hgb (12.0-15.0) g/dL Hct (37.2-46.3) % MCHC (32.0-37.0) g/dL Plt Count (140-440) X 10*3/uL MPV (9.5-12.2) fL Sodium 133 L (135-145) mmol/L BUN 34.9 H (9.0-27.0) mg/dL Est GFR (CKD-EPI)AfAm 46.9 L (60.0-200.0) Est GFR (CKD-EPI)NonAf 40.5 L (60.0-200.0) BUN/Creatinine Ratio 25.66 H (12.00-20.00) Ratio Glucose 201 H (70-110) mg/dL POC Glucose (mg/dL) 181 H 273 H (70-110) mg/dL Alkaline Phosphatase 141 H (41-126) U/L C-Reactive Protein 7.40 H (0.00-0.80) mg/dL Total Protein 4.9 L (6.2-8.2) g/dL Albumin 3.3 L (3.8-4.9) g/dL 04/08/22 04/08/22 04/08/22 Range/Units 04:05 07:16 11:34 RBC 3.55 L (4.10-5.20) X 10*6/uL Hgb 10.7 L (12.0-15.0) g/dL Hct 33.8 L (37.2-46.3) % MCHC 31.7 L (32.0-37.0) g/dL Plt Count 134 L (140-440) X 10*3/uL MPV 12.4 H (9.5-12.2) fL Sodium (135-145) mmol/L BUN (9.0-27.0) mg/dL Est GFR (CKD-EPI)AfAm (60.0-200.0) Est GFR (CKD-EPI)NonAf (60.0-200.0) BUN/Creatinine Ratio (12.00-20.00) Ratio Glucose (70-110) mg/dL POC Glucose (mg/dL) 162 H 163 H (70-110) mg/dL Alkaline Phosphatase (41-126) U/L C-Reactive Protein (0.00-0.80) mg/dL Total Protein (6.2-8.2) g/dL Albumin (3.8-4.9) g/dL Microbiology - Last 24 Hours (Table) 04/05/22 21:50 Blood Culture - Preliminary Blood No Growth after 48 hours Assessment and Plan (1) Cellulitis of right hand Current Visit: Yes Status: Acute Code(s): L03.113 - CELLULITIS OF RIGHT UPPER LIMB SNOMED Code(s): 44336827 Plan: 1patient with right hand cellulitis in this patient started with a blister on the palmar aspect of the right thumb started with a poke from the diabetic lanc et likely the source of entry of cellulitis and likely from gram-positive skin kulwant. 2patient seemed to show some clinical improvement with IV cefazolin to continue for another 24 hour before transitioning her to oral Keflex discussed with the [employer] for admitting team Time with Patient: Less than 30
[2022-04-09] MEDS: DIGOXIN 250 MCG TAB PO SCH (08:26)
[2022-04-09] MEDS: METOPROLOL SUCCINATE (ER) 25 MG TAB.ER.24H PO SCH ×2 (08:26→20:08)
[2022-04-09] MEDS: LEVOTHYROXINE 88 MCG TAB PO SCH (08:26)
[2022-04-09] MEDS: INSULIN ASPART (NovoLOG) 100 UNIT/ML VIAL SQ SCH ×6 (08:27→17:56)
[2022-04-09] MEDS: KETOROLAC 15 MG/ML 1 ML VIAL IVP PRN ×2 (08:35→15:54)
[2022-04-09] MEDS: SPIRONOLACTONE 25 MG TAB PO SCH (08:55)
[2022-04-09 09:04] LABS: African American GFR (CKD) 41.6 (60.0-200.0); Non-African American GFR(CKD) 35.9 (60.0-200.0)
[2022-04-09] MEDS ORDERED: SODIUM ZIRCONIUM CYCLOSILICATE 10 GM PACKET PO ONE (10:00)
[2022-04-09] MEDS: MAGNESIUM SULFATE-D5W PMX 1 GM in DEXTROSE/WATER 1 100ML.BAG IVPB SCH ×2 (10:59→12:44)
[2022-04-09] MEDS: ALPRAZolam 1 MG TAB PO PRN (11:09)
[2022-04-09 11:45] LABS: Glucose,Whole Blood 196 mg/dL (70-110)
[2022-04-09] MEDS: SENNOSIDES-DOCUSATE SODIUM 1 EACH TAB PO SCH (13:49)
--- NOTE | 2022-04-09 15:00 | P.PN ---
Subjective Progress Note Date: 04/09/22 Patient is 66-year-old female came in for infection of the right hand. Patient had a boil in the right thumb couple days ago after which her son tried to lilly it a day later patient ended up having redness and swelling of the right upper extremity. Patient doesn't have any localized swelling there is diffuse swelling of the right hand and obviously an ulcer in the area where it was lanced. Patient denied any fever chills, patient has had normal white blood cell count. Patient was started on vancomycin. Redness in the right hand improved but still has significant swelling patient was started on anti-inflammatory medications patient is still having a lot of pain.. 04/08/2022. Patient is seen and evaluated in follow-up this morning continues on IV antibiotics in the form of cefazolin and vancomycin has been discontinued. Infectious disease is following recommending Rony wrapping the right hand although patient continues to have severe pain and not allowing anybody to touch her hand. Patient reports to improvement in pain and swelling after Toradol was added. Patient is continued on oral Lasix daily and will continue his that is part of her home medications. WBC today is 8.18 and hemoglobin is 10.7, sodium is 133 with a potassium of 5.1 and current creatinine is 1.4. Blood sugars are elevated recommend Accu-Cheks before meals and at bedtime and continue with sliding scale. Patient is also continued on hydration with normal saline and will discontinue as patient does have history of heart failure. 04/09/2022 Patient evaluated today sitting up at bedside. She does states she has right arm and hand pain rates it a 6/10, states the pain is from hand all the way up to sh oulder. She dose have erythema and swelling to right third finger. Magnesium 1.7, received supplementation, Potassium 5.8 today, she did receive a dose of lokelma and also aldactone and will repeat BMP tomorrow. Antibiotic recommendations per ID, blood cultures are negative so far. Hemodynamically s table. Review of systems: Constitutional: Denied any fatigue denied any fever. Cardio vascular: denied any chest pain, palpitations Gastrointestinal denied any nausea vomiting Pulmonary: Denied any shortness of breath cough Neurologic denied any new focal deficits, reports severe right hand pain with some swelling although improved in the swelling All inpatient medications were reviewed and appropriate changes in these medications as dictated in the interval history and assessment and plan. PHYSICAL EXAMINATION: GENERAL: The patient is alert and oriented x3, not in any acute distress. Well developed, well nourished. HEENT: Pupils are round and equally reacting to light. EOMI. No scleral icterus. No conjunctival pallor. Normocephalic, atraumatic. No pharyngeal erythema. No thyromegaly. CARDIOVASCULAR: S1 and S2 present. No murmurs, rubs, or gallops. PULMONARY: Chest is clear to auscultation, no wheezing or crackles. ABDOMEN: Soft, nontender, nondistended, obese, normoactive bowel sounds. No palpable organomegaly. MUSCULOSKELETAL: As mentioned above EXTREMITIES: No cyanosis, clubbing, or pedal edema. Right upper extremity hand with swelling that is improving NEUROLOGICAL: Gross neurological examination did not reveal any focal deficits. SKIN: Redness of the right hand improved now Assessment: -Cellulitis of the right hand, infectious disease is following, continues on IV Cefazolin. -Hyponatremia secondary to diuresis patient is on Lasix at home. Sodium has improved to 135, continue on fluid restriction. -Hyperkalemia, patient is on aldactone which is on hold -Congestive heart failure chronic diastolic dysfunction without any acute exacerbation: Patient will be continued on home diuretics -Atrial fibrillation paroxysmal presently rate controlled sinus rhythm continue with rate control medications and anticoagulation -COPD without any acute exacerbation -Hypothyroidism -history of restless legs syndrome -DVT prophylaxis: Patient is on Eliquis -Full code Plan: Continue with IV cefazolin with infectious disease following closely Continue with Toradol as there is some continued swelling and also recommending Rony wrap to that hand although patient is refusing as patient has extreme pain with the lightest of touch and encourage the patient to elevate right upper extremity Recommend continue Accu-Cheks before meals and at bedtime and continue with sl iding scale and insulins Hold aldactone, one time dose lokelma given today Follow-up labs in a.m. Discharge tomorrow pending repeat labs. The impression and plan of care has been dictated by Roro Arzola, Nurse Practitioner as directed. Dr. Samantha MD I have performed a history and physical examination and medical decision making of this patient, discussed the same with the dictator, and agree with the dictators assessment and plan as written, documented as a scribe. Based on total visit time, I have performed more than 50% of this visit. Objective - Vital Signs Vital signs: Vital Signs Temp 98 F 04/09/22 14:48 Pulse 76 04/09/22 14:48 Resp 18 04/09/22 14:48 BP 111/76 04/09/22 14:48 Pulse Ox 97 04/09/22 14:48 FiO2 Intake & Output 04/08/22 04/09/22 04/09/22 18:59 06:59 18:59 Intake Total 120 1000 240 Output Total 2 4 Balance 118 996 240 Intake: Oral 120 1000 240 Output: Stool 2 4 Other: Voiding Method Bedside Commode Bedside Commode Bedside Commode # Voids 1 2 # Bowel Movements 3 - Labs CBC & Chem 7: 04/09/22 04:13 04/09/22 04:13 Labs: Abnormal Lab Results - Last 24 Hours (Table) 04/07/22 04/08/22 04/08/22 Range/Units 06:31 17:12 20:47 WBC (3.8-10.6) k/uL Neutrophils # (1.3-7.7) k/uL Sodium (137-145) mmol/L Potassium (3.5-5.1) mmol/L Carbon Dioxide (22-30) mmol/L BUN (7-17) mg/dL Creatinine (0.52-1.04) mg/dL Est GFR (CKD-EPI)AfAm (60.0-200.0) Est GFR (CKD-EPI)NonAf (60.0-200.0) Glucose (74-99) mg/dL POC Glucose (mg/dL) 180 H 224 H (70-110) mg/dL Uric Acid 10.1 H (2.9-7.7) mg/dL 04/09/22 04/09/22 04/09/22 Range/Units 04:13 04:13 04:13 WBC 11.4 H (3.8-10.6) k/uL Neutrophils # 8.4 H (1.3-7.7) k/uL Sodium 135 L (137-145) mmol/L Potassium 5.8 H (3.5-5.1) mmol/L Carbon Dioxide 19 L (22-30) mmol/L BUN 43 H (7-17) mg/dL Creatinine 1.40 H (0.52-1.04) mg/dL Est GFR (CKD-EPI)AfAm 41.6 L (60.0-200.0) Est GFR (CKD-EPI)NonAf 35.9 L (60.0-200.0) Glucose 167 H (74-99) mg/dL POC Glucose (mg/dL) (70-110) mg/dL Uric Acid (2.9-7.7) mg/dL 04/09/22 04/09/22 Range/Units 06:47 11:40 WBC (3.8-10.6) k/uL Neutrophils # (1.3-7.7) k/uL Sodium (137-145) mmol/L Potassium (3.5-5.1) mmol/L Carbon Dioxide (22-30) mmol/L BUN (7-17) mg/dL Creatinine (0.52-1.04) mg/dL Est GFR (CKD-EPI)AfAm (60.0-200.0) Est GFR (CKD-EPI)NonAf (60.0-200.0) Glucose (74-99) mg/dL POC Glucose (mg/dL) 178 H 196 H (70-110) mg/dL Uric Acid (2.9-7.7) mg/dL Microbiology - Last 24 Hours (Table) 04/05/22 21:50 Blood Culture - Preliminary Blood No Growth after 72 hours Assessment and Plan Time with Patient: Less than 30
[2022-04-09 16:33] LABS: Glucose,Whole Blood 168 mg/dL (70-110)
[2022-04-09 19:52] LABS: Glucose,Whole Blood 232 mg/dL (70-110)
[2022-04-09] MEDS: INSULIN NPH 300 UNIT/3 ML VIAL SQ SCH (20:23)
[2022-04-10] MEDS: ALPRAZolam 1 MG TAB PO PRN ×2 (00:42→13:28)
[2022-04-10] MEDS: HYDROmorphone 0.5 MG/0.5 ML SYRINGE IVP PRN ×3 (00:42→11:05)
[2022-04-10] MEDS: KETOROLAC 15 MG/ML 1 ML VIAL IVP PRN (07:13)
[2022-04-10] MEDS: FLUTICASONE 110 MCG INHALER INHALATION SCH (07:44)
[2022-04-10 07:52] LABS: Glucose,Whole Blood 189 mg/dL (70-110)
[2022-04-10] MEDS: FUROSEMIDE 40 MG TAB PO SCH (08:27)
[2022-04-10] MEDS: METOPROLOL SUCCINATE (ER) 25 MG TAB.ER.24H PO SCH (08:27)
[2022-04-10] MEDS: INSULIN ASPART (NovoLOG) 100 UNIT/ML VIAL SQ SCH ×4 (08:27→13:28)
[2022-04-10] MEDS: LEVOTHYROXINE 88 MCG TAB PO SCH (08:27)
[2022-04-10] MEDS: DIGOXIN 250 MCG TAB PO SCH (08:28)
[2022-04-10] MEDS: APIXABAN 5 MG TAB PO SCH (08:28)
[2022-04-10] MEDS: polyethylene glycoL 3350 17 GM POWD.PACK PO SCH (08:28)
[2022-04-10] MEDS ORDERED: FAMOTIDINE 20 MG TAB PO SCH (09:00)
[2022-04-10 09:54] VITALS: BP 122/67; PULSE 54; TEMP 97.4
[2022-04-10 10:22] LABS: African American GFR (CKD) 46.9 (60.0-200.0); Anion Gap 11.5 mmol/L (10.00-18.00); BUN/Creat Ratio 31.47 Ratio (12.00-20.00); Blood Urea Nitrogen 42.8 mg/dL (9.0-27.0); Calcium 9.2 mg/dL (8.7-10.3); Carbon Dioxide 20.1 mmol/L (20.0-27.5); Magnesium 1.9 mg/dL (1.5-2.4); Non-African American GFR(CKD) 40.5 (60.0-200.0); Potassium 5.3 mmol/L (3.5-5.5)
--- NOTE | 2022-04-10 12:30 | P.PN ---
Subjective Progress Note Date: 04/09/22 Principal diagnosis: Right hand cellulitis Patient is a 66-year-old female past medical history significant for diabetes mellitus developing a blister on the right thumb from lancet to draw the blood for the blood sugar check, subsequently developing swelling redness of the head concerning for cellulitis. On today's evaluation that is 04/09/2022, the patient continues to be afebrile, patient right hand swelling and redness has decreased in intensity, patient denies having any chest pain or shortness of breath or cough , the patient denies abdominal pain no diarrhea Objective - Vital Signs Vital signs: Vital Signs Temp 97.6 F 04/09/22 07:00 Pulse 67 04/09/22 08:26 Resp 18 04/09/22 08:26 BP 128/77 04/09/22 07:00 Pulse Ox 99 04/09/22 07:00 FiO2 Intake & Output 04/08/22 04/09/22 04/09/22 18:59 06:59 18:59 Intake Total 120 1000 120 Output Total 2 4 Balance 118 996 120 Intake: Oral 120 1000 120 Output: Stool 2 4 Other: Voiding Method Bedside Commode Bedside Commode Bedside Commode # Voids 1 # Bowel Movements 3 - Exam GENERAL DESCRIPTION: An elderly female lying in bed in no distress RESPIRATORY SYSTEM: Unlabored breathing , decreased breath sounds at bases HEART: S1 S2 regular rate and rhythm , ABDOMEN: Soft , no tenderness EXTREMITIES: Right hand he did have some diffuse swelling minimal redness to open wound or any drainage - Labs CBC & Chem 7: 04/09/22 04:13 04/10/22 05:38 Labs: Abnormal Lab Results - Last 24 Hours (Table) 04/07/22 04/08/22 04/08/22 Range/Units 06:31 17:12 20:47 WBC (3.8-10.6) k/uL Neutrophils # (1.3-7.7) k/uL Sodium (137-145) mmol/L Potassium (3.5-5.1) mmol/L Carbon Dioxide (22-30) mmol/L BUN (7-17) mg/dL Creatinine (0.52-1.04) mg/dL Est GFR (CKD-EPI)AfAm (60.0-200.0) Est GFR (CKD-EPI)NonAf (60.0-200.0) Glucose (74-99) mg/dL POC Glucose (mg/dL) 180 H 224 H (70-110) mg/dL Uric Acid 10.1 H (2.9-7.7) mg/dL 04/09/22 04/09/22 04/09/22 Range/Units 04:13 04:13 04:13 WBC 11.4 H (3.8-10.6) k/uL Neutrophils # 8.4 H (1.3-7.7) k/uL Sodium 135 L (137-145) mmol/L Potassium 5.8 H (3.5-5.1) mmol/L Carbon Dioxide 19 L (22-30) mmol/L BUN 43 H (7-17) mg/dL Creatinine 1.40 H (0.52-1.04) mg/dL Est GFR (CKD-EPI)AfAm 41.6 L (60.0-200.0) Est GFR (CKD-EPI)NonAf 35.9 L (60.0-200.0) Glucose 167 H (74-99) mg/dL POC Glucose (mg/dL) (70-110) mg/dL Uric Acid (2.9-7.7) mg/dL 04/09/22 04/09/22 Range/Units 06:47 11:40 WBC (3.8-10.6) k/uL Neutrophils # (1.3-7.7) k/uL Sodium (137-145) mmol/L Potassium (3.5-5.1) mmol/L Carbon Dioxide (22-30) mmol/L BUN (7-17) mg/dL Creatinine (0.52-1.04) mg/dL Est GFR (CKD-EPI)AfAm (60.0-200.0) Est GFR (CKD-EPI)NonAf (60.0-200.0) Glucose (74-99) mg/dL POC Glucose (mg/dL) 178 H 196 H (70-110) mg/dL Uric Acid (2.9-7.7) mg/dL Microbiology - Last 24 Hours (Table) 04/05/22 21:50 Blood Culture - Preliminary Blood No Growth after 72 hours Assessment and Plan (1) Cellulitis of right hand Current Visit: Yes Status: Acute Code(s): L03.113 - CELLULITIS OF RIGHT UPPER LIMB SNOMED Code(s): 13220597 Plan: 1patient with right hand cellulitis in this patient started with a blister on the palmar aspect of the right thumb started with a poke from the diabetic lancet likely the source of entry of cellulitis and likely from gram-positive skin kulwant. 2patient has shown clinical improvement with IV cefazolin which will be continued for another 24 hour before transitioning her to oral Keflex and continue supportive care Time with Patient: Less than 30
[2022-04-10 12:31] LABS: Glucose,Whole Blood 208 mg/dL (70-110)
--- NOTE | 2022-04-10 12:32 | P.PN ---
Subjective Progress Note Date: 04/10/22 Principal diagnosis: Right hand cellulitis Patient is a 66-year-old female past medical history significant for diabetes mellitus developing a blister on the right thumb from lancet to draw the blood for the blood sugar check, subsequently developing swelling redness of the head concerning for cellulitis. On today's evaluation that is 04/10/2022, the patient remains to be afebrile, patient right hand swelling and redness and pain has decreased in intensity, patient overall is feeling much better, patient denies having any chest pain or shortness of breath or cough , the patient denies abdominal pain no diarrhea Objective - Vital Signs Vital signs: Vital Signs Temp 97.4 F L 04/10/22 07:00 Pulse 54 L 04/10/22 07:00 Resp 18 04/10/22 07:23 BP 122/67 04/10/22 07:00 Pulse Ox 97 04/10/22 07:00 FiO2 Intake & Output 04/09/22 04/10/22 04/10/22 18:59 06:59 18:59 Intake Total 480 1000 652 Output Total 4 Balance 480 996 652 Intake: Oral 480 1000 652 Output: Stool 4 Other: Voiding Method Bedside Commode Bedside Commode Bedside Commode # Voids 2 2 - Exam GENERAL DESCRIPTION: An elderly female lying in bed in no distress RESPIRATORY SYSTEM: Unlabored breathing , decreased breath sounds at bases HEART: S1 S2 regular rate and rhythm , ABDOMEN: Soft , no tenderness EXTREMITIES: Right hand swelling and redness have decreased in intensity no open wound or drainage - Labs CBC & Chem 7: 04/09/22 04:13 04/10/22 05:38 Labs: Abnormal Lab Results - Last 24 Hours (Table) 04/09/22 04/09/22 04/09/22 Range/Units 11:40 16:27 19:50 Sodium (135-145) mmol/L BUN (9.0-27.0) mg/dL Est GFR (CKD-EPI)AfAm (60.0-200.0) Est GFR (CKD-EPI)NonAf (60.0-200.0) BUN/Creatinine Ratio (12.00-20.00) Ratio Glucose (70-110) mg/dL POC Glucose (mg/dL) 196 H 168 H 232 H (70-110) mg/dL 04/10/22 04/10/22 Range/Units 05:38 07:50 Sodium 132 L (135-145) mmol/L BUN 42.8 H (9.0-27.0) mg/dL Est GFR (CKD-EPI)AfAm 46.9 L (60.0-200.0) Est GFR (CKD-EPI)NonAf 40.5 L (60.0-200.0) BUN/Creatinine Ratio 31.47 H (12.00-20.00) Ratio Glucose 201 H (70-110) mg/dL POC Glucose (mg/dL) 189 H (70-110) mg/dL Microbiology - Last 24 Hours (Table) 04/05/22 21:50 Blood Culture - Preliminary Blood No Growth after 96 hours Assessment and Plan (1) Cellulitis of right hand Current Visit: Yes Status: Acute Code(s): L03.113 - CELLULITIS OF RIGHT UPPER LIMB SNOMED Code(s): 95261516 Plan: 1patient with right hand cellulitis in this patient started with a blister on the palmar aspect of the right thumb started with a poke from the diabetic la ncet likely the source of entry of cellulitis and likely from gram-positive skin kulwant. 2patient has shown clinical improvement with IV cefazolin, will switch her over to oral Keflex 500 mg every 6 hours for 10 days prescription sent to the pharmacy and close outpatient follow-up Time with Patient: Less than 30
--- NOTE | 2022-04-12 10:59 | P.DS ---
Providers Date of admission: 04/09/22 10:03 Expected date of discharge: 04/10/22 Attending physician: Isiah Moncada MD Consults: 04/06/22 13:11 Consult Physician Routine Consulting Provider: Vinod Brewer Consult Reason/Comments: finger infection Do you want consulting provider notified?: Yes Primary care physician: Gabriel Vera Hospital Course: Final diagnosis -Cellulitis of the right hand -Hyponatremia secondary to diuresis -Hyperkalemia -Congestive heart failure chronic diastolic dysfunction without any acute exacerbation -Atrial fibrillation paroxysmal presently rate controlled -COPD without any acute exacerbation -Hypothyroidism -history of restless legs syndrome -DVT prophylaxis -Full code Discharge disposition Patient is being discharged in a stable condition with guarded prognosis to home. Patient will follow-up with Dr. Vera in the outpatient setting upon discharge. Patient is to continue with oral Keflex 500 mg 4 times daily for the next 10 days.. Total time taken is greater than 35 minutes. Hospital course This is a 66-year-old male who was recently admitted with right hand swelling and pain with possible cellulitis and was being closely monitored. He did have a boil on the right thumb that they attempted to lilly at home and started developing redness and swelling and discoloration of the area. Patient was seen and evaluated by infectious disease and was maintained on IV cefazolin with some improvement. Patient continue with swelling and normally takes Aldactone and Lasix in the outpatient setting although this was hold given patient's kidney functions. Patient was given Toradol with some improvement in inflammation and encourage the patient to continue elevating and using Rony wraps although patient has been refusing the Rony wraps reporting causes too much discomfort. Encourage the patient to follow-up with primary care provider and will continue oral Keflex 500 mg 4 times a day for the next 10 days to complete the course. Recommend low potassium diet and follow-up with repeat labs in the next 2-3 days along with primary care provider to manage medications and electrolyte imbalances. Recommend holding Lasix and Aldactone until follow-up after repeat labs. Currently no reports of chest pain, shortness of breath, or palpitations. Patient is afebrile. No reports of nausea or vomiting and patient is tolerating diet. Patient encouraged to monitor blood sugars before meals and at bedtime and keep a diary of readings for primary care follow-up with noted adjustments in insulins. Patient will be discharged home today. Physical exam: Gen: This is a 66-year-old female awake, alert and oriented 3, well-developed, well-nourished, obese HEENT: Head is atraumatic, normocephalic. Pupils equal, round. Sclerae is anicteric. NECK: Supple. No JVD. No lymphadenopathy. No thyromegaly. LUNGS: Clear to auscultation. No wheezes or rhonchi. No intercostal retractions. HEART: Regular rate and rhythm. No murmur. ABDOMEN: Soft. Bowel sounds are present. No masses. No tenderness. EXTREMITIES: No pedal edema. No calf tenderness. Right upper extremity hand swelling with some improvement with positive pulses and cap refill less than 3 NEUROLOGICAL: Patient is awake, alert and oriented x3. Cranial nerves 2 through 12 are grossly intact. Please refer to medication reconciliation sheet for a list of medications. The impression and plan of care has been dictated by Aretha Sauer, Nurse Practitioner as directed. Dr. Samantha MD I have performed a history and examination and MDM of this patient, discussed the same with the dictator, and agree with the dictator's assessment and plan as written ,documented as a scribe. Based on total visit time, I have performed more than 50% of the visit. Patient Condition at Discharge: Stable Plan - Discharge Summary Discharge Rx Participant: Yes New Discharge Prescriptions: New Famotidine [Pepcid] 20 mg PO DAILY #30 tab INSULIN LISPRO (HumaLOG) [humaLOG] 6 units SQ AC-TID #10 ml Cephalexin [Keflex] 500 mg PO Q6HR 10 Days #40 cap polyethylene glycoL 3350 [Miralax] 17 gm PO DAILY packet Continue HYDROcodone/APAP 10-325MG [Colebrook 10-325] 1 tab PO Q6H PRN PRN Reason: Pain ALPRAZolam [Xanax] 1 mg PO QID PRN PRN Reason: Anxiety Levothyroxine Sodium [Synthroid] 88 mcg PO AC-BRKFST Furosemide [Lasix] 40 mg PO DAILY Digoxin 250 mcg PO DAILY Insulin NPH Human Isophane [humuLIN N] 40 unit SQ HS INSULIN ASPART (NovoLOG) [NovoLOG (formulary)] See Protocol SQ AC-TID Sennosides/Docusate Sodium [Senna Plus 8.6-50 mg Tablet] 2 tab PO MOWEFR Fluticasone Propionate [Flovent Hfa 110 mcg] 1 puff INHALATION RT-BID Ferrous Sulfate [Iron (65 MG Elemental)] 325 mg PO DAILY Cholecalciferol [Vitamin D3 (25 Mcg = 1000 Iu)] 50 mcg PO DAILY Apixaban [Eliquis] 5 mg PO BID #60 tab SILVER sulfADIAZINE Cream [Silvadene 1% Cream] 1 applic TOPICAL BID Metoprolol Succinate (ER) [Toprol XL] 25 mg PO BID Discontinued Spironolactone [Aldactone] 25 mg PO DAILY Discharge Medication List ALPRAZolam [Xanax] 1 mg PO QID PRN 01/06/18 [History] Furosemide [Lasix] 40 mg PO DAILY 01/06/18 [History] HYDROcodone/APAP 10-325MG [Colebrook 10-325] 1 tab PO Q6H PRN 01/06/18 [History] Levothyroxine Sodium [Synthroid] 88 mcg PO AC-BRKFST 01/06/18 [History] Digoxin 250 mcg PO DAILY 02/28/19 [History] Cholecalciferol [Vitamin D3 (25 Mcg = 1000 Iu)] 50 mcg PO DAILY 07/25/21 [History] Ferrous Sulfate [Iron (65 MG Elemental)] 325 mg PO DAILY 07/25/21 [History] Fluticasone Propionate [Flovent Hfa 110 mcg] 1 puff INHALATION RT-BID 07/25/21 [History] INSULIN ASPART (NovoLOG) [NovoLOG (formulary)] See Protocol SQ AC-TID 07/25/21 [History] Insulin NPH Human Isophane [humuLIN N] 40 unit SQ HS 07/25/21 [History] Apixaban [Eliquis] 5 mg PO BID #60 tab 09/19/21 [Rx] Metoprolol Succinate (ER) [Toprol XL] 25 mg PO BID 04/06/22 [History] SILVER sulfADIAZINE Cream [Silvadene 1% Cream] 1 applic TOPICAL BID 04/06/22 [History] Sennosides/Docusate Sodium [Senna Plus 8.6-50 mg Tablet] 2 tab PO MOWEFR 04/06/22 [History] Famotidine [Pepcid] 20 mg PO DAILY #30 tab 04/09/22 [Rx] INSULIN LISPRO (HumaLOG) [humaLOG] 6 units SQ AC-TID #10 ml 04/09/22 [Rx] polyethylene glycoL 3350 [Miralax] 17 gm PO DAILY packet 04/09/22 [Rx] Cephalexin [Keflex] 500 mg PO Q6HR 10 Days #40 cap 04/10/22 [Rx] Follow up Appointment(s)/Referral(s): Gabriel Vera MD [Primary Care Provider] - 1-2 days Ambulatory/Diagnostic Orders: Complete Blood Count w/diff [LAB.AMB] Time Frame: 3 Days, Location: None Selected Patient Instructions/Handouts: Cellulitis (GEN) Activity/Diet/Wound Care/Special Instructions: Activity Limited until follow-up Follow-up with primary care provider on discharge Continue taking medications as prescribed Continue holding Aldactone Continue renal diet with low potassium low-sodium Recommend repeat labs in the next 2-3 days Continue taking antibiotics until complete Continue to elevate right upper extremity and attempt using Rony wraps to the right hand Discharge Disposition: HOME WITH HOME HEALTH SERVICES
== END 2022-04-10 16:36 | disposition home health service (06) | DRG 603 ==
LOC: EC 21:12 → 6NMEDSUR 04-06 04:51 → OBSVTOIN 04-09 10:03
PROVIDERS: ADMIT Internal Medicine; ATTEND Internal Medicine
DX: L03.011 Cellulitis of right finger (principal); E87.1 Hypo-osmolality and hyponatremia; I50.32 Chronic diastolic (congestive) heart failure; L03.113 Cellulitis of right upper limb; B96.89 Other specified bacterial agents as the cause of diseases classified elsewhere; J44.9 Chronic obstructive pulmonary disease, unspecified; E10.9 Type 1 diabetes mellitus without complications; E66.01 Morbid (severe) obesity due to excess calories; Z68.37 Body mass index [BMI] 37.0-37.9, adult; I11.0 Hypertensive heart disease with heart failure; I48.0 Paroxysmal atrial fibrillation; E03.9 Hypothyroidism, unspecified; E78.5 Hyperlipidemia, unspecified; E87.5 Hyperkalemia; F17.210 Nicotine dependence, cigarettes, uncomplicated; G25.81 Restless legs syndrome; T50.2X5A Adverse effect of carbonic-anhydrase inhibitors, benzothiadiazides and other diuretics, initial encounter; Z79.01 Long term (current) use of anticoagulants; Z79.4 Long term (current) use of insulin; Z79.51 Long term (current) use of inhaled steroids; Z79.890 Hormone replacement therapy; Z79.899 Other long term (current) drug therapy; Z83.3 Family history of diabetes mellitus; Z88.1 Allergy status to other antibiotic agents; Z88.5 Allergy status to narcotic agent; Z90.49 Acquired absence of other specified parts of digestive tract; Z98.51 Tubal ligation status; M19.90 Unspecified osteoarthritis, unspecified site; Z86.14 Personal history of Methicillin resistant Staphylococcus aureus infection
CPT/HCPCS: 36415; 80048; 80053; 82009; 82565; 83735; 84550; 85025; 85027; 86140; 87040; 94640; 96374; 96375; 99285

== ENCOUNTER 2022-05-05 00:55 | Emergency (ER) | payer MEDICARE, OTHER ==
[2022-05-05 01:07] VITALS: TEMP 98.7
[2022-05-05] MEDS ORDERED: HYDROmorphone 0.5 MG/0.5 ML SYRINGE IVP STA (01:14)
[2022-05-05] MEDS ORDERED: SODIUM CHLORIDE 0.9% 500 ML 500 ML IV STA (01:18)
[2022-05-05] MEDS ORDERED: METOPROLOL SUCCINATE (ER) 25 MG TAB.ER.24H PO STA (01:20)
[2022-05-05 02:08] LABS: Basophils # (A) 0.1 k/uL (0-0.2); Basophils % (A) 1 %; Eosinophils % (A) 0 %; HCT 44.9 % (34.0-46.0); HGB 14.2 gm/dL (11.4-16.0); Lymphocytes # (A) 1.7 k/uL (1.0-4.8); Lymphocytes % (A) 15 %; MCH 30.3 pg (25.0-35.0); MCHC 31.7 g/dL (31.0-37.0); MCV 95.8 fL (80.0-100.0); Mean Platelet Volume 9.5; Monocytes # (A) 1.1 k/uL (0-1.0); Monocytes % (A) 9 %; Neutrophils # (A) 8.4 k/uL (1.3-7.7); Neutrophils % (A) 73 %; Platelet Count 174 k/uL (150-450); RBC 4.68 m/uL (3.80-5.40); RDW 13.3 % (11.5-15.5); WBC 11.5 k/uL (3.8-10.6)
[2022-05-05 02:29] LABS: Calcium 9.7 mg/dL (8.4-10.2); Digoxin 0.8 ng/mL; Magnesium 1.7 mg/dL (1.6-2.3); Potassium 4.5 mmol/L (3.5-5.1)
--- NOTE | 2022-05-05 02:30 | XR ---
EXAMINATION TYPE: XR chest 1V DATE OF EXAM: 05/05/2022 COMPARISON: 09/17/2021 HISTORY: Atrial fibrillation TECHNIQUE: Single view FINDINGS: There is no heart failure nor confluent pneumonic infiltrate. Costophrenic angles are clear . There are no hilar masses. IMPRESSION: No active cardiopulmonary disease. No change.
--- NOTE | 2022-05-05 02:31 | XR ---
EXAMINATION TYPE: XR humerus RT DATE OF EXAM: 05/05/2022 COMPARISON: NONE HISTORY: Pain TECHNIQUE: 3 views FINDINGS: Shoulder joint is intact. Elbow joint is intact. I see no fracture nor dislocation. IMPRESSION: Negative right humerus exam.
--- NOTE | 2022-05-05 02:32 | XR ---
EXAMINATION TYPE: XR shoulder limited RT DATE OF EXAM: 05/05/2022 COMPARISON: NONE HISTORY: Pain TECHNIQUE: 3 views FINDINGS: The glenohumeral joint is intact. No fracture seen. AC joint is intact. No pathologic calci fication. IMPRESSION: Negative right shoulder exam.
--- NOTE | 2022-05-05 02:33 | XR ---
EXAMINATION TYPE: XR forearm RT DATE OF EXAM: 05/05/2022 COMPARISON: NONE HISTORY: Pain and swelling TECHNIQUE: 3 view FINDINGS: The radius and ulna appear intact. No fracture seen. Carpal bones are intact. There is some mild subcutaneous edema on the posterior proximal ulna. IMPRESSION: Negative right forearm exam. Mild soft tissue edema.
--- NOTE | 2022-05-05 02:34 | XR ---
EXAMINATION TYPE: XR hand limited RT DATE OF EXAM: 05/05/2022 COMPARISON: NONE HISTORY: Pain and swelling TECHNIQUE: 2 view FINDINGS: The metacarpals are intact. Carpal bones are intact. I see no fracture nor dislocation. The re are no erosions. There is some soft tissue swelling on the dorsum of the hand and wrist. IMPRESSION: Soft tissue swelling. No fracture seen.
[2022-05-05] MEDS ORDERED: HYDROmorphone 1 MG/ML 1 ML SYRINGE IVP STA (03:06)
--- NOTE | 2022-05-05 03:16 | US ---
EXAMINATION TYPE: US venous doppler duplex UE RT DATE OF EXAM: 05/05/2022 COMPARISON: NONE CLINICAL HISTORY: Pain, hand swelling. Infection in right arm x 1 month, patient very tense and shaki ng during exam, no h/o dvt SIDE PERFORMED: Right Right Arm: Negative for DVT IMPRESSION: No sign of deep vein thrombosis in the right arm.
--- NOTE | 2022-05-05 03:31 | ED ---
General Adult HPI - General Chief complaint: Extremity Problem,Nontraumatic Stated complaint: Right arm Pain Time Seen by Provider: 05/05/22 01:05 Source: EMS, RN notes reviewed, old records reviewed Mode of arrival: EMS - History of Present Illness Initial comments: Patient is a 66-year-old female with past medical history remarkable for atrial fibrillation, heart failure, COPD, diabetes, hypertension who was recently admitted last month for a right hand infection requiring antibiotics who just completed antibiotics, presents emergency Department complaining of right arm p ain. States it hurts with movement of any part of the right arm. She notices some swelling in her right hand as well. Prior source of the infection was a "blister on her right thumb which is healing. No worsening discharge. Patient is complaining of diffuse pain. Unknown the cause. Concerned it may be related to Elliquis. Is on pain medications at home. Presents for further evaluation of a concern for possible worsening infection. Patient does have a history of atrial fibrillation, was found to be in RVR likely poly-factorial and she did not take her metoprolol this evening. She'll be given a dose. Also we'll treat pain. She was in agreement this plan. - Related Data Home Medications Medication Instructions Recorded Confirmed ALPRAZolam [Xanax] 1 mg PO QID PRN 01/06/18 04/06/22 Furosemide [Lasix] 40 mg PO DAILY 01/06/18 04/06/22 HYDROcodone/APAP 10-325MG [[place] 1 tab PO Q6H PRN 01/06/18 04/06/22 10-325] Levothyroxine Sodium [Synthroid] 88 mcg PO AC-BRKFST 01/06/18 04/06/22 Digoxin 250 mcg PO DAILY 02/28/19 04/06/22 Cholecalciferol [Vitamin D3 (25 50 mcg PO DAILY 07/25/21 04/06/22 Mcg = 1000 Iu)] Ferrous Sulfate [Iron (65 MG 325 mg PO DAILY 07/25/21 04/06/22 Elemental)] Fluticasone Propionate [Flovent 1 puff INHALATION RT-BID 07/25/21 04/06/22 Hfa 110 mcg] Insulin NPH Human Isophane 40 unit SQ HS 07/25/21 04/06/22 [humuLIN N] Metoprolol Succinate (ER) [Toprol 25 mg PO BID 04/06/22 04/06/22 XL] SILVER sulfADIAZINE Cream 1 applic TOPICAL BID 04/06/22 04/06/22 [Silvadene 1% Cream] Sennosides/Docusate Sodium [Senna 2 tab PO MOWEFR 04/06/22 04/06/22 Plus 8.6-50 mg Tablet] Previous Rx's Medication Instructions Recorded Apixaban [Eliquis] 5 mg PO BID #60 tab 09/19/21 Famotidine [Pepcid] 20 mg PO DAILY #30 tab 04/09/22 INSULIN LISPRO (HumaLOG) [humaLOG] 6 units SQ AC-TID #10 ml 04/09/22 polyethylene glycoL 3350 [Miralax] 17 gm PO DAILY packet 04/09/22 Cephalexin [Keflex] 500 mg PO Q6HR 10 Days #40 cap 04/10/22 Cefuroxime [Ceftin] 500 mg PO BID 5 Days #20 tab 05/05/22 methocarbamoL [Robaxin-750] 750 mg PO BID PRN 5 Days #10 tab 05/05/22 predniSONE [Deltasone] 40 mg PO DAILY 5 Days #10 tab 05/05/22 Allergies Allergy/AdvReac Type Severity Reaction Status Date / Time doxycycline Allergy Anaphylaxis Verified 05/05/22 01:02 erythromycin base AdvReac Itching Verified 05/05/22 01:02 morphine AdvReac Itching Verified 05/05/22 01:02 Review of Systems ROS Statement: Those systems with pertinent positive or pertinent negative responses have been documented in the HPI. Review of Systems: CONST: Denies fever EYES: Denies blurry vision ENT: Denies nasal congestion C/V: Denies Chest pain RESP: Denies shortness of breath GI: Denies abdominal pain : Denies dysuria SKIN: Denies rash. MSK: Endorses right arm pain NEURO: Denies headache ROS Other: All systems not noted in ROS Statement are negative. Past Medical History Past Medical History: Atrial Fibrillation, Heart Failure, COPD, Diabetes Mellitus, Hyperlipidemia, Hypertension, Thyroid Disorder Additional Past Medical History / Comment(s): arthritis. cyst behing left leg. History of Any Multi-Drug Resistant Organisms: MRSA Date of last positivie culture/infection: 1999 MDRO Source:: blood Past Surgical History: Appendectomy, Cholecystectomy, Tonsillectomy, Tubal Li gation Additional Past Surgical History / Comment(s): bilateral knee laproscopy. Past Anesthesia/Blood Transfusion Reactions: No Reported Reaction Past Psychological History: No Psychological Hx Reported Smoking Status: Current every day smoker Past Alcohol Use History: None Reported Past Drug Use History: None Reported - Past Family History Father Family Medical History: Diabetes Mellitus, Renal Disease Mother History Unknown: Yes Family Medical History: Diabetes Mellitus Brother(s) History Unknown: Yes Sister(s) History Unknown: Yes Daughter(s) Family Medical History: No Reported History Son(s) Family Medical History: No Reported History General Exam - General Exam Comments Initial Comments: General: Appears in no acute distress. Patient is an high BMI. HEAD: Normal with no signs of head trauma. EYES: PERRLA, EOMI, conjunctiva normal, no discharge. ENT: Hearing grossly intact, normal oropharynx. RESPIRATORY: Clear breath sounds bilaterally. No wheezes, rales, or rhonchi. C/V: Regular rate and rhythm. S1 and S2 auscultated, no edema, peripheral pulses 2+ and intact throughout ABD: Abd is soft, nontender, nondistended EXT: Reduced range of motion of the right upper extremity. No obvious source. Arm itself appears unremarkable and compared to the left arm. Soft compartments. No skin changes. No masses palpated. Some mild swelling of the fingers of the right hand. Neurovascularly intact. No obvious deformities. Exam relatively unremarkable SKIN: Healing lesion on the right thumb. No other skin findings. NEURO: Alert and Oriented 4. No focal deficits. Course Vital Signs 05/05/22 05/05/22 01:03 04:32 Temperature 98.7 F Pulse Rate 148 H 84 Respiratory 15 15 Rate Blood Pressure 127/85 139/74 O2 Sat by Pulse 99 98 Oximetry Medical Decision Making - Medical Decision Making Based on the patient's presentation and physical exam, she is concerned for acute arm issues secondary to her pain. She'll be given analgesia medications. She'll be given a dose of her home metoprolol. She was in agreement with this plan. We will obtain basic laboratory studies as well as x-rays of the right arm and a venous duplex ultrasound of the right arm. She was in agreement this plan. On reevaluation initially, pulse was improved in the 80s. Screening EKG was obtained on the patient. It shows atrial fibrillation with RVR. As discussed in HPI, likely fact poly-factorial secondary to pain and not taking her evening metoprolol dose. Seems to have resolved. No signs of acute ischemia. Laboratory studies remarkable for mild leukocytosis of 11.5. Electrolytes are unremarkable and within normal limits. Digoxin level is therapeutic at 0.8. Patient's x-ray showed no acute abnormalities. There is soft tissue swelling in the hand only. Venous duplex study was negative for DVT. I will provide the patient with a prescription for cefuroxime, robaxin. I instructed the patient to follow up with their PCP in the next 1-3 days. I exp lained that the patient should return to the emergency department if they experience any worsening symptoms. Strict return precautions were discussed with the patient. The patient expressed understanding of these instructions. I answered all questions that the patient had. The patient was discharged home in fair condition with their prescriptions and follow up information. - Lab Data Result diagrams: 05/05/22 01:48 05/05/22 01:48 Lab Results 05/05/22 05/05/22 05/05/22 Range/Units 01:48 01:48 05:42 WBC 11.5 H (3.8-10.6) k/uL RBC 4.68 (3.80-5.40) m/uL Hgb 14.2 (11.4-16.0) gm/dL Hct 44.9 (34.0-46.0) % MCV 95.8 (80.0-100.0) fL MCH 30.3 (25.0-35.0) pg MCHC 31.7 (31.0-37.0) g/dL RDW 13.3 (11.5-15.5) % Plt Count 174 (150-450) k/uL MPV 9.5 Neutrophils % 73 % Lymphocytes % 15 % Monocytes % 9 % Eosinophils % 0 % Basophils % 1 % Neutrophils # 8.4 H (1.3-7.7) k/uL Lymphocytes # 1.7 (1.0-4.8) k/uL Monocytes # 1.1 H (0-1.0) k/uL Eosinophils # 0.0 (0-0.7) k/uL Basophils # 0.1 (0-0.2) k/uL Sodium 133 L (137-145) mmol/L Potassium 4.5 (3.5-5.1) mmol/L Chloride 95 L (98-107) mmol/L Carbon Dioxide 26 (22-30) mmol/L Anion Gap 12 mmol/L BUN 37 H (7-17) mg/dL Creatinine 1.01 (0.52-1.04) mg/dL Est GFR (CKD-EPI)AfAm 67 (>60 ml/min/1.73 sqM) Est GFR (CKD-EPI)NonAf 58 (>60 ml/min/1.73 sqM) Glucose 214 H (74-99) mg/dL POC Glucose (mg/dL) 237 H (70-110) mg/dL POC Glu [employer] ID Babita Rao Calcium 9.7 (8.4-10.2) mg/dL Magnesium 1.7 (1.6-2.3) mg/dL Digoxin 0.8 ng/mL - EKG Data -: EKG Interpreted by Me EKG Comments: 12-lead Electrocardiogram Interpretation Note EKG was reviewed and interpreted by myself. 12-lead ECG performed at 0058 is interpreted by me as revealing atrial fibrillation with RVR at a rate of 152 beats per minute. [place] is leftward deviated. QRS durations 106 seconds, QTC is 377 ms.. There were no ST or T wave abnormalities to suggest myocardial ischemia or injury. R wave progression across the precordium was delayed. By my interpretation this EKG is non-diagnostic for acute ischemia. No change when compared to prior EKGs. Disposition Clinical Impression: Right arm pain, Muscle spasm, History of atrial fibrillation Disposition: HOME SELF-CARE Condition: Good Instructions (If sedation given, give patient instructions): Muscle Spasm (ED) Prescriptions: Cefuroxime [Ceftin] 500 mg PO BID 5 Days #20 tab predniSONE [Deltasone] 40 mg PO DAILY 5 Days #10 tab methocarbamoL [Robaxin-750] 750 mg PO BID PRN 5 Days #10 tab PRN Reason: Pain Is patient prescribed a controlled substance at d/c from ED?: No Referrals: Gabriel Vera MD [Primary Care Provider] - 1-2 days Time of Disposition: 04:00
[2022-05-05] MEDS ORDERED: ACET/COD 300 MG/30 MG STARTER PACK 6 TAB BTL PO STA (03:36)
[2022-05-05] MEDS ORDERED: CEFUROXIME 750 MG in SODIUM CHLORIDE 0.9% 50 ML IVPB ONE (04:00)
[2022-05-05 05:43] LABS: Glucose,Whole Blood 237 mg/dL (70-110)
[2022-05-05 07:39] VITALS: BP 132/81; PULSE 82; RESP 18
[2022-05-05] MEDS ORDERED: DEXAMETHASONE SOD PHOSPHATE 10 MG/ML 1 ML VIAL IVP SCH (09:00)
== END 2022-05-05 08:00 | disposition home or self-care (01) ==
LOC: EC 00:55
DX: M79.601 Pain in right arm (principal); M62.838 Other muscle spasm; D72.829 Elevated white blood cell count, unspecified; J44.9 Chronic obstructive pulmonary disease, unspecified; E11.9 Type 2 diabetes mellitus without complications; E78.5 Hyperlipidemia, unspecified; E07.9 Disorder of thyroid, unspecified; I11.0 Hypertensive heart disease with heart failure; I50.9 Heart failure, unspecified; F17.200 Nicotine dependence, unspecified, uncomplicated; Z86.79 Personal history of other diseases of the circulatory system; Z79.890 Hormone replacement therapy; Z79.51 Long term (current) use of inhaled steroids; Z79.4 Long term (current) use of insulin; Z79.899 Other long term (current) drug therapy; Z88.1 Allergy status to other antibiotic agents; Z88.6 Allergy status to analgesic agent
CPT/HCPCS: 36415; 93005; 80048; 80162; 83735; 85025; 73020; 73060; 73090; 73120; 71045; 93971; 99284; 96365; 96366; 96375; 96376; J1100; J0697; J1170 ×2

== ENCOUNTER → 2022-08-09 | Outpatient (CLI) | payer MEDICARE, OTHER ==
--- NOTE | 2022-08-09 15:10 | P.GSHP ---
History of Present Illness H&P Date: 08/09/22 Chief Complaint: lump right breast Sabrina is a 66 year old white female seen in consultation for DR. Vera regarding a right breast mass. She had a bilateral mammogram on 06-25-22 after which a right breast ultrasound was recommended. This was done on 06-25-22 which showed most likely a lipomatous lesion and yearly screening recommended. The patient feels a lump in her right breast for about a month. It is painful at times. It is itching. Mammogram and ultrasound were done secondary to the fact that the patient could feel the lesion of concern. She has not had any surgery on her breast. Does not complain of any other lumps masses or nodules of concern. She is not complaining of any nipple discharge. Is not complaining of any trauma or infection in her breast. Had multiple blood transfusions related to GI bleeding believed to be related to anticoagulation for atrial fibrillation. Wheel chair dependant related to weak right leg, and cervical disc disease. Caffeine: none nicotine: 1/2 PPD CPOD and asthma; been smoking 40 years chocolate: none BCP: 1 year in her 20's Family History: none Hormonal History: menarche: `4 breast fed:yes, age at first : 19 menopause: MICHELE at about 55; endometriosis ? cancer Surgical History: MICHELE gallbladder appy tonsil tubal Medical History: crippling arthritis hendrix cyst left leg AFIB COPD with asthma anxiety diabetic CHF hypothyroid Social History: nicotine: Half pack per day for 40 years Alcohol: Negative Drugs: Negative - Constitutional Constitutional: Reports sweats, Denies chills, Denies fever - EENT Eyes: denies blurred vision, denies pain Ears: deny: decreased hearing, tinnitus Ears, nose, mouth and throat: Denies headache, Denies sore throat - Breasts Breasts: bilateral: as per HPI - Cardiovascular Cardiovascular: Denies chest pain, Denies shortness of breath - Respiratory Comment: COPD/asthma - Gastrointestinal Gastrointestinal: Reports diarrhea - Genitourinary (Female) Genitourinary: Denies dysuria, Denies hematuria - Menstruation Menstruation: Reports post hysterectomy - Musculoskeletal Musculoskeletal: Reports as per HPI - Integumentary Comment: right nipple ithches - Neurological Neurological: Reports numbness, Reports weakness - Psychiatric Psychiatric: Reports anxiety - Endocrine Comment: went from 360 to 250 Endocrine: Reports fatigue, Reports weight change - Hematologic/Lymphatic Comment: on Eliquis for atrial fib - Allergic/Immunologic Allergic/Immunologic: Reports as per HPI Past Medical History Past Medical History: Atrial Fibrillation, Heart Failure, COPD, Diabetes Mellitus, Hyperlipidemia, Hypertension, Thyroid Disorder Additional Past Medical History / Comment(s): arthritis. cyst behing left leg. History of Any Multi-Drug Resistant Organisms: MRSA Date of last positivie culture/infection: 1999 MDRO Source:: blood Past Surgical History: Appendectomy, Cholecystectomy, Tonsillectomy, Tubal Ligation Additional Past Surgical History / Comment(s): bilateral knee laproscopy. Past Anesthesia/Blood Transfusion Reactions: No Reported Reaction Past Psychological History: No Psychological Hx Reported Smoking Status: Current every day smoker Past Alcohol Use History: None Reported Past Drug Use History: None Reported - Past Family History Father Family Medical History: Diabetes Mellitus, Renal Disease Mother History Unknown: Yes Family Medical History: Diabetes Mellitus Brother(s) History Unknown: Yes Sister(s) History Unknown: Yes Daughter(s) Family Medical History: No Reported History Son(s) Family Medical History: No Reported History Medications and Allergies Home Medications Medication Instructions Recorded Confirmed Type ALPRAZolam [Xanax] 1 mg PO QID PRN 01/06/18 04/06/22 History Furosemide [Lasix] 40 mg PO DAILY 01/06/18 04/06/22 History HYDROcodone/APAP 10-325MG [[place] 1 tab PO Q6H PRN 01/06/18 08/09/22 History 10-325] Levothyroxine Sodium [Synthroid] 88 mcg PO AC-BRKFST 01/06/18 08/09/22 History Digoxin 250 mcg PO DAILY 02/28/19 04/06/22 History Cholecalciferol [Vitamin D3 (25 50 mcg PO DAILY 07/25/21 04/06/22 History Mcg = 1000 Iu)] Ferrous Sulfate [Iron (65 MG 325 mg PO DAILY 07/25/21 04/06/22 History Elemental)] Fluticasone Propionate [Flovent 1 puff INHALATION RT-BID 07/25/21 04/06/22 History Hfa 110 mcg] Insulin NPH Human Isophane 40 unit SQ HS 07/25/21 04/06/22 History [humuLIN N] Apixaban [Eliquis] 5 mg PO BID #60 tab 09/19/21 04/06/22 Rx Metoprolol Succinate (ER) [Toprol 25 mg PO BID 04/06/22 08/09/22 History XL] SILVER sulfADIAZINE Cream 1 applic TOPICAL BID 04/06/22 08/09/22 History [Silvadene 1% Cream] INSULIN LISPRO (HumaLOG) [humaLOG] 6 units SQ AC-TID #10 ml 04/09/22 08/09/22 Rx polyethylene glycoL 3350 [Miralax] 17 gm PO DAILY packet 04/09/22 08/09/22 Rx Cephalexin [Keflex] 500 mg PO Q6HR 10 Days #40 cap 04/10/22 08/09/22 Rx Allergies Allergy/AdvReac Type Severity Reaction Status Date / Time doxycycline Allergy Anaphylaxis Verified 08/09/22 14:39 erythromycin base AdvReac Itching Verified 08/09/22 14:39 morphine AdvReac Itching Verified 08/09/22 14:39 Surgical - Exam BMI: 33 - General no distress - Eyes normal ocular movement - ENT no hearing loss - Neck trachea midline - Respiratory bilateral ronchi normal respiratory effort - Cardiovascular Heart Sounds: normal: S1, S2 - Abdomen Abdomen: soft, non tender, no guarding, no rigid, no rebound - Integumentary tattoo right arm; bilateral ankle edema - Musculoskeletal wheel chair dependant - Psychiatric oriented to time, oriented to person, oriented to place, speech is normal, memory intact Breast Exam: BRA: 42DD Inspection: Bilateral grade 3 ptosis Palpation: Right breast: Examination in the chair reveals a approximately a 1.5 cm round mass in the posterior nipple areolar position, this is corresponding to what is seen radiographically Right axilla: No adenopathy of concern Left breast: Examination the chair reveals no dominant masses or nodules of concern Left axilla: No adenopathy of concern Results mammogram and ultrasound personally reviewed Assessment and Plan Assessment: Impression: crippling arthritis hendrix cyst left leg AFIB COPD with asthma anxiety diabetic CHF hypothyroid mass right breast ultrasound abnormaltiy right breast Plan: ultrasound core biopsy right breast CC: DR. Vera
[2022-08-09 16:53] VITALS: BP 117/78; PULSE 83; RESP 18; TEMP 98.2
== END ==
LOC: WWCWWP 13:45
PROVIDERS: ATTEND Surgery
DX: N63.10 Unspecified lump in the right breast, unspecified quadrant (principal); E03.9 Hypothyroidism, unspecified; M06.9 Rheumatoid arthritis, unspecified; F41.9 Anxiety disorder, unspecified; J44.9 Chronic obstructive pulmonary disease, unspecified; M71.22 Synovial cyst of popliteal space [Baker], left knee; E11.9 Type 2 diabetes mellitus without complications; I50.9 Heart failure, unspecified; I48.91 Unspecified atrial fibrillation; Z88.1 Allergy status to other antibiotic agents; Z88.5 Allergy status to narcotic agent; F17.200 Nicotine dependence, unspecified, uncomplicated; Z79.4 Long term (current) use of insulin

== ENCOUNTER → 2022-12-12 | Outpatient (CLI) | payer MEDICARE, OTHER ==
[2022-12-12 21:59] LABS: Basophils # (A) 0.08 X 10*3/uL (0.00-0.10); Basophils % (A) 0.6 %; Eosinophils % (A) 1.5 %; HCT 44.1 % (37.2-46.3); Immature Grans, Automated 0.7 %; Lymphocytes # (A) 2.89 X 10*3/uL (0.90-5.00); MCH 31.4 pg (27.0-32.0); MCHC 31.7 g/dL (32.0-37.0); MCV 98.9 fL (80.0-97.0); Mean Platelet Volume 12.3 fL (9.5-12.2); Monocytes # (A) 0.74 X 10*3/uL (0.20-1.00); Monocytes % (A) 5.6 %; NRBC Per 100 WBC 0 /100 WBCS (0.0-0.0); Neutrophils # (A) 9.13 X 10*3/uL (1.80-7.70); Neutrophils % (A) 69.6 %; Platelet Count 174 X 10*3/uL (140-440); RBC 4.46 X 10*6/uL (4.10-5.20); RDW 14.1 % (11.5-14.5); WBC 13.13 X 10*3/uL (4.50-10.00)
[2022-12-12 22:04] LABS: African American GFR (CKD) 60.2 (60.0-200.0); Albumin 4.1 g/dL (3.8-4.9); Albumin/Globulin Ratio 1.86 (1.60-3.17); Anion Gap 13.7 mmol/L (10.00-18.00); BUN/Creat Ratio 21.73 Ratio (12.00-20.00); Blood Urea Nitrogen 23.9 mg/dL (9.0-27.0); Calcium 10.1 mg/dL (8.7-10.3); Carbon Dioxide 26.3 mmol/L (20.0-27.5); Globulin 2.2 g/dL (1.6-3.3); Non-African American GFR(CKD) 51.9 (60.0-200.0); Potassium 4.2 mmol/L (3.5-5.5); Total Bilirubin 0.4 mg/dL (0.30-1.20); Total Protein 6.3 g/dL (6.2-8.2)
== END | disposition home or self-care (01) ==
LOC: LABWHC1 12:56
PROVIDERS: ATTEND Family Medicine
DX: M10.9 Gout, unspecified (principal)
CPT/HCPCS: 36415; 80053; 84550; 85025

== ENCOUNTER → 2022-12-12 | Day surgery (SDC) | payer MEDICARE, OTHER ==
--- NOTE | 2022-12-19 10:32 | MM ---
Reason for Exam: Post Procedure Mammogram. Last mammogram was performed 7 year(s) and 7 month(s) ago. Patient History: Menarche at age 13. First Full-Term at age 42. Late child-bearing (after 30). Left ovary removed at age 55. Right ovary removed at age 55. Hysterectomy at age 55. Postmenopausal. Endometrial cancer, age 55. 10/17/2022, US biopsy breast VAD RT on the Right side. Risk Values: Aspen 5 year model risk: 2.8%. NCI Lifetime model risk: 9.3%. Prior Study Comparison: 09/17/2006 Screening Mammogram, [place]. 03/19/2013 Bilateral Screening Mammogram, [facility]. 05/25/2015 Bilateral Diagnostic Mammogram, [facility]. 10/17/2022 Right MG diagnostic mammo RT wo CAD, [facility]. Tissue Density: Right: The breast tissue is heterogeneously dense. This may lower the sensitivity of mammography. Pathology Description: Location: 6 o'clock, retroareolar. Marker Left Behind. Cores: 4 Gauge: 13 The procedure of ultrasound guided core biopsy was explained to the patient. Benefits, alternatives, and risks were discussed. An informed consent was then obtained. The patient was placed in supine positioning for imaging and for the procedure. The overlying skin was prepped and draped in usual sterile fashion. Lidocaine buffered with bicarbonate was used as anesthetic into the skin and subcutaneous tissue up to area of concern in the right breast. Under ultrasound guidance, a 12-gauge vacuum assisted biopsy gun device was used to obtain 4 core samples. Following this, a biopsy clip was left in lesion. The patient tolerated the procedure well without any immediate complication. The patient was kept in the radiology department for short stay after the procedure and then discharged home in stable condition. Postprocedure mammogram: The patient was transferred to mammography for physician ordered post procedure mammogram for clip placement verification. Postprocedure mammogram demonstrates biopsy clip to have migrated approximately 1 cm posteriorly from the biopsy site with associated small hematoma. Impression: Successful ultrasound guided core biopsy of area of concern in the right breast, full pathology results to follow. Pathology Results: Result: Benign, Focal fibrosis. BREAST, RIGHT NIPPLE, SIX O'CLOCK, ULTRASOUND GUIDED NEEDLE CORE BIOPSY: Benign fibroadipose tissue with focal fibrosis/scar and hemosiderin laden histiocytes. See note. Notes CKAE1/3 immunoperoxidase stain performed and examined with an appropriate positive control shows no evidence of invasive malignancy. The findings support the above diagnosis. Overall Assessment: Benign Assessment: MG diagnostic mammo RT wo CAD - Right: Benign, BI-RAD 2. Management: Diagnostic Breast Ultrasound of the right breast in 6 months. Electronically signed and approved by: Everett Boyd D.O.
== END ==
LOC: RADUSWWP 12:53
PROVIDERS: ATTEND Surgery
DX: N60.31 Fibrosclerosis of right breast (principal); Z90.721 Acquired absence of ovaries, unilateral; Z78.0 Asymptomatic menopausal state
CPT/HCPCS: 88305; 88342; 77065; 19083; A4648

== ENCOUNTER → 2023-01-24 | Outpatient (CLI) | payer MEDICARE, OTHER ==
[2023-01-24 13:12] VITALS: BP 124/78; PULSE 75; RESP 18; TEMP 97.9
--- NOTE | 2023-01-24 13:19 | P.PN ---
Subjective Progress Note Date: 01/24/23 Principal diagnosis: focal fibrosis/scar of the right breast Sabrina is a 66 year old white female seen in consultation for DR. Vera regarding a right breast mass. She had a bilateral mammogram on 06-25-22 after which a right breast ultrasound was recommended. This was done on 06-25-22 which showed most likely a lipomatous lesion and yearly screening recommended. The patient feels a lump in her right breast for about a month. It is painful at times. It is itching. Mammogram and ultrasound were done secondary to the fact that the patient could feel the lesion of concern. She has not had any surgery on her breast. Does not complain of any other lumps masses or nodules of concern. She is not complaining of any nipple discharge. Is not complaining of any trauma or infection in her breast. Had multiple blood transfusions related to GI bleeding believed to be related to anticoagulation for atrial fibrillation. The patient on 12-12-22 had a ultrasound guided core biopsy of the right breast, pathology was benign concordant The patient has severe COPD and asthma, additionally she has congestive heart failure and atrial fibrillation. Wheel chair dependant related to weak right leg, and cervical disc disease. Caffeine: none nicotine: 1/2 PPD CPOD and asthma; been smoking 40 years chocolate: none BCP: 1 year in her 20's Family History: none Hormonal History: menarche: `4 breast fed:yes, age at first : 19 menopause: MICHELE at about 55; endometriosis ? cancer Surgical History: MICHELE gallbladder appy tonsil tubal Medical History: crippling arthritis hendrix cyst left leg AFIB COPD with asthma anxiety diabetic CHF hypothyroid Social History: nicotine: Half pack per day for 40 years Alcohol: Negative Drugs: Negative - Constitutional Constitutional: Reports sweats, Denies chills, Denies fever - EENT Eyes: denies blurred vision, denies pain Ears: deny: decreased hearing, tinnitus Ears, nose, mouth and throat: Denies headache, Denies sore throat - Breasts Breasts: bilateral: as per HPI - Cardiovascular Cardiovascular: Denies chest pain, Denies shortness of breath - Respiratory Comment: COPD/asthma - Gastrointestinal Gastrointestinal: Reports diarrhea - Genitourinary (Female) Genitourinary: Denies dysuria, Denies hematuria - Menstruation Menstruation: Reports post hysterectomy - Musculoskeletal Musculoskeletal: Reports as per HPI - Integumentary Comment: right nipple ithches - Neurological Neurological: Reports numbness, Reports weakness - Psychiatric Psychiatric: Reports anxiety - Endocrine Comment: went from 360 to 250 Endocrine: Reports fatigue, Reports weight change - Hematologic/Lymphatic Comment: on Eliquis for atrial fib - Allergic/Immunologic Allergic/Immunologic: Reports as per HPI Past Medical History Past Medical History: Atrial Fibrillation, Heart Failure, COPD, Diabetes Mellitus, Hyperlipidemia, Hypertension, Thyroid Disorder Additional Past Medical History / Comment(s): arthritis. cyst behing left leg. History of Any Multi-Drug Resistant Organisms: MRSA Date of last positivie culture/infection: 1999 MDRO Source:: blood Past Surgical History: Appendectomy, Cholecystectomy, Tonsillectomy, Tubal Ligation Additional Past Surgical History / Comment(s): bilateral knee laproscopy. Past Anesthesia/Blood Transfusion Reactions: No Reported Reaction Past Psychological History: No Psychological Hx Reported Smoking Status: Current every day smoker Past Alcohol Use History: None Reported Past Drug Use History: None Reported - Past Family History Father Family Medical History: Diabetes Mellitus, Renal Disease Mother History Unknown: Yes Family Medical History: Diabetes Mellitus Brother(s) History Unknown: Yes Sister(s) History Unknown: Yes Daughter(s) Family Medical History: No Reported History Son(s) Family Medical History: No Reported History Medications and Allergies Home Medications Medication Instructions Recorded Confirmed Type ALPRAZolam [Xanax] 1 mg PO QID PRN 01/06/18 04/06/22 History Furosemide [Lasix] 40 mg PO DAILY 01/06/18 04/06/22 History HYDROcodone/APAP 10-325MG [Adams 1 tab PO Q6H PRN 01/06/18 08/09/22 History 10-325] Levothyroxine Sodium [Synthroid] 88 mcg PO AC-BRKFST 01/06/18 08/09/22 History Digoxin 250 mcg PO DAILY 02/28/19 04/06/22 History Cholecalciferol [Vitamin D3 (25 50 mcg PO DAILY 07/25/21 04/06/22 History Mcg = 1000 Iu)] Ferrous Sulfate [Iron (65 MG 325 mg PO DAILY 07/25/21 04/06/22 History Elemental)] Fluticasone Propionate [Flovent 1 puff INHALATION RT-BID 07/25/21 04/06/22 History Hfa 110 mcg] Insulin NPH Human Isophane 40 unit SQ HS 07/25/21 04/06/22 History [humuLIN N] Apixaban [Eliquis] 5 mg PO BID #60 tab 09/19/21 04/06/22 Rx Metoprolol Succinate (ER) [Toprol 25 mg PO BID 04/06/22 08/09/22 History XL] SILVER sulfADIAZINE Cream 1 applic TOPICAL BID 04/06/22 08/09/22 History [Silvadene 1% Cream] INSULIN LISPRO (HumaLOG) [humaLOG] 6 units SQ AC-TID #10 ml 04/09/22 08/09/22 Rx polyethylene glycoL 3350 [Miralax] 17 gm PO DAILY packet 04/09/22 08/09/22 Rx Cephalexin [Keflex] 500 mg PO Q6HR 10 Days #40 cap 04/10/22 08/09/22 Rx Allergies Allergy/AdvReac Type Severity Reaction Status Date / Time doxycycline Allergy Anaphylaxis Verified 08/09/22 14:39 erythromycin base AdvReac Itching Verified 08/09/22 14:39 morphine AdvReac Itching Verified 08/09/22 14:39 Objective - Constitutional General appearance: Present: cooperative - EENT Eyes: Present: EOMI ENT: Present: hearing grossly normal - Neck Neck: Present: normal ROM - Respiratory Respiratory: bilateral: CTA - Cardiovascular Heart sounds: normal: S1, S2 - Integumentary Integumentary: Present: normal turgor - Musculoskeletal Musculoskeletal Comment(s): wheel chair dependant - Psychiatric Psychiatric: Present: A&O x's 3, appropriate affect, intact judgment & insight - Additional findings Additional findings: Breast Exam: BRA: 42DD Inspection: Bilateral grade 3 ptosis Palpation: Right breast: Examination in the chair reveals a approximately a 1.5 cm round mass in the posterior nipple areolar position, this is corresponding to what is seen radiographically for was believed to be biopsied Right axilla: No adenopathy of concern Left breast: Examination the chair reveals no dominant masses or nodules of concern Left axilla: No adenopathy of concern Assessment and Plan Assessment: Impression: crippling arthritis hendrix cyst left leg AFIB COPD with asthma anxiety diabetic CHF hypothyroid mass right breast ultrasound abnormaltiy right breast core biopsy on revealed benign fibroadipose tissue with focal fibrosis/scar and hemosiderin laden histiocytes she had a prior biopsy and which revealed scar with fat necrosis and histiocytes Plan: At this time the patient is not a candidate for surgical excision secondary to medical comorbidities therefore we will watch the area closely with a repeat ultrasound of the right breast in 3 months and examination at that time appointment with Dr. Vera to quantitate surgical risk ultrasound core biopsy right breast benign concordant on 12-12-22 Dr. Vera
== END ==
LOC: WWCWWP 12:59
PROVIDERS: ATTEND Surgery
DX: N63.10 Unspecified lump in the right breast, unspecified quadrant (principal); E03.9 Hypothyroidism, unspecified; E11.9 Type 2 diabetes mellitus without complications; E78.5 Hyperlipidemia, unspecified; F17.210 Nicotine dependence, cigarettes, uncomplicated; F41.9 Anxiety disorder, unspecified; I11.0 Hypertensive heart disease with heart failure; I48.91 Unspecified atrial fibrillation; I50.9 Heart failure, unspecified; J44.9 Chronic obstructive pulmonary disease, unspecified; M19.90 Unspecified osteoarthritis, unspecified site; Z79.01 Long term (current) use of anticoagulants; Z79.4 Long term (current) use of insulin; Z79.51 Long term (current) use of inhaled steroids; Z83.3 Family history of diabetes mellitus; Z88.1 Allergy status to other antibiotic agents; Z88.5 Allergy status to narcotic agent; Z90.49 Acquired absence of other specified parts of digestive tract

== ENCOUNTER → 2023-03-29 | Outpatient (CLI) | payer MEDICARE, OTHER ==
[2023-03-29 12:49] VITALS: BP 115/75; PULSE 72; RESP 20; TEMP 98
--- NOTE | 2023-03-29 13:09 | P.PN ---
Subjective Progress Note Date: 03/29/23 focal fibrosis/scar of the right breast Sabrina is a 66 year old white female seen in consultation for DR. Vera regarding a right breast mass. She had a bilateral mammogram on 06-25-22 after which a right breast ultrasound was recommended. This was done on 06-25-22 which showed most likely a lipomatous lesion and yearly screening recommended. The patient feels a lump in her right breast for about a month. It is painful at times. It is itching. Mammogram and ultrasound were done secondary to the fact that the patient could feel the lesion of concern. She has not had any surgery on her breast. Does not complain of any other lumps masses or nodules of concern. She is not complaining of any nipple discharge. Is not complaining of any trauma or infection in her breast. Had multiple blood transfusions related to GI bleeding believed to be related to anticoagulation for atrial fibrillation. The patient on 12-12-22 had a ultrasound guided core biopsy of the right breast, pathology was benign concordant The patient has severe COPD and asthma, additionally she has congestive heart failure and atrial fibrillation. Wheel chair dependant related to weak right leg, and cervical disc disease. 03-29-23 repeat ultrasound of the right breast is felt to be benign BIRADS 2 The patient does not feel that the lesion has particularly gotten larger. But she still can feel the area of concern. Caffeine: none nicotine: 1/2 PPD CPOD and asthma; been smoking 40 years chocolate: none BCP: 1 year in her 20's Family History: none Hormonal History: menarche: `4 breast fed:yes, age at first : 19 menopause: MICHELE at about 55; endometriosis ? cancer Surgical History: MICHELE gallbladder appy tonsil tubal Medical History: crippling arthritis hendrix cyst left leg AFIB COPD with asthma anxiety diabetic CHF hypothyroid Social History: nicotine: Half pack per day for 40 years Alcohol: Negative Drugs: Negative - Constitutional Constitutional: Reports sweats, Denies chills, Denies fever - EENT Eyes: denies blurred vision, denies pain Ears: deny: decreased hearing, tinnitus Ears, nose, mouth and throat: Denies headache, Denies sore throat - Breasts Breasts: bilateral: as per HPI - Cardiovascular Cardiovascular: Denies chest pain, Denies shortness of breath - Respiratory Comment: COPD/asthma - Gastrointestinal Gastrointestinal: Reports diarrhea - Genitourinary (Female) Genitourinary: Denies dysuria, Denies hematuria - Menstruation Menstruation: Reports post hysterectomy - Musculoskeletal Musculoskeletal: Reports as per HPI - Integumentary Comment: right nipple ithches - Neurological Neurological: Reports numbness, Reports weakness - Psychiatric Psychiatric: Reports anxiety - Endocrine Comment: went from 360 to 250 Endocrine: Reports fatigue, Reports weight change - Hematologic/Lymphatic Comment: on Eliquis for atrial fib - Allergic/Immunologic Allergic/Immunologic: Reports as per HPI Past Medical History Past Medical History: Atrial Fibrillation, Heart Failure, COPD, Diabetes Mellitus, Hyperlipidemia, Hypertension, Thyroid Disorder Additional Past Medical History / Comment(s): arthritis. cyst behing left leg. History of Any Multi-Drug Resistant Organisms: MRSA Date of last positivie culture/infection: 1999 MDRO Source:: blood Past Surgical History: Appendectomy, Cholecystectomy, Tonsillectomy, Tubal Ligation Additional Past Surgical History / Comment(s): bilateral knee laproscopy. Past Anesthesia/Blood Transfusion Reactions: No Reported Reaction Past Psychological History: No Psychological Hx Reported Smoking Status: Current every day smoker Past Alcohol Use History: None Reported Past Drug Use History: None Reported - Past Family History Father Family Medical History: Diabetes Mellitus, Renal Disease Mother History Unknown: Yes Family Medical History: Diabetes Mellitus Brother(s) History Unknown: Yes Sister(s) History Unknown: Yes Daughter(s) Family Medical History: No Reported History Son(s) Family Medical History: No Reported History Medications and Allergies Home Medications Medication Instructions Recorded Confirmed Type ALPRAZolam [Xanax] 1 mg PO QID PRN 01/06/18 04/06/22 History Furosemide [Lasix] 40 mg PO DAILY 01/06/18 04/06/22 History HYDROcodone/APAP 10-325MG [Trade 1 tab PO Q6H PRN 01/06/18 08/09/22 History 10-325] Levothyroxine Sodium [Synthroid] 88 mcg PO AC-BRKFST 01/06/18 08/09/22 History Digoxin 250 mcg PO DAILY 02/28/19 04/06/22 History Cholecalciferol [Vitamin D3 (25 50 mcg PO DAILY 07/25/21 04/06/22 History Mcg = 1000 Iu)] Ferrous Sulfate [Iron (65 MG 325 mg PO DAILY 07/25/21 04/06/22 History Elemental)] Fluticasone Propionate [Flovent 1 puff INHALATION RT-BID 07/25/21 04/06/22 History Hfa 110 mcg] Insulin NPH Human Isophane 40 unit SQ HS 07/25/21 04/06/22 History [humuLIN N] Apixaban [Eliquis] 5 mg PO BID #60 tab 09/19/21 04/06/22 Rx Metoprolol Succinate (ER) [Toprol 25 mg PO BID 04/06/22 08/09/22 History XL] SILVER sulfADIAZINE Cream 1 applic TOPICAL BID 04/06/22 08/09/22 History [Silvadene 1% Cream] INSULIN LISPRO (HumaLOG) [humaLOG] 6 units SQ AC-TID #10 ml 04/09/22 08/09/22 Rx polyethylene glycoL 3350 [Miralax] 17 gm PO DAILY packet 04/09/22 08/09/22 Rx Cephalexin [Keflex] 500 mg PO Q6HR 10 Days #40 cap 04/10/22 08/09/22 Rx Allergies Allergy/AdvReac Type Severity Reaction Status Date / Time doxycycline Allergy Anaphylaxis Verified 08/09/22 14:39 erythromycin base AdvReac Itching Verified 08/09/22 14:39 morphine AdvReac Itching Verified 08/09/22 14:39 Objective - Vital Signs Vital signs: Vital Signs Temp 98.0 F 03/29/23 12:46 Pulse 72 03/29/23 12:46 Resp 20 03/29/23 12:46 BP 115/75 03/29/23 12:46 Pulse Ox 96 03/29/23 12:46 FiO2 Intake & Output 03/28/23 03/29/23 03/29/23 18:59 06:59 18:59 Weight 124.738 kg - Constitutional General appearance: Present: cooperative - EENT Eyes: Present: EOMI ENT: Present: hearing grossly normal - Neck Neck: Present: normal ROM - Respiratory Respiratory: bilateral: CTA - Cardiovascular Heart sounds: normal: S1, S2 - Integumentary Integumentary: Present: normal turgor - Musculoskeletal Musculoskeletal Comment(s): wheel chair dependant - Psychiatric Psychiatric: Present: A&O x's 3, appropriate affect, intact judgment & insight - Additional findings Additional findings: Breast Exam: right breast: Examination in the wheelchair, approximately 1-1/2 cm area of nodularity directly behind the areolar at approximately the 4 o'clock position this has not changed as per the patient Grade 3 ptosis bilaterally Assessment and Plan Assessment: Impression: crippling arthritis hendrix cyst left leg AFIB COPD with asthma anxiety diabetic CHF hypothyroid mass right breast post aerolar area ultrasound abnormaltiy right breast core biopsy on revealed benign fibroadipose tissue with focal fibrosis/scar and hemosiderin laden histiocytes she had a prior biopsy and which revealed scar with fat necrosis and histiocytes; repeat ultrasound right breast Plan: At this time the patient is not a candidate for surgical excision secondary to medical co-morbidities therefore we will watch the area closely with a bilateral mammogram and right bresat ultrasound in June 2023 examination at that time appointment with Dr. Vera to quantitate surgical risk ultrasound core biopsy right breast benign concordant on Dr. Vera
== END ==
LOC: WWCWWP 11:01
PROVIDERS: ATTEND Surgery
DX: M13.80 Other specified arthritis, unspecified site (principal); I11.0 Hypertensive heart disease with heart failure; I50.9 Heart failure, unspecified; I48.91 Unspecified atrial fibrillation; J44.9 Chronic obstructive pulmonary disease, unspecified; F41.9 Anxiety disorder, unspecified; E11.9 Type 2 diabetes mellitus without complications; E03.9 Hypothyroidism, unspecified; N63.10 Unspecified lump in the right breast, unspecified quadrant; F17.210 Nicotine dependence, cigarettes, uncomplicated; M71.22 Synovial cyst of popliteal space [Baker], left knee; Z79.4 Long term (current) use of insulin; Z79.899 Other long term (current) drug therapy; Z79.890 Hormone replacement therapy; Z79.01 Long term (current) use of anticoagulants; Z88.8 Allergy status to other drugs, medicaments and biological substances; Z88.5 Allergy status to narcotic agent

== ENCOUNTER → 2023-03-29 | Outpatient (CLI) | payer MEDICARE, OTHER ==
--- NOTE | 2023-03-29 11:52 | USB ---
Reason for Exam: Follow-up at short interval from prior study. Patient History: Menarche at age 13. First Full-Term at age 42. Late child-bearing (after 30). Left ovary removed at age 55. Right ovary removed at age 55. Hysterectomy at age 55. Postmenopausal. Endometrial cancer, age 55. 12/12/2022, Benign US biopsy breast VAD RT on the right side. 10/17/2022, US biopsy breast VAD RT on the Right side. Risk Values: Aspen 5 year model risk: 3.5%. NCI Lifetime model risk: 11.7%. Prior Study Comparison: 05/25/2015 Bilateral Diagnostic Mammogram, [facility]. 10/17/2022 Right MG diagnostic mammo RT wo CAD, [facility]. 12/12/2022 Right MG diagnostic mammo RT wo CAD, [facility]. Findings: The upper inner quadrant of the right breast, the axilla of the right breast and the retroareolar of the right breast were scanned. There is an example lesion is noted at the right 3:00 position with internal clip. No new lesions are identified.. Overall Assessment: Benign, BI-RAD 2 Management: Screening Mammogram of both breasts in 3 months. A clinical breast exam by your physician is recommended on an annual basis and results should be correlated with mammographic findings. This exam should not preclude additional follow-up of suspicious palpable abnormalities. Results were given to the patient verbally at the time of exam. Electronically signed and approved by: Hema Florian M.D. Radiologis
== END | disposition home or self-care (01) ==
LOC: RADUSWWP 10:59
PROVIDERS: ATTEND Surgery
DX: R92.8 Other abnormal and inconclusive findings on diagnostic imaging of breast (principal); Z78.0 Asymptomatic menopausal state

== ENCOUNTER 2024-05-19 17:53 | Observation (INO) | payer MEDICARE, OTHER ==
--- NOTE | 2024-05-19 18:40 | ED ---
General Adult HPI - General Chief complaint: Weakness Stated complaint: abn labs Time Seen by Provider: 05/19/24 18:20 Source: patient, RN notes reviewed, old records reviewed Mode of arrival: ambulatory Limitations: no limitations - History of Present Illness Initial comments: 68-year-old female presenting for evaluation of generalized abdominal pain, lower abdominal pain and chronic diarrhea. Diarrhea has been present for several months. The diarrhea has had various consistencies at different times, currently this is watery. Patient generally does not feel well she has had some nausea without significant vomiting. Pain is worse with eating and has significantly increased over the past 3 weeks patient has been evaluated by her primary care regarding this diarrhea but was sent into the emergency department for further evaluation. - Related Data Home Medications Medication Instructions Recorded Confirmed ALPRAZolam [Xanax] 1 mg PO QID PRN 01/06/18 05/19/24 Furosemide [Lasix] 40 mg PO DAILY 01/06/18 05/19/24 HYDROcodone/APAP 10-325MG [[place] 1 tab PO Q6H PRN 01/06/18 05/19/24 10-325] Digoxin 250 mcg PO DAILY 02/28/19 05/19/24 Insulin NPH Human Isophane 30 unit SQ DAILY 07/25/21 05/19/24 [humuLIN N] Metoprolol Succinate (ER) [Toprol 25 mg PO BID 04/06/22 05/19/24 XL] Albuterol Inhaler [Ventolin Hfa 2 puff INHALATION RT-QID PRN 05/19/24 05/19/24 Inhaler] INSULIN LISPRO (HumaLOG) [humaLOG] 10 - 20 units SQ TID-W/MEALS 05/19/24 05/19/24 Ipratropium-Albuterol Nebulize 3 ml INHALATION RT-QID PRN 05/19/24 05/19/24 [Duoneb 0.5 mg-3 mg/3 ml Soln] Levothyroxine Sodium [Synthroid] 100 mcg PO DAILY 05/19/24 05/19/24 allopurinoL [Zyloprim] 300 mg PO DAILY 05/19/24 05/19/24 Previous Rx's Medication Instructions Recorded Apixaban [Eliquis] 5 mg PO BID #60 tab 09/19/21 Allergies Allergy/AdvReac Type Severity Reaction Status Date / Time doxycycline Allergy Rash/Hives Verified 05/19/24 19:08 erythromycin base Allergy Rash/Hives Verified 05/19/24 19:08 morphine AdvReac Just Verified 05/19/24 19:08 doesn't help with pain Review of Systems ROS Statement: Those systems with pertinent positive or pertinent negative responses have been documented in the HPI. ROS Other: All systems not noted in ROS Statement are negative. Past Medical History Past Medical History: Atrial Fibrillation, Heart Failure, COPD, Diabetes Mellitus, Hyperlipidemia, Hypertension, Thyroid Disorder Additional Past Medical History / Comment(s): arthritis. cyst behing left leg. History of Any Multi-Drug Resistant Organisms: MRSA Date of last positivie culture/infection: 1999 MDRO Source:: blood Past Surgical History: Appendectomy, Cholecystectomy, Tonsillectomy, Tubal Ligation Additional Past Surgical History / Comment(s): bilateral knee laproscopy. Past Anesthesia/Blood Transfusion Reactions: No Reported Reaction Past Psychological History: No Psychological Hx Reported Smoking Status: Current every day smoker Past Alcohol Use History: None Reported Past Drug Use History: None Reported - Past Family History Father Family Medical History: Diabetes Mellitus, Renal Disease Mother History Unknown: Yes Family Medical History: Diabetes Mellitus Brother(s) History Unknown: Yes Sister(s) History Unknown: Yes Daughter(s) Family Medical History: No Reported History Son(s) Family Medical History: No Reported History General Exam Limitations: no limitations General appearance: alert, in no apparent distress Head exam: Present: atraumatic, normocephalic Eye exam: Present: normal appearance, PERRL, EOMI ENT exam: Present: mucous membranes dry Respiratory exam: Present: normal lung sounds bilaterally. Absent: respiratory distress, wheezes Cardiovascular Exam: Present: regular rate, irregular rhythm GI/Abdominal exam: Present: soft, distended, tenderness Extremities exam: Present: pedal edema Neurological exam: Present: alert, oriented X3. Absent: motor sensory deficit Psychiatric exam: Present: normal affect, normal mood Skin exam: Present: warm, dry, intact. Absent: cyanosis, diaphoretic Course Vital Signs 05/19/24 05/19/24 18:11 22:12 Temperature 97.6 F 97.9 F Pulse Rate 76 64 Respiratory 18 18 Rate Blood Pressure 127/74 127/74 O2 Sat by Pulse 99 100 Oximetry Medical Decision Making - Medical Decision Making Was pt. sent in by a medical professional or institution (, [facility], DESIGN TECHNOLOGY TEACHER, urgent care, hospital, or custodial...) When possible be specific @ -No Did you speak to anyone other than the patient for history (EMS, parent, family, police, friend...)? What history was obtained from this source @ -No Did you review nursing and triage notes (agree or disagree)? Why? @ -I reviewed and agree with nursing and triage notes Were old charts reviewed (outside hosp., previous admission, EMS record, old EKG , old radiological studies, urgent care reports/EKG's, custodial records)? Report findings @ -No old charts were reviewed Differential Abdominal Pain Women: Appendicitis, Cholecystitis, diverticulosis, ischemic bowel, pancreatitis, hepatitis, UTI, gastroenteritis, AAA, incarcerated hernia, bowel obstruction, constipation, inflammatory bowel, hepatitis, peptic ulcer disease, splenic infarction, perforated viscus, vulvitis, ovarian torsion, PID, kidney stone, placenta abruption, this is not meant to be an all-inclusive list EKG interpreted by me (3pts min.). @Atrial fibrillation rate of 80, QRS duration 126, QTc 435, no ST segment elevation. X-rays interpreted by me (1pt min.). @ -None done CT interpreted by me (1pt min.). @ -[CT abdomen pelvis shows gaseous distention, there is gastric content, distended stomach. U/S interpreted by me (1pt. min.). @ -None done What testing was considered but not performed or refused? (CT, X-rays, U/S, labs)? Why? @ -None What meds were considered but not given or refused? Why? @ -None Did you discuss the management of the patient with other professionals (professionals i.e. NASIMA Mancia, DESIGN TECHNOLOGY TEACHER, lab, RT, psych nurse, social sciences department chair, accounting tutor, teacher, traffic control officer, case management manager)? Give summary @ -[EMH Was smoking cessation discussed for >3mins.? @ -No Was critical care preformed (if so, how long)? @ -No Were there social determinants of health that impacted care today? How? (Homelessness, low income, unemployed, alcoholism, drug addiction, transportation, low edu. Level, literacy, decrease access to med. care, longterm, rehab)? @ -No Was there de-escalation of care discussed even if they declined (Discuss DNR or withdrawal of care, Hospice)? DNR status @ -No What co-morbidities impacted this encounter? (DM, HTN, Smoking, COPD, CAD, Canc er, CVA, ARF, Chemo, Hep., AIDS, mental health diagnosis, sleep apnea, morbid obesity)? @ -Diabetes Was patient admitted / discharged? Hospital course, mention meds given and route, prescriptions, significant lab abnormalities, going to OR and other pertinent info. @ -[68-year-old with abdominal pain over the past several weeks and chronic diarrhea. Patient was sent in by primary care for evaluation. The patient has distended abdomen tender in the upper, left upper quadrant. Patient afebrile stable vitals. She has normal white blood cell count, she is anemic with no recent for comparison. She did receive a CT in the emergency department. Stool culture and C. difficile toxin are pending. Patient continues to have nausea and is unable to eat with significant abdominal pain. She will be admitted to internal medicine with GI on consult. Undiagnosed new problem with uncertain prognosis? @ -No Drug Therapy requiring intensive monitoring for toxicity (Heparin, Nitro, Insulin, Cardizem)? @ -No Were any procedures done? @ -No Diagnosis/symptom? @ -Nausea, intractable abdominal pain, gastroparesis Acute, or Chronic, or Acute on Chronic? @ -Acute on chronic Uncomplicated (without systemic symptoms) or Complicated (systemic symptoms)? @ -Default Side effects of treatment? @ -No Exacerbation, Progression, or Severe Exacerbation? @ -No Poses a threat to life or bodily function? How? (Chest pain, [place], [place], pneumonia, PE, COPD, DKA, ARF, appy, cholecystitis, CVA, Diverticulitis, Homicidal, Suicidal, threat to staff... and all critical care pts) @ -No - Lab Data Result diagrams: 05/19/24 21:44 05/19/24 21:44 Lab Results 05/19/24 05/19/24 05/19/24 Range/Units 21:44 21:44 21:44 WBC 9.1 (3.8-10.6) k/uL RBC 3.51 L (3.80-5.40) m/uL Hgb 9.9 L (11.4-16.0) gm/dL Hct 32.7 L (34.0-46.0) % MCV 93.1 (80.0-100.0) fL MCH 28.2 (25.0-35.0) pg MCHC 30.3 L (31.0-37.0) g/dL RDW 15.0 (11.5-15.5) % Plt Count 155 (150-450) k/uL MPV 9.8 Neutrophils % 68 % Lymphocytes % 19 % Monocytes % 8 % Eosinophils % 1 % Basophils % 0 % Neutrophils # 6.2 (1.3-7.7) k/uL Lymphocytes # 1.8 (1.0-4.8) k/uL Monocytes # 0.7 (0-1.0) k/uL Eosinophils # 0.1 (0-0.7) k/uL Basophils # 0.0 (0-0.2) k/uL Hypochromasia Marked PT 10.9 (10.0-12.5) sec INR 1.0 (<1.2) APTT 27.9 (22.0-30.0) sec Sodium 137 (137-145) mmol/L Potassium 4.0 (3.5-5.1) mmol/L Chloride 103 (98-107) mmol/L Carbon Dioxide 28 (22-30) mmol/L Anion Gap 6 mmol/L BUN 31 H (7-17) mg/dL Creatinine 1.11 H (0.52-1.04) mg/dL Est GFR (CKD-EPI)AfAm 59 (>60 ml/min/1.73 sqM) Est GFR (CKD-EPI)NonAf 51 (>60 ml/min/1.73 sqM) Glucose 185 H (74-99) mg/dL Plasma Lactic Acid Adarsh (0.7-2.0) mmol/L Calcium 9.1 (8.4-10.2) mg/dL Total Bilirubin 0.4 (0.2-1.3) mg/dL AST 22 (14-36) U/L ALT 9 (4-34) U/L Alkaline Phosphatase 106 (38-126) U/L Total Protein 5.7 L (6.3-8.2) g/dL Albumin 3.5 (3.5-5.0) g/dL Amylase 41 (30-110) U/L Lipase 46 (23-300) U/L 05/19/24 Range/Units 21:44 WBC (3.8-10.6) k/uL RBC (3.80-5.40) m/uL Hgb (11.4-16.0) gm/dL Hct (34.0-46.0) % MCV (80.0-100.0) fL MCH (25.0-35.0) pg MCHC (31.0-37.0) g/dL RDW (11.5-15.5) % Plt Count (150-450) k/uL MPV Neutrophils % % Lymphocytes % % Monocytes % % Eosinophils % % Basophils % % Neutrophils # (1.3-7.7) k/uL Lymphocytes # (1.0-4.8) k/uL Monocytes # (0-1.0) k/uL Eosinophils # (0-0.7) k/uL Basophils # (0-0.2) k/uL Hypochromasia PT (10.0-12.5) sec INR (<1.2) APTT (22.0-30.0) sec Sodium (137-145) mmol/L Potassium (3.5-5.1) mmol/L Chloride (98-107) mmol/L Carbon Dioxide (22-30) mmol/L Anion Gap mmol/L BUN (7-17) mg/dL Creatinine (0.52-1.04) mg/dL Est GFR (CKD-EPI)AfAm (>60 ml/min/1.73 sqM) Est GFR (CKD-EPI)NonAf (>60 ml/min/1.73 sqM) Glucose (74-99) mg/dL Plasma Lactic Acid Adarsh 1.0 (0.7-2.0) mmol/L Calcium (8.4-10.2) mg/dL Total Bilirubin (0.2-1.3) mg/dL AST (14-36) U/L ALT (4-34) U/L Alkaline Phosphatase (38-126) U/L Total Protein (6.3-8.2) g/dL Albumin (3.5-5.0) g/dL Amylase (30-110) U/L Lipase (23-300) U/L Disposition Clinical Impression: Abdominal pain, Dehydration, Gastroparesis Disposition: ADMITTED IP TO THIS [facility] Condition: Stable Is patient prescribed a controlled substance at d/c from ED?: No Referrals: Gabriel Vera [Primary Care Provider] - 1-2 days Time of Disposition: 23:29
[2024-05-19 21:53] LABS: Basophils % (A) 0 %; Eosinophils # (A) 0.1 k/uL (0-0.7); Eosinophils % (A) 1 %; HCT 32.7 % (34.0-46.0); HGB 9.9 gm/dL (11.4-16.0); Hypochromasia Marked; Lymphocytes # (A) 1.8 k/uL (1.0-4.8); Lymphocytes % (A) 19 %; MCH 28.2 pg (25.0-35.0); MCHC 30.3 g/dL (31.0-37.0); MCV 93.1 fL (80.0-100.0); Mean Platelet Volume 9.8; Monocytes # (A) 0.7 k/uL (0-1.0); Monocytes % (A) 8 %; Neutrophils # (A) 6.2 k/uL (1.3-7.7); Neutrophils % (A) 68 %; Platelet Count 155 k/uL (150-450); RBC 3.51 m/uL (3.80-5.40); WBC 9.1 k/uL (3.8-10.6)
[2024-05-19 22:04] LABS: Partial Thromboplastin Time 27.9 sec (22.0-30.0); Prothrombin Time 10.9 sec (10.0-12.5)
[2024-05-19 22:06] LABS: ALT 9 U/L (4-34); AST 22 U/L (14-36); African American GFR (CKD) 59 (>60 ml/min/1.73 sqM); Albumin 3.5 g/dL (3.5-5.0); Alkaline Phosphatase 106 U/L (38-126); Amylase 41 U/L (30-110); Anion Gap 6 mmol/L; Blood Urea Nitrogen 31 mg/dL (7-17); Calcium 9.1 mg/dL (8.4-10.2); Carbon Dioxide 28 mmol/L (22-30); Chloride 103 mmol/L (98-107); Glucose 185 mg/dL (74-99); Lipase 46 U/L (23-300); Non-African American GFR(CKD) 51 (>60 ml/min/1.73 sqM); Sodium 137 mmol/L (137-145); Total Bilirubin 0.4 mg/dL (0.2-1.3); Total Protein 5.7 g/dL (6.3-8.2)
[2024-05-19] MEDS: SODIUM CHLORIDE 0.9% 1,000 ML IV STA (22:17)
[2024-05-19] MEDS: ONDANSETRON 4 MG/2 ML VIAL IVP STA (22:18)
[2024-05-19] MEDS: HYDROmorphone 0.5 MG/0.5 ML SYRINGE IVP STA (22:22)
--- NOTE | 2024-05-19 23:00 | CT ---
EXAMINATION TYPE: CT abdomen pelvis w con DATE OF EXAM: 05/19/2024 HISTORY: Pt presents to ED for watery stools, nausea, and weakness. Pt states sent by Dr. Vera. CT DLP: 1698.5mGycm Automated Exposure Control for Dose Reduction was Utilized. CONTRAST: CT scan of the abdomen and pelvis is performed without oral and with IV Contrast, patient injected wi th 80 mL of Isovue 300. COMPARISON: Prior CT 2019 FINDINGS: Suboptimal with poor contrast bolus noted. LUNG BASES: No significant abnormality is appreciated. LIVER/GB: Cholecystectomy clips are redemonstrated. PANCREAS: No significant abnormality is seen. SPLEEN: No significant abnormality is seen. ADRENALS: No significant abnormality is seen. KIDNEYS: Cortical thinning in both kidneys is present. Central arteriovascular calcification is more prominent versus prior. There is 2.7 cm exophytic thin-walled cyst posteriorly lower pole of the righ t kidney image 37. BOWEL: No abnormal small or large bowel dilatation. Mild to moderate colonic fecal prominence in the pelvis. Slightly distended stomach with air-fluid level is redemonstrated. UTERUS/ADNEXA: Uterus remains surgically absent. LYMPH NODES: No greater than 1cm abdominal or pelvic lymph nodes are appreciated. OSSEOUS STRUCTURES: Coxa valga positioning to both hips redemonstrated. Moderate to severe disc space narrowing at L4-L5 level again seen. OTHER: Moderate to severe calcified plaque of the infrarenal abdominal aorta extending to iliac branc h vessels is again seen.. IMPRESSION: 1. Overall nonspecific but strongly favor a nonobstructive bowel gas pattern redemonstrated. Possible underlying gastroparesis again seen. No significant change from prior. No suspicious new or acute fi nding otherwise seen. [facility], , 05/19/2024 10:57 PM
[2024-05-19] MEDS ORDERED: NALOXONE 0.4 MG/ML 1 ML VIAL IV PRN (23:23)
[2024-05-20] MEDS: METOCLOPRAMIDE 5 MG/ML 2 ML VIAL IVP STA
[2024-05-20] MEDS: SODIUM CHLORIDE 0.9% 1,000 ML IV SCH (00:15)
[2024-05-20] MEDS: METOCLOPRAMIDE 5 MG/ML 2 ML VIAL IVP SCH (00:18)
[2024-05-20] MEDS: HYDROmorphone 0.5 MG/0.5 ML SYRINGE IVP PRN (03:21)
[2024-05-20] MEDS ORDERED: ALBUTEROL NEBULIZED 2.5 MG/3 ML INHALATION PRN (07:38)
[2024-05-20] MEDS ORDERED: IPRATROPIUM-ALBUTEROL 3 ML NEB INHALATION PRN (07:38)
[2024-05-20] MEDS ORDERED: DEXTROSE 50% SYRINGE 50 ML IVP PRN ×2 (07:43)
[2024-05-20] MEDS: METOPROLOL SUCCINATE (ER) 25 MG TAB.ER.24H PO SCH (09:01)
[2024-05-20] MEDS: FUROSEMIDE 40 MG TAB PO SCH (09:02)
[2024-05-20] MEDS: PANTOPRAZOLE 40 MG/10 ML VIAL IV SCH (09:02)
[2024-05-20] MEDS: LEVOTHYROXINE 100 MCG TAB PO SCH (09:02)
[2024-05-20] MEDS: DIGOXIN 250 MCG TAB PO SCH (10:16)
[2024-05-20 10:54] LABS: BUN/Creat Ratio 24.55 Ratio (12.00-20.00); Carbon Dioxide 23.8 mmol/L (21.6-31.8); Chloride 108 mmol/L (96-109); Glucose 156 mg/dL (70-110); Potassium 4.1 mmol/L (3.5-5.5); Sodium 140 mmol/L (135-145)
[2024-05-20] MEDS: allopurinoL 300 MG TAB PO SCH (12:35)
[2024-05-20 12:38] LABS: Glucose,Whole Blood 188 mg/dL (70-110)
[2024-05-20] MEDS: INSULIN ASPART (NovoLOG) 100 UNIT/ML VIAL SQ SCH ×2 (12:49→21:25)
--- NOTE | 2024-05-20 13:27 | P.CONS ---
History of Present Illness - Reason for Consult Consult date: 05/20/24 Intractable abdominal pain, possible gastroparesis and chronic diarrhea Requesting physician: Ernesto Parks - Chief Complaint Abdominal pain, nausea and diarrhea - History of Present Illness This is a pleasant 68-year-old female who presented to the emergency department with complaints of abdominal pain and nausea. Past medical history includes atrial fibrillation on Eliquis, COPD, heart failure, diabetes mellitus, hyperlipidemia, hypertension, and thyroid disorder. Gastroenterology was consulted for abdominal pain, nausea and chronic diarrhea. She states that she has had diarrhea for about the last 5 months usually occurs after eating can be anywhere between 5-10 times a day. States she has not followed with anybody for the diarrhea and has not had any stool testing. States that she has been taking Imodium and Pepto-Bismol. Over last 1 weeks duration she has been getting abdominal pain which she reports as diffuse and nausea without any vomiting. States she has not had too much to eat over the last 3 days duration. She denies any new medications. Last upper and lower endoscopy was in March 2019. EGD with findings of 2 small nonbleeding AVMs status post cautery and colonoscopy with findings of polyps status post polypectomy. Patient states she took Pepto-Bismol and 2 Imodium yesterday prior to coming to the hospital. She has not had any bowel movement since coming to the hospital. Review of Systems REVIEW OF SYSTEMS: CARDIOPULMONARY: No chest pain or shortness of breath. Gastrointestinal: Abdominal pain. Nausea without vomiting. No hematemesis, coffee-ground emesis. Diarrhea for 5 month duration. No rectal bleeding, or melena. GENITOURINARY: No dysuria or hematuria. MUSCULOSKELETAL: Reports normal range of motion. SKIN: No rashes. No jaundice. ENDOCRINE: No chills, fevers. No excessive weight gain or loss. No polydipsia or polyuria. PSYCHIATRIC: Unremarkable. NEUROLOGY: No change in mental status. Denies dizziness, headache. ENT: Vision unremarkable. CONSTITUTIONAL: No recent weight loss. No fever, chills, night sweats. Past Medical History Past Medical History: Atrial Fibrillation, Heart Failure, COPD, Diabetes Mellitus, Hyperlipidemia, Hypertension, Thyroid Disorder Additional Past Medical History / Comment(s): arthritis. cyst behing left leg. History of Any Multi-Drug Resistant Organisms: MRSA Year Discovered:: 1999 MDRO Source:: blood Past Surgical History: Appendectomy, Cholecystectomy, Tonsillectomy, Tubal Ligation Additional Past Surgical History / Comment(s): bilateral knee laproscopy. Past Anesthesia/Blood Transfusion Reactions: No Reported Reaction Past Psychological History: No Psychological Hx Reported Smoking Status: Current every day smoker Past Alcohol Use History: None Reported Past Drug Use History: None Reported - Past Family History Father Family Medical History: Diabetes Mellitus, Renal Disease Mother History Unknown: Yes Family Medical History: Diabetes Mellitus Brother(s) History Unknown: Yes Sister(s) History Unknown: Yes Daughter(s) Family Medical History: No Reported History Son(s) Family Medical History: No Reported History Medications and Allergies Home Medications Medication Instructions Recorded Confirmed Type ALPRAZolam [Xanax] 1 mg PO QID PRN 01/06/18 05/19/24 History Furosemide [Lasix] 40 mg PO DAILY 01/06/18 05/19/24 History HYDROcodone/APAP 10-325MG [[place] 1 tab PO Q6H PRN 01/06/18 05/19/24 History 10-325] Digoxin 250 mcg PO DAILY 02/28/19 05/19/24 History Insulin NPH Human Isophane 30 unit SQ DAILY 07/25/21 05/19/24 History [humuLIN N] Apixaban [Eliquis] 5 mg PO BID #60 tab 09/19/21 05/19/24 Rx Metoprolol Succinate (ER) [Toprol 25 mg PO BID 04/06/22 05/19/24 History XL] Albuterol Inhaler [Ventolin Hfa 2 puff INHALATION RT-QID PRN 05/19/24 05/19/24 History Inhaler] INSULIN LISPRO (HumaLOG) [humaLOG] 10 - 20 units SQ TID-W/MEALS 05/19/24 05/19/24 History Ipratropium-Albuterol Nebulize 3 ml INHALATION RT-QID PRN 05/19/24 05/19/24 History [Duoneb 0.5 mg-3 mg/3 ml Soln] Levothyroxine Sodium [Synthroid] 100 mcg PO DAILY 05/19/24 05/19/24 History allopurinoL [Zyloprim] 300 mg PO DAILY 05/19/24 05/19/24 History Allergies Allergy/AdvReac Type Severity Reaction Status Date / Time doxycycline Allergy Rash/Hives Verified 05/19/24 19:08 erythromycin base Allergy Rash/Hives Verified 05/19/24 19:08 morphine AdvReac Just Verified 05/19/24 19:08 doesn't help with pain Physical Exam Vitals: Vital Signs Temp Pulse Resp BP Pulse Ox 05/20/24 06:07 97.6 F 68 19 120/36 96 05/20/24 05:26 97.6 F 68 18 118/47 97 05/20/24 03:17 68 18 133/47 98 05/20/24 02:32 97.3 F L 70 18 138/82 98 05/20/24 00:15 65 18 138/60 99 05/19/24 23:49 97.7 F 62 18 137/59 100 05/19/24 22:12 97.9 F 64 18 127/74 100 05/19/24 18:11 97.6 F 76 18 127/74 99 Intake and Output 05/19/24 05/20/24 05/20/24 22:59 06:59 14:59 Other: Weight 120.202 kg General appearance: The patient is alert, oriented, appears in no acute distress. Obese. HET: Head is normocephalic and atraumatic. Conjunctiva pink. Sclera anicteric. Neck: Supple without lymphadenopathy. Trachea midline. Heart: Regular. Lungs: Equal expansion, normal respiratory effort. Abdomen: Soft, diffuse tenderness, nondistended. Skin: No rashes. No jaundice. Extremities: Normal skin color and turgor. No pedal edema. Neurological: No focal deficits. Alert and oriented x3. Results CBC & Chem 7: 05/19/24 21:44 05/20/24 07:46 Labs: Abnormal Lab Results - Last 24 Hours (Table) 05/19/24 05/19/24 Range/Units 21:44 21:44 RBC 3.51 L (3.80-5.40) m/uL Hgb 9.9 L (11.4-16.0) gm/dL Hct 32.7 L (34.0-46.0) % MCHC 30.3 L (31.0-37.0) g/dL BUN 31 H (7-17) mg/dL Creatinine 1.11 H (0.52-1.04) mg/dL Glucose 185 H (74-99) mg/dL Total Protein 5.7 L (6.3-8.2) g/dL Comments: CT abdomen pelvis with contrast reports overall nonspecific but strongly favor a nonobstructive bowel gas pattern redemonstrated. Possible underlying gastroparesis again seen. No significant change from prior. No suspicious new or acute findings otherwise seen. Assessment and Plan (1) Abdominal pain Narrative/Plan: 68-year-old female presenting with 1 week duration of abdominal pain and nausea and 5 months of diarrhea worse after eating. States multiple episodes of diarrhea. She has been taking Imodium and Pepto-Bismol but has not seen anybody for the chronic diarrhea until yesterday prior to coming to the emergency department. Denies any new medications yet then stated she may have been started on some new medications however not sure. Unclear etiology of abdominal pain and diarrhea. Will obtain stool samples for C. difficile and stool culture. Patient has not had any diarrhea since coming into the hospital if diarrhea continues may consider colonoscopy as inpatient. CT mentions possible gastroparesis possible etiology as patient is diabetic. Last upper endoscopy March 2019 with no evidence of gastroparesis. Current Visit: Yes Status: Acute Code(s): R10.9 - UNSPECIFIED ABDOMINAL PAIN SNOMED Code(s): 98929944 (2) Chronic diarrhea Current Visit: Yes Status: Acute Code(s): K52.9 - NONINFECTIVE GASTROENTERITIS AND COLITIS, UNSPECIFIED SNOMED Code(s): 116035863 (3) Nausea without vomiting Current Visit: Yes Status: Acute Code(s): R11.0 - NAUSEA SNOMED Code(s): 892889061 (4) Diabetes mellitus Current Visit: Yes Status: Acute Code(s): E11.9 - TYPE 2 DIABETES MELLITUS WITHOUT COMPLICATIONS SNOMED Code(s): 45177725 (5) Atrial fibrillation Narrative/Plan: Takes Eliquis, currently on hold. Current Visit: No Status: Acute Code(s): I48.91 - UNSPECIFIED ATRIAL FIBRILLATION SNOMED Code(s): 89404781 (6) Obesity (BMI 30-39.9) Current Visit: No Status: Acute Code(s): E66.9 - OBESITY, UNSPECIFIED SNOMED Code(s): 094855737 Plan: 1. Continue symptomatic and supportive care 2. Hold Eliquis 3. Antiemetics as needed 4. Stat C. difficile and stool culture ordered please collect 5. Patient may have low-fat/low fiber diet 6. No plans at this time for endoscopic evaluation. Diarrhea has improved if it resumes may consider inpatient colonoscopy. Thank you for this consultation, we will continue to follow. Dr. Laura Scott I agree with the dictator's note, documented as a scribe by Aurora Simon.
--- NOTE | 2024-05-20 14:59 | P.HPIM ---
History of Present Illness H&P Date: 05/20/24 Patient is a 68-year-old female with a history of atrial fibrillation maintained on Eliquis, diabetes mellitus, COPD, hypertension, chronic diarrhea who presented to the emergency department with abdominal pain and nausea. She states that she has been having diarrhea for about 5 months, usually after eating, anywhere from 5-10 times per day. She states that her primary care physician has tested her stool and it came back negative. She has been taking Imodium and Pepto-Bismol as they are the only things that help her diarrhea. For the last week she has been having abdominal pain with cramping as well as nausea without vomiting. She has not eaten much over the last 3 days. She denies starting any new medications. She has not had a bowel movement since she has been in the hospital which she attributes to lack of food as well as taking Pepto-Bismol and 2 Imodium yesterday before coming to the hospital. She denies fever, chills, hematochezia, melena, chest pain, shortness of breath. EKG showed atrial fibrillation. CT abdomen/pelvis revealed: Nonspecific but strongly favor nonobstructive bowel gas pattern, possible underlying gastroparesis, no suspicious new or acute findings. WBCs 9.1, hemoglobin 9.9, platelets 155, INR 1.0, sodium 137, potassium 4, BUN 31, creatinine 1.11, GFR 51. Afebrile, normotensive, saturating well on room air. ED documentation reviewed. Review of systems: Pertinent positives and negatives as discussed in HPI, a complete review of systems was performed and all other systems are negative. Social history: Tobacco: Current everyday smoker 1/2ppd 20 years Alcohol: Denies Recreational drugs: Denies Travel: Denies Occupation: Unemployed Physical examination: Vital signs are reviewed. General: No acute distress. AOx3. HEENT: Head exam is unremarkable. EOMI bilaterally. ACs patent. Nares patent. Lungs: Bilateral breath sounds present; wheezes bilaterally; no rhonchi or rales. Heart: Rate and rhythm are regular. S1-S2 present. No murmur/rub/gallops. Abdomen: Diffuse tenderness, distended. Bowel sounds present. Extremities: No edema present. Symmetric movement. Psych: Normal affect and mood. Cooperative. Assessment/Plan: Watery diarrhea Obtain C. difficile PCR Obtain stool culture Obtain ESR/CRP Obtain TSH with reflex Obtain stool calprotectin Cramping abdominal pain Control pain Nausea Continue Reglan Continue Zofran as needed Paroxysmal atrial fibrillation Hold Eliquis Continue digoxin Diabetes mellitus Insulin sliding scale Blood glucose monitoring COPD Continue DuoNebs CHF Continue Lasix Anxiety Continue Xanax DVT prophylaxis: Mechanical Chronic conditions: Persistent atrial fibrillation maintained on Eliquis, COPD with asthma, hypertension, CHF, hypothyroidism, hyperlipidemia, osteoarthritis, anxiety The patient is admitted with an anticipated left than 2 midnight stay for e valuation of diarrhea and abdominal pain. CODE STATUS: Full code Discussed with: Patient Anticipated discharge place: Home Attestation I have seen and examined this patient with my resident , discussed the same with the resident/KAILASH, and agree with the dictator's assessment and plan as written GENERAL: The patient is alert and oriented x3, not in any acute distress. Well developed, well nourished. HEENT: Pupils are round and equally reacting to light. EOMI. No scleral icterus. No conjunctival pallor. Normocephalic, atraumatic. No pharyngeal erythema. No thyromegaly. CARDIOVASCULAR: S1 and S2 present. No murmurs, rubs, or gallops. PULMONARY: Chest is clear to auscultation, no wheezing or crackles. ABDOMEN: Soft, nontender, nondistended, normoactive bowel sounds. No palpable organomegaly. MUSCULOSKELETAL: No joint swelling or deformity. EXTREMITIES: No cyanosis, clubbing, or pedal edema. NEUROLOGICAL: Gross neurological examination did not reveal any focal deficits. SKIN: No rashes. Plan Ordered stool calprotectin Ordered TSH levels Stool cultures Consult GI Dr. Dalton finn Past Medical History Past Medical History: Atrial Fibrillation, Heart Failure, COPD, Diabetes Mellitus, Hyperlipidemia, Hypertension, Thyroid Disorder Additional Past Medical History / Comment(s): arthritis. cyst behing left leg. History of Any Multi-Drug Resistant Organisms: MRSA Date of last positivie culture/infection: 1999 MDRO Source:: blood Past Surgical History: Appendectomy, Cholecystectomy, Tonsillectomy, Tubal Ligation Additional Past Surgical History / Comment(s): bilateral knee laproscopy. Past Anesthesia/Blood Transfusion Reactions: No Reported Reaction Past Psychological History: No Psychological Hx Reported Smoking Status: Current every day smoker Past Alcohol Use History: None Reported Past Drug Use History: None Reported - Past Family History Father Family Medical History: Diabetes Mellitus, Renal Disease Mother History Unknown: Yes Family Medical History: Diabetes Mellitus Brother(s) History Unknown: Yes Sister(s) History Unknown: Yes Daughter(s) Family Medical History: No Reported History Son(s) Family Medical History: No Reported History Medications and Allergies Home Medications Medication Instructions Recorded Confirmed Type ALPRAZolam [Xanax] 1 mg PO QID PRN 01/06/18 05/19/24 History Furosemide [Lasix] 40 mg PO DAILY 01/06/18 05/19/24 History HYDROcodone/APAP 10-325MG [[place] 1 tab PO Q6H PRN 01/06/18 05/19/24 History 10-325] Digoxin 250 mcg PO DAILY 02/28/19 05/19/24 History Insulin NPH Human Isophane 30 unit SQ DAILY 07/25/21 05/19/24 History [humuLIN N] Apixaban [Eliquis] 5 mg PO BID #60 tab 09/19/21 05/19/24 Rx Metoprolol Succinate (ER) [Toprol 25 mg PO BID 04/06/22 05/19/24 History XL] Albuterol Inhaler [Ventolin Hfa 2 puff INHALATION RT-QID PRN 05/19/24 05/19/24 History Inhaler] INSULIN LISPRO (HumaLOG) [humaLOG] 10 - 20 units SQ TID-W/MEALS 05/19/24 05/19/24 History Ipratropium-Albuterol Nebulize 3 ml INHALATION RT-QID PRN 05/19/24 05/19/24 History [Duoneb 0.5 mg-3 mg/3 ml Soln] Levothyroxine Sodium [Synthroid] 100 mcg PO DAILY 05/19/24 05/19/24 History allopurinoL [Zyloprim] 300 mg PO DAILY 05/19/24 05/19/24 History Ondansetron Odt [Zofran Odt] 4 mg PO Q8HR PRN #30 tab 05/21/24 Rx Allergies Allergy/AdvReac Type Severity Reaction Status Date / Time doxycycline Allergy Rash/Hives Verified 05/19/24 19:08 erythromycin base Allergy Rash/Hives Verified 05/19/24 19:08 morphine AdvReac Just Verified 05/19/24 19:08 doesn't help with pain Physical Exam Vitals: Vital Signs Temp Pulse Resp BP Pulse Ox 05/20/24 06:07 97.6 F 68 19 120/36 96 05/20/24 05:26 97.6 F 68 18 118/47 97 05/20/24 03:17 68 18 133/47 98 05/20/24 02:32 97.3 F L 70 18 138/82 98 05/20/24 00:15 65 18 138/60 99 05/19/24 23:49 97.7 F 62 18 137/59 100 05/19/24 22:12 97.9 F 64 18 127/74 100 05/19/24 18:11 97.6 F 76 18 127/74 99 Intake and Output 05/19/24 05/20/24 05/20/24 22:59 06:59 14:59 Other: Weight 120.202 kg Results CBC & Chem 7: 05/19/24 21:44 05/20/24 07:46 Labs: Abnormal Lab Results - Last 24 Hours (Table) 05/19/24 05/19/24 Range/Units 21:44 21:44 RBC 3.51 L (3.80-5.40) m/uL Hgb 9.9 L (11.4-16.0) gm/dL Hct 32.7 L (34.0-46.0) % MCHC 30.3 L (31.0-37.0) g/dL BUN 31 H (7-17) mg/dL Creatinine 1.11 H (0.52-1.04) mg/dL Glucose 185 H (74-99) mg/dL Total Protein 5.7 L (6.3-8.2) g/dL
[2024-05-20 17:37] LABS: Glucose,Whole Blood 217 mg/dL (70-110)
[2024-05-20] MEDS: ALPRAZolam 1 MG TAB PO PRN (17:59)
[2024-05-20] MEDS ORDERED: INSULIN NPH 100 UNIT/ML 10 ML VIAL SQ SCH (21:00)
[2024-05-20 21:04] LABS: Glucose,Whole Blood 253 mg/dL (70-110)
[2024-05-20] MEDS: INSULIN DETEMIR (LEVEMIR) 100 UNIT/ML SYR SQ SCH (21:25)
[2024-05-20] MEDS: NYSTATIN 100,000 UNIT/GM POWD 15 GM TOPICAL SCH (21:25)
[2024-05-20 21:48] VITALS: RESP 16
[2024-05-21 05:54] LABS: Glucose,Whole Blood 204 mg/dL (70-110)
[2024-05-21 08:19] VITALS: BP 117/57; PULSE 69; TEMP 98.4
[2024-05-21] MEDS: APIXABAN 5 MG TAB PO SCH (09:15)
[2024-05-21] MEDS: ONDANSETRON 4 MG/2 ML VIAL IVP PRN (09:16)
--- NOTE | 2024-05-21 13:01 | P.DS ---
Providers Date of admission: 05/19/24 23:25 Attending physician: Eliu Anguiano Consults: 05/19/24 23:23 Consult Physician Routine Consulting Provider: Nelly Scott Consult Reason/Comments: intractable abdominal pain, gastroparesis, chronic diarrhea Do you want consulting provider notified?: Yes Primary care physician: Gabriel Villeg[facility] Course: Patient is a 68-year-old female with a history of atrial fibrillation maintained on Eliquis, diabetes mellitus, COPD, hypertension, chronic diarrhea who presented to the emergency department with abdominal pain and nausea. She states that she has been having diarrhea for about 5 months, usually after eating, anywhere from 5-10 times per day. She states that her primary care physician has tested her stool and it came back negative. She has been taking Imodium and Pepto-Bismol as they are the only things that help her diarrhea. For the last week she has been having abdominal pain with cramping as well as nausea without vomiting. She has not eaten much over the last 3 days. She denies starting any new medications. She has not had a bowel movement since she has been in the hospital which she attributes to lack of food as well as taking Pepto-Bismol and 2 Imodium yesterday before coming to the hospital. She denies fever, chills, hematochezia, melena, chest pain, shortness of breath. GI has been consulted. EKG showed atrial fibrillation. CT abdomen/pelvis revealed: Nonspecific but strongly favor nonobstructive bowel gas pattern, possible underlying gastroparesis, no suspicious new or acute findings. WBCs 9.1, hemoglobin 9.9, platelets 155, INR 1.0, sodium 137, potassium 4, BUN 31, creatinine 1.11, GFR 51. Afebrile, normotensive, saturating well on room air. 05/21. Patient seen and examined lying in bed. She states that she feels much better. She has had not had diarrhea since she has been here. She has no significant complaints today. Patient is medically stable for discharge. GI has cleared her for discharge outpatient follow-up. Final diagnosis: Watery diarrhea, resolved Cramping abdominal pain, improved Nausea, resolved Paroxysmal atrial fibrillation Diabetes mellitus COPD CHF Anxiety Physical examination: Vital signs are reviewed. General: No acute distress. AOx4. HEENT: Head exam is unremarkable. EOMI bilaterally. ACs patent. Nares patent. Lungs: Bilateral breath sounds present; wheezes bilaterally; no rhonchi or rales. Heart: Rate and rhythm are regular. S1-S2 present. No murmur/rub/gallops. Abdomen: Diffuse tenderness, distended. Bowel sounds present. Extremities: No edema present. Symmetric movement. Psych: Normal affect and mood. Cooperative. Attestation I have seen and examined this patient with my resident , discussed the same with the resident/KAILASH, and agree with the dictator's assessment and plan as written Dr. Dalton finn Patient Condition at Discharge: Good Plan - Discharge Summary New Discharge Prescriptions: New Ondansetron Odt [Zofran Odt] 4 mg PO Q8HR PRN #30 tab PRN Reason: Nausea Continue HYDROcodone/APAP 10-325MG [[place] 10-325] 1 tab PO Q6H PRN PRN Reason: Pain ALPRAZolam [Xanax] 1 mg PO QID PRN PRN Reason: Anxiety Furosemide [Lasix] 40 mg PO DAILY Digoxin 250 mcg PO DAILY Insulin NPH Human Isophane [humuLIN N] 30 unit SQ DAILY allopurinoL [Zyloprim] 300 mg PO DAILY INSULIN LISPRO (HumaLOG) [humaLOG] 10 - 20 units SQ TID-W/MEALS Ipratropium-Albuterol Nebulize [Duoneb 0.5 mg-3 mg/3 ml Soln] 3 ml INHALATION RT-QID PRN PRN Reason: Shortness Of Breath Apixaban [Eliquis] 5 mg PO BID #60 tab Metoprolol Succinate (ER) [Toprol XL] 25 mg PO BID Levothyroxine Sodium [Synthroid] 100 mcg PO DAILY Albuterol Inhaler [Ventolin Hfa Inhaler] 2 puff INHALATION RT-QID PRN PRN Reason: Shortness Of Breath Discharge Medication List ALPRAZolam [Xanax] 1 mg PO QID PRN 01/06/18 [History] Furosemide [Lasix] 40 mg PO DAILY 01/06/18 [History] HYDROcodone/APAP 10-325MG [[place] 10-325] 1 tab PO Q6H PRN 01/06/18 [History] Digoxin 250 mcg PO DAILY 02/28/19 [History] Insulin NPH Human Isophane [humuLIN N] 30 unit SQ DAILY 07/25/21 [History] Apixaban [Eliquis] 5 mg PO BID #60 tab 09/19/21 [Rx] Metoprolol Succinate (ER) [Toprol XL] 25 mg PO BID 04/06/22 [History] Albuterol Inhaler [Ventolin Hfa Inhaler] 2 puff INHALATION RT-QID PRN 05/19/24 [History] INSULIN LISPRO (HumaLOG) [humaLOG] 10 - 20 units SQ TID-W/MEALS 05/19/24 [History] Ipratropium-Albuterol Nebulize [Duoneb 0.5 mg-3 mg/3 ml Soln] 3 ml INHALATION RT-QID PRN 05/19/24 [History] Levothyroxine Sodium [Synthroid] 100 mcg PO DAILY 05/19/24 [History] allopurinoL [Zyloprim] 300 mg PO DAILY 05/19/24 [History] Ondansetron Odt [Zofran Odt] 4 mg PO Q8HR PRN #30 tab 05/21/24 [Rx] Follow up Appointment(s)/Referral(s): Nelly Scott MD [STAFF PHYSICIAN] - 06/02/24 9:00 am Gabriel Vera [Primary Care Provider] - 1-2 days Patient Instructions/Handouts: Acute Abdominal Pain (DC) Discharge Disposition: HOME SELF-CARE
[2024-05-21 13:25] LABS: Glucose,Whole Blood 316 mg/dL (70-110)
--- NOTE | 2024-05-21 13:38 | P.PN ---
Subjective Progress Note Date: 05/21/24 Principal diagnosis: Nausea, chronic diarrhea This is a pleasant 68-year-old female who presented to the emergency department with complaints of abdominal pain and nausea. Past medical history includes atrial fibrillation on Eliquis, COPD, heart failure, diabetes mellitus, hype rlipidemia, hypertension, and thyroid disorder. Gastroenterology was consulted for abdominal pain, nausea and chronic diarrhea. She states that she has had diarrhea for about the last 5 months usually occurs after eating can be anywhere between 5-10 times a day. States she has not followed with anybody for the diarrhea and has not had any stool testing. States that she has been taking Imodium and Pepto-Bismol. Over last 1 weeks duration she has been getting abdominal pain which she reports as diffuse and nausea without any vomiting. States she has not had too much to eat over the last 3 days duration. She denies any new medications. Last upper and lower endoscopy was in March 2019. E GD with findings of 2 small nonbleeding AVMs status post cautery and colonoscopy with findings of polyps status post polypectomy. Patient states she took Pepto- Bismol and 2 Imodium yesterday prior to coming to the hospital. She has not had any bowel movement since coming to the hospital. 05/21/2024 Patient seen and examined today as a follow-up. She has not had any bowel movement since she has been here. Abdominal pain improving. She is taking Zofran for nausea but she is tolerating a regular diet. Patient is requesting to be discharged. Objective - Vital Signs Vital signs: Vital Signs Temp 98.4 F 05/21/24 07:00 Pulse 69 05/21/24 07:00 Resp 16 05/21/24 07:00 BP 117/57 05/21/24 07:00 Pulse Ox 97 05/21/24 07:00 FiO2 Intake & Output 05/20/24 05/21/24 05/21/24 18:59 06:59 18:59 Intake Total 858 Balance 858 Weight 120.202 kg Intake: Oral 858 Other: Voiding Method Bedside Commode # Voids 3 - Exam General appearance: The patient is alert, oriented, appears in no acute distress. HET: Head is normocephalic and atraumatic. Conjunctiva pink. Sclera anicteric. Neck: Supple without lymphadenopathy. Abdomen: Soft, nontender, nondistended with bowel sounds. No guarding or rigidity. Extremities: Normal skin color and turgor. No pedal edema Skin: No rashes, no jaundice Neurological: No focal deficits. Alert and oriented. - Labs CBC & Chem 7: 05/19/24 21:44 05/20/24 07:46 Labs: Abnormal Lab Results - Last 24 Hours (Table) 05/20/24 05/20/24 05/20/24 Range/Units 07:46 07:46 12:36 Est GFR (CKD-EPI) 55 L (>=60) BUN/Creatinine Ratio 24.55 H (12.00-20.00) Ratio Glucose 156 H (70-110) mg/dL POC Glucose (mg/dL) 188 H (70-110) mg/dL Calcium 8.0 L (8.7-10.3) mg/dL C-Reactive Protein 2.20 H (0.00-0.80) mg/dL 05/20/24 05/20/24 05/21/24 Range/Units 17:35 21:03 05:52 Est GFR (CKD-EPI) (>=60) BUN/Creatinine Ratio (12.00-20.00) Ratio Glucose (70-110) mg/dL POC Glucose (mg/dL) 217 H 253 H 204 H (70-110) mg/dL Calcium (8.7-10.3) mg/dL C-Reactive Protein (0.00-0.80) mg/dL Assessment and Plan (1) Abdominal pain Narrative/Plan: 68-year-old female presenting with 1 week duration of abdominal pain and nausea and 5 months of diarrhea worse after eating. States multiple episodes of diarrhea. She has been taking Imodium and Pepto-Bismol but has not seen anybody for the chronic diarrhea until yesterday prior to coming to the emergency department. Denies any new medications yet then stated she may have been started on some new medications however not sure. Unclear etiology of abdominal pain and diarrhea. Will obtain stool samples for C. difficile and stool culture. Patient has not had any bowel movement since coming into the hospital with abdominal pain improving and is tolerating a regular diet. Recommend outpatient follow-up with gastroenterology. CT mentions possible gastroparesis possible etiology as patient is diabetic. Last upper endoscopy March 2019 with no evidence of gastroparesis. Current Visit: Yes Status: Acute Code(s): R10.9 - UNSPECIFIED ABDOMINAL PAIN SNOMED Code(s): 57448597 (2) Chronic diarrhea Current Visit: Yes Status: Acute Code(s): K52.9 - NONINFECTIVE GASTROENTERITIS AND COLITIS, UNSPECIFIED SNOMED Code(s): 629401003 (3) Nausea without vomiting Current Visit: Yes Status: Acute Code(s): R11.0 - NAUSEA SNOMED Code(s): 329172072 (4) Diabetes mellitus Current Visit: Yes Status: Acute Code(s): E11.9 - TYPE 2 DIABETES MELLITUS WITHOUT COMPLICATIONS SNOMED Code(s): 86528453 (5) Atrial fibrillation Narrative/Plan: Takes Eliquis, currently on hold. Current Visit: No Status: Acute Code(s): I48.91 - UNSPECIFIED ATRIAL FIBRILLATION SNOMED Code(s): 47262378 (6) Obesity (BMI 30-39.9) Current Visit: No Status: Acute Code(s): E66.9 - OBESITY, UNSPECIFIED SNOMED Code(s): 362177456 Plan: 1. Continue symptomatic and supportive care 2. May resume Eliquis 3. Antiemetics as needed. Prescription for Zofran on discharge. 4. C. difficile canceled per recommendations from ID. Stool cultures not collected as patient's not having any further bowel movement 5. Patient may have low-fat/low fiber diet 6. No plans at this time for endoscopic evaluation. Patient to follow-up with gastroenterology in outpatient setting. Thank you for this consultation, patient is cleared from gastroenterology for discharge. Dr. Laura Scott I agree with the dictator's note, documented as a scribe by Aurora Simon.
== END 2024-05-21 14:06 | disposition home or self-care (01) ==
LOC: EC 17:53 → 6NMEDSUR 23:25
PROVIDERS: ADMIT Hospitalist; ATTEND Hospitalist
DX: E11.43 Type 2 diabetes mellitus with diabetic autonomic (poly)neuropathy (principal); K31.84 Gastroparesis; K52.9 Noninfective gastroenteritis and colitis, unspecified; E86.0 Dehydration; I11.0 Hypertensive heart disease with heart failure; I50.9 Heart failure, unspecified; J44.9 Chronic obstructive pulmonary disease, unspecified; I48.0 Paroxysmal atrial fibrillation; F41.9 Anxiety disorder, unspecified; E78.5 Hyperlipidemia, unspecified; E03.9 Hypothyroidism, unspecified; F17.200 Nicotine dependence, unspecified, uncomplicated; E66.9 Obesity, unspecified; Z68.35 Body mass index [BMI] 35.0-35.9, adult; Z56.0 Unemployment, unspecified; Z79.01 Long term (current) use of anticoagulants; Z79.4 Long term (current) use of insulin; Z79.890 Hormone replacement therapy; Z79.899 Other long term (current) drug therapy; Z88.1 Allergy status to other antibiotic agents; Z88.5 Allergy status to narcotic agent
CPT/HCPCS: 36415; 74177; 80048; 80053; 82150; 83036; 83605; 83690; 84443; 85025; 85610; 85652; 85730; 86140; 93005; 96361; 96374; 96375; 96376; 99285

== ENCOUNTER 2024-07-21 06:53 | Day surgery (SDC) | payer MEDICARE, OTHER ==
[2024-07-17 15:02] VITALS: BMI 35.6
[2024-07-21 07:17] VITALS: TEMP 96.9
[2024-07-21 07:33] LABS: Glucose,Whole Blood 124 mg/dL (70-110)
[2024-07-21] MEDS: LACTATED RINGERS 1,000 ML IV SCH (07:41)
[2024-07-21] MEDS: IV FLUID CONTINUATION 1,000 ML IV ONE (07:41)
[2024-07-21] MEDS ORDERED: fentaNYL (PF) 50 MCG/ML 2 ML AMP ONE (07:47)
[2024-07-21] MEDS ORDERED: PROPOFOL 10 MG/ML 20 ML VIAL IV ONE (07:47)
[2024-07-21] MEDS ORDERED: LIDOCAINE 2% (PF) 20 MG/ML 5 ML VIAL ONE (07:47)
--- NOTE | 2024-07-21 08:28 | P.PCN ---
Date of Procedure: 07/21/24 Procedure(s) Performed: Brief history: Patient is a pleasant 68-year-old white female scheduled for an elective upper endoscopy as well as colonoscopy as a part of evaluation of abdominal pain associate with intermittent nausea vomiting and diarrhea for the last 10 years duration. She also has prior history of colon polyps. Her last colonoscopy was in 2019 Procedure performed: Esophagogastroduodenoscopy biopsy Colonoscopy with biopsy Preoperative diagnosis: Chronic abdominal pain/intermittent nausea vomiting Chronic diarrhea and history of colon polyps Anesthesia: [facility] [place] Procedure: After informed consent was obtained from the patient was brought into the endoscopy unit and IV sedation was administered by anesthesia under continuous monitoring. Initially upper endoscopy was done. The Olympus GF 160 video endoscope was inserted inserted into the mouth and esophagus intubated without any difficulty and was gradually advanced into the stomach and duodenum and carefully examined. The bulb and second part of the duodenum appeared normal. Biopsies were done from the duodenum rule out celiac disease. The scope was then withdrawn into the stomach adequately insufflated with air and upon careful examination the antrum and body, cardia and fundus appeared normal. There was clear liquid gastric contents and approximately 300 cc was aspirated. The scope was then withdrawn into the esophagus. The GE junction was located at 40 cm to the incisors. It appeared regular with no erythema erosions or ulcerations. Rest of the esophagus appeared normal. Patient tolerated the procedure well. At this time the patient continued to remain sedation. Initial digital rectal examination was normal. Olympus CF 160 video colonoscope was then inserted into the rectum and gradually advanced to the hepatic flexure and despite multiple attempts because of redundant colon I was not able to advance the scope into the cecum. Abdominal pressure was applied and patient was turned on her back despite which we were not able to advance the scope into the cecum. After attempting several times the procedure was terminated. Careful examination was performed as the scope was present being withdrawn. The hepatic edge and appeared normal. The prep was poor in several areas of the colon. Mucosa transverse colon, descending colon normal. In the sigmoid colon there is a 5 mm sessile polyp removed by cold biopsy. Random biopsies were done from the transverse colon and descending colon to rule out microscopic/collagenous colitis. Rest of the, sigmoid colon and rectum appeared normal. Retroflexion was performed in the rectum and no lesions were noted. Patient tolerated the procedure well. Impression: 1. Upper endoscopy revealed mild antral gastritis and retained liquid in the stomach suggestive of diabetic gastroparesis 2. Colonoscopy up to hepatic flexure revealed 5 mm sigmoid colon polyp that was removed with cold biopsy and the rest of the colon was normal. Recommendations: Findings of this examination were discussed with the patient as well as her family. She was advised to follow with the biopsy results. Return office in 2 weeks. Recommend repeat colonoscopy in 3 years.
[2024-07-21 08:56] VITALS: RESP 16
[2024-07-21 09:19] VITALS: BP 92/51; PULSE 69
== END 2024-07-21 09:43 | disposition home or self-care (01) ==
LOC: ORWHC2ENDO 06:53
PROVIDERS: ATTEND Internal Medicine Gastroenterology
DX: K29.50 Unspecified chronic gastritis without bleeding (principal); K31.A11 Gastric intestinal metaplasia without dysplasia, involving the antrum; K63.5 Polyp of colon; J44.89 Other specified chronic obstructive pulmonary disease; I50.22 Chronic systolic (congestive) heart failure; I48.91 Unspecified atrial fibrillation; B96.81 Helicobacter pylori [H. pylori] as the cause of diseases classified elsewhere; I82.409 Acute embolism and thrombosis of unspecified deep veins of unspecified lower extremity; E11.9 Type 2 diabetes mellitus without complications; E07.9 Disorder of thyroid, unspecified; M19.90 Unspecified osteoarthritis, unspecified site; Z79.899 Other long term (current) drug therapy; Z79.890 Hormone replacement therapy; Z79.4 Long term (current) use of insulin; Z79.83 Long term (current) use of bisphosphonates; Z88.5 Allergy status to narcotic agent; Z88.1 Allergy status to other antibiotic agents
CPT/HCPCS: 88305; 45380; 43239; J3010; J2704; J2003; 88342

== ENCOUNTER 2024-07-27 21:27 | Inpatient (IN) | payer MEDICARE, OTHER ==
--- NOTE | 2024-07-27 21:50 | ED ---
General Adult HPI <Heena Bates - Last Filed: 07/28/24 01:58> - General Source: EMS Mode of arrival: EMS <Jovi Navarrete - Last Filed: 08/04/24 17:01> - General Chief complaint: Chest Pain Stated complaint: Chest Pain Time Seen by Provider: 07/27/24 21:38 - History of Present Illness Initial comments: Dictation was produced using [employer] dictation software. please excuse any grammatical, word or spelling errors. Chief Complaint: 68-year-old female with chest pain History of Present Illness: Patient 68-year-old female presents emergency department chest pain states that it is sharp in the beginning but not feels lik e pressure. States the pain radiates to her left jaw and whole left side of her body. Patient has a history of coronary disease. She does take Eliquis. Patient has history of A-fib. Given nitro and aspirin by EMS. Patient [place] any known history of coronary artery disease. The ROS documented in this emergency department record has been reviewed and confirmed by me. Those systems with pertinent positive or negative responses have been documented in the HPI. All other systems are other negative and/or noncontributory. (Jovi Navarrete) - Related Data Home Medications Medication Instructions Recorded Confirmed ALPRAZolam [Xanax] 1 mg PO QID PRN 01/06/18 07/28/24 Furosemide [Lasix] 40 mg PO DAILY 01/06/18 07/28/24 HYDROcodone/APAP 10-325MG [[place] 1 tab PO Q6H PRN 01/06/18 07/28/24 10-325] Digoxin 250 mcg PO DAILY 02/28/19 07/28/24 Insulin NPH Human Isophane 30 unit SQ DAILY 07/25/21 07/28/24 [humuLIN N] Metoprolol Succinate (ER) [Toprol 25 mg PO BID 04/06/22 07/28/24 XL] Albuterol Inhaler [Ventolin Hfa 2 puff INHALATION RT-QID PRN 05/19/24 07/28/24 Inhaler] INSULIN LISPRO (HumaLOG) [humaLOG] 20 units SQ TID-W/MEALS 05/19/24 07/28/24 Levothyroxine Sodium [Synthroid] 100 mcg PO DAILY 05/19/24 07/28/24 Promethazine [Phenergan] 25 mg PO Q6HR PRN 07/28/24 07/28/24 Previous Rx's Medication Instructions Recorded Ondansetron Odt [Zofran ODT] 4 mg PO Q8HR PRN #30 tab 05/21/24 Pantoprazole [Protonix] 40 mg PO DAILY #30 tab 07/29/24 cefuroxime axetiL [Ceftin] 500 mg PO BID 4 Days #8 tab 07/29/24 Allergies Allergy/AdvReac Type Severity Reaction Status Date / Time doxycycline Allergy Rash/Hives Verified 07/27/24 21:33 erythromycin base Allergy Rash/Hives Verified 07/27/24 21:33 morphine AdvReac Just Verified 07/27/24 21:33 doesn't help with pain Review of Systems ROS Other: All systems not noted in ROS Statement are negative. <Heena Bates - Last Filed: 07/28/24 01:58> ROS Other: All systems not noted in ROS Statement are negative. <Jovi Navarrete - Last Filed: 08/04/24 17:01> ROS Statement: Those systems with pertinent positive or pertinent negative responses have been documented in the HPI. Past Medical History Past Medical History: Atrial Fibrillation, Asthma, Heart Failure, COPD, Diabetes Mellitus, Deep Vein Thrombosis (DVT), Thyroid Disorder Additional Past Medical History / Comment(s): arthritis. cyst behing left leg. DM II insulin dependent, blood clot under right arm, having neck pain r/t disc and cannot lay on the right side or back without passing out. History of Any Multi-Drug Resistant Organisms: MRSA Date of last positivie culture/infection: 1999 MDRO Source:: blood Past Surgical History: Appendectomy, Cholecystectomy, Hysterectomy, Tonsillectomy, Tubal Ligation Additional Past Surgical History / Comment(s): bilateral knee laproscopy Past Anesthesia/Blood Transfusion Reactions: Previous Problems w/ Anesthesia Additional Past Anesthesia/Blood Transfusion Reaction / Comment(s): was hard to wake up after having hyst. Past Psychological History: Anxiety Smoking Status: Current every day smoker - Past Family History Father Family Medical History: Diabetes Mellitus, Renal Disease Mother History Unknown: Yes Family Medical History: Diabetes Mellitus Brother(s) History Unknown: Yes Sister(s) History Unknown: Yes Daughter(s) Family Medical History: No Reported History Son(s) Family Medical History: No Reported History <Jovi Navarrete - Last Filed: 08/04/24 17:01> General Exam <Jovi Navarrete - Last Filed: 08/04/24 17:01> - General Exam Comments Initial Comments: PHYSICAL EXAM: General Impression: Alert and oriented x3, not in acute distress HEENT: Normocephalic atraumatic, extra-ocular movements intact, pupils equal and reactive to light bilaterally, mucous membranes moist. Cardiovascular: Heart regular rate and rhythm Chest: Able to complete full sentences, no retractions, no tachypnea Abdomen: abdomen soft, non-tender, non-distended, no organomegaly Musculoskeletal: Pulses present and equal in all extremities, no peripheral edema Motor: no focal deficits noted Neurological: CN II-XII grossly intact, no focal motor or sensory deficits noted Skin: Intact with no visualized rashes Psych: Normal affect and mood (Jovi Navarrete) Course <Jovi Navarrete - Last Filed: 08/04/24 17:01> Vital Signs 07/27/24 07/27/24 07/27/24 21:28 22:45 23:00 Temperature 98.2 F Pulse Rate 86 75 77 Pulse Rate [ Tour Guide ] Respiratory 18 20 18 Rate Blood Pressure 120/55 117/44 120/50 Blood Pressure [Right Arm] O2 Sat by Pulse 99 99 100 Oximetry 07/28/24 07/28/24 07/28/24 01:23 01:37 01:57 Temperature 98.2 F 98.4 F Pulse Rate 71 73 73 Pulse Rate [ Tour Guide ] Respiratory 20 18 18 Rate Blood Pressure 105/71 115/41 107/40 Blood Pressure [Right Arm] O2 Sat by Pulse 99 100 99 Oximetry 07/28/24 07/28/24 02:02 02:29 Temperature 98.1 F Pulse Rate 72 Pulse Rate [ 73 Tour Guide ] Respiratory 26 H 18 Rate Blood Pressure 120/47 Blood Pressure 138/67 [Right Arm] O2 Sat by Pulse 98 100 Oximetry - Reevaluation(s) Reevaluation #1: 07/27/24 23:39 More history obtained from patient's son. Apparently last week she had a upper and lower endoscopy performed by Dr. Scott. She was told that there were no significant findings. Patient does report having history of anemia of unknown cause. (Jovi Navarrete) EKG Findings - EKG Comments: EKG Findings:: My EKG interpretation: Ventricular rate A-fib, 80, QRS 114, QTc 434. No NM prolongation, no QTC prolongation, no ST or T-wave changes noted. EKG compared to May 19, 2024 showing no changes. Overall, this EKG is unremarkable <Jovi Navarrete - Last Filed: 08/04/24 17:01> Medical Decision Making - Lab Data Result diagrams: 07/27/24 22:55 07/27/24 22:55 <Heena Bates - Last Filed: 07/28/24 01:58> - Lab Data Result diagrams: 07/31/24 02:58 07/31/24 02:58 <Jovi Navarrete - Last Filed: 08/04/24 17:01> - Medical Decision Making Sign out received from off going physician, Dr. Wellington. Is a 68-year-old female the past medical history of atrial fibrillation on Eliquis last dose yesterday morning, prior GI bleed with recent colonoscopy on 07/21/[address] Romero with polyp removal presenting today for chest pain radiating down her back and into her legs. CTA pending at time of signout. Hemoglobin notably 4.4. Hemoccult negative no black or bloody stools, no hematemesis or hemoptysis. On my assessment patient is chronically ill-appearing but in no acute distress she is tearful from pain. Order additional dose of morphine. Discussed with patient pending CTA and plan for admission. Patient agreeable plan of care. CT significant for mass in the right lower lobe of lungs suspicious for potential neoplasm, additionally mild to moderate free fluid in the abdomen. Given patient's drop in hemoglobin and recent polyp removal, concern for intra- abdominal hemorrhage as cause of new anemia, I did discuss case with general surgery, Dr. Banerjee. He kindly recommends trend H &H and will see patient on consult. Patient is currently vitally stable, SBP 124, HR 68, however given acute drop in hemoglobin and potential for sudden worsening of vitals, if free fluid in abdomen 2/2 hemorrhage. Case was discussed with Bob, nurse practitioner with critical care, critical care team will remain on consult. Discussed case with Dr. Anguiano, [facility], kindly accepts for admission, recs one dose rocephin and blood culture in addition to ICU admit. Did consider heparin administration 2/2 patient's persistent CP however due to significant anemia, and normal troponin, suspect type II GA, will hold on heparin administration at this point, cardiology consult place. Pt admitted in stable condition. (,Heena) Was pt. sent in by a medical professional or institution (, PA, PARK RECREATION MANAGER, urgent care, hospital, or [facility]...) When possible be specific @ -[No] Did you speak to anyone other than the patient for history (EMS, parent, family, police, friend...)? What history was obtained from this source @ -[No] Did you review nursing and triage notes (agree or disagree)? Why? @ -[I reviewed and agree with nursing and triage notes] Were old charts reviewed (outside hosp., previous admission, EMS record, old EKG, old radiological studies, urgent care reports/EKG's, [facility] records)? Report findings @ -[No old charts were reviewed] Differential Diagnosis (chest pain, altered mental status, abdominal pain women, abdominal pain men, vaginal bleeding, musculoskeletal, weakness, fever, dyspnea, syncope, headache, dizziness, GI bleed, back pain, seizure, CVA, palpatations, mental health)? @ -Differential Chest Pain: Stable Angina, Unstable Angina, STEMI, NSTEMI Aortic Dissection, Pneumothorax, Musculoskeletal, Esophageal Spasm GERD, Cholecystitis, Pancreatitis, Zoster, this is not meant to be an all-inclusive list. EKG interpreted by me (3pts min.). @ -See above X-rays interpreted by me (1pt min.). @ -Chest x-ray shows no acute processes CT interpreted by me (1pt min.). @ -[None done] U/S interpreted by me (1pt. min.). @ -[None done] What testing was considered but not performed or refused? (CT, X-rays, U/S, labs)? Why? @ -[None] What meds were considered but not given or refused? Why? @ -[None] Was smoking cessation discussed for >3mins.? @ -[No] Were there social determinants of health that impacted care today? How? (Homelessness, low income, unemployed, alcoholism, drug addiction, transportation, low edu. Level, literacy, decrease access to med. care, longterm, rehab)? @ -[No] Was there de-escalation of care discussed even if they declined (Discuss DNR or withdrawal of care, Hospice)? DNR status @ -[No] What co-morbidities impacted this encounter? (DM, HTN, Smoking, COPD, CAD, Cancer, CVA, ARF, Chemo, Hep., AIDS, mental health diagnosis, sleep apnea, morbid obesity)? @ -A-fib, DVT Was patient admitted / discharged? Hospital course, mention meds given and route, prescriptions, significant lab abnormalities, going to OR and other pertinent info. @ -68-year-old female presents to the emergency department chest pain. Her symptoms are atypical typical features. Vital signs upon arrival are within acceptable limits. Clinical presentation suspicious for acute coronary syndrome. EKG shows no signs of ischemia infarction. Laboratory evaluation obtained. Hemoglobin 4.4. Coag panel is unremarkable. Metabolic panel is with in acceptable limits. Troponin is negative. Cervical blood is negative. Patient ordered for 3 units PRBCs. Patient did complain of chest pain that was sharp to radiate to the left arm and left leg raising suspicion of possible aortic dissection extending. Patient care signed out to Dr. Bates at 1:00 AM follow-up of pending CT study. Did you discuss the management of the patient with other professionals (professionals i.e. , PA, PARK RECREATION MANAGER, lab, RT, psych nurse, social sciences research scientist, hammer setter, teacher, founder and chief technical officer, case finishing machine adjuster )? Give summary @ -[No] Was critical care preformed (if so, how long)? @ -[No] Undiagnosed new problem with uncertain prognosis? @ -[No] Drug Therapy requiring intensive monitoring for toxicity (Heparin, Nitro, Insulin, Cardizem)? @ -[No] Were any procedures done? @ -[No] Diagnosis/symptom? Acute, or Chronic, or Acute on Chronic? Uncomplicated (without systemic symptoms) or Complicated (systemic symptoms)? @ -Chest pain, anemia Side effects of treatment? @ -[No] Exacerbation, Progression, or Severe Exacerbation? @ -[No] Poses a threat to life or bodily function? How? (Chest pain, USA, GA, pneumonia, PE, COPD, DKA, ARF, appy, cholecystitis, CVA, Diverticulitis, Homicidal, Suicidal, threat to staff... and all critical care pts) @ -yes (Jovi Navarrete) - Lab Data Lab Results 07/27/24 07/27/24 07/27/24 Range/Units 22:24 22:55 22:55 WBC 9.0 (3.8-10.6) k/uL RBC 2.09 L (3.80-5.40) m/uL Hgb 4.4 L* (11.4-16.0) gm/dL Hct 15.9 L* (34.0-46.0) % MCV 76.1 L (80.0-100.0) fL MCH 21.1 L (25.0-35.0) pg MCHC 27.7 L (31.0-37.0) g/dL RDW 16.5 H (11.5-15.5) % Plt Count 145 L (150-450) k/uL MPV 9.7 Neutrophils % 74 % Lymphocytes % 12 % Monocytes % 10 % Eosinophils % 0 % Basophils % 0 % Neutrophils # 6.7 (1.3-7.7) k/uL Lymphocytes # 1.1 (1.0-4.8) k/uL Monocytes # 0.9 (0-1.0) k/uL Eosinophils # 0.0 (0-0.7) k/uL Basophils # 0.0 (0-0.2) k/uL Hypochromasia Marked Poikilocytosis Moderate Anisocytosis Slight Microcytosis Slight PT 12.5 (10.0-12.5) sec INR 1.2 H (<1.2) APTT 26.3 (22.0-30.0) sec Sodium 136 L (137-145) mmol/L Potassium 4.1 (3.5-5.1) mmol/L Chloride 103 (98-107) mmol/L Carbon Dioxide 25 (22-30) mmol/L Anion Gap 8 mmol/L BUN 27 H (7-17) mg/dL Creatinine 1.12 H (0.52-1.04) mg/dL Est GFR (CKD-EPI)AfAm 58 (>60 ml/min/1.73 sqM) Est GFR (CKD-EPI)NonAf 51 (>60 ml/min/1.73 sqM) Glucose 94 (74-99) mg/dL Calcium 8.5 (8.4-10.2) mg/dL Magnesium 1.9 (1.6-2.3) mg/dL Total Bilirubin 0.8 (0.2-1.3) mg/dL AST 24 (14-36) U/L ALT 8 (4-34) U/L Alkaline Phosphatase 99 (38-126) U/L Troponin I (0.000-0.034) ng/mL Total Protein 5.4 L (6.3-8.2) g/dL Albumin 3.3 L (3.5-5.0) g/dL Stool Occult Blood (Negative) Blood Type Blood Type Recheck Bld Type Recheck Status Antibody Screen Crossmatch Spec Expiration Date 07/27/24 07/27/24 07/27/24 Range/Units 22:55 22:55 23:31 WBC (3.8-10.6) k/uL RBC (3.80-5.40) m/uL Hgb (11.4-16.0) gm/dL Hct (34.0-46.0) % MCV (80.0-100.0) fL MCH (25.0-35.0) pg MCHC (31.0-37.0) g/dL RDW (11.5-15.5) % Plt Count (150-450) k/uL MPV Neutrophils % % Lymphocytes % % Monocytes % % Eosinophils % % Basophils % % Neutrophils # (1.3-7.7) k/uL Lymphocytes # (1.0-4.8) k/uL Monocytes # (0-1.0) k/uL Eosinophils # (0-0.7) k/uL Basophils # (0-0.2) k/uL Hypochromasia Poikilocytosis Anisocytosis Microcytosis PT (10.0-12.5) sec INR (<1.2) APTT (22.0-30.0) sec Sodium (137-145) mmol/L Potassium (3.5-5.1) mmol/L Chloride (98-107) mmol/L Carbon Dioxide (22-30) mmol/L Anion Gap mmol/L BUN (7-17) mg/dL Creatinine (0.52-1.04) mg/dL Est GFR (CKD-EPI)AfAm (>60 ml/min/1.73 sqM) Est GFR (CKD-EPI)NonAf (>60 ml/min/1.73 sqM) Glucose (74-99) mg/dL Calcium (8.4-10.2) mg/dL Magnesium (1.6-2.3) mg/dL Total Bilirubin (0.2-1.3) mg/dL AST (14-36) U/L ALT (4-34) U/L Alkaline Phosphatase (38-126) U/L Troponin I <0.012 (0.000-0.034) ng/mL Total Protein (6.3-8.2) g/dL Albumin (3.5-5.0) g/dL Stool Occult Blood Negative (Negative) Blood Type A Positive Blood Type Recheck A Pos Bld Type Recheck Status No Antibody Screen NEGATIVE Crossmatch See Detail Spec Expiration Date 07/30/2024 - 2354 Disposition <Heena Bates - Last Filed: 07/28/24 01:58> Decision Time: 00:24 <Jovi Navarrete - Last Filed: 08/04/24 17:01> Clinical Impression: ACS (acute coronary syndrome), Anemia Disposition: ADMITTED IP TO THIS [facility] Condition: Fair
[2024-07-27] MEDS: NITROGLYCERIN SL TABS 0.4 MG TAB SUBLINGUAL STA (22:38)
[2024-07-27] MEDS: HYDROmorphone 1 MG/ML 1 ML SYRINGE IVP STA (22:39)
[2024-07-27 22:41] LABS: INR 1.2 (<1.2); Partial Thromboplastin Time 26.3 sec (22.0-30.0); Prothrombin Time 12.5 sec (10.0-12.5)
--- NOTE | 2024-07-27 22:46 | XR ---
EXAMINATION TYPE: XR chest 2V DATE OF EXAM: 07/27/2024 CLINICAL HISTORY: Chest pain TECHNIQUE: Frontal and lateral views of the chest are obtained. COMPARISON: Chest x-ray May 05, 2022 FINDINGS: There is cardiomegaly with mild central vascular congestion and small bilateral pleural ef fusions. The osseous structures are intact. IMPRESSION: Correlate for suspected CHF exacerbation/fluid overload state. [facility], , 07/27/2024 10:43 PM
[2024-07-27 23:14] LABS: Anisocytosis Slight; Basophils % (A) 0 %; Eosinophils % (A) 0 %; Hypochromasia Marked; Lymphocytes # (A) 1.1 k/uL (1.0-4.8); Lymphocytes % (A) 12 %; MCH 21.1 pg (25.0-35.0); MCHC 27.7 g/dL (31.0-37.0); MCV 76.1 fL (80.0-100.0); Mean Platelet Volume 9.7; Microcytosis Slight; Monocytes # (A) 0.9 k/uL (0-1.0); Monocytes % (A) 10 %; Neutrophils # (A) 6.7 k/uL (1.3-7.7); Neutrophils % (A) 74 %; Platelet Count 145 k/uL (150-450); Poikilocytosis Moderate; RBC 2.09 m/uL (3.80-5.40); RDW 16.5 % (11.5-15.5)
[2024-07-27 23:25] LABS: HCT 15.9 % (34.0-46.0); HGB 4.4 gm/dL (11.4-16.0)
[2024-07-27 23:27] LABS: Potassium 4.1 mmol/L (3.5-5.1)
[2024-07-27 23:28] LABS: ALT 8 U/L (4-34); AST 24 U/L (14-36); African American GFR (CKD) 58 (>60 ml/min/1.73 sqM); Albumin 3.3 g/dL (3.5-5.0); Alkaline Phosphatase 99 U/L (38-126); Anion Gap 8 mmol/L; Blood Urea Nitrogen 27 mg/dL (7-17); Calcium 8.5 mg/dL (8.4-10.2); Carbon Dioxide 25 mmol/L (22-30); Chloride 103 mmol/L (98-107); Glucose 94 mg/dL (74-99); Magnesium 1.9 mg/dL (1.6-2.3); Non-African American GFR(CKD) 51 (>60 ml/min/1.73 sqM); Sodium 136 mmol/L (137-145); Total Bilirubin 0.8 mg/dL (0.2-1.3); Total Protein 5.4 g/dL (6.3-8.2)
[2024-07-28] MEDS: PANTOPRAZOLE 40 MG/10 ML VIAL IVP ONE (00:04)
[2024-07-28] MEDS: SODIUM CHLORIDE 0.9% 500 ML 500 ML IV STA (00:04)
--- NOTE | 2024-07-28 01:08 | CT ---
EXAMINATION TYPE: CT angio thor/abd DATE OF EXAM: 07/28/2024 COMPARISON: None. HISTORY: chest pain radiate to L arm/leg, suspect dissection CT DLP: 2182.5 mGycm. Automated Exposure Control for Dose Reduction was Utilized. CONTRAST: CTA scan of the thorax, abdomen and pelvis is performed without and with IV Contrast, patient injecte d with 80 ml mL of Isovue 370. Reconstructed images. On the workstation and reviewed FINDINGS: VASCULAR: Less than ideal vascular opacification makes evaluation suboptimal. There is normal three-v essel origin from the aortic arch. There is moderate to severe calcified plaque of the infrarenal abd ominal aorta extending to iliac branch vessels. No linear hypodensity to suggest dissection. No AAA. LUNGS: There is small left pleural effusion and associated atelectasis in the left lung base. There i s elevated left hemidiaphragm. There is masslike consolidation medial right lower lobe measuring approximately 4.0 x 3.1 cm axial im age 125. This measures 6.2 cm craniocaudal dimension coronal image 115 series 502. MEDIASTINUM: There is mild cardiomegaly. There is three-vessel coronary artery calcification and/or s tents. Prominent/borderline enlarged right hilar lymph node axial image 79 and subcarinal lymph node seen on same image. Moderate biatrial dilatation. No pericardial effusion. LIVER/GB: Cholecystectomy clips are seen. PANCREAS: At least moderate generalized atrophy. SPLEEN: Splenomegaly at 14.4 cm long axis coronal image 119. ADRENALS: No significant abnormality is seen. KIDNEYS: Cortical thinning bilaterally. Central arterial vascular calcifications. A few small simple appearing thin-walled cysts in both kidneys. No hydronephrosis seen bilaterally. BOWEL: No significant abnormality is seen. GENITAL ORGANS: Moderate amount of free fluid in the pelvis. Uterus is surgically absent or atrophic in appearance. LYMPH NODES: No greater than 1cm abdominal or pelvic lymph nodes are appreciated. OSSEOUS STRUCTURES: Uesebsph-pu-[id number] disc space narrowing at L4-L5 level. OTHER: Moderate to severe peripheral calcified plaque of the infrarenal abdominal aorta extends into branch vessels. Utkt-mo-wbrlidhz diffuse subcutaneous edema in the abdomen and pelvis. IMPRESSION: 1. Suboptimal study but no aortic dissection or acute traumatic vascular finding clearly seen. 2. Small left pleural effusion with associated left basilar compressive atelectasis. There is more bar spicious masslike consolidation in the right lower lobe. Underlying mass or neoplasm not excluded. Co nsider follow-up PET/CT to further evaluate. 3. Mild to moderate diffuse subcutaneous edema in the abdomen and pelvis. Moderate amount of free flu id in the pelvis. [facility], , 07/28/2024 1:06 AM
[2024-07-28] MEDS: HYDROmorphone 1 MG/ML 1 ML SYRINGE IVP STA (01:34)
[2024-07-28] MEDS ORDERED: Phosphorus Replacement Protoco 1 EACH MISC MISCELLANE PRN (01:50)
[2024-07-28] MEDS ORDERED: MORPHINE SULFATE 4 MG/ML SYRINGE IV PRN (01:50)
[2024-07-28] MEDS ORDERED: NALOXONE 0.4 MG/ML 1 ML VIAL IV PRN (01:50)
[2024-07-28] MEDS ORDERED: Magnesium Replacement Protocol 1 EACH MISC MISCELLANE PRN (01:50)
[2024-07-28] MEDS ORDERED: Potassium Replacement Protocol 1 EACH MISC MISCELLANE PRN (01:50)
[2024-07-28] MEDS: LORazepam 2 MG/ML INJ IV STA (02:07)
[2024-07-28] MEDS: DEXTROSE 5%-0.9% NACL 1,000 ML IV SCH ×2 (02:19→02:35)
[2024-07-28 02:52] LABS: Glucose,Whole Blood 133 mg/dL (70-110)
[2024-07-28 03:41] LABS: Glucose,Whole Blood 142 mg/dL (70-110)
--- NOTE | 2024-07-28 05:10 | P.CNPUL ---
History of Present Illness Consult date: 07/28/24 Requesting physician: Heena Bates Reason for consult: other (ICU management) Chief complaint: chest pain, dizziness History of present illness: Patient is a 68-year-old female with past medical history significant for GI bleed, atrial fibrillation anticoagulated on Eliquis, heart failure, CO PD/asthma, diabetes mellitus, DVT. Her primary care provider is Dr. Shah. Patient presented the ED last night complaining chiefly of chest pain radiating to left jaw and left arm. Associated dizziness and shortness of breath. She was found to be severely anemic on arrival. Hemoglobin is 4.4. Chest/abdomen CTA was technically suboptimal study but did not show any aortic dissection or acute traumatic vascular findings. Small left pleural effusion with associated left basilar compressive atelectasis. There is a suspicious masslike consolidation in the right lower lobe, concerning for possible malignancy. Mild to moderate diffuse subcutaneous edema in the abdomen and pelvis. Moderate amou nt of free fluid in the pelvis. This could be blood product. General surgery has been consulted. CBC: WBC count 9, hemoglobin 4.4, hematocrit 15.9, platelets 145. Coagulation profile PT 12.5, INR 1.2, APTT 26.3. CMP: Sodium 136, potassium 4.1, chloride 103, serum bicarb 25, BUN 27, creatinine 1.12, glucose 94. LFTs unremarkable. Troponin less than 0.012. Stool occult negative. EKG showing atrial fibrillation with controlled ventricular response, rate 80 bpm, diffuse mild ST depressions. I am evaluating this patient intensive care unit. 3 units of packed red blood cells are ordered, and she is receiving every first unit of PRBCs currently. She is resting comfortably in bed. She does become lightheaded on arising. Blood pressure is currently 132/77 mmHg, heart rhythm is atrial fibrillation with controlled ventricular response at 70 bpm, SpO2 is 100% on room air oxygen. Patient states that over the last couple months she has had very frequent bouts of liquid diarrhea. They were dark and melanotic. She was taking Pepto-Bismol at this time. Of note, on 07/21/2024 patient underwent EGD/colonoscopy with Dr. Scott. Upper endoscopy revealed mild antral gastritis, retained liquid in the stomach suggestive of diabetic gastroparesis. Colonoscopy up to the hepatic flexure revealed 5 mm sigmoid colon polyp removed with cryo. Pathology unremarkable. Following the colonoscopy, she denies any melanotic stools, hematochezia. She was continuing to have frequent bouts of diarrhea, and started taking Imodium. Since then, has not had any bowel movements in the last 3 days. She has been nauseous and has had reduced appetite. No vomiting, no hematemesis. No recent traumatic events. Abdomen does not appear particularly acute on examination. General surgery is consulted. Review of Systems Constitutional: Reports poor appetite, Reports weight loss, Denies chills, Denies fatigue, Denies fever, Denies sweats Ears, nose, mouth and throat: Denies epistaxis, Denies headache, Denies nasal congestion, Denies nasal discharge, Denies post-nasal drip, Denies sinus pain, Denies sinus pressure, Denies sore throat Cardiovascular: Reports chest pain, Reports decreased exercise tolerance, Reports dyspnea on exertion, Reports irregular heart beat, Reports leg edema, Reports lightheadedness, Reports shortness of breath, Denies orthopnea, Denies palpitations, Denies paroxysmal nocturnal dyspnea, Denies syncope Respiratory: Reports congestion, Reports cough, Reports dyspnea, Denies cough with sputum, Denies excessive sputum, Denies hemoptysis, Denies pain on inspiration, Denies wheezing Gastrointestinal: Reports abdominal pain, Reports diarrhea, Denies constipation Genitourinary: Reports incomplete emptying, Denies abnormal vaginal bleeding, Denies dysuria, Denies flank pain, Denies urinary frequency Musculoskeletal: Denies limitation of motion Integumentary: Denies rash Neurological: Denies confusion, Denies head injury, Denies headaches, Denies seizures, Denies syncope Psychiatric: Reports anxiety, Reports depression Past Medical History Past Medical History: Atrial Fibrillation, Asthma, Heart Failure, COPD, Diabetes Mellitus, Deep Vein Thrombosis (DVT), Thyroid Disorder Additional Past Medical History / Comment(s): arthritis. cyst behing left leg. DM II insulin dependent, blood clot under right arm, having neck pain r/t disc and cannot lay on the right side or back without passing out. History of Any Multi-Drug Resistant Organisms: MRSA Date of last positivie culture/infection: 1999 MDRO Source:: blood Past Surgical History: Appendectomy, Cholecystectomy, Hysterectomy, Tonsillectomy, Tubal Ligation Additional Past Surgical History / Comment(s): bilateral knee laproscopy Past Anesthesia/Blood Transfusion Reactions: Previous Problems w/ Anesthesia Additional Past Anesthesia/Blood Transfusion Reaction / Comment(s): was hard to wake up after having hyst. Past Psychological History: Anxiety Smoking Status: Current every day smoker - Past Family History Father Family Medical History: Diabetes Mellitus, Renal Disease Mother History Unknown: Yes Family Medical History: Diabetes Mellitus Brother(s) History Unknown: Yes Sister(s) History Unknown: Yes Daughter(s) Family Medical History: No Reported History Son(s) Family Medical History: No Reported History Medications and Allergies Home Medications Medication Instructions Recorded Confirmed Type RX: ALPRAZolam [Xanax] 1 mg PO QID PRN 01/06/18 07/28/24 History RX: Furosemide [Lasix] 40 mg PO DAILY 01/06/18 07/28/24 History RX: HYDROcodone/APAP 10-325MG 1 tab PO Q6H PRN 01/06/18 07/28/24 History [[place] 10-325] RX: Digoxin 250 mcg PO DAILY 02/28/19 07/28/24 History RX: Insulin NPH Human Isophane 30 unit SQ DAILY 07/25/21 07/28/24 History [humuLIN N] RX: Apixaban [Eliquis] 5 mg PO BID #60 tab 09/19/21 07/28/24 Rx RX: Metoprolol Succinate (ER) 25 mg PO BID 04/06/22 07/28/24 History [Toprol XL] RX: Albuterol Inhaler [Ventolin 2 puff INHALATION RT-QID PRN 05/19/24 07/28/24 History Hfa Inhaler] RX: INSULIN LISPRO (HumaLOG) 20 units SQ TID-W/MEALS 05/19/24 07/28/24 History [humaLOG] RX: Levothyroxine Sodium 100 mcg PO DAILY 05/19/24 07/28/24 History [Synthroid] Ondansetron Odt [Zofran Odt] 4 mg PO Q8HR PRN #30 tab 05/21/24 07/28/24 Rx Promethazine [Phenergan] 25 mg PO Q6HR PRN 07/28/24 07/28/24 History Allergies Allergy/AdvReac Type Severity Reaction Status Date / Time doxycycline Allergy Rash/Hives Verified 07/27/24 21:33 erythromycin base Allergy Rash/Hives Verified 07/27/24 21:33 morphine AdvReac Just Verified 07/27/24 21:33 doesn't help with pain Physical Exam Vitals: Vital Signs Temp Pulse Resp BP Pulse Ox 07/28/24 02:29 72 18 120/47 100 07/28/24 01:57 73 18 107/40 99 07/28/24 01:37 98.4 F 73 18 115/41 100 07/28/24 01:23 98.2 F 71 20 105/71 99 07/27/24 23:00 77 18 120/50 100 07/27/24 22:45 75 20 117/44 99 07/27/24 21:28 98.2 F 86 18 120/55 99 Intake and Output 07/27/24 07/27/24 07/28/24 14:59 22:59 06:59 Intake Total 0 Balance 0 Intake: Blood Product 0 Rc As-1 Unit 0 [id number] Other: Weight 122.47 kg GENERAL EXAM: Alert, 68-year-old obese female, comfortable in no apparent distress. HEAD: Normocephalic and atraumatic EYES: Normal reaction of pupils, equal size. NOSE: Clear with pink turbinates. THROAT: No erythema or exudates. NECK: No masses, no JVD. CHEST: No chest wall deformity. LUNGS: Equal air entry with faint expiratory wheezes heard throughout. On room air. No conversational dyspnea or accessory muscle use.. CVS: S1 and S2 normal with soft grade 2 systolic murmur, irregular rhythm. No extra heart sounds ABDOMEN: Obese abdomen, active bowel sounds, no hepatosplenomegaly, no guarding or rigidity. SPINE: No scoliosis or deformity SKIN: No rashes CENTRAL NERVOUS SYSTEM: No focal deficits, tone is normal in all 4 extremities. EXTREMITIES: There is moderate nonpitting bilateral lower extremity edema. No clubbing, or cyanosis. Peripheral pulses are intact. Results - Laboratory Findings CBC and BMP: 07/28/24 11:14 07/28/24 11:14 PT/INR, D-dimer PT 12.5 sec (10.0-12.5) 07/27/24 22:24 INR 1.2 (<1.2) H 07/27/24 22:24 Abnormal lab findings: Abnormal Labs 11/25/24 11/25/24 11/25/24 22:24 22:55 22:55 RBC 2.09 L Hgb 4.4 L* Hct 15.9 L* MCV 76.1 L MCH 21.1 L MCHC 27.7 L RDW 16.5 H Plt Count 145 L INR 1.2 H Sodium 136 L BUN 27 H Creatinine 1.12 H POC Glucose (mg/dL) Total Protein 5.4 L Albumin 3.3 L Crossmatch 07/27/24 07/28/24 07/28/24 22:55 02:51 03:39 RBC Hgb Hct MCV MCH MCHC RDW Plt Count INR Sodium BUN Creatinine POC Glucose (mg/dL) 133 H 142 H Total Protein Albumin Crossmatch See Detail - Diagnostic Findings Chest x-ray: image reviewed CT scan - chest: image reviewed Assessment and Plan Assessment: Symptomatic anemia, hemoglobin currently 4.4 g/dL, 1/3 PRBCs is infusing at the moment. Chest/abdomen CTA was technically suboptimal study but did not show any aortic dissection or acute traumatic vascular findings. Small left pleural effusion with associated left basilar compressive atelectasis. There is a suspicious masslike consolidation in the right lower lobe. Mild to moderate diffuse subcutaneous edema in the abdomen and pelvis. Moderate amount of free fluid in the pelvis. Awaiting recommendations from general surgery. Atrial fibrillation with controlled ventricular response, normally anticoagulated on Eliquis on an outpatient basis, which is currently on hold History of GI bleeding Recent EGD/colonoscopy 07/21/[address] Scott. Upper endoscopy revealed mild antral gastritis, retained liquid in the stomach suggestive of diabetic gastroparesis. Colonoscopy up to the hepatic flexure revealed 5 mm sigmoid colon polyp removed with cryo. Pathology unremarkable for malignancy. Chest pain, rule out possible type II DC Acute on chronic dyspnea Suspicious right lower lobe masslike consolidation measuring 4 x 3.1 cm, will need pulmonary evaluation once patient is stabilized. Chronic obstructive pulmonary disease Current ongoing tobacco dependence, with over [id number] history History of heart failure with preserved ejection fraction History of hyperlipidemia Hypothyroidism Diabetes mellitus type 2, insulin-dependent CKD stage III History of DVT Thrombocytopenia Obesity, with a BMI of 35.6 kg/m Plan: Patient's medications, labs, imaging were reviewed Currently receiving first of 3 PRBCs Trend serial H&H Eliquis is on hold We do not have GI coverage this week, but general surgery has accepted this patient No bowel movements observed by staff, fecal occult negative. Check C.diff Vitals have remained stable We will continue to follow the patient while in intensive care unit. Patient will also need additional workup in regards to her masslike consolidation in the right lower lobe, underlying malignancy is not excluded. Case will be discussed with Dr. Rae. I have personally seen and examined the patient, performed the documentation and the assessment and plan as written. Number of minutes spent on the visit:20 On 07/28/2024, the patient is being seen in a joint evaluation with the nurse practitioner. The patient was brought into the intensive care unit for profound anemia and her hemoglobin was down to 4.4 and the patient received a total of 3 units of packed RBC and a with awaiting to follow-up hemoglobin level from this morning. Nevertheless, there is no clear indication for a GI bleed despite the patient being on anticoagulants with Eliquis. The patient had an EGD and a colonoscopy that was done 07/21/2024 and was found to have mild antral gastritis and a sigmoid polyp that was resected. The current occult stool is negative for blood. The patient is free of any chest pain at this point in time. Cardiac enzymes were nonelevated. She continues to have shortness of breath. She has a component of COPD. I reviewed the CAT scan of the chest and there is a pseudotumor in the right lower lobe that was absent on a recent CAT scan of the abdomen that was done in May 2024 which clearly shows the right lung base that was essentially clear and the left lung base was also free of any pleural fluid. There is development of atelectasis/left-sided pleural effusion on the follow-up CT of the chest was done yesterday. General surgery is on the case regarding some fluid in the pelvis. Hemodynamically stable. The patient is off anticoagulants for now. Awaiting follow-up hemoglobin. Awaiting surgical consultation. Will check proBNP level. Will give the patient a dose of Lasix following the blood transfusions 40 mg p.o. daily. Patient will be also started on empiric antibiotic coverage with IV Rocephin. The patient was started on DuoNeb nebulized treatments [id number]. IV Protonix. Will continue to follow. Time with Patient: Greater than 30
[2024-07-28] MEDS: MORPHINE SULFATE 2 MG/ML SYRINGE IV PRN (08:34)
[2024-07-28 08:35] LABS: Glucose,Whole Blood 157 mg/dL (70-110)
[2024-07-28] MEDS: PANTOPRAZOLE 40 MG/10 ML VIAL IV SCH (08:35)
[2024-07-28] MEDS ORDERED: PANTOPRAZOLE 40 MG/10 ML VIAL IV SCH (09:00)
[2024-07-28] MEDS ORDERED: ALBUTEROL NEBULIZED 2.5 MG/3 ML INHALATION PRN (09:10)
[2024-07-28] MEDS ORDERED: DEXTROSE 50% SYRINGE 50 ML IVP PRN ×2 (09:11)
[2024-07-28] MEDS: LEVOTHYROXINE 100 MCG TAB PO SCH (10:50)
[2024-07-28] MEDS: FUROSEMIDE 10 MG/ML 4 ML VIAL IV ONE (11:04)
[2024-07-28] MEDS: METOPROLOL SUCCINATE (ER) 25 MG TAB.ER.24H PO SCH (11:04)
[2024-07-28] MEDS: INSULIN NPH 100 UNIT/ML 10 ML VIAL SQ SCH (11:04)
--- NOTE | 2024-07-28 11:15 | CA ---
Transthoracic Echo Report Name: Sabrina Flores Age: 68 Gender: F : 1955 Exam Date: 07/28/2024 08:55 Exam Location: [place] [facility] Ht (in): 73 Wt (lb): 270 Ordering Physician: Matthew Degroot MD ([id number]) Attending/Referring Phys: Convict Guard Shelli Sun RDCS Procedure CPT: Indications: evaluate LV function Cardiac Hx: Technical Quality: Fair Contrast 1: Total Dose (mL): Contrast 2: Total Dose (mL): MEASUREMENTS (Male / Female) Normal Values 2D ECHO LV Diastolic Diameter PLAX 5.4 cm 4.2 - 5.9 / 3.9 - 5.3 cm LV Systolic Diameter PLAX 3.6 cm IVS Diastolic Thickness 1.4 cm 0.6 - 1.0 / 0.6 - 0.9 cm LVPW Diastolic Thickness 1.5 cm 0.6 - 1.0 / 0.6 - 0.9 cm LV Relative Wall Thickness 0.5 RV Internal Dim ED PLAX 4.3 cm LVOT Diameter 2.3 cm LA Systolic Diameter LX 4.9 cm 3.0 - 4.0 / 2.7 - 3.8 cm LV Diastolic Volume MOD BP 108.6 cm??? 67 - 155 / 56 - 104 cm??? LV Systolic Volume MOD BP 40.3 cm??? 22 - 58 / 19 - 49 cm??? LV Ejection Fraction MOD BP 62.9 % >= 55 % LV Cardiac Index MOD BP 2328.5 cm???/min???m??? LV Diastolic Volume MOD 4C 77.6 cm??? LV Systolic Volume MOD 4C 37.0 cm??? LV Ejection Fraction MOD 4C 52.3 % LV Cardiac Index MOD 4C 1382.6 cm???/min???m??? LV Diastolic Length 4C 7.0 cm LV Systolic Length 4C 5.4 cm LV Diastolic Volume MOD 2C 152.5 cm??? LV Systolic Volume MOD 2C 41.4 cm??? LV Ejection Fraction MOD 2C 72.8 % LV Cardiac Index MOD 2C 3784.4 cm???/min???m??? LV Diastolic Length 2C 7.1 cm LV Systolic Length 2C 5.1 cm LA Volume 92.3 cm??? 18 - 58 / 22 - 52 cm??? LA Volume Index 36.2 cm???/m??? 16 - 28 cm???/m??? M-MODE Aortic Root Diameter MM 3.3 cm DOPPLER AV Peak Velocity 322.3 cm/s AV Peak Gradient 41.6 mmHg AV Mean Velocity 192.6 cm/s AV Mean Gradient 18.1 mmHg AV Velocity Time Integral 66.3 cm LVOT Peak Velocity 131.1 cm/s LVOT Peak Gradient 6.9 mmHg LVOT Velocity Time Integral 31.4 cm LVOT Stroke Volume 135.9 cm??? LVOT Stroke Volume Index 55.6 ml/m??? LVOT Cardiac Index 4631.9 cm???/min???m??? AV Area Cont Eq vti 2.0 cm??? AV Area Cont Eq pk 1.8 cm??? MV Peak Velocity 202.1 cm/s MV Peak Gradient 16.3 mmHg MV Mean Velocity 94.3 cm/s MV Mean Gradient 4.8 mmHg MV Velocity Time Integral 41.3 cm MV Area PHT 5.6 cm??? MV Deceleration Time 174.1 ms TR Peak Velocity 302.7 cm/s TR Peak Gradient 36.6 mmHg Right Ventricular Systolic Press 48.5 mmHg FINDINGS Left Ventricle Left ventricular ejection fraction is estimated at 55-60 %. Normal left ventricular systolic function with no obvious regional wall motion abnormalities. Moderately increased left ventricular wall thickness. Left ventricular cavity size normal. Right Ventricle Moderately right ventricular dilatation. Moderate pulmonary hypertension. Right ventricular systolic pressure estimated at 49 mm hg. Right Atrium Severe right atrial dilatation. No right atrial thrombus or mass seen. Left Atrium Severely increased left atrial diameter. Moderately increased left atrial volume. Mildly increased left atrial area. No left atrial thrombus or mass present. Mitral Valve Mitral valve thickened. Moderate mitral annular calcification. Mild to moderate mitral regurgitation. Mean gradient accross MV 5 mmHg Aortic Valve Aortic valve sclerosis. Mild aortic stenosis with a peak gradient of 42 mmHg and a mean gradient of 18 mmHg. Tricuspid Valve Structurally normal tricuspid valve. Mild to moderate tricuspid regurgitation. Pulmonic Valve Pulmonic valve not well visualized. Pericardium No pericardial or pleural effusion. Aorta Normal size aortic root and proximal ascending aorta. CONCLUSIONS 1. Normal left ventricular size and systolic function 2. Dilated right ventricle with moderate pulmonary hypertension 3. Mild to moderate mitral regurgitation with mild mitral stenosis 4. [id number] tricuspid regurgitation 5. Mild aortic stenosis Previewed by: Dr. Sofya Sauceda MD (Electronically Signed) Final Date: 28 July 2024 11:14
[2024-07-28 11:22] LABS: Glucose,Whole Blood 183 mg/dL (70-110)
[2024-07-28] MEDS: INSULIN ASPART (NovoLOG) 100 UNIT/ML VIAL SQ SCH (11:22)
[2024-07-28 11:39] LABS: Anisocytosis Slight; HCT 22.1 % (34.0-46.0); Hypochromasia Marked; MCH 23.8 pg (25.0-35.0); MCHC 29.9 g/dL (31.0-37.0); MCV 79.6 fL (80.0-100.0); Mean Platelet Volume 8.6; Microcytosis Slight; Platelet Count 106 k/uL (150-450); Poikilocytosis Marked; RBC 2.78 m/uL (3.80-5.40); RDW 16.4 % (11.5-15.5); WBC 10.4 k/uL (3.8-10.6)
[2024-07-28 11:53] LABS: HGB 6.6 gm/dL (11.4-16.0)
[2024-07-28 11:54] LABS: African American GFR (CKD) 61 (>60 ml/min/1.73 sqM); Anion Gap 6 mmol/L; Blood Urea Nitrogen 26 mg/dL (7-17); Calcium 8.1 mg/dL (8.4-10.2); Carbon Dioxide 22 mmol/L (22-30); Chloride 107 mmol/L (98-107); Glucose 159 mg/dL (74-99); Non-African American GFR(CKD) 53 (>60 ml/min/1.73 sqM); Potassium 4.1 mmol/L (3.5-5.1); Sodium 135 mmol/L (137-145)
--- NOTE | 2024-07-28 12:11 | P.HPIM ---
History of Present Illness H&P Date: 07/28/24 This is a 68-year-old female with medical history significant for atrial fibrillation anticoag with Eliquis, DVT, heart failure, COPD, diabetes mellitus. Patient comes in for chest pain radiating to the left arm/leg and jaw concern for aortic dissection. Is a sharp sensation. Does have history of coronary artery disease as well. She was given aspirin and nitro from EMS. Patient also reports longstanding history of diarrhea. Had an EGD colonoscopy done 7 days ago for this and had findings of mild antral gastritis with retained liquid in the stomach suggestive of diabetic gastroparesis. Had a 5 mm sigmoid colon polyp that was removed with cold biopsy and the rest of the colon was normal. Patient does report that with her bowel prep she had black tarry stool initially that had cleared up by the end of the prep. She is reporting generalized abdominal pain worse in the epigstric region. Initial blood work reveals hemoglobin of 4.4, hcg 15.9, sodium 136, BUN 27, creatinine 1.12, troponin negative. Admitted for symptomatic anemia. Patient ordered to receive 3 units of packed red blood c ells. Hemeoccult has been negative and patient has no reports of bloody emesis, coffee ground emesis, or blood in the stool. Chest x-ray shows CHF exacerbation and fluid overload state. Patient today abdomen chest CT angiography which reveals no aortic dissection or acute traumatic vesicular finding clearly seen. There is a small left pleural effusion with associated left basilar compressive atelectasis. There is a suspicious masslike consolidation in the right lower lobe underlying mass or neoplasm not excluded. Consider follow-up with PET/CT to further evaluate. There is a mild to moderate diffuse subcutaneous edema in the abdomen and pelvis moderate mount of free fluid in the pelvis. Patient was admitted to the hospital with consults placed to general surgery and pulmonary. She is admitted to the ICU. REVIEW OF SYSTEMS: CONSTITUTIONAL: No fever, no malaise, no fatigue. HEENT: No recent visual problems or hearing problems. Denied any sore throat. CARDIOVASCULAR: No chest pain, orthopnea, PND, no palpitations, no syncope. PULMONARY: No shortness of breath, no cough, no hemoptysis. GASTROINTESTINAL: No diarrhea, no nausea, no vomiting, Reports abdominal pain. NEUROLOGICAL: No headaches, no weakness, no numbness. HEMATOLOGICAL: Denies any bleeding or petechiae. GENITOURINARY: Denies any burning micturition, frequency, or urgency. MUSCULOSKELETAL/RHEUMATOLOGICAL: Denies any joint pain, swelling, or any muscle pain. ENDOCRINE: Denies any polyuria or polydipsia. The rest of the 14-point review of systems is negative. PHYSICAL EXAMINATION: GENERAL: The patient is alert and oriented x3, not in any acute distress. Well developed, well nourished. HEENT: Pupils are round and equally reacting to light. EOMI. No scleral icterus. No conjunctival pallor. Normocephalic, atraumatic. No pharyngeal erythema. No thyromegaly. CARDIOVASCULAR: S1 and S2 present. No murmurs, rubs, or gallops. PULMONARY: Chest is clear to auscultation, no wheezing or crackles. ABDOMEN: Soft, Epigastric tenderness, nondistended, normoactive bowel sounds. No palpable organomegaly. MUSCULOSKELETAL: No joint swelling or deformity. EXTREMITIES: No cyanosis, clubbing. Moderate nonpitting lower extremity edema. NEUROLOGICAL: Gross neurological examination did not reveal any focal deficits. SKIN: No rashes. Assessment and plan Microcytic anemia symptomatic with hemoglobin of 4.4, most recent hemoglobin 9.9 in May of this year. Patient is scheduled to receive 3 units of packed red blood cells History of atrial fibrillation anticoag with Eliquis which is currently on hold Acute on chronic heart failure, chronic diastolic dysfunction ejection fraction in the past. Recent diagnosis of gastritis/diabetic gastroparesis on EGD. Masslike consolidation right lower lobe concern for mass/neoplasm vs. other History of COPD/asthma with no acute exacerbation Diabetes mellitus type 2 Hypothyroidism Chronic nicotine use Obesity GI prophylaxis with IV Protonix DVT prophylaxis Eliquis currently on hold contraindicated secondary to significant anemia Full code Plan Cardiology consultation General Surgery consultation Echocardiogram has been ordered and pending Iron profile is currently ordered and pending Eliquis will remain on hold Patient has received 2 units of packed red blood cells and currently the third unit is transfusing Hemoglobin will be repeated afterwards Resume appropriate home indications IV lasix x 1 Accu-Cheks ACHS and sliding scale insulin Repeat blood work in the AM. The impression and plan of care has been dictated by Roro Arzola Nurse Practitioner as directed. Dr. Samantha MD I have performed a history and physical examination and medical decision making of this patient, discussed the same with the dictator, and agree with the dictators assessment and plan as written, documented as a scribe. Based on total visit time, I have performed more than 50% of this visit. Past Medical History Past Medical History: Atrial Fibrillation, Asthma, Heart Failure, COPD, Diabetes Mellitus, Deep Vein Thrombosis (DVT), Thyroid Disorder Additional Past Medical History / Comment(s): arthritis. cyst behing left leg. DM II insulin dependent, blood clot under right arm, having neck pain r/t disc and cannot lay on the right side or back without passing out. History of Any Multi-Drug Resistant Organisms: MRSA Date of last positivie culture/infection: 1999 MDRO Source:: blood Past Surgical History: Appendectomy, Cholecystectomy, Hysterectomy, Tonsillectomy, Tubal Ligation Additional Past Surgical History / Comment(s): bilateral knee laproscopy Past Anesthesia/Blood Transfusion Reactions: Previous Problems w/ Anesthesia Additional Past Anesthesia/Blood Transfusion Reaction / Comment(s): was hard to wake up after having hyst. Past Psychological History: Anxiety Smoking Status: Current every day smoker - Past Family History Father Family Medical History: Diabetes Mellitus, Renal Disease Mother History Unknown: Yes Family Medical History: Diabetes Mellitus Brother(s) History Unknown: Yes Sister(s) History Unknown: Yes Daughter(s) Family Medical History: No Reported History Son(s) Family Medical History: No Reported History Medications and Allergies Home Medications Medication Instructions Recorded Confirmed Type ALPRAZolam [Xanax] 1 mg PO QID PRN 01/06/18 07/28/24 History Furosemide [Lasix] 40 mg PO DAILY 01/06/18 07/28/24 History HYDROcodone/APAP 10-325MG [[place] 1 tab PO Q6H PRN 01/06/18 07/28/24 History 10-325] Digoxin 250 mcg PO DAILY 02/28/19 07/28/24 History Insulin NPH Human Isophane 30 unit SQ DAILY 07/25/21 07/28/24 History [humuLIN N] Apixaban [Eliquis] 5 mg PO BID #60 tab 09/19/21 07/28/24 Rx Metoprolol Succinate (ER) [Toprol 25 mg PO BID 04/06/22 07/28/24 History XL] Albuterol Inhaler [Ventolin Hfa 2 puff INHALATION RT-QID PRN 05/19/24 07/28/24 History Inhaler] INSULIN LISPRO (HumaLOG) [humaLOG] 20 units SQ TID-W/MEALS 05/19/24 07/28/24 History Levothyroxine Sodium [Synthroid] 100 mcg PO DAILY 05/19/24 07/28/24 History Ondansetron Odt [Zofran Odt] 4 mg PO Q8HR PRN #30 tab 05/21/24 07/28/24 Rx Promethazine [Phenergan] 25 mg PO Q6HR PRN 07/28/24 07/28/24 History Allergies Allergy/AdvReac Type Severity Reaction Status Date / Time doxycycline Allergy Rash/Hives Verified 07/27/24 21:33 erythromycin base Allergy Rash/Hives Verified 07/27/24 21:33 morphine AdvReac Just Verified 07/27/24 21:33 doesn't help with pain Physical Exam Vitals: Vital Signs Temp Pulse Pulse Resp BP BP Pulse Ox 07/28/24 08:30 75 14 135/61 94 L 07/28/24 08:00 98.3 F 73 19 129/47 95 07/28/24 07:53 82 16 129/47 97 07/28/24 07:33 98.2 F 85 16 132/62 98 07/28/24 07:30 73 20 125/52 93 L 07/28/24 07:00 67 28 H 107/92 95 07/28/24 06:51 98.1 F 89 15 107/92 98 07/28/24 06:50 79 13 107/92 100 07/28/24 06:40 68 19 120/45 96 07/28/24 06:30 64 18 122/56 91 L 07/28/24 06:20 65 21 122/56 95 07/28/24 06:10 66 21 139/53 96 07/28/24 06:00 68 24 119/48 96 07/28/24 05:50 64 21 119/48 90 L 07/28/24 05:40 66 20 118/55 94 L 07/28/24 05:30 72 20 125/49 96 07/28/24 05:20 75 23 125/49 96 07/28/24 05:10 71 24 124/50 94 L 07/28/24 05:00 65 21 126/44 93 L 07/28/24 04:50 68 17 126/44 93 L 07/28/24 04:44 98.2 F 71 20 126/44 95 07/28/24 04:40 79 20 127/60 100 07/28/24 04:30 75 18 132/77 100 07/28/24 04:24 98.1 F 73 16 132/77 100 07/28/24 04:20 68 10 L 115/50 100 07/28/24 04:10 78 11 L 115/50 100 07/28/24 04:00 98.1 F 72 14 115/50 98 07/28/24 03:52 98.1 F 73 20 138/67 98 07/28/24 03:50 98.1 F 73 19 138/67 100 07/28/24 02:29 72 18 120/47 100 07/28/24 02:02 98.1 F 73 26 H 138/67 98 07/28/24 01:57 73 18 107/40 99 07/28/24 01:37 98.4 F 73 18 115/41 100 07/28/24 01:23 98.2 F 71 20 105/71 99 07/27/24 23:00 77 18 120/50 100 07/27/24 22:45 75 20 117/44 99 07/27/24 21:28 98.2 F 86 18 120/55 99 Intake and Output 07/27/24 07/28/24 07/28/24 22:59 06:59 14:59 Intake Total 700 40 Output Total 0 200 Balance 700 -160 Intake: Intake, IV Titration 80 40 Amount Dextrose 5%-0.9% NaCl 1, 80 40 000 ml @ 20 mls/hr IV . Q24H [facility] Rx#:[id number] Blood Product 620 0 Rc As-1 Unit 0 [id number] Rc As-1 Unit 310 [id number] Rc As-1 Unit 310 [id number] Output: Urine 0 200 Other: Voiding Method External Catheter Weight 122.47 kg 122.47 kg Results CBC & Chem 7: 07/28/24 11:14 07/28/24 11:14 Labs: Abnormal Lab Results - Last 24 Hours (Table) 07/27/24 07/27/24 07/27/24 Range/Units 22:24 22:55 22:55 RBC 2.09 L (3.80-5.40) m/uL Hgb 4.4 L* (11.4-16.0) gm/dL Hct 15.9 L* (34.0-46.0) % MCV 76.1 L (80.0-100.0) fL MCH 21.1 L (25.0-35.0) pg MCHC 27.7 L (31.0-37.0) g/dL RDW 16.5 H (11.5-15.5) % Plt Count 145 L (150-450) k/uL INR 1.2 H (<1.2) Sodium 136 L (137-145) mmol/L BUN 27 H (7-17) mg/dL Creatinine 1.12 H (0.52-1.04) mg/dL POC Glucose (mg/dL) (70-110) mg/dL Total Protein 5.4 L (6.3-8.2) g/dL Albumin 3.3 L (3.5-5.0) g/dL Crossmatch 07/27/24 07/28/24 07/28/24 Range/Units 22:55 02:51 03:39 RBC (3.80-5.40) m/uL Hgb (11.4-16.0) gm/dL Hct (34.0-46.0) % MCV (80.0-100.0) fL MCH (25.0-35.0) pg MCHC (31.0-37.0) g/dL RDW (11.5-15.5) % Plt Count (150-450) k/uL INR (<1.2) Sodium (137-145) mmol/L BUN (7-17) mg/dL Creatinine (0.52-1.04) mg/dL POC Glucose (mg/dL) 133 H 142 H (70-110) mg/dL Total Protein (6.3-8.2) g/dL Albumin (3.5-5.0) g/dL Crossmatch See Detail 07/28/24 Range/Units 08:33 RBC (3.80-5.40) m/uL Hgb (11.4-16.0) gm/dL Hct (34.0-46.0) % MCV (80.0-100.0) fL MCH (25.0-35.0) pg MCHC (31.0-37.0) g/dL RDW (11.5-15.5) % Plt Count (150-450) k/uL INR (<1.2) Sodium (137-145) mmol/L BUN (7-17) mg/dL Creatinine (0.52-1.04) mg/dL POC Glucose (mg/dL) 157 H (70-110) mg/dL Total Protein (6.3-8.2) g/dL Albumin (3.5-5.0) g/dL Crossmatch Thrombosis Risk Factor Assmnt - Choose All That Apply Each Factor Represents 1 point: Abnormal pulmonary function (COPD), Swollen legs (current) Each Risk Factor Represents 3 Points: History of DVT/PE Thrombosis Risk Factor Assessment Total Risk Factor Score: 5 Thrombosis Risk Factor Assessment Level: High Risk Assessment and Plan Time with Patient: Greater than 30
--- NOTE | 2024-07-28 14:41 | P.GSCN ---
History of Present Illness Consult date: 07/28/24 History of present illness: CHIEF COMPLAINT: Chest pain HISTORY OF PRESENT ILLNESS: This is a 68-year-old female who presents the hospital with complaints of chest pain. Aortic dissection was ruled out on CAT scan. Patient also was found to be anemic with a hemoglobin of 4.4. She she denies any blood in her stools. She did have melanotic stools while taking Pepto-Bismol. She also reported a few melanotic stools after the bowel prep. And then the stools turned brown. Patient had a EGD and colonoscopy on July 21, [address] Scott. Results reported gastritis and gastroparesis and a sigmoid colon polyp that was removed. Colonoscopy report also noted that scope was inserted into the rectum and gradually advanced into the hepatic flexure and despite multiple attempts because a redundant colon she was not able to advance the scope into the cecum. Patient has received a total of 3 units of blood during this admission. Hemoglobin has gone up from 4.4-6.6. CTA of the chest abdomen and pelvis had reported a mild to moderate diffuse subcutaneous edema in the abdomen pelvis moderate amount of free fluid in the pelvis. Surgical service consulted in regards to the intra-abdominal free fluid. Patient had been on Eliquis at home. Last dose was taken yesterday. Patient reports feeling short of breath with dizziness and lightheadedness. Patient seen and examined with Dr. Goff PAST MEDICAL HISTORY: Atrial Fibrillation, Asthma, Heart Failure, COPD, Diabetes Mellitus, Deep Vein Thrombosis (DVT), Thyroid Disorder, arthritis. cyst behing left leg. DM II insulin dependent, blood clot under right arm, PAST SURGICAL HISTORY: Appendectomy, Cholecystectomy, Hysterectomy, Tonsillectomy, Tubal Ligation MEDICATIONS: See below ALLERGIES: See below SOCIAL HISTORY: No illicit drug use. REVIEW OF SYSTEMS: CONSTITUTIONAL: Denies fever or chills. HEENT: Denies blurred vision, vision changes, or eye pain. Denies hemoptysis CARDIOVASCULAR: Denies chest pain or pressure. RESPIRATORY: No shortness of breath. GASTROINTESTINAL: See HPI for pertinent findings HEMATOLOGIC: Denies bleeding disorders. GENITOURINARY: Denies any blood in urine or increased urinary frequency. SKIN: Denies pruitis. Denies rash. PHYSICAL EXAM: VITAL SIGNS: Reviewed GENERAL: Well-developed in no acute distress. HEENT: No sclera icterus. Extraocular movements grossly intact. Moist buccal mucosa. Head is atraumatic, normocephalic. No nasal drainage. ABDOMEN: Soft. Nondistended. obese. Mild epigastric tenderness NEUROLOGIC: Alert and oriented. Cranial nerves II through XII grossly intact. LABORATORY DATA: WBC 10.4 Hgb 4.4 up to 6.6 platelets 106. Hgb in May 19, 2024 was 9.9 Sodium 135 potassium 4.1 creatinine 1.09 BNP 4550 Troponin negative x 2 Stool for occult blood negative Albumin 3.3 IMAGING: CTA of chest abdomen pelvis reports suboptimal study but no aortic dissection or acute traumatic vascular findings. Small left pleural effusion with associated left basilar compressive atelectasis. suspicious masslike consolidation right lower lobe. Underlying mass or neoplasm not excluded. Mild to moderate diffuse subcutaneous edema in the abdomen and pelvis. Mod amount of free fluid in the pelvis. ASSESSMENT: 1. Acute blood loss anemia likely due to trauma from colonoscopy. CAT scan reporting moderate amount of free fluid in the pelvis. Hemoglobin 4.4 on admission. Colonoscopy from 07/21/2024 was done up to the hepatic flexure and after multiple attempts the scope was still unable to be advanced to cecum per G I report. 2. EGD and colonoscopy results did report mild antral gastritis, gastroparesis and a sigmoid colon polyp that was removed with cold biopsy PLAN: -Continue ICU management -An additional 2 units of packed red blood cells ordered -Continue to monitor hemoglobin -Continue to monitor for any signs or symptoms of bleeding -Continue to hold Eliquis -Advance diet to regular Physician Tromper note has been reviewed by physician. Signing provider agrees with the documented findings, assessment, and plan of care. Past Medical History Past Medical History: Atrial Fibrillation, Asthma, Heart Failure, COPD, Diabetes Mellitus, Deep Vein Thrombosis (DVT), Thyroid Disorder Additional Past Medical History / Comment(s): arthritis. cyst behing left leg. DM II insulin dependent, blood clot under right arm, having neck pain r/t disc and cannot lay on the right side or back without passing out. History of Any Multi-Drug Resistant Organisms: MRSA Year Discovered:: 1999 MDRO Source:: blood Past Surgical History: Appendectomy, Cholecystectomy, Hysterectomy, Tonsillectomy, Tubal Ligation Additional Past Surgical History / Comment(s): bilateral knee laproscopy Past Anesthesia/Blood Transfusion Reactions: Previous Problems w/ Anesthesia Additional Past Anesthesia/Blood Transfusion Reaction / Comm: was hard to wake up after having hyst. Past Psychological History: Anxiety Smoking Status: Current every day smoker - Past Family History Father Family Medical History: Diabetes Mellitus, Renal Disease Mother History Unknown: Yes Family Medical History: Diabetes Mellitus Brother(s) History Unknown: Yes Sister(s) History Unknown: Yes Daughter(s) Family Medical History: No Reported History Son(s) Family Medical History: No Reported History Medications and Allergies Home Medications Medication Instructions Recorded Confirmed Type ALPRAZolam [Xanax] 1 mg PO QID PRN 01/06/18 07/28/24 History Furosemide [Lasix] 40 mg PO DAILY 01/06/18 07/28/24 History HYDROcodone/APAP 10-325MG [[place] 1 tab PO Q6H PRN 01/06/18 07/28/24 History 10-325] Digoxin 250 mcg PO DAILY 02/28/19 07/28/24 History Insulin NPH Human Isophane 30 unit SQ DAILY 07/25/21 07/28/24 History [humuLIN N] Apixaban [Eliquis] 5 mg PO BID #60 tab 09/19/21 07/28/24 Rx Metoprolol Succinate (ER) [Toprol 25 mg PO BID 04/06/22 07/28/24 History XL] Albuterol Inhaler [Ventolin Hfa 2 puff INHALATION RT-QID PRN 05/19/24 07/28/24 H istory Inhaler] INSULIN LISPRO (HumaLOG) [humaLOG] 20 units SQ TID-W/MEALS 05/19/24 07/28/24 History Levothyroxine Sodium [Synthroid] 100 mcg PO DAILY 05/19/24 07/28/24 History Ondansetron Odt [Zofran Odt] 4 mg PO Q8HR PRN #30 tab 05/21/24 07/28/24 Rx Promethazine [Phenergan] 25 mg PO Q6HR PRN 07/28/24 07/28/24 History Allergies Allergy/AdvReac Type Severity Reaction Status Date / Time doxycycline Allergy Rash/Hives Verified 07/27/24 21:33 erythromycin base Allergy Rash/Hives Verified 07/27/24 21:33 morphine AdvReac Just Verified 07/27/24 21:33 doesn't help with pain Surgical - Exam Vital Signs Temp Pulse Resp BP Pulse Ox 98.2 F 86 18 120/55 99 07/27/24 21:28 07/27/24 21:28 07/27/24 21:28 07/27/24 21:28 07/27/24 21:28 Results - Labs 07/28/24 11:14 07/28/24 11:14 Abnormal Lab Results - Last 24 Hours (Table) 07/27/24 07/27/24 07/27/24 Range/Units 22:24 22:55 22:55 RBC 2.09 L (3.80-5.40) m/uL Hgb 4.4 L* (11.4-16.0) gm/dL Hct 15.9 L* (34.0-46.0) % MCV 76.1 L (80.0-100.0) fL MCH 21.1 L (25.0-35.0) pg MCHC 27.7 L (31.0-37.0) g/dL RDW 16.5 H (11.5-15.5) % Plt Count 145 L (150-450) k/uL INR 1.2 H (<1.2) Sodium 136 L (137-145) mmol/L BUN 27 H (7-17) mg/dL Creatinine 1.12 H (0.52-1.04) mg/dL POC Glucose (mg/dL) (70-110) mg/dL Total Protein 5.4 L (6.3-8.2) g/dL Albumin 3.3 L (3.5-5.0) g/dL Crossmatch 07/27/24 07/28/24 07/28/24 Range/Units 22:55 02:51 03:39 RBC (3.80-5.40) m/uL Hgb (11.4-16.0) gm/dL Hct (34.0-46.0) % MCV (80.0-100.0) fL MCH (25.0-35.0) pg MCHC (31.0-37.0) g/dL RDW (11.5-15.5) % Plt Count (150-450) k/uL INR (<1.2) Sodium (137-145) mmol/L BUN (7-17) mg/dL Creatinine (0.52-1.04) mg/dL POC Glucose (mg/dL) 133 H 142 H (70-110) mg/dL Total Protein (6.3-8.2) g/dL Albumin (3.5-5.0) g/dL Crossmatch See Detail 07/28/24 Range/Units 08:33 RBC (3.80-5.40) m/uL Hgb (11.4-16.0) gm/dL Hct (34.0-46.0) % MCV (80.0-100.0) fL MCH (25.0-35.0) pg MCHC (31.0-37.0) g/dL RDW (11.5-15.5) % Plt Count (150-450) k/uL INR (<1.2) Sodium (137-145) mmol/L BUN (7-17) mg/dL Creatinine (0.52-1.04) mg/dL POC Glucose (mg/dL) 157 H (70-110) mg/dL Total Protein (6.3-8.2) g/dL Albumin (3.5-5.0) g/dL Crossmatch Diabetes panel 07/27/24 Range/Units 22:55 Sodium 136 L (137-145) mmol/L Potassium 4.1 (3.5-5.1) mmol/L Chloride 103 (98-107) mmol/L Carbon Dioxide 25 (22-30) mmol/L BUN 27 H (7-17) mg/dL Creatinine 1.12 H (0.52-1.04) mg/dL Glucose 94 (74-99) mg/dL Calcium 8.5 (8.4-10.2) mg/dL AST 24 (14-36) U/L ALT 8 (4-34) U/L Alkaline Phosphatase 99 (38-126) U/L Total Protein 5.4 L (6.3-8.2) g/dL Albumin 3.3 L (3.5-5.0) g/dL Calcium panel 07/27/24 Range/Units 22:55 Calcium 8.5 (8.4-10.2) mg/dL Albumin 3.3 L (3.5-5.0) g/dL Pituitary panel 07/27/24 Range/Units 22:55 Sodium 136 L (137-145) mmol/L Potassium 4.1 (3.5-5.1) mmol/L Chloride 103 (98-107) mmol/L Carbon Dioxide 25 (22-30) mmol/L BUN 27 H (7-17) mg/dL Creatinine 1.12 H (0.52-1.04) mg/dL Glucose 94 (74-99) mg/dL Calcium 8.5 (8.4-10.2) mg/dL Adrenal panel 07/27/24 Range/Units 22:55 Sodium 136 L (137-145) mmol/L Potassium 4.1 (3.5-5.1) mmol/L Chloride 103 (98-107) mmol/L Carbon Dioxide 25 (22-30) mmol/L BUN 27 H (7-17) mg/dL Creatinine 1.12 H (0.52-1.04) mg/dL Glucose 94 (74-99) mg/dL Calcium 8.5 (8.4-10.2) mg/dL Total Bilirubin 0.8 (0.2-1.3) mg/dL AST 24 (14-36) U/L ALT 8 (4-34) U/L Alkaline Phosphatase 99 (38-126) U/L Total Protein 5.4 L (6.3-8.2) g/dL Albumin 3.3 L (3.5-5.0) g/dL
[2024-07-28] MEDS: HYDROcodone/APAP 10-325MG 1 EACH TAB PO PRN (16:03)
[2024-07-28] MEDS: ALPRAZolam 1 MG TAB PO PRN (16:03)
[2024-07-28 16:07] LABS: Glucose,Whole Blood 248 mg/dL (70-110)
[2024-07-28] MEDS: IPRATROPIUM-ALBUTEROL 3 ML NEB INHALATION SCH (16:10)
[2024-07-28 19:27] LABS: Anisocytosis Slight; HCT 25.8 % (34.0-46.0); HGB 7.8 gm/dL (11.4-16.0); Hypochromasia Marked; MCH 24.6 pg (25.0-35.0); MCHC 30.4 g/dL (31.0-37.0); MCV 81.1 fL (80.0-100.0); Mean Platelet Volume 8.6; Platelet Count 113 k/uL (150-450); Poikilocytosis Marked; RBC 3.18 m/uL (3.80-5.40); RDW 16.3 % (11.5-15.5); WBC 11.6 k/uL (3.8-10.6)
[2024-07-28 20:29] LABS: Glucose,Whole Blood 239 mg/dL (70-110)
--- NOTE | 2024-07-28 23:28 | CONS ---
CONSULTATION HISTORY OF PRESENT ILLNESS: This is a 68-year-old lady, who has a significant history of chronic atrial fibrillation, on Eliquis, hypertension, diabetes, COPD, bronchial asthma, and previous history of DVT, presented to emergency room complaining of sharp pain in the chest, very atypical in nature, was also short of breath, found to have a hemoglobin of 4.[address] angiogram of the chest and abdomen did not reveal any aortic dissection, but there was also a suspicious mass in the right lower lobe of the lung for possible malignancy. I was asked to see her for chest pain, but at the time of my evaluation, she denies any chest discomfort. Her troponins are normal. EKG revealed atrial fibrillation with nonspecific ST-T changes. She is resting comfortably. PAST MEDICAL HISTORY: 1. Chronic atrial fibrillation. 2. Bronchial asthma. 3. COPD. 4. Diabetes. 5. History of DVT. MEDICATIONS: Medications at home include, 1. Phenergan. 2. Insulin. 3. Digoxin. 4. Metoprolol succinate 25 mg daily. 5. Apixaban 5 mg b.i.d. 6. Xanax p.r.n. PHYSICAL EXAMINATION: VITAL SIGNS: Blood pressure is 140/70, pulse rate is about 70, irregularly irregular. HEENT: Unremarkable. Fundus was not examined. NECK: Supple. No JVD. HEART: S1, S2 heard normally. Irregular rhythm noted. Short systolic murmur noted. LUNGS: Reveal bilateral diminished air entry. ABDOMEN: Soft, nontender. EXTREMITIES: Lower extremities reveal diminished pulses. CENTRAL NERVOUS SYSTEM: Normal. IMPRESSION: 1. Severe acute anemia, probably gastrointestinal blood loss, on Eliquis. 2. Chronic atrial fibrillation, on Eliquis. 3. No evidence of LV dysfunction on a recent echo. 4. Moderate pulmonary hypertension and chronic obstructive pulmonary disease. RECOMMENDATIONS: I am recommending that we discontinue Eliquis altogether and continue supportive care. Her multiple issues include lung mass and also anemia of unclear etiology. As far as anticoagulation goes, I am recommending no further anticoagulation for this lady who required blood transfusion repeatedly. I will also suggest that we continue current medicine for rate control. She is currently on metoprolol succinate 25 mg b.i.d., which we will continue. Prognosis remains guarded. Thank you very much for the consult. MMODL / IJN: [id number] /
[2024-07-29] MEDS: IPRATROPIUM-ALBUTEROL 3 ML NEB INHALATION PRN (02:31)
[2024-07-29 06:04] LABS: Anisocytosis Slight; HCT 24.5 % (34.0-46.0); HGB 7.5 gm/dL (11.4-16.0); Hypochromasia Marked; MCH 24.5 pg (25.0-35.0); MCHC 30.4 g/dL (31.0-37.0); MCV 80.5 fL (80.0-100.0); Mean Platelet Volume 10.3; Platelet Count 116 k/uL (150-450); Poikilocytosis Marked; RBC 3.05 m/uL (3.80-5.40); RDW 16.9 % (11.5-15.5); WBC 11.5 k/uL (3.8-10.6)
[2024-07-29 06:27] LABS: Glucose,Whole Blood 220 mg/dL (70-110)
[2024-07-29 06:38] LABS: African American GFR (CKD) 53 (>60 ml/min/1.73 sqM); Anion Gap 3 mmol/L; Blood Urea Nitrogen 27 mg/dL (7-17); Carbon Dioxide 23 mmol/L (22-30); Chloride 105 mmol/L (98-107); Glucose 185 mg/dL (74-99); Non-African American GFR(CKD) 46 (>60 ml/min/1.73 sqM); Potassium 3.9 mmol/L (3.5-5.1); Sodium 131 mmol/L (137-145)
[2024-07-29] MEDS: POTASSIUM CHLORIDE ER 20 MEQ TAB.ER PO SCH (06:57)
[2024-07-29] MEDS: guaiFENesin SYRUP 100MG/5ML 200 MG/10 ML CUP PO PRN (06:58)
[2024-07-29] MEDS: DIGOXIN 250 MCG TAB PO SCH (09:26)
[2024-07-29] MEDS: FUROSEMIDE 40 MG TAB PO SCH (09:26)
[2024-07-29 10:40] LABS: % Iron Saturation 9.39 (12.00-45.00); Ferritin 48.1 ng/mL (10.0-291.0); Iron 31 UG/DL (50-170); Total Iron Binding Capacity 330 UG/DL (228-460)
[2024-07-29 11:11] LABS: Glucose,Whole Blood 218 mg/dL (70-110)
--- NOTE | 2024-07-29 11:14 | P.PN ---
Subjective Progress Note Date: 07/29/24 Patient ulysses stable. She still has some complaints of some pelvic pain. She has received 5 units of packed red cells. She has had no signs of GI bleed or internal bleeding. On exam vital signs remained stable. Abdomen is soft. There are some minimal tenderness on the lower quadrants. Acute blood loss anemia related to colonoscopy gerd patient most likely had bleeding from mesentery or splenic vessels. Patient will be observed. She is stable to be transferred to the floor. Objective - Vital Signs Vital signs: Vital Signs Temp 98.1 F 07/29/24 08:00 Pulse 67 07/29/24 10:00 Resp 11 L 07/29/24 10:00 BP 133/63 07/29/24 10:00 Pulse Ox 95 07/29/24 10:00 FiO2 Intake & Output 07/28/24 07/29/24 07/29/24 18:59 06:59 18:59 Intake Total 1370 1075 50 Output Total 1850 1050 0 Balance -480 25 50 Weight 131 kg Intake: IV 50 cefTRIAXone 2 gm In 50 Sodium Chloride 0.9% 50 ml @ 100 mls/hr IVPB Q24HR [facility]OS Rx#:[id number] Intake, IV Titration 40 Amount Dextrose 5%-0.9% NaCl 1, 40 000 ml @ 20 mls/hr IV . Q24H RIOS Rx#:[id number] Oral 400 1075 0 Blood Product 930 Rc As-1 Unit 310 [id number] Rc As-1 Unit 310 [id number] Rc As-1 Unit 310 [id number] Output: Urine 1850 1050 0 Other: Voiding Method Bedside Commode Bedside Commode Bedside Commode # Voids 2 - Labs CBC & Chem 7: 07/29/24 05:43 07/29/24 05:43 Labs: Abnormal Lab Results - Last 24 Hours (Table) 07/27/24 07/28/24 07/28/24 Range/Units 22:55 11:14 11:14 WBC (3.8-10.6) k/uL RBC 2.78 L (3.80-5.40) m/uL Hgb 6.6 L* D (11.4-16.0) gm/dL Hct 22.1 L (34.0-46.0) % MCV 79.6 L (80.0-100.0) fL MCH 23.8 L (25.0-35.0) pg MCHC 29.9 L (31.0-37.0) g/dL RDW 16.4 H (11.5-15.5) % Plt Count 106 L (150-450) k/uL Sodium 135 L (137-145) mmol/L BUN 26 H (7-17) mg/dL Creatinine 1.09 H (0.52-1.04) mg/dL Glucose 159 H (74-99) mg/dL POC Glucose (mg/dL) (70-110) mg/dL Calcium 8.1 L (8.4-10.2) mg/dL Iron (50-170) UG/DL % Saturation (12.00-45.00) Crossmatch See Detail 07/28/24 07/28/24 07/28/24 Range/Units 11:20 16:05 18:50 WBC 11.6 H (3.8-10.6) k/uL RBC 3.18 L (3.80-5.40) m/uL Hgb 7.8 L (11.4-16.0) gm/dL Hct 25.8 L (34.0-46.0) % MCV (80.0-100.0) fL MCH 24.6 L (25.0-35.0) pg MCHC 30.4 L (31.0-37.0) g/dL RDW 16.3 H (11.5-15.5) % Plt Count 113 L (150-450) k/uL Sodium (137-145) mmol/L BUN (7-17) mg/dL Creatinine (0.52-1.04) mg/dL Glucose (74-99) mg/dL POC Glucose (mg/dL) 183 H 248 H (70-110) mg/dL Calcium (8.4-10.2) mg/dL Iron (50-170) UG/DL % Saturation (12.00-45.00) Crossmatch 07/28/24 07/29/24 07/29/24 Range/Units 20:28 05:43 05:43 WBC 11.5 H (3.8-10.6) k/uL RBC 3.05 L (3.80-5.40) m/uL Hgb 7.5 L (11.4-16.0) gm/dL Hct 24.5 L (34.0-46.0) % MCV (80.0-100.0) fL MCH 24.5 L (25.0-35.0) pg MCHC 30.4 L (31.0-37.0) g/dL RDW 16.9 H (11.5-15.5) % Plt Count 116 L (150-450) k/uL Sodium 131 L (137-145) mmol/L BUN 27 H (7-17) mg/dL Creatinine 1.21 H (0.52-1.04) mg/dL Glucose 185 H (74-99) mg/dL POC Glucose (mg/dL) 239 H (70-110) mg/dL Calcium 8.0 L (8.4-10.2) mg/dL Iron 31 L (50-170) UG/DL % Saturation 9.39 L (12.00-45.00) Crossmatch 07/29/24 07/29/24 Range/Units 06:25 11:09 WBC (3.8-10.6) k/uL RBC (3.80-5.40) m/uL Hgb (11.4-16.0) gm/dL Hct (34.0-46.0) % MCV (80.0-100.0) fL MCH (25.0-35.0) pg MCHC (31.0-37.0) g/dL RDW (11.5-15.5) % Plt Count (150-450) k/uL Sodium (137-145) mmol/L BUN (7-17) mg/dL Creatinine (0.52-1.04) mg/dL Glucose (74-99) mg/dL POC Glucose (mg/dL) 220 H 218 H (70-110) mg/dL Calcium (8.4-10.2) mg/dL Iron (50-170) UG/DL % Saturation (12.00-45.00) Crossmatch
--- NOTE | 2024-07-29 13:02 | PN ---
PROGRESS NOTE SUBJECTIVE: Ms. Flores remains in atrial fib. The rate control is fairly decent. She has received nearly 5 units of blood and her hemoglobin is about 7.5. No further active bleeding. Further workup with regard to her low hemoglobin is being conducted. Cardiac- morales, I am suggesting that we should not use any anticoagulation and after discharge, consider Watchman procedure for this lady. We discussed this briefly. She will follow up upon discharge with Dr. Bassett and we will make further recommendations. Hemodynamically stable. OBJECTIVE: HEART: S1, S2 heard normally with irregular rate and rhythm. Short systolic murmur. LUNGS: Reveal diminished air entry. ABDOMEN: Distended. LOWER EXTREMITIES: Reveal diminished pulses. No active bleeding. Continue supportive care and workup for low hemoglobin. MMODL / IJN: [id number] /
[2024-07-29 16:31] LABS: Glucose,Whole Blood 191 mg/dL (70-110)
--- NOTE | 2024-07-29 18:53 | P.PN ---
Subjective Progress Note Date: 07/29/24 Patient is a 68-year-old female with past medical history significant for GI bleed, atrial fibrillation anticoagulated on Eliquis, heart failure, COPD/asthma, diabetes mellitus, DVT. Her primary care provider is Dr. Shah. Patient presented the ED last night complaining chiefly of chest pain radiating to left jaw and left arm. Associated dizziness and shortness of breath. She was found to be severely anemic on arrival. Hemoglobin is 4.4. Chest/abdomen CTA was technically suboptimal study but did not show any aortic dissection or acute traumatic vascular findings. Small left pleural effusion with associated left basilar compressive atelectasis. There is a suspicious masslike consolidation in the right lower lobe, concerning for possible malignancy. Mild to moderate diffuse subcutaneous edema in the abdomen and pelvis. Moderate amount of free fluid in the pelvis. This could be blood product. General surgery has been consulted. CBC: WBC count 9, hemoglobin 4.4, hematocrit 15.9, platelets 145. Coagulation profile PT 12.5, INR 1.2, APTT 26.3. CMP: Sodium 136, potassium 4.1, chloride 103, serum bicarb 25, BUN 27, creatinine 1.12, glucose 94. LFTs unremarkable. Troponin less than 0.012. Stool occult negative. EKG showing atrial fibrillation with controlled ventricular response, rate 80 bpm, diffuse mild ST depressions. I am evaluating this patient intensive care unit. 3 units of packed red blood cells are ordered, and she is receiving every first unit of PRBCs currently. She is resting comfortably in bed. She does become lightheaded on arising. Blood pressure is currently 132/77 mmHg, heart rhythm is atrial fibrillation with controlled ventricular response at 70 bpm, SpO2 is 100% on room air oxygen. Patient states that over the last couple months she has had very frequent bouts of liquid diarrhea. They were dark and melanotic. She was taking Pepto-Bismol at this time. Of note, on 07/21/2024 patient underwent EGD/colonoscopy with Dr. Scott. Upper endoscopy revealed mild antral gastritis, retained liquid in the stomach suggestive of diabetic gastroparesis. Colonoscopy up to the hepatic flexure revealed 5 mm sigmoid colon polyp removed with cryo. Pathology unremarkable. Following the colonoscopy, she denies any melanotic stools, hematochezia. She was continuing to have frequent bouts of diarrhea, and started taking Imodium. Since then, has not had any bowel movements in the last 3 days. She has been nauseous and has had reduced appetite. No vomiting, no hematemesis. No recent traumatic events. Abdomen does not appear particularly acute on examination. General surgery is consulted. On today's evaluation of 07/29/2024, the patient is stable on room air oxygen. The patient has received a total of 5 units of packed RBC and hemoglobin is currently up to 7.5. No evidence of any GI bleeding. No respiratory distress. The white cell count is 11.5 with a hemoglobin of 7.5 and a platelet count of 116. BUN is 27 with a creatinine of 1.2 and a sodium levels at 131. Serum iron was low at 31. The patient was seen by general surgery and obviously, no plans for any surgical intervention. The patient has no signs of any active GI bleeding at this point in time. Patient is currently on room air oxygen with a pulse ox of 98%. Fluid balance has been -500 cc over the past 24 hours. The patient is on empiric antibiotic coverage with IV Rocephin. Patient is also on Lasix 40 mg p.o. daily. Remains on IV Protonix. Anticoagulation is currently on hold. Objective - Vital Signs Vital signs: Vital Signs Temp 98.1 F 07/29/24 08:00 Pulse 67 07/29/24 10:00 Resp 11 L 07/29/24 10:00 BP 133/63 07/29/24 10:00 Pulse Ox 95 07/29/24 10:00 FiO2 Intake & Output 07/28/24 07/29/24 07/29/24 18:59 06:59 18:59 Intake Total 1370 1075 50 Output Total 1850 1050 0 Balance -480 25 50 Weight 131 kg Intake: IV 50 cefTRIAXone 2 gm In 50 Sodium Chloride 0.9% 50 ml @ 100 mls/hr IVPB Q24HR [facility] Rx#:[id number] Intake, IV Titration 40 Amount Dextrose 5%-0.9% NaCl 1, 40 000 ml @ 20 mls/hr IV . Q24H [facility]OS Rx#:[id number] Oral 400 1075 0 Blood Product 930 Rc As-1 Unit 310 [id number] Rc As-1 Unit 310 [id number] Rc As-1 Unit 310 [id number] Output: Urine 1850 1050 0 Other: Voiding Method Bedside Commode Bedside Commode Bedside Commode # Voids 2 - Exam GENERAL EXAM: Alert, 68-year-old obese female, comfortable in no apparent distr ess. The patient is currently on room air oxygen. HEAD: Normocephalic and atraumatic EYES: Normal reaction of pupils, equal size. NOSE: Clear with pink turbinates. THROAT: No erythema or exudates. NECK: No masses, no JVD. CHEST: No chest wall deformity. LUNGS: Equal air entry with faint expiratory wheezes heard throughout. On room air. No conversational dyspnea or accessory muscle use.. CVS: S1 and S2 normal with soft grade 2 systolic murmur, irregular rhythm. No extra heart sounds ABDOMEN: Obese abdomen, active bowel sounds, no hepatosplenomegaly, no guarding or rigidity. SPINE: No scoliosis or deformity SKIN: No rashes CENTRAL NERVOUS SYSTEM: No focal deficits, tone is normal in all 4 extremities. EXTREMITIES: There is moderate nonpitting bilateral lower extremity edema. No clubbing, or cyanosis. Peripheral pulses are intact. - Labs CBC & Chem 7: 07/29/24 05:43 07/29/24 05:43 Labs: Abnormal Lab Results - Last 24 Hours (Table) 07/27/24 07/28/24 07/28/24 Range/Units 22:55 11:14 11:14 WBC (3.8-10.6) k/uL RBC 2.78 L (3.80-5.40) m/uL Hgb 6.6 L* D (11.4-16.0) gm/dL Hct 22.1 L (34.0-46.0) % MCV 79.6 L (80.0-100.0) fL MCH 23.8 L (25.0-35.0) pg MCHC 29.9 L (31.0-37.0) g/dL RDW 16.4 H (11.5-15.5) % Plt Count 106 L (150-450) k/uL Sodium 135 L (137-145) mmol/L BUN 26 H (7-17) mg/dL Creatinine 1.09 H (0.52-1.04) mg/dL Glucose 159 H (74-99) mg/dL POC Glucose (mg/dL) (70-110) mg/dL Calcium 8.1 L (8.4-10.2) mg/dL Crossmatch See Detail 07/28/24 07/28/24 07/28/24 Range/Units 11:20 16:05 18:50 WBC 11.6 H (3.8-10.6) k/uL RBC 3.18 L (3.80-5.40) m/uL Hgb 7.8 L (11.4-16.0) gm/dL Hct 25.8 L (34.0-46.0) % MCV (80.0-100.0) fL MCH 24.6 L (25.0-35.0) pg MCHC 30.4 L (31.0-37.0) g/dL RDW 16.3 H (11.5-15.5) % Plt Count 113 L (150-450) k/uL Sodium (137-145) mmol/L BUN (7-17) mg/dL Creatinine (0.52-1.04) mg/dL Glucose (74-99) mg/dL POC Glucose (mg/dL) 183 H 248 H (70-110) mg/dL Calcium (8.4-10.2) mg/dL Crossmatch 07/28/24 07/29/24 07/29/24 Range/Units 20:28 05:43 05:43 WBC 11.5 H (3.8-10.6) k/uL RBC 3.05 L (3.80-5.40) m/uL Hgb 7.5 L (11.4-16.0) gm/dL Hct 24.5 L (34.0-46.0) % MCV (80.0-100.0) fL MCH 24.5 L (25.0-35.0) pg MCHC 30.4 L (31.0-37.0) g/dL RDW 16.9 H (11.5-15.5) % Plt Count 116 L (150-450) k/uL Sodium 131 L (137-145) mmol/L BUN 27 H (7-17) mg/dL Creatinine 1.21 H (0.52-1.04) mg/dL Glucose 185 H (74-99) mg/dL POC Glucose (mg/dL) 239 H (70-110) mg/dL Calcium 8.0 L (8.4-10.2) mg/dL Crossmatch 07/29/24 Range/Units 06:25 WBC (3.8-10.6) k/uL RBC (3.80-5.40) m/uL Hgb (11.4-16.0) gm/dL Hct (34.0-46.0) % MCV (80.0-100.0) fL MCH (25.0-35.0) pg MCHC (31.0-37.0) g/dL RDW (11.5-15.5) % Plt Count (150-450) k/uL Sodium (137-145) mmol/L BUN (7-17) mg/dL Creatinine (0.52-1.04) mg/dL Glucose (74-99) mg/dL POC Glucose (mg/dL) 220 H (70-110) mg/dL Calcium (8.4-10.2) mg/dL Crossmatch Assessment and Plan Assessment: Symptomatic anemia, hemoglobin currently 4.4 g/dL, 1/3 PRBCs is infusing at the moment. Chest/abdomen CTA was technically suboptimal study but did not show any aortic dissection or acute traumatic vascular findings. Small left pleural effusion with associated left basilar compressive atelectasis. There is a suspicious masslike consolidation in the right lower lobe. Mild to moderate diffuse subcutaneous edema in the abdomen and pelvis. Moderate amount of free fluid in the pelvis. General surgical consultation was done and the patient received a total of 5 units of packed RBC and the hemoglobin is currently up to 7.5. No evidence of any acute or ongoing GI bleed at this point in time. Iron deficiency anemia, serum iron is down to 31 Atrial fibrillation with controlled ventricular response, normally anticoagulated on Eliquis on an outpatient basis, which is currently on hold History of GI bleeding, Recent EGD/colonoscopy 07/21/[address] Scott. Upper endoscopy revealed mild antral gastritis, retained liquid in the stomach suggestive of diabetic gastroparesis. Colonoscopy up to the hepatic flexure revealed 5 mm sigmoid colon polyp removed with cryo. Pathology unremarkable for malignancy. Chest pain, rule out possible type II RI Acute on chronic dyspnea Suspicious right lower lobe masslike consolidation measuring 4 x 3.1 cm, this was not present on the previous CAT scan of the abdomen and pelvis that was done 2 months ago. This is likely an atelectatic area/representing a pseudotumor. Malignancy is highly doubtful Chronic obstructive pulmonary disease Current ongoing tobacco dependence, with over [id number] history History of heart failure with preserved ejection fraction History of hyperlipidemia Hypothyroidism Diabetes mellitus type 2, insulin-dependent CKD stage III History of DVT Thrombocytopenia Obesity, with a BMI of 35.6 kg/m Plan: Clinically stable on room air oxygen Trend serial H&H Eliquis is on hold General Surgery is on the case No bowel movements observed by staff, fecal occult negative. Vitals have remained stable She has a component of COPD. I reviewed the CAT scan of the chest and there is a pseudotumor in the right lower lobe that was absent on a recent CAT scan of the abdomen that was done in May 2024 which clearly shows the right lung base that was essentially clear and the left lung base was also free of any pleural fluid. There is development of atelectasis/left-sided pleural effusion on the follow-up CT of the chest that was done at time of admission Continue Lasix patient is also started on empiric antibiotic coverage with IV Rocephin. DuoNeb nebulized treatments [id number]. IV Protonix. Will continue to follow. Clinically stable and the patient can be transferred to a medical floor.
[2024-07-29 19:52] LABS: Glucose,Whole Blood 222 mg/dL (70-110)
[2024-07-29] MEDS: SODIUM FERRIC GLUCONAT-SUCROSE 125 MG in SODIUM CHLORIDE 0.9% 100 ML IVPB SCH (19:55)
--- NOTE | 2024-07-29 21:27 | P.PN ---
Subjective Progress Note Date: 07/29/24 This is a 68-year-old female with medical history significant for atrial fibrillation anticoag with Eliquis, DVT, heart failure, COPD, diabetes mellitus. Patient comes in for chest pain radiating to the left arm/leg and jaw concern for aortic dissection. Is a sharp sensation. Does have history of coronary artery disease as well. She was given aspirin and nitro from EMS. Patient also reports longstanding history of diarrhea. Had an EGD colonoscopy done 7 days ago for this and had findings of mild antral gastritis with retained liquid in the stomach suggestive of diabetic gastroparesis. Had a 5 mm sigmoid colon polyp that was removed with cold biopsy and the rest of the colon was normal. Patient does report that with her bowel prep she had black tarry stool initially that had cleared up by the end of the prep. She is reporting generalized abdominal pain worse in the epigstric region. Initial blood work reveals hemoglobin of 4.4, hcg 15.9, sodium 136, BUN 27, creatinine 1.12, troponin negative. Admitted for symptomatic anemia. Patient ordered to receive 3 units of packed red blood cells. Hemeoccult has been negative and patient has no reports of bloody emesis, coffee ground emesis, or blood in the stool. Chest x-ray shows CHF exacerbation and fluid overload state. Patient today abdomen chest CT angiography which reveals no aortic dissection or acute traumatic vesicular finding clearly seen. There is a small left pleural effusion with associated left basilar compressive atelectasis. There is a suspicious masslike consolidation in the right lower lobe underlying mass or neoplasm not excluded. Consider follow-up with PET/CT to further evaluate. There is a mild to moderate diffuse subcutaneous edema in the abdomen and pelvis moderate mount of free fluid in the pelvis. Patient was admitted to the hospital with consults placed to general surgery and pulmonary. She is admitted to the ICU. 07/29/2024 Patient evaluated in the ICU sitting up on edge of bed. downgraded to medical floor currently pending a bed. Received 5 units total of PRBC yesterday with hemoglobin 7.8 and 7.6. No signs of active bleeding and no plans for endoscopy. General surgery felt the acute GI bleeding possibly from the mesentery or capilaries as patient had recent polypectomy. Cardiology recommends to discontinue eliquis at this time. Patient is fatigued but overall feeling improved since admission. No further reports of chest pain. She is mainly wearing the oxygen for comfort. General surgery and cardiology have cleared her for discharge. She did not feel ready today. Likely will DC home tomorrow. Prescriptions have been sent to anticipate discharge on a holiday. She continues on IV ceftriaxone at this time. REVIEW OF SYSTEMS: CONSTITUTIONAL: No fever, no malaise, no fatigue. HEENT: No recent visual problems or hearing problems. Denied any sore throat. CARDIOVASCULAR: No chest pain, orthopnea, PND, no palpitations, no syncope. PULMONARY: No shortness of breath, no cough, no hemoptysis. GASTROINTESTINAL: No diarrhea, no nausea, no vomiting, Reports abdominal pain. NEUROLOGICAL: No headaches, no weakness, no numbness. The rest of the 14-point review of systems is negative. PHYSICAL EXAMINATION: GENERAL: The patient is alert and oriented x3, not in any acute distress. Well developed, well nourished. HEENT: Pupils are round and equally reacting to light. EOMI. No scleral icterus. No conjunctival pallor. Normocephalic, atraumatic. No pharyngeal erythema. No th yromegaly. CARDIOVASCULAR: S1 and S2 present. No murmurs, rubs, or gallops. PULMONARY: Chest is clear to auscultation, no wheezing or crackles. ABDOMEN: Soft, Epigastric tenderness, nondistended, normoactive bowel sounds. No palpable organomegaly. MUSCULOSKELETAL: No joint swelling or deformity. EXTREMITIES: No cyanosis, clubbing. Moderate nonpitting lower extremity edema. NEUROLOGICAL: Gross neurological examination did not reveal any focal deficits. SKIN: No rashes. Assessment and plan Microcytic anemia symptomatic with hemoglobin of 4.4, most recent hemoglobin 9.9 in May of this year. Status post 5 units of PRBC. Hemoglobin of 7.5. Anemia exacerbated by eliquis. Recent endoscopy one week ago. Iron deficiency anemia. History of atrial fibrillation, rate controlled anticoag with Eliquis which is currently on hold Acute on chronic heart failure, chronic diastolic dysfunction ejection fraction in the past. IV lasix x 1. Chest pain, Type II NC from the anemia. Resolved. Recent diagnosis of gastritis/diabetic gastroparesis on EGD. Hx of GI bleeding in the past due to the recurrence of suspected GI bleeding post EGD/Colonoscopy cardiology has recommending to discontinue anticoagulation. Masslike consolidation right lower lobe concern for mass/neoplasm vs. other ; po ssible pseudotumor per pulmonary as this was not evidence on CT scan done 2 months ago. CKD stage III History of COPD/asthma with no acute exacerbation Diabetes mellitus type 2 Hypothyroidism History of DVT in the past Chronic nicotine use Obesity GI prophylaxis with IV Protonix DVT prophylaxis Eliquis currently on hold contraindicated secondary to significant anemia Full code Plan Continue IV ceftriaxone. Cardiology consultation recommending discontinue eliquis. General Surgery consultation no plans for endoscopic evaluation hemoglobin stable and will follow up as an outpatient. Patient has received 5 units of packed red blood cells monitor CBC and transfuse blood for hemoglobin less than 7. Resume appropriate home indications Continue oral lasix Monitor electrolytes and renal function Accu-Cheks ACHS and sliding scale insulin Downgraded from ICU pending bed on the medical floor. Possible DC home in the next 24 hours. The impression and plan of care has been dictated by Roro Arzola Nurse Practitioner as directed. Dr. Samantha MD I have performed a history and physical examination and medical decision making of this patient, discussed the same with the dictator, and agree with the dictators assessment and plan as written, documented as a scribe. Based on total visit time, I have performed more than 50% of this visit. Objective - Vital Signs Vital signs: Vital Signs Temp 98.1 F 07/29/24 08:00 Pulse 81 07/29/24 09:00 Resp 14 07/29/24 09:00 BP 113/66 07/29/24 09:00 Pulse Ox 98 07/29/24 09:00 FiO2 Intake & Output 07/28/24 07/29/24 07/29/24 18:59 06:59 18:59 Intake Total 1370 1075 50 Output Total 1850 1050 0 Balance -480 25 50 Weight 131 kg Intake: IV 50 cefTRIAXone 2 gm In 50 Sodium Chloride 0.9% 50 ml @ 100 mls/hr IVPB Q24HR [facility]OS Rx#:[id number] Intake, IV Titration 40 Amount Dextrose 5%-0.9% NaCl 1, 40 000 ml @ 20 mls/hr IV . Q24H RIOS Rx#:[id number] Oral 400 1075 0 Blood Product 930 Rc As-1 Unit 310 [id number] Rc As-1 Unit 310 [id number] Rc As-1 Unit 310 [id number] Output: Urine 1850 1050 0 Other: Voiding Method Bedside Commode Bedside Commode Bedside Commode # Voids 2 - Labs CBC & Chem 7: 07/29/24 05:43 07/29/24 05:43 Labs: Abnormal Lab Results - Last 24 Hours (Table) 07/27/24 07/28/24 07/28/24 Range/Units 22:55 11:14 11:14 WBC (3.8-10.6) k/uL RBC 2.78 L (3.80-5.40) m/uL Hgb 6.6 L* D (11.4-16.0) gm/dL Hct 22.1 L (34.0-46.0) % MCV 79.6 L (80.0-100.0) fL MCH 23.8 L (25.0-35.0) pg MCHC 29.9 L (31.0-37.0) g/dL RDW 16.4 H (11.5-15.5) % Plt Count 106 L (150-450) k/uL Sodium 135 L (137-145) mmol/L BUN 26 H (7-17) mg/dL Creatinine 1.09 H (0.52-1.04) mg/dL Glucose 159 H (74-99) mg/dL POC Glucose (mg/dL) (70-110) mg/dL Calcium 8.1 L (8.4-10.2) mg/dL Crossmatch See Detail 07/28/24 07/28/24 07/28/24 Range/Units 11:20 16:05 18:50 WBC 11.6 H (3.8-10.6) k/uL RBC 3.18 L (3.80-5.40) m/uL Hgb 7.8 L (11.4-16.0) gm/dL Hct 25.8 L (34.0-46.0) % MCV (80.0-100.0) fL MCH 24.6 L (25.0-35.0) pg MCHC 30.4 L (31.0-37.0) g/dL RDW 16.3 H (11.5-15.5) % Plt Count 113 L (150-450) k/uL Sodium (137-145) mmol/L BUN (7-17) mg/dL Creatinine (0.52-1.04) mg/dL Glucose (74-99) mg/dL POC Glucose (mg/dL) 183 H 248 H (70-110) mg/dL Calcium (8.4-10.2) mg/dL Crossmatch 07/28/24 07/29/24 07/29/24 Range/Units 20:28 05:43 05:43 WBC 11.5 H (3.8-10.6) k/uL RBC 3.05 L (3.80-5.40) m/uL Hgb 7.5 L (11.4-16.0) gm/dL Hct 24.5 L (34.0-46.0) % MCV (80.0-100.0) fL MCH 24.5 L (25.0-35.0) pg MCHC 30.4 L (31.0-37.0) g/dL RDW 16.9 H (11.5-15.5) % Plt Count 116 L (150-450) k/uL Sodium 131 L (137-145) mmol/L BUN 27 H (7-17) mg/dL Creatinine 1.21 H (0.52-1.04) mg/dL Glucose 185 H (74-99) mg/dL POC Glucose (mg/dL) 239 H (70-110) mg/dL Calcium 8.0 L (8.4-10.2) mg/dL Crossmatch 07/29/24 Range/Units 06:25 WBC (3.8-10.6) k/uL RBC (3.80-5.40) m/uL Hgb (11.4-16.0) gm/dL Hct (34.0-46.0) % MCV (80.0-100.0) fL MCH (25.0-35.0) pg MCHC (31.0-37.0) g/dL RDW (11.5-15.5) % Plt Count (150-450) k/uL Sodium (137-145) mmol/L BUN (7-17) mg/dL Creatinine (0.52-1.04) mg/dL Glucose (74-99) mg/dL POC Glucose (mg/dL) 220 H (70-110) mg/dL Calcium (8.4-10.2) mg/dL Crossmatch Assessment and Plan Time with Patient: Less than 30
[2024-07-30] MEDS: FUROSEMIDE 40 MG TAB PO SCH (02:35)
[2024-07-30 06:30] LABS: Glucose,Whole Blood 180 mg/dL (70-110)
[2024-07-30 08:49] LABS: Anisocytosis Slight; Basophils % (A) 0 %; Eosinophils # (A) 0.1 k/uL (0-0.7); Eosinophils % (A) 1 %; HCT 25.4 % (34.0-46.0); HGB 7.6 gm/dL (11.4-16.0); Hypochromasia Marked; Lymphocytes # (A) 1.1 k/uL (1.0-4.8); Lymphocytes % (A) 11 %; MCH 24.8 pg (25.0-35.0); MCV 82.6 fL (80.0-100.0); Mean Platelet Volume 10.1; Monocytes # (A) 0.9 k/uL (0-1.0); Monocytes % (A) 8 %; Neutrophils # (A) 7.8 k/uL (1.3-7.7); Neutrophils % (A) 77 %; Platelet Count 136 k/uL (150-450); Poikilocytosis Marked; RBC 3.07 m/uL (3.80-5.40); RDW 17.5 % (11.5-15.5); WBC 10.1 k/uL (3.8-10.6)
[2024-07-30 09:09] LABS: African American GFR (CKD) 54 (>60 ml/min/1.73 sqM); Anion Gap 9 mmol/L; Blood Urea Nitrogen 25 mg/dL (7-17); Calcium 8.4 mg/dL (8.4-10.2); Carbon Dioxide 21 mmol/L (22-30); Chloride 104 mmol/L (98-107); Glucose 156 mg/dL (74-99); Non-African American GFR(CKD) 47 (>60 ml/min/1.73 sqM); Sodium 134 mmol/L (137-145)
--- NOTE | 2024-07-30 11:59 | P.PN ---
Subjective Progress Note Date: 07/30/24 This is a 68-year-old female with medical history significant for atrial fibrillation anticoag with Eliquis, DVT, heart failure, COPD, diabetes mellitus. Patient comes in for chest pain radiating to the left arm/leg and jaw concern for aortic dissection. Is a sharp sensation. Does have history of coronary artery disease as well. She was given aspirin and nitro from EMS. Patient also reports longstanding history of diarrhea. Had an EGD colonoscopy done 7 days ago for this and had findings of mild antral gastritis with retained liquid in the stomach suggestive of diabetic gastroparesis. Had a 5 mm sigmoid colon polyp that was removed with cold biopsy and the rest of the colon was normal. Patient does report that with her bowel prep she had black tarry stool initially that had cleared up by the end of the prep. She is reporting generalized abdominal pain worse in the epigstric region. Initial blood work reveals hemoglobin of 4.4, hcg 15.9, sodium 136, BUN 27, creatinine 1.12, troponin negative. Admitted for symptomatic anemia. Patient ordered to receive 3 units of packed red blood cells. Hemeoccult has been negative and patient has no reports of bloody emesis, coffee ground emesis, or blood in the stool. Chest x-ray shows CHF exacerbation and fluid overload state. Patient today abdomen chest CT angiography which reveals no aortic dissection or acute traumatic vesicular finding clearly seen. There is a small left pleural effusion with associated left basilar compressive atelectasis. There is a suspicious masslike consolidation in the right lower lobe underlying mass or neoplasm not excluded. Consider follow-up with PET/CT to further evaluate. There is a mild to moderate diffuse subcutaneous edema in the abdomen and pelvis moderate mount of free fluid in the pelvis. Patient was admitted to the hospital with consults placed to general surgery and pulmonary. She is admitted to the ICU. 07/29/2024 Patient evaluated in the ICU sitting up on edge of bed. downgraded to medical floor currently pending a bed. Received 5 units total of PRBC yesterday with hemoglobin 7.8 and 7.6. No signs of active bleeding and no plans for endoscopy. General surgery felt the acute GI bleeding possibly from the mesentery or capilaries as patient had recent polypectomy. Cardiology recommends to discontinue eliquis at this time. Patient is fatigued but overall feeling improved since admission. No further reports of chest pain. She is mainly wearing the oxygen for comfort. General surgery and cardiology have cleared her for discharge. She did not feel ready today. Likely will DC home tomorrow. Prescriptions have been sent to anticipate discharge on a holiday. She continues on IV ceftriaxone at this time. 06/29/2024 Patient is evaluated in the medical floor transferred out of the intensive care unit. Currently sitting up on the edge of the bed she feels significantly short of breath and feels like she may need a physical therapy evaluation before discharge home. She was a 1 person assist up to the bedside commode and was short of breath with minimal activity. She has been currently on room air at this time. No signs of active bleeding at this time hemoglobin remained stable at 7.5 today. She continues on IV iron receiving day 2 out of 3. She continues on IV ceftriaxone per pulmonary services. REVIEW OF SYSTEMS: CONSTITUTIONAL: No fever, no malaise, no fatigue. HEENT: No recent visual problems or hearing problems. Denied any sore throat. CARDIOVASCULAR: No chest pain, orthopnea, PND, no palpitations, no syncope. PULMONARY: No shortness of breath, no cough, no hemoptysis. GASTROINTESTINAL: No diarrhea, no nausea, no vomiting, Reports abdominal pain. NEUROLOGICAL: No headaches, no weakness, no numbness. The rest of the 14-point review of systems is negative. PHYSICAL EXAMINATION: GENERAL: The patient is alert and oriented x3, not in any acute distress. Well developed, well nourished. HEENT: Pupils are round and equally reacting to light. EOMI. No scleral icterus. No conjunctival pallor. Normocephalic, atraumatic. No pharyngeal erythema. No thyromegaly. CARDIOVASCULAR: S1 and S2 present. No murmurs, rubs, or gallops. PULMONARY: Chest is clear to auscultation, no wheezing or crackles. ABDOMEN: Soft, Epigastric tenderness, nondistended, normoactive bowel sounds. No palpable organomegaly. MUSCULOSKELETAL: No joint swelling or deformity. EXTREMITIES: No cyanosis, clubbing. Moderate nonpitting lower extremity edema. NEUROLOGICAL: Gross neurological examination did not reveal any focal deficits. SKIN: No rashes. Assessment and plan Microcytic anemia symptomatic with hemoglobin of 4.4, most recent hemoglobin 9.9 in May of this year. Status post 5 units of PRBC. Hemoglobin of 7.5. Anemia exacerbated by eliquis. Recent endoscopy one week ago. Iron deficiency anemia. History of atrial fibrillation, rate controlled anticoag with Eliquis which is currently on hold Acute on chronic heart failure, chronic diastolic dysfunction ejection fraction in the past. IV lasix x 1. Chest pain, Type II OR from the anemia. Resolved. Recent diagnosis of gastritis/diabetic gastroparesis on EGD. Hx of GI bleeding in the past due to the recurrence of suspected GI bleeding post EGD/Colonoscopy cardiology has recommending to discontinue anticoagulation. Masslike consolidation right lower lobe concern for mass/neoplasm vs. other ; possible pseudotumor per pulmonary as this was not evidence on CT scan done 2 months ago. CKD stage III History of COPD/asthma with no acute exacerbation Diabetes mellitus type 2 Hypothyroidism History of DVT in the past Chronic nicotine use Obesity GI prophylaxis with IV Protonix DVT prophylaxis Eliquis currently on hold contraindicated secondary to significant anemia Full code Plan Continue IV ceftriaxone. Cardiology consultation recommending discontinue eliquis. General Surgery consultation no plans for endoscopic evaluation hemoglobin stable and will follow up as an outpatient. Patient has received 5 units of packed red blood cells monitor CBC and transfuse blood for hemoglobin less than 7. Resume appropriate home indications Continue oral lasix Monitor electrolytes and renal function Accu-Cheks ACHS and sliding scale insulin Downgraded from ICU pending bed on the medical floor. Needs to see physical therapy and Occupational Therapy prior to discharge social work to follow-up tomorrow for discharge planning Possible DC home in the next 24 hours. The impression and plan of care has been dictated by Roro Arzola, Nurse Practitioner as directed. Dr. Samantha MD I have performed a history and physical examination and medical decision making of this patient, discussed the same with the dictator, and agree with the dictators assessment and plan as written, documented as a scribe. Based on total visit time, I have performed more than 50% of this visit. Objective - Vital Signs Vital signs: Vital Signs Temp 97.9 F 07/30/24 08:16 Pulse 79 07/30/24 08:16 Resp 18 07/30/24 08:16 BP 111/48 07/30/24 08:16 Pulse Ox 98 07/30/24 08:16 FiO2 Intake & Output 07/29/24 07/30/24 07/30/24 18:59 06:59 18:59 Intake Total 50 Output Total 0 Balance 50 Intake: IV 50 cefTRIAXone 2 gm In 50 Sodium Chloride 0.9% 50 ml @ 100 mls/hr IVPB Q24HR [facility] Rx#:[id number] Oral 0 Output: Urine 0 Other: Voiding Method Bedside Commode Bedside Commode # Voids 2 2 1 # Bowel Movements 2 - Labs CBC & Chem 7: 07/30/24 07:51 07/30/24 07:51 Labs: Abnormal Lab Results - Last 24 Hours (Table) 07/29/24 07/29/24 07/30/24 Range/Units 16:30 19:50 06:29 RBC (3.80-5.40) m/uL Hgb (11.4-16.0) gm/dL Hct (34.0-46.0) % MCH (25.0-35.0) pg MCHC (31.0-37.0) g/dL RDW (11.5-15.5) % Plt Count (150-450) k/uL Neutrophils # (1.3-7.7) k/uL Sodium (137-145) mmol/L Carbon Dioxide (22-30) mmol/L BUN (7-17) mg/dL Creatinine (0.52-1.04) mg/dL Glucose (74-99) mg/dL POC Glucose (mg/dL) 191 H 222 H 180 H (70-110) mg/dL 07/30/24 07/30/24 Range/Units 07:51 07:51 RBC 3.07 L (3.80-5.40) m/uL Hgb 7.6 L (11.4-16.0) gm/dL Hct 25.4 L (34.0-46.0) % MCH 24.8 L (25.0-35.0) pg MCHC 30.0 L (31.0-37.0) g/dL RDW 17.5 H (11.5-15.5) % Plt Count 136 L (150-450) k/uL Neutrophils # 7.8 H (1.3-7.7) k/uL Sodium 134 L (137-145) mmol/L Carbon Dioxide 21 L (22-30) mmol/L BUN 25 H (7-17) mg/dL Creatinine 1.19 H (0.52-1.04) mg/dL Glucose 156 H (74-99) mg/dL POC Glucose (mg/dL) (70-110) mg/dL Microbiology - Last 24 Hours (Table) 07/28/24 03:20 Blood Culture - Preliminary Blood Assessment and Plan Time with Patient: Less than 30
[2024-07-30 12:03] LABS: Glucose,Whole Blood 188 mg/dL (70-110)
--- NOTE | 2024-07-30 13:32 | P.PN ---
Subjective Progress Note Date: 07/30/24 CHIEF COMPLAINT: Anemia, acute blood loss HISTORY OF PRESENT ILLNESS: The patient is a 68-year-old female admitted for acute blood loss anemia, hemoglobin 4.4. Patient received multiple blood transfusions. She is now transferred to the floor. In fact, patient had a regular diet. She reports having 2 soft brown bowel movements. No bleeding. No signs of bleeding. She is tolerating diet. ROS: No reports of nausea and vomiting. No fevers or chills. No new chest pain. No productive sputum. Diabetes type 2, insulin-dependent with complications. Atrial fibrillation PHYSICAL EXAM: VITAL SIGNS: Reviewed CONSTITUTIONAL: Well developed and in no acute distress. EYES: Conjuctivae without sclera icterus. Extraocular movements grossly intact. HEAD, EARS, NOSE, THROAT: Moist buccal mucosa. Head is atraumatic, normocephalic. Hears conversational speech. No nasal drainage. RESPIRATORY: Non-labored respirations and equal bilateral excursions. CARDIOVASCULAR: Palpable 2+ radial pulses. ABDOMEN: No peritonitis. MUSCULOSKELETAL: No gross deformity of the lower extremities noted. No clubbing. No cyanosis. SKIN: Good skin turgor. Well perfused. NEUROLOGIC: Cranial nerves II through XII grossly intact. No focal or lateralizing signs. PSYCH: Appropriate affect. Alert and oriented to person, place and time. CLINICAL LABS: Reviewed. Hemoglobin stable 7.5-7.6, within 24 hours, anemia. STUDIES: CTA of the abdomen pelvis reviewed demonstrates no fluid collection along the spleen or liver or signs of acute bleeding. This is my independent interpretation. ASSESSMENT: 1. Acute bolus anemia 2. Morbid obesity excess calories, BMI 38.1. 3. Diabetes type 2, insulin-dependent with complications, diabetic nephropathy 4. Cardiomyopathy 5. Atrial fibrillation PLAN: 1. Her hemoglobin has been stable over the past 72 hours. At this time, likely acute blood loss anemia is resolved. 2. Do recommend avoiding blood thinners at this time however. 3. Diet as tolerated. 4. Stable for discharge from medically stable. Objective - Vital Signs Vital signs: Vital Signs Temp 97.9 F 07/30/24 08:16 Pulse 79 07/30/24 08:16 Resp 18 07/30/24 08:16 BP 111/48 07/30/24 08:16 Pulse Ox 98 07/30/24 08:16 FiO2 Intake & Output 07/29/24 07/30/24 07/30/24 18:59 06:59 18:59 Intake Total 50 Output Total 0 Balance 50 Intake: IV 50 cefTRIAXone 2 gm In 50 Sodium Chloride 0.9% 50 ml @ 100 mls/hr IVPB Q24HR [facility] Rx#:[id number] Oral 0 Output: Urine 0 Other: Voiding Method Bedside Commode Bedside Commode # Voids 2 2 1 # Bowel Movements 2 - Labs CBC & Chem 7: 07/30/24 07:51 07/30/24 07:51 Labs: Abnormal Lab Results - Last 24 Hours (Table) 07/29/24 07/29/24 07/30/24 Range/Units 16:30 19:50 06:29 RBC (3.80-5.40) m/uL Hgb (11.4-16.0) gm/dL Hct (34.0-46.0) % MCH (25.0-35.0) pg MCHC (31.0-37.0) g/dL RDW (11.5-15.5) % Plt Count (150-450) k/uL Neutrophils # (1.3-7.7) k/uL Sodium (137-145) mmol/L Carbon Dioxide (22-30) mmol/L BUN (7-17) mg/dL Creatinine (0.52-1.04) mg/dL Glucose (74-99) mg/dL POC Glucose (mg/dL) 191 H 222 H 180 H (70-110) mg/dL 07/30/24 07/30/24 07/30/24 Range/Units 07:51 07:51 12:02 RBC 3.07 L (3.80-5.40) m/uL Hgb 7.6 L (11.4-16.0) gm/dL Hct 25.4 L (34.0-46.0) % MCH 24.8 L (25.0-35.0) pg MCHC 30.0 L (31.0-37.0) g/dL RDW 17.5 H (11.5-15.5) % Plt Count 136 L (150-450) k/uL Neutrophils # 7.8 H (1.3-7.7) k/uL Sodium 134 L (137-145) mmol/L Carbon Dioxide 21 L (22-30) mmol/L BUN 25 H (7-17) mg/dL Creatinine 1.19 H (0.52-1.04) mg/dL Glucose 156 H (74-99) mg/dL POC Glucose (mg/dL) 188 H (70-110) mg/dL Microbiology - Last 24 Hours (Table) 07/28/24 03:20 Blood Culture - Preliminary Blood
--- NOTE | 2024-07-30 13:45 | P.PN ---
Subjective Progress Note Date: 07/30/24 This is a pleasant 68-year-old female patient presented with anemia. Initial hemoglobin 4.4 after several units of packed red blood cells currently 7.6. She remains in atrial fibrillation, rate controlled. Eliquis remains on hold. She has been evaluated by GI with no clear source of bleeding. Pulmonary is on consult for possible lung mass suspicious for malignancy. PHYSICAL EXAMINATION: HEENT: Head is atraumatic, normocephalic. Pupils equal, round. Neck is supple. There is no elevated jugular venous pressure. HEART EXAMINATION: Heart sounds are regular rate and rhythm, S1 and S2 normal. Systolic murmur CHEST EXAMINATION: Lungs reveal diminished air entry bilaterally. No chest wall tenderness is noted on palpation or with deep breathing. ABDOMEN: Soft, nontender. Bowel sounds are heard. No organomegaly noted. EXTREMITIES: 2+ peripheral pulses with evidence of peripheral edema and no calf tenderness noted. NEUROLOGIC patient is awake, alert and oriented x3. . Assessment 1 acute anemia 2 chronic atrial fibrillation, anticoagulation on hold secondary to above Plan From cardiology's perspective continue to hold Eliquis. Patient will require further workup in regards to anemia and lung mass. At this time we will follow the patient on an as-needed basis. She will follow-up with Dr. Duvall in the office. Patient may require evaluation for left atrial appendage closure device. [employer] note has been reviewed, I agree with a documented findings and plan of care. Patient was seen and examined. Objective - Vital Signs Vital signs: Vital Signs Temp 97.9 F 07/30/24 08:16 Pulse 79 07/30/24 08:16 Resp 18 07/30/24 08:16 BP 111/48 07/30/24 08:16 Pulse Ox 98 07/30/24 08:16 FiO2 Intake & Output 07/29/24 07/30/24 07/30/24 18:59 06:59 18:59 Intake Total 50 Output Total 0 Balance 50 Intake: IV 50 cefTRIAXone 2 gm In 50 Sodium Chloride 0.9% 50 ml @ 100 mls/hr IVPB Q24HR [facility] Rx#:[id number] Oral 0 Output: Urine 0 Other: Voiding Method Bedside Commode Bedside Commode # Voids 2 2 1 # Bowel Movements 2 - Labs CBC & Chem 7: 07/30/24 07:51 07/30/24 07:51 Labs: Abnormal Lab Results - Last 24 Hours (Table) 07/29/24 07/29/24 07/30/24 Range/Units 16:30 19:50 06:29 RBC (3.80-5.40) m/uL Hgb (11.4-16.0) gm/dL Hct (34.0-46.0) % MCH (25.0-35.0) pg MCHC (31.0-37.0) g/dL RDW (11.5-15.5) % Plt Count (150-450) k/uL Neutrophils # (1.3-7.7) k/uL Sodium (137-145) mmol/L Carbon Dioxide (22-30) mmol/L BUN (7-17) mg/dL Creatinine (0.52-1.04) mg/dL Glucose (74-99) mg/dL POC Glucose (mg/dL) 191 H 222 H 180 H (70-110) mg/dL 07/30/24 07/30/24 07/30/24 Range/Units 07:51 07:51 12:02 RBC 3.07 L (3.80-5.40) m/uL Hgb 7.6 L (11.4-16.0) gm/dL Hct 25.4 L (34.0-46.0) % MCH 24.8 L (25.0-35.0) pg MCHC 30.0 L (31.0-37.0) g/dL RDW 17.5 H (11.5-15.5) % Plt Count 136 L (150-450) k/uL Neutrophils # 7.8 H (1.3-7.7) k/uL Sodium 134 L (137-145) mmol/L Carbon Dioxide 21 L (22-30) mmol/L BUN 25 H (7-17) mg/dL Creatinine 1.19 H (0.52-1.04) mg/dL Glucose 156 H (74-99) mg/dL POC Glucose (mg/dL) 188 H (70-110) mg/dL Microbiology - Last 24 Hours (Table) 07/28/24 03:20 Blood Culture - Preliminary Blood
--- NOTE | 2024-07-30 14:59 | P.PN ---
Subjective Progress Note Date: 07/30/24 Patient is a 68-year-old female with past medical history significant for GI bleed, atrial fibrillation anticoagulated on Eliquis, heart failure, COPD/asthma, diabetes mellitus, DVT. Her primary care provider is Dr. Shah. Patient presented the ED last night complaining chiefly of chest pain radiating to left jaw and left arm. Associated dizziness and shortness of breath. She was found to be severely anemic on arrival. Hemoglobin is 4.4. Chest/abdomen CTA was technically suboptimal study but did not show any aortic dissection or acute traumatic vascular findings. Small left pleural effusion with associated left basilar compressive atelectasis. There is a suspicious masslike consolidation in the right lower lobe, concerning for possible malignancy. Mild to moderate diffuse subcutaneous edema in the abdomen and pelvis. Moderate amount of free fluid in the pelvis. This could be blood product. General surgery has been consulted. CBC: WBC count 9, hemoglobin 4.4, hematocrit 15.9, platelets 145. Coagulation profile PT 12.5, INR 1.2, APTT 26.3. CMP: Sodium 136, potassium 4.1, chloride 103, serum bicarb 25, BUN 27, creatinine 1.12, glucose 94. LFTs unremarkable. Troponin less than 0.012. Stool occult negative. EKG showing atrial fibrillation with controlled ventricular response, rate 80 bpm, diffuse mild ST depressions. I am evaluating this patient intensive care unit. 3 units of packed red blood cells are ordered, and she is receiving every first unit of PRBCs currently. She is resting comfortably in bed. She does become lightheaded on arising. Blood pressure is currently 132/77 mmHg, heart rhythm is atrial fibrillation with controlled ventricular response at 70 bpm, SpO2 is 100% on room air oxygen. Patient states that over the last couple months she has had very frequent bouts of liquid diarrhea. They were dark and melanotic. She was taking Pepto-Bismol at this time. Of note, on 07/21/2024 patient underwent EGD/colonoscopy with Dr. Scott. Upper endoscopy revealed mild antral gastritis, retained liquid in the stomach suggestive of diabetic gastroparesis. Colonoscopy up to the hepatic flexure revealed 5 mm sigmoid colon polyp removed with cryo. Pathology unremarkable. Following the colonoscopy, she denies any melanotic stools, hematochezia. She was continuing to have frequent bouts of diarrhea, and started taking Imodium. Since then, has not had any bowel movements in the last 3 days. She has been nauseous and has had reduced appetite. No vomiting, no hematemesis. No recent traumatic events. Abdomen does not appear particularly acute on examination. General surgery is consulted. On today's evaluation of 07/29/2024, the patient is stable on room air oxygen. The patient has received a total of 5 units of packed RBC and hemoglobin is currently up to 7.5. No evidence of any GI bleeding. No respiratory distress. The white cell count is 11.5 with a hemoglobin of 7.5 and a platelet count of 116. BUN is 27 with a creatinine of 1.2 and a sodium levels at 131. Serum iron was low at 31. The patient was seen by general surgery and obviously, no plans for any surgical intervention. The patient has no signs of any active GI bleeding at this point in time. Patient is currently on room air oxygen with a pulse ox of 98%. Fluid balance has been -500 cc over the past 24 hours. The patient is on empiric antibiotic coverage with IV Rocephin. Patient is also on Lasix 40 mg p.o. daily. Remains on IV Protonix. Anticoagulation is currently on hold. 07/30/2024, the patient has no specific complaints. She is on room air oxygen. Hemoglobin remained stable at 7.6. No evidence of any GI bleeding. Patient was seen by general surgery. She did have a 2 soft brown bowel movements. No bleeding complications. She was started on IV iron as the patient was noted to have an underlying iron deficiency. Anticoagulations is on hold. No respiratory distress. Cardiology remains on the case regarding the chronic atrial fibrillation. Objective - Vital Signs Vital signs: Vital Signs Temp 97.9 F 07/30/24 08:16 Pulse 79 07/30/24 08:16 Resp 18 07/30/24 08:16 BP 111/48 07/30/24 08:16 Pulse Ox 98 07/30/24 08:16 FiO2 Intake & Output 07/29/24 07/30/24 07/30/24 18:59 06:59 18:59 Intake Total 50 Output Total 0 Balance 50 Intake: IV 50 [id number] 2 gm In 50 Sodium Chloride 0.9% 50 ml @ 100 mls/hr IVPB Q24HR [facility] Rx#:[id number] Oral 0 Output: Urine 0 Other: Voiding Method Bedside Commode Bedside Commode # Voids 2 2 1 # Bowel Movements 2 - Exam GENERAL EXAM: Alert, 68-year-old obese female, comfortable in no apparent distress. The patient is currently on room air oxygen. HEAD: Normocephalic and atraumatic EYES: Normal reaction of pupils, equal size. NOSE: Clear with pink turbinates. THROAT: No erythema or exudates. NECK: No masses, no JVD. CHEST: No chest wall deformity. LUNGS: Equal air entry with faint expiratory wheezes heard throughout. On room air. No conversational dyspnea or accessory muscle use.. CVS: S1 and S2 normal with soft grade 2 systolic murmur, irregular rhythm. No extra heart sounds ABDOMEN: Obese abdomen, active bowel sounds, no hepatosplenomegaly, no guarding or rigidity. SPINE: No scoliosis or deformity SKIN: No rashes CENTRAL NERVOUS SYSTEM: No focal deficits, tone is normal in all 4 extremities. EXTREMITIES: There is moderate nonpitting bilateral lower extremity edema. No clubbing, or cyanosis. Peripheral pulses are intact. - Labs CBC & Chem 7: 07/30/24 07:51 07/30/24 07:51 Labs: Abnormal Lab Results - Last 24 Hours (Table) 07/29/24 07/29/24 07/30/24 Range/Units 16:30 19:50 06:29 RBC (3.80-5.40) m/uL Hgb (11.4-16.0) gm/dL Hct (34.0-46.0) % MCH (25.0-35.0) pg MCHC (31.0-37.0) g/dL RDW (11.5-15.5) % Plt Count (150-450) k/uL Neutrophils # (1.3-7.7) k/uL Sodium (137-145) mmol/L Carbon Dioxide (22-30) mmol/L BUN (7-17) mg/dL Creatinine (0.52-1.04) mg/dL Glucose (74-99) mg/dL POC Glucose (mg/dL) 191 H 222 H 180 H (70-110) mg/dL 07/30/24 07/30/24 Range/Units 07:51 07:51 RBC 3.07 L (3.80-5.40) m/uL Hgb 7.6 L (11.4-16.0) gm/dL Hct 25.4 L (34.0-46.0) % MCH 24.8 L (25.0-35.0) pg MCHC 30.0 L (31.0-37.0) g/dL RDW 17.5 H (11.5-15.5) % Plt Count 136 L (150-450) k/uL Neutrophils # 7.8 H (1.3-7.7) k/uL Sodium 134 L (137-145) mmol/L Carbon Dioxide 21 L (22-30) mmol/L BUN 25 H (7-17) mg/dL Creatinine 1.19 H (0.52-1.04) mg/dL Glucose 156 H (74-99) mg/dL POC Glucose (mg/dL) (70-110) mg/dL Microbiology - Last 24 Hours (Table) 07/28/24 03:20 Blood Culture - Preliminary Blood Assessment and Plan Assessment: Symptomatic anemia, hemoglobin currently 4.4 g/dL, 1/3 PRBCs is infusing at the moment. Chest/abdomen CTA was technically suboptimal study but did not show any aortic dissection or acute traumatic vascular findings. Small left pleural effusion with associated left basilar compressive atelectasis. There is a suspicious masslike consolidation in the right lower lobe. Mild to moderate d iffuse subcutaneous edema in the abdomen and pelvis. Moderate amount of free fluid in the pelvis. General surgical consultation was done and the patient received a total of 5 units of packed RBC and the hemoglobin is stable at 7.6. General surgery is on the case. No bleeding complications. Started on IV iron. Iron deficiency anemia, serum iron is down to 31, started on IV iron. Atrial fibrillation with controlled ventricular response, normally anticoagulated on Eliquis on an outpatient basis, which is currently on hold History of GI bleeding, Recent EGD/colonoscopy 07/21/[address] Scott. Upper endoscopy revealed mild antral gastritis, retained liquid in the stomach suggestive of diabetic gastroparesis. Colonoscopy up to the hepatic flexure revealed 5 mm sigmoid colon polyp removed with cryo. Pathology unremarkable for malignancy. Chest pain, rule out possible type II [place] Acute on chronic dyspnea Suspicious right lower lobe masslike consolidation measuring 4 x 3.1 cm, this was not present on the previous CAT scan of the abdomen and pelvis that was done 2 months ago. This is likely an atelectatic area/representing a pseudotumor. Malignancy is highly doubtful Chronic obstructive pulmonary disease Current ongoing tobacco dependence, with over [id number] history History of heart failure with preserved ejection fraction History of hyperlipidemia Hypothyroidism Diabetes mellitus type 2, insulin-dependent CKD stage III History of DVT Thrombocytopenia Obesity, with a BMI of 35.6 kg/m Plan: No active bleeding and hemoglobin stable Clinically stable on room air oxygen Trend serial H&H Eliquis is on hold General Surgery is on the case Stool for fecal occult blood is negative Vitals have remained stable She has a component of COPD. I reviewed the CAT scan of the chest and there is a pseudotumor in the right lower lobe that was absent on a recent CAT scan of the abdomen that was done in May 2024 which clearly shows the right lung base that was essentially clear and the left lung base was also free of any pleural fluid. There is development of atelectasis/left-sided pleural effusion on the follow-up CT of the chest that was done at time of admission Continue Lasix patient is also started on empiric antibiotic coverage with IV Rocephin. DuoNeb nebulized treatments [id number]. IV iron replacement IV Protonix. Patient was transferred out of the intensive care yesterday and the patient is currently in the medical floor.
[2024-07-30] MEDS: ONDANSETRON ODT 4 MG TAB PO PRN (15:49)
[2024-07-30 17:00] LABS: Glucose,Whole Blood 197 mg/dL (70-110)
[2024-07-30] MEDS: ONDANSETRON 4 MG/2 ML VIAL IVP PRN (18:10)
[2024-07-30 21:32] LABS: Glucose,Whole Blood 203 mg/dL (70-110)
[2024-07-30] MEDS: INSULIN NPH 100 UNIT/ML 10 ML VIAL SQ SCH (21:50)
[2024-07-31 06:21] LABS: Glucose,Whole Blood 146 mg/dL (70-110)
[2024-07-31 07:38] VITALS: RESP 18
[2024-07-31 09:59] LABS: Basophils # (A) 0.05 X 10*3/uL (0.00-0.10); Basophils % (A) 0.5 %; Eosinophils # (A) 0.09 X 10*3/uL (0.04-0.35); HCT 25.9 % (37.2-46.3); HGB 7.3 g/dL (12.0-15.0); Lymphocytes # (A) 1.29 X 10*3/uL (0.90-5.00); Lymphocytes % (A) 13.8 %; MCH 23.7 pg (27.0-32.0); MCHC 28.2 g/dL (32.0-37.0); MCV 84.1 FL (80.0-97.0); Mean Platelet Volume 11.3 FL (9.5-12.2); Monocytes # (A) 0.61 X 10*3/uL (0.20-1.00); Monocytes % (A) 6.5 %; NRBC Per 100 WBC 0 X 10*3/uL (0.00-0.01); Neutrophils # (A) 7.22 X 10*3/uL (1.80-7.70); Neutrophils % (A) 77.6 %; Platelet Count 137 X 10*3/uL (140-440); RBC 3.08 X 10*6/uL (4.10-5.20); RDW 18.8 % (11.5-14.5); WBC 9.32 X 10*3/uL (4.50-10.00)
[2024-07-31 10:08] LABS: BUN/Creat Ratio 17.92 Ratio (12.00-20.00); Blood Urea Nitrogen 23.3 mg/dL (9.0-27.0); Calcium 8.6 mg/dL (8.7-10.3); Carbon Dioxide 23.5 mmol/L (21.6-31.8); Chloride 104 mmol/L (96-109); Glucose 130 mg/dL (70-110); Magnesium 1.6 mg/dL (1.5-2.4); Potassium 4.3 mmol/L (3.5-5.5); Sodium 139 mmol/L (135-145)
[2024-07-31 11:34] LABS: Glucose,Whole Blood 168 mg/dL (70-110)
[2024-07-31] MEDS: MAGNESIUM SULFATE-D5W PMX 1 GM in DEXTROSE/WATER 1 100ML.BAG IVPB SCH (12:07)
[2024-07-31 15:35] VITALS: BP 129/55; PULSE 64; TEMP 98.2
[2024-07-31 16:36] LABS: Glucose,Whole Blood 201 mg/dL (70-110)
--- NOTE | 2024-07-31 18:30 | P.PN ---
Subjective Progress Note Date: 07/31/24 Patient is a 68-year-old female with past medical history significant for GI bleed, atrial fibrillation anticoagulated on Eliquis, heart failure, COPD/asthma, diabetes mellitus, DVT. Her primary care provider is Dr. Shah. Patient presented the ED last night complaining chiefly of chest pain radiating to left jaw and left arm. Associated dizziness and shortness of breath. She was found to be severely anemic on arrival. Hemoglobin is 4.4. Chest/abdomen CTA was technically suboptimal study but did not show any aortic dissection or acute traumatic vascular findings. Small left pleural effusion with associated left basilar compressive atelectasis. There is a suspicious masslike consolidation in the right lower lobe, concerning for possible malignancy. Mild to moderate diffuse subcutaneous edema in the abdomen and pelvis. Moderate amount of free fluid in the pelvis. This could be blood product. General surgery has been consulted. CBC: WBC count 9, hemoglobin 4.4, hematocrit 15.9, platelets 145. Coagulation profile PT 12.5, INR 1.2, APTT 26.3. CMP: Sodium 136, potassium 4.1, chloride 103, serum bicarb 25, BUN 27, creatinine 1.12, glucose 94. LFTs unremarkable. Troponin less than 0.012. Stool occult negative. EKG showing atrial fibrillation with controlled ventricular response, rate 80 bpm, diffuse mild ST depressions. I am evaluating this patient intensive care unit. 3 units of packed red blood cells are ordered, and she is receiving every first unit of PRBCs currently. She is resting comfortably in bed. She does become lightheaded on arising. Blood pressure is currently 132/77 mmHg, heart rhythm is atrial fibrillation with controlled ventricular response at 70 bpm, SpO2 is 100% on room air oxygen. Patient states that over the last couple months she has had very frequent bouts of liquid diarrhea. They were dark and melanotic. She was taking Pepto-Bismol at this time. Of note, on 07/21/2024 patient underwent EGD/colonoscopy with Dr. Scott. Upper endoscopy revealed mild antral gastritis, retained liquid in the stomach suggestive of diabetic gastroparesis. Colonoscopy up to the hepatic flexure revealed 5 mm sigmoid colon polyp removed with cryo. Pathology unremarkable. Following the colonoscopy, she denies any melanotic stools, hematochezia. She was continuing to have frequent bouts of diarrhea, and started taking Imodium. Since then, has not had any bowel movements in the last 3 days. She has been nauseous and has had reduced appetite. No vomiting, no hematemesis. No recent traumatic events. Abdomen does not appear particularly acute on examination. General surgery is consulted. On today's evaluation of 07/29/2024, the patient is stable on room air oxygen. The patient has received a total of 5 units of packed RBC and hemoglobin is currently up to 7.5. No evidence of any GI bleeding. No respiratory distress. The white cell count is 11.5 with a hemoglobin of 7.5 and a platelet count of 116. BUN is 27 with a creatinine of 1.2 and a sodium levels at 131. Serum iron was low at 31. The patient was seen by general surgery and obviously, no plans for any surgical intervention. The patient has no signs of any active GI bleeding at this point in time. Patient is currently on room air oxygen with a pulse ox of 98%. Fluid balance has been -500 cc over the past 24 hours. The patient is on empiric antibiotic coverage with IV Rocephin. Patient is also on Lasix 40 mg p.o. daily. Remains on IV Protonix. Anticoagulation is currently on hold. 07/30/2024, the patient has no specific complaints. She is on room air oxygen. Hemoglobin remained stable at 7.6. No evidence of any GI bleeding. Patient was seen by general surgery. She did have a 2 soft brown bowel movements. No bleeding complications. She was started on IV iron as the patient was noted to have an underlying iron deficiency. Anticoagulations is on hold. No respiratory distress. Cardiology remains on the case regarding the chronic atrial fibrillation. On 07/31/2024, the patient's hemoglobin remained stable at 7.3. No new complaints. She remains on room air oxygen with a pulse ox of 98%. She remains atrial fibrillation. Hemodynamically stable. Remains on IV Rocephin as an empiric antibiotic coverage. Remains on IV Protonix. No other significant events overnight. Objective - Vital Signs Vital signs: Vital Signs Temp 97.7 F 07/31/24 07:37 Pulse 85 07/31/24 09:14 Resp 18 07/31/24 07:37 BP 144/76 07/31/24 07:37 Pulse Ox 97 07/31/24 07:37 FiO2 Intake & Output 07/30/24 07/31/24 07/31/24 18:59 06:59 18:59 Output Total 700 Balance -700 Output: Urine 700 Other: Voiding Method Bedside Commode # Voids 1 # Bowel Movements 1 - Exam GENERAL EXAM: Alert, 68-year-old obese female, comfortable in no apparent distress. The patient is currently on room air oxygen. HEAD: Normocephalic and atraumatic EYES: Normal reaction of pupils, equal size. NOSE: Clear with pink turbinates. THROAT: No erythema or exudates. NECK: No masses, no JVD. CHEST: No chest wall deformity. LUNGS: Equal air entry with faint expiratory wheezes heard throughout. On room air. No conversational dyspnea or accessory muscle use.. CVS: S1 and S2 normal with soft grade 2 systolic murmur, irregular rhythm. No extra heart sounds ABDOMEN: Obese abdomen, active bowel sounds, no hepatosplenomegaly, no guarding or rigidity. SPINE: No scoliosis or deformity SKIN: No rashes CENTRAL NERVOUS SYSTEM: No focal deficits, tone is normal in all 4 extremities. EXTREMITIES: There is moderate nonpitting bilateral lower extremity edema. No clubbing, or cyanosis. Peripheral pulses are intact. - Labs CBC & Chem 7: 07/31/24 02:58 07/31/24 02:58 Labs: Abnormal Lab Results - Last 24 Hours (Table) 07/30/24 07/30/24 07/31/24 Range/Units 16:59 21:31 02:58 RBC 3.08 L (4.10-5.20) X 10*6/uL Hgb 7.3 L (12.0-15.0) g/dL Hct 25.9 L (37.2-46.3) % MCH 23.7 L (27.0-32.0) pg MCHC 28.2 L (32.0-37.0) g/dL RDW 18.8 H (11.5-14.5) % Plt Count 137 L (140-440) X 10*3/uL Immature Gran # 0.06 H (0.00-0.04) X 10*3/uL Est GFR (CKD-EPI) (>=60) Glucose (70-110) mg/dL POC Glucose (mg/dL) 197 H 203 H (70-110) mg/dL Calcium (8.7-10.3) mg/dL 07/31/24 07/31/24 07/31/24 Range/Units 02:58 06:20 11:31 RBC (4.10-5.20) X 10*6/uL Hgb (12.0-15.0) g/dL Hct (37.2-46.3) % MCH (27.0-32.0) pg MCHC (32.0-37.0) g/dL RDW (11.5-14.5) % Plt Count (140-440) X 10*3/uL Immature Gran # (0.00-0.04) X 10*3/uL Est GFR (CKD-EPI) 45 L (>=60) Glucose 130 H (70-110) mg/dL POC Glucose (mg/dL) 146 H 168 H (70-110) mg/dL Calcium 8.6 L (8.7-10.3) mg/dL Microbiology - Last 24 Hours (Table) 07/28/24 03:20 Blood Culture - Preliminary Blood Assessment and Plan Assessment: Symptomatic anemia, hemoglobin currently 4.4 g/dL, 1/3 PRBCs is infusing at the moment. Chest/abdomen CTA was technically suboptimal study but did not show any aortic dissection or acute traumatic vascular findings. Small left pleural effusion with associated left basilar compressive atelectasis. There is a suspicious masslike consolidation in the right lower lobe. Mild to moderate diffuse subcutaneous edema in the abdomen and pelvis. Moderate amount of free fluid in the pelvis. General surgical consultation was done and the patient received a total of 5 units of packed RBC and the hemoglobin is stable at 7.6. General surgery is on the case. No bleeding complications. Started on IV iron. Iron deficiency anemia, serum iron is down to 31, started on IV iron. Atrial fibrillation with controlled ventricular response, normally anticoagulated on Eliquis on an outpatient basis, which is currently on hold History of GI bleeding, Recent EGD/colonoscopy 07/21/[address] Scott. Upper endoscopy revealed mild antral gastritis, retained liquid in the stomach suggestive of diabetic gastroparesis. Colonoscopy up to the hepatic flexure revealed 5 mm sigmoid colon polyp removed with cryo. Pathology unremarkable for malignancy. Chest pain, rule out possible type II [place] Acute on chronic dyspnea Suspicious right lower lobe masslike consolidation measuring 4 x 3.1 cm, this was not present on the previous CAT scan of the abdomen and pelvis that was done 2 months ago. This is likely an atelectatic area/representing a pseudotumor. Malignancy is highly doubtful Chronic obstructive pulmonary disease Current ongoing tobacco dependence, with over [id number] history History of heart failure with preserved ejection fraction History of hyperlipidemia Hypothyroidism Diabetes mellitus type 2, insulin-dependent CKD stage III History of DVT Thrombocytopenia Obesity, with a BMI of 35.6 kg/m Plan: No active bleeding and hemoglobin stable, hemoglobin is at 7.3 Clinically stable on room air oxygen Eliquis is on hold General Surgery is on the case Stool for fecal occult blood is negative Vitals have remained stable She has a component of COPD. I reviewed the CAT scan of the chest and there is a pseudotumor in the right lower lobe that was absent on a recent CAT scan of the abdomen that was done in May 2024 which clearly shows the right lung base that was essentially clear and the left lung base was also free of any pleural fluid. There is development of atelectasis/left-sided pleural effusion on the follow-up CT of the chest that was done at time of admission Continue Lasix patient is also started on empiric antibiotic coverage with IV Rocephin. DuoNeb nebulized treatments [id number]. IV iron replacement IV Protonix. Patient was transferred out of the intensive care yesterday and the patient is currently in the medical floor.
--- NOTE | 2024-07-31 21:12 | P.PN ---
Subjective Progress Note Date: 07/31/24 CHIEF COMPLAINT: Anemia, acute blood loss HISTORY OF PRESENT ILLNESS: The patient is a 68-year-old female admitted for acute blood loss anemia, hemoglobin 4.4. Hemoglobin continues to be elevated over 7.0. Patient complains of new nausea which developed last night. She also reports epigastric abdominal pain. She is on Zofran 4 mg as needed. No reports of blood in stools. ROS: No fevers or chills. No new chest pain. No productive sputum. Diabetes type 2, insulin-dependent with complications. PHYSICAL EXAM: VITAL SIGNS: Reviewed CONSTITUTIONAL: Well developed and in miild distress, nausea. EYES: Conjuctivae without sclera icterus. Extraocular movements grossly intact. HEAD, EARS, NOSE, THROAT: Moist buccal mucosa. Head is atraumatic, normocephalic. Hears conversational speech. No nasal drainage. RESPIRATORY: Non-labored respirations and equal bilateral excursions. CARDIOVASCULAR: Palpable 2+ radial pulses. ABDOMEN: No peritonitis. Obese. Mild tenderness epigastrium. MUSCULOSKELETAL: No gross deformity of the lower extremities noted. No clubbing. No cyanosis. SKIN: Good skin turgor. Well perfused. NEUROLOGIC: Cranial nerves II through XII grossly intact. No focal or lateralizing signs. PSYCH: Appropriate affect. Alert and oriented to person, place and time. CLINICAL LABS: Reviewed. Hemoglobin with anemia, 7.3. Magnesium low 1.6. STUDIES: CTA of the abdomen pelvis with dilated intrahepatic duct. This is my independent interpretation. ASSESSMENT: 1. Acute bolus anemia 2. Morbid obesity excess calories, BMI 38.1. 3. Diabetes type 2, insulin-dependent with complications, diabetic nephropathy 4. Cardiomyopathy 5. Atrial fibrillation 6. New nausea with vomiting and epigastric pain 7. Hypomagnesia PLAN: 1. Recommend adjust diet to low fiber diet. 2. Low magnesium levels may also contribute to nausea. Regular periods. 3. May benefit from additional diagnostic studies due to new nausea with vomiting. Will obtain abdominal x-rays. Objective - Vital Signs Vital signs: Vital Signs Temp 98.2 F 07/31/24 14:00 Pulse 64 07/31/24 14:00 Resp 18 07/31/24 14:00 BP 129/55 07/31/24 14:00 Pulse Ox 98 07/31/24 14:00 FiO2 Intake & Output 07/31/24 07/31/24 08/01/24 06:59 18:59 06:59 Output Total 700 Balance -700 Output: Urine 700 Other: Voiding Method Bedside Commode # Voids 5 - Labs CBC & Chem 7: 07/31/24 02:58 07/31/24 02:58 Labs: Abnormal Lab Results - Last 24 Hours (Table) 07/30/24 07/31/24 07/31/24 Range/Units 21:31 02:58 02:58 RBC 3.08 L (4.10-5.20) X 10*6/uL Hgb 7.3 L (12.0-15.0) g/dL Hct 25.9 L (37.2-46.3) % MCH 23.7 L (27.0-32.0) pg MCHC 28.2 L (32.0-37.0) g/dL RDW 18.8 H (11.5-14.5) % Plt Count 137 L (140-440) X 10*3/uL Immature Gran # 0.06 H (0.00-0.04) X 10*3/uL Est GFR (CKD-EPI) 45 L (>=60) Glucose 130 H (70-110) mg/dL POC Glucose (mg/dL) 203 H (70-110) mg/dL Calcium 8.6 L (8.7-10.3) mg/dL 07/31/24 07/31/24 07/31/24 Range/Units 06:20 11:31 16:35 RBC (4.10-5.20) X 10*6/uL Hgb (12.0-15.0) g/dL Hct (37.2-46.3) % MCH (27.0-32.0) pg MCHC (32.0-37.0) g/dL RDW (11.5-14.5) % Plt Count (140-440) X 10*3/uL Immature Gran # (0.00-0.04) X 10*3/uL Est GFR (CKD-EPI) (>=60) Glucose (70-110) mg/dL POC Glucose (mg/dL) 146 H 168 H 201 H (70-110) mg/dL Calcium (8.7-10.3) mg/dL Microbiology - Last 24 Hours (Table) 07/28/24 03:20 Blood Culture - Preliminary Blood
[2024-07-31] MEDS ORDERED: MAGNESIUM SULFATE-D5W PMX 1 GM in DEXTROSE/WATER 1 100ML.BAG IVPB SCH (21:30)
--- NOTE | 2024-08-01 20:57 | P.DS ---
Providers Date of admission: 07/28/24 01:55 Attending physician: Eliu Anguiano Consults: 07/28/24 01:50 Consult Physician Routine Consulting Provider: Franc Craig Consult Reason/Comments: Chest pain Do you want consulting provider notified?: Yes, Notify in am Consult Physician Stat Consulting Provider: Radha Rae Consult Reason/Comments: Critical Care Do you want consulting provider notified?: Yes, Notify in am Consult Physician Urgent Consulting Provider: Jordan Goff Consult Reason/Comments: Intraabdominal Free fluid Do you want consulting provider notified?: Already Contacted Primary care physician: Gabriel Vera [facility] Course: Final Diagnosis Microcytic anemia symptomatic with hemoglobin of 4.4, most recent hemoglobin 9.9 in May of this year. Status post 5 units of PRBC. Hemoglobin of 7.5. Anemia exacerbated by eliquis. Recent endoscopy one week ago. Iron deficiency anemia. History of atrial fibrillation, rate controlled anticoag with Eliquis which is currently on hold Acute on chronic heart failure, chronic diastolic dysfunction ejection fraction in the past. IV lasix x 1. Chest pain, Type II NV from the anemia. Resolved. Recent diagnosis of gastritis/diabetic gastroparesis on EGD. Hx of GI bleeding in the past due to the recurrence of suspected GI bleeding post EGD/Colonoscopy cardiology has recommending to discontinue anticoagulation. Masslike consolidation right lower lobe concern for mass/neoplasm vs. other ; possible pseudotumor per pulmonary as this was not evidence on CT scan done 2 months ago. CKD stage III History of COPD/asthma with no acute exacerbation Diabetes mellitus type 2 Hypothyroidism History of DVT in the past Chronic nicotine use Obesity GI prophylaxis with IV Protonix DVT prophylaxis Eliquis currently on hold contraindicated secondary to significant anemia Discharge Disposition Patient is stable for discharge home. Patient to continue oral ceftin for 4 more days. Patient to continue on oral protonix 40 mg daily. Patient to remain off eliquis on discharge. Repeat blood work in 2 to 3 days. Follow ups include Dr CRYSTAL Degroot, Dr Rae, Dr Goff and Dr. Vera. Hospital Course This is a 68-year-old female with medical history significant for atrial fibrillation anticoag with Eliquis, DVT, heart failure, COPD, diabetes mellitus. Patient comes in for chest pain radiating to the left arm/leg and jaw concern for aortic dissection. Is a sharp sensation. Does have history of coronary artery disease as well. She was given aspirin and nitro from EMS. Patient also reports longstanding history of diarrhea. Had an EGD colonoscopy done 7 days ago for this and had findings of mild antral gastritis with retained liquid in the stomach suggestive of diabetic gastroparesis. Had a 5 mm sigmoid colon polyp that was removed with cold biopsy and the rest of the colon was normal. Patient does report that with her bowel prep she had black tarry stool initially that had cleared up by the end of the prep. She is reporting generalized abdominal pain worse in the epigstric region. Initial blood work reveals hemoglobin of 4.4, hcg 15.9, sodium 136, BUN 27, creatinine 1.12, troponin negative. Admitted for symptomatic anemia. Patient ordered to receive 3 units of packed red blood cells. Hemeoccult has been negative and patient has no reports of bloody emesis, coffee ground emesis, or blood in the stool. Chest x-ray shows CHF exacerbation and fluid overload state. Patient today abdomen chest CT angiography which reveals no aortic dissection or acute traumatic vesicular finding clearly seen. There is a small left pleural effusion with associated left basilar compressive atelectasis. There is a suspicious masslike consolidation in the right lower lobe underlying mass or neoplasm not excluded. Consider follow-up with PET/CT to further evaluate. There is a mild to moderate diffuse subcutaneous edema in the abdomen and pelvis moderate mount of free fluid in the pelvis. Patient was admitted to the hospital with consults placed to general surgery and pulmonary. She is admitted to the ICU. Received 5 units total of PRBC yesterday with hemoglobin 7.8 and 7.6. No signs of active bleeding and no plans for endoscopy. General surgery felt the acute GI bleeding possibly from the mesentery or capilaries as patient had recent polypectomy. Cardiology recommends to discontinue eliquis at this time. Patient is fatigued but overall feeling improved since admission. No further reports of chest pain. She is mainly wearing the oxygen for comfort. General surgery and cardiology have cleared her for discharge. Patient is evaluated in the medical floor transferred out of the intensive care unit. Currently sitting up on the edge of the bed she feels significantly short of breath and feels like she may need a physical therapy evaluation before discharge home. She was a 1 person assist up to the bedside commode and was short of breath with minimal activity. She has been currently on room air at this time. No signs of active bleeding at this time hemoglobin remained stable at 7.5 today. She continues on IV iron for 3 days total. She is on IV ceftriaxone. PT has cleared her for discharge home. She completed 3 days of IV iron. Had multiple episodes of diarrhea. Nonbloody. C.Dif negative. Hemoglobin 7.3. Feels much better wants to discharge home. Please see medication reconciliation for a list of current medications. Thank you for allowing us to participate in the care of this patient. The impression and plan of care has been dictated by Roro Arzola, Nurse Practitioner as directed. Dr. Samantha MD I have performed a history and physical examination and medical decision making of this patient, discussed the same with the dictator, and agree with the dictators assessment and plan as written, documented as a scribe. Based on total visit time, I have performed more than 50% of this visit. Patient Condition at Discharge: Fair Plan - Discharge Summary New Discharge Prescriptions: New cefuroxime axetiL [Ceftin] 500 mg PO BID 4 Days #8 tab Pantoprazole [Protonix] 40 mg PO DAILY #30 tab Continue HYDROcodone/APAP 10-325MG [[place] 10-325] 1 tab PO Q6H PRN PRN Reason: Pain ALPRAZolam [Xanax] 1 mg PO QID PRN PRN Reason: Anxiety Furosemide [Lasix] 40 mg PO DAILY Digoxin 250 mcg PO DAILY Insulin NPH Human Isophane [humuLIN N] 30 unit SQ DAILY INSULIN LISPRO (HumaLOG) [humaLOG] 20 units SQ TID-W/MEALS Ondansetron Odt [Zofran ODT] 4 mg PO Q8HR PRN #30 tab PRN Reason: Nausea Promethazine [Phenergan] 25 mg PO Q6HR PRN PRN Reason: Nausea Metoprolol Succinate (ER) [Toprol XL] 25 mg PO BID Levothyroxine Sodium [Synthroid] 100 mcg PO DAILY Albuterol Inhaler [Ventolin Hfa Inhaler] 2 puff INHALATION RT-QID PRN PRN Reason: Shortness Of Breath Discontinued Apixaban [Eliquis] 5 mg PO BID #60 tab Discharge Medication List ALPRAZolam [Xanax] 1 mg PO QID PRN 01/06/18 [History] Furosemide [Lasix] 40 mg PO DAILY 01/06/18 [History] HYDROcodone/APAP 10-325MG [[place] 10-325] 1 tab PO Q6H PRN 01/06/18 [History] Digoxin 250 mcg PO DAILY 02/28/19 [History] Insulin NPH Human Isophane [humuLIN N] 30 unit SQ DAILY 07/25/21 [History] Metoprolol Succinate (ER) [Toprol XL] 25 mg PO BID 04/06/22 [History] Albuterol Inhaler [Ventolin Hfa Inhaler] 2 puff INHALATION RT-QID PRN 05/19/24 [History] INSULIN LISPRO (HumaLOG) [humaLOG] 20 units SQ TID-W/MEALS 05/19/24 [History] Levothyroxine Sodium [Synthroid] 100 mcg PO DAILY 05/19/24 [History] Ondansetron Odt [Zofran ODT] 4 mg PO Q8HR PRN #30 tab 05/21/24 [Rx] Promethazine [Phenergan] 25 mg PO Q6HR PRN 07/28/24 [History] Pantoprazole [Protonix] 40 mg PO DAILY #30 tab 07/29/24 [Rx] cefuroxime axetiL [Ceftin] 500 mg PO BID 4 Days #8 tab 07/29/24 [Rx] Follow up Appointment(s)/Referral(s): Matthew Degroot MD [STAFF PHYSICIAN] - 1 Week (Office closed. Please call Saturday for your appointment.) Gabriel Vera [Primary Care Provider] - 1-2 days Radha Rae MD [STAFF PHYSICIAN] - 1 Week Jordan Goff MD [STAFF PHYSICIAN] - 1 Week (Please call office Saturday for your appointment) Ambulatory/Diagnostic Orders: Basic Metabolic Panel [LAB.AMB] Time Frame: 3 Days, Location: None Selected Complete Blood Count w/diff [LAB.AMB] Time Frame: 3 Days, Location: None Selected Miscellaneous Lab Order [LAB.AMB] Time Frame: 3 Days, Location: None Selected Activity/Diet/Wound Care/Special Instructions: Discontinue eliquis on discharge From cardiology's perspective continue to hold Eliquis. Patient will require further workup in regards to anemia and lung mass. At this time we will follow the patient on an as-needed basis. She will follow-up with Dr. Duvall in the office. Patient may require evaluation for left atrial appendage closure device. Follow up with Dr Gabriel Vera in 1 to 2 days. Repeat labs in 2 to 3 days to monitor hemoglobin and electrolytes. Discharge Disposition: HOME SELF-CARE
== END 2024-07-31 20:50 | disposition home or self-care (01) | DRG 377 ==
LOC: EC 21:27 → 2SICU 07-28 01:55 → 4SSUR 07-30 00:42
PROVIDERS: ADMIT Hospitalist; ATTEND Hospitalist
PROC: 30233N1 Transfusion of Nonautologous Red Blood Cells into Peripheral Vein, Percutaneous Approach (ICD-10-PCS; principal; 2024-07-28)
DX: K92.2 Gastrointestinal hemorrhage, unspecified (principal); I21.A1 Myocardial infarction type 2; I50.33 Acute on chronic diastolic (congestive) heart failure; I13.0 Hypertensive heart and chronic kidney disease with heart failure and stage 1 through stage 4 chronic kidney disease, or unspecified chronic kidney disease; D62 Acute posthemorrhagic anemia; I48.20 Chronic atrial fibrillation, unspecified; I42.9 Cardiomyopathy, unspecified; E66.01 Morbid (severe) obesity due to excess calories; N18.30 Chronic kidney disease, stage 3 unspecified; F17.210 Nicotine dependence, cigarettes, uncomplicated; I25.10 Atherosclerotic heart disease of native coronary artery without angina pectoris; I27.20 Pulmonary hypertension, unspecified; J44.89 Other specified chronic obstructive pulmonary disease; D69.6 Thrombocytopenia, unspecified; E03.9 Hypothyroidism, unspecified; E11.22 Type 2 diabetes mellitus with diabetic chronic kidney disease; E78.5 Hyperlipidemia, unspecified; E83.42 Hypomagnesemia; F41.9 Anxiety disorder, unspecified; K31.84 Gastroparesis; K29.70 Gastritis, unspecified, without bleeding; K21.9 Gastro-esophageal reflux disease without esophagitis; E11.43 Type 2 diabetes mellitus with diabetic autonomic (poly)neuropathy; Z68.38 Body mass index [BMI] 38.0-38.9, adult; Z79.01 Long term (current) use of anticoagulants; Z79.4 Long term (current) use of insulin; Z79.890 Hormone replacement therapy; Z79.899 Other long term (current) drug therapy; Z86.718 Personal history of other venous thrombosis and embolism; Z86.0100 Personal history of colon polyps, unspecified
CPT/HCPCS: 36415; 36430; 71046; 71275; 74175; 80048; 80053; 82272; 82728; 83036; 83540; 83550; 83735; 83880; 84484; 85025; 85027; 85610; 85730; 86850; 86900; 86901; 86920; 87040; 87324; 93005; 93306; 94640; 96361; 96374; 96375; 96376; 99285